=== PATIENT | female | born 1955 | race Caucasian/White ===

== ENCOUNTER 2017-10-21 10:31 | Emergency (ER) | payer OTHER ==
[~2017-10-21] VITALS: Ht 170.2 cm; Wt 77.1 kg
[~2017-10-21 10:31] MED LIST: ACET325UDC PO; CVS DISPOSABLE399 ML PR; GLYCAS PR; HEMOTC PR; JEVITY PT; LEVSOD125 PO; LORA2 PO; Milk Of Ma400 MG/5 M PO; POLY17UD PO; POTA20LUD PO; POTASSIUM PT; REMEDY ANTIFUN; TERB250 PO; TOLN45 TOP; TRAZ50 PO; Triple Antibio1 EACH TP; ZINCODVICR TOP
[2017-10-21] MEDS ORDERED: RISP.5 PO (11:05)
== END 2017-10-21 13:09 | disposition home or self-care (01) ==
LOC: ER 10:31
DX: K94.23 Gastrostomy malfunction (principal); E03.9 Hypothyroidism, unspecified; D64.9 Anemia, unspecified
CPT/HCPCS: 43760; 74018; 99283; Q9963

== ENCOUNTER 2018-01-10 20:22 | Emergency (ER) | payer OTHER ==
[~2018-01-10] VITALS: Ht 162.6 cm; Wt 104.3 kg
[~2018-01-10 20:22] MED LIST changes: +RISP.5 PO
== END 2018-01-11 01:00 | disposition home or self-care (01) ==
LOC: ER 20:22
DX: K94.23 Gastrostomy malfunction (principal); Z88.8 Allergy status to other drugs, medicaments and biological substances; Z79.899 Other long term (current) drug therapy; E03.9 Hypothyroidism, unspecified; D64.9 Anemia, unspecified
CPT/HCPCS: 99282

== ENCOUNTER 2018-07-07 16:05 | Emergency (ER) | payer OTHER ==
[~2018-07-07] VITALS: Ht 162.6 cm; Wt 89.4 kg
== END 2018-07-07 20:58 | disposition home or self-care (01) ==
LOC: ER 16:05
DX: Z46.59 Encounter for fitting and adjustment of other gastrointestinal appliance and device (principal); E03.9 Hypothyroidism, unspecified
CPT/HCPCS: 43762; 49465; 99283-25; Q9963

== ENCOUNTER 2018-12-14 09:46 | Observation (INO) | payer OTHER ==
[~2018-12-14] VITALS: Ht 152.4 cm; Wt 77.1 kg
[~2018-12-14 09:46] MED LIST changes: -ACET325UDC PO; -CVS DISPOSABLE399 ML PR; -GLYCAS PR; -HEMOTC PR; -LEVSOD125 PO; -LORA2 PO; -Milk Of Ma400 MG/5 M PO; -POLY17UD PO; -POTASSIUM PT; -RISP.5 PO; -TOLN45 TOP; -TRAZ50 PO; -Triple Antibio1 EACH TP; -ZINCODVICR TOP
[2018-12-14] MEDS ORDERED: Synthroid88 MCG PT (14:58)
[2018-12-14] MEDS ORDERED: MIRALAX17 GM PT (14:59)
[2018-12-14] MEDS ORDERED: LORA.5 PT (14:59)
[2018-12-14] MEDS ORDERED: TRAZ100 PT (14:59)
[2018-12-14] MEDS ORDERED: ACET500 PT (15:00)
[2018-12-14] MEDS ORDERED: Milk Of Ma400 MG/5 M PT (15:03)
[2018-12-14] MEDS ORDERED: Potassium20 MEQ/11 PT (15:03)
[2018-12-14] MEDS ORDERED: CVS DISPOSABLE399 ML PR (15:04)
[2018-12-14] MEDS ORDERED: Adult Glycerin1 EACH PR (15:04)
[2018-12-14] MEDS ORDERED: SKIN PROTECTAN113 GM TOP (15:07)
[2018-12-14] MEDS ORDERED: Triple Antibio1 EACH TOP (15:08)
[2018-12-14] MEDS ORDERED: Preparation H C26 GM TOP (15:09)
[2018-12-14] MEDS ORDERED: RISP.5 PT (15:10)
[2018-12-14] MEDS ORDERED: RISP1 PT (15:11)
[2018-12-14] MEDS ORDERED: ATHLETE S FOOT TOP (15:11)
[2018-12-14] MEDS ORDERED: ARTIFICIAL TEA1 EACH BOTHEYES (15:16)
[2018-12-14] MEDS ORDERED: Tussin100 MG/5 M PT (15:18)
--- NOTE | 2018-12-14 16:29 | NUR ---
PT PREOP DONE IN ER PT VERY ADGETATED. TAKEN DIRECTLY FROM ER TO PROCEDURE ROOM AFTER OBTAINING TELEPHONE CONSENT FROM HEALTHCARE REPRESENATIVE. Patient confirms NPO status and agrees with scheduled surgery. History, Chart, Medications and Allergies reviewed before start of procedure.
--- NOTE | 2018-12-14 16:34 | NUR ---
12/14/18 1634 Amina Damon [facility] [place]. SEE ANETHESIA RECORD FOR CARE
--- NOTE | 2018-12-14 17:18 | NUR ---
Discharge instructions reviewed with patient. Patient verbalizes understanding. Copy given to patient to take home. Patient States Post-Procedure ride home has been arranged. Discharged via wheelchair to private car for ride home. PROVIDED BODY DIE MAKER WITH DISCHARGE ORDERS AND DR ORDERS PER REQUEST.
== END 2018-12-14 17:18 | disposition home or self-care (01) ==
LOC: ER 09:46 → SURS 09:47
PROVIDERS: ADMIT Surgery
PROC: 0DH63UZ Insertion of Feeding Device into Stomach, Percutaneous Approach (ICD-10-PCS; principal; 2018-12-14 15:45)
DX: T85.528A Displacement of other gastrointestinal prosthetic devices, implants and grafts, initial encounter (principal); E03.9 Hypothyroidism, unspecified; D64.9 Anemia, unspecified; Z88.8 Allergy status to other drugs, medicaments and biological substances
CPT/HCPCS: 36415; 43762; 99284-25; C1769; J0690; J2250; J2704; J7120

== ENCOUNTER 2019-02-03 19:16 | Emergency (ER) | payer OTHER ==
[~2019-02-03] VITALS: Ht 154.9 cm; Wt 79.4 kg
[~2019-02-03 19:16] MED LIST changes: +ACET500 PT; +ARTIFICIAL TEA1 EACH BOTHEYES; +ATHLETE S FOOT TOP; +Adult Glycerin1 EACH PR; +CVS DISPOSABLE399 ML PR; +LORA.5 PT; +MIRALAX17 GM PT; +Milk Of Ma400 MG/5 M PT; +Potassium20 MEQ/11 PT; +Preparation H C26 GM TOP; +RISP.5 PT; +RISP1 PT; +SKIN PROTECTAN113 GM TOP; +Synthroid88 MCG PT; +TRAZ100 PT; +Triple Antibio1 EACH TOP; +Tussin100 MG/5 M PT
[2019-02-04] MEDS ORDERED: Aspirin EC81 MG PO (16:39)
== END 2019-02-04 00:15 | disposition home or self-care (01) ==
LOC: ER 19:16
DX: Z46.59 Encounter for fitting and adjustment of other gastrointestinal appliance and device (principal); Z88.8 Allergy status to other drugs, medicaments and biological substances; Z79.899 Other long term (current) drug therapy; Z79.82 Long term (current) use of aspirin; E03.9 Hypothyroidism, unspecified; D64.9 Anemia, unspecified
CPT/HCPCS: 43762; 49465; 74018; 99283-25; Q9963

== ENCOUNTER 2019-02-04 13:06 | Emergency (ER) | payer OTHER ==
[~2019-02-04] VITALS: Ht 157.5 cm; Wt 94.3 kg
[2019-02-04 14:18] LABS: BASOPHILS ABSOLUTE AUTO 0.02 K/mm3 (0.00-0.23); BASOPHILS PERCENT AUTO 0 % (0-2); EOSINOPHILS ABSOLUTE AUTO 0.02 K/mm3 (0.00-0.68); EOSINOPHILS PERCENT AUTO 0 % (0-6); Hemoglobin 12.6 g/dL (11.5-16.0); IMMATURE GRAN ABSOLUTE AUTO 0.01 K/mm3 (0.00-0.10); IMMATURE GRAN PERCENT AUTO 0 % (0-1); LYMPHOCYTES PERCENT AUTO 23 % (21-46); MONOCYTES ABSOLUTE AUTO 1.06 K/mm3 (0.16-1.47); MONOCYTES PERCENT AUTO 17 % (4-13); Mean Corpuscular HGB 34.1 pg (26.0-34.0); Mean Corpuscular HGB Conc 32.3 g/dL (31.5-36.5); Mean Corpuscular Volume 105 fL (80-100); Mean Platelet Volume 10.3 fL (9.1-12.4); NEUTROPHILS ABSOLUTE AUTO 3.61 K/mm3 (1.96-9.15); NEUTROPHILS PERCENT AUTO 59 % (41-73); Platelet Count 198 K/mm3 (150-400); RDW Coefficient Variation 13.7 % (11.7-14.2); RDW Standard Deviation 54.1 fL (35.1-46.3); White Blood Cell Count 6.12 K/mm3 (4.00-11.30)
[2019-02-04 14:28] LABS: Alanine Aminotransfer (ALT/SGP 48 U/L (12-78); Albumin, Blood 3.3 g/dL (3.4-5.0); Albumin/Globulin Ratio 0.7 (0.8-1.8); Alk Phos 118 U/L (50-136); Anion Gap 4 mmol/L (6-16); Aspartate Aminotrans (AST/SGOT 66 U/L (12-37); Bilirubin, Total 0.5 mg/dL (0.1-1.0); Blood Urea Nitrogen 19 mg/dL (8-24); Bun/Creatinine Ratio 33.6 (12.0-20.0); CO2, Blood 27 mmol/L (21-32); Calcium, Blood 9.6 mg/dL (8.5-10.1); Chloride, Blood 105 mmol/L (98-108); Creatinine, Blood 0.57 mg/dL (0.40-1.00); Globulin, Blood 4.6 g/dL (2.2-4.0); Glomerular Filtration Rate >60 (60-); Glucose, Blood 59 mg/dL (70-99); Potassium, Blood 4.5 mmol/L (3.5-5.5); Sodium, Blood 136 mmol/L (136-145); Total Protein, Blood 7.9 g/dL (6.4-8.2)
[2019-02-04] MEDS ORDERED: Aspirin EC81 MG PO (16:39)
== END 2019-02-04 16:53 | disposition home or self-care (01) ==
LOC: ER 13:06
PROVIDERS: Physician Assistant
DX: G45.9 Transient cerebral ischemic attack, unspecified (principal); R53.2 Functional quadriplegia; G31.84 Mild cognitive impairment of uncertain or unknown etiology; Z88.8 Allergy status to other drugs, medicaments and biological substances; Z79.899 Other long term (current) drug therapy; E03.9 Hypothyroidism, unspecified; D64.9 Anemia, unspecified
CPT/HCPCS: 36415; 70450; 80053; 85025; 99284-25

== ENCOUNTER 2019-03-15 08:47 | Inpatient (IN) | payer OTHER ==
[~2019-03-15] VITALS: Ht 152.4 cm; Wt 99.0 kg
[~2019-03-15 08:47] MED LIST changes: +Aspirin EC81 MG PO
--- NOTE | 2019-03-15 10:02 | NUR ---
03/15/19 1002 Renata Greene 0955- STAT LAB SENT FOR POTASSIUM LEVEL PER DR GAINES'S ORDER
[2019-03-15 10:28] LABS: Anion Gap 6 mmol/L (6-16); Blood Urea Nitrogen 14 mg/dL (8-24); Bun/Creatinine Ratio 36.6 (12.0-20.0); CO2, Blood 28 mmol/L (21-32); Calcium, Blood 8.4 mg/dL (8.5-10.1); Chloride, Blood 107 mmol/L (98-108); Creatinine, Blood 0.38 mg/dL (0.40-1.00); Glomerular Filtration Rate >60 (60-); Glucose, Blood 63 mg/dL (70-99); Potassium, Blood 4.9 mmol/L (3.5-5.5); Sodium, Blood 141 mmol/L (136-145)
--- NOTE | 2019-03-15 14:45 | NUR ---
03/15/19 1445 Christina Willson PT HAS BEEN MAINTAINED ON O2 SINCE ARRIVAL TO SDU. FIRST NRB MASK, THEN CONVERTED AT 1400 TO NC AT 4LPM. TRIED TO WEAN OFF NASAL CANNULA AND SATS DROP TO 88% OVER SEVERAL MINUTES. PT HAS TROUBLE FOLLOWING COMMANDS AND DOESNT TAKE DEEP BREATHES WHEN ASKED TO. WILL CONTINUE TO MONITOR
[2019-03-15] MEDS ORDERED: ESCI10 PT ×2 (17:32)
[2019-03-15] MEDS ORDERED: Aspir 8181 MG PT ×2 (17:33)
[2019-03-15] MEDS ORDERED: Pepto-Bismol262 MG PT ×2 (17:36)
--- NOTE | 2019-03-15 18:29 | NUR ---
NEW ADMIT FROM SURG CENTER. O2 SATS DROP AFTER SURG TODAY REASON FOR ADMIT. BIOX >90% @ THIS TIME ON 2L. NO SOB @ REST. SHE IS [facility] RESIDENT w HX DEVELOPMENTAL DELAY/AUTISM. CHILDLIKE AFFECT, CAREGIVER WILL BE w HER 24HR/DAY. G-TUBE, NPO, TUBE FEED ORDERS PLACED. ADAPTOR BROUGHT IN BY [facility] STAFF. BP RUNS LOW, CAREGIVERS STATE THIS IS BASELINE FOR HER, AWARE, WILL MX.
[2019-03-15 22:34] LABS: BASOPHILS ABSOLUTE AUTO 0.02 K/mm3 (0.00-0.23); BASOPHILS PERCENT AUTO 0 % (0-2); EOSINOPHILS PERCENT AUTO 0 % (0-6); Hematocrit 34.5 % (33.0-51.0); Hemoglobin 11.1 g/dL (11.5-16.0); IMMATURE GRAN ABSOLUTE AUTO 0.07 K/mm3 (0.00-0.10); IMMATURE GRAN PERCENT AUTO 1 % (0-1); LYMPHOCYTES ABSOLUTE AUTO 0.24 K/mm3 (0.84-5.20); LYMPHOCYTES PERCENT AUTO 2 % (21-46); MONOCYTES ABSOLUTE AUTO 0.13 K/mm3 (0.16-1.47); MONOCYTES PERCENT AUTO 1 % (4-13); Mean Corpuscular HGB 34.9 pg (26.0-34.0); Mean Corpuscular HGB Conc 32.2 g/dL (31.5-36.5); Mean Corpuscular Volume 109 fL (80-100); Mean Platelet Volume 10.4 fL (9.1-12.4); NEUTROPHILS ABSOLUTE AUTO 11.74 K/mm3 (1.96-9.15); NEUTROPHILS PERCENT AUTO 96 % (41-73); Platelet Count 105 K/mm3 (150-400); RDW Coefficient Variation 14.2 % (11.7-14.2); RDW Standard Deviation 56.2 fL (35.1-46.3); Red Blood Cell Count 3.18 M/mm3 (3.80-5.20)
--- NOTE | 2019-03-16 01:25 | NUR ---
PT BP'S WERE NOTED TO BE LOW AT BEGINNING OF SHIFT. PT VS WERE OBTAINED Q 1HR. PT BP CONTINUED TO BE LOWER AND PROVIDER WAS CALLED. MARC ORDERED A BOLUS OF NS. PT BP WAS NOT IMPROVING. A CRITICAL LAB WAS REPORTED, LATIC ACID OF 2.9. MARC ARRIVED TO PT ROOM AND ASSESSED PT. IMAGING OBTAINED CHEST XRAY. DECISION TO TRANSFER TO ICU 8 WAS MADE BY MARC. REPORT TO [facility] WAS MADE AND PT WAS TRANSFERED TO ICU 8.
[2019-03-16 01:47] LABS: Source, Urine Catheter
[2019-03-16 01:51] LABS: Appearance, Urine Hazy (Clear); Bilirubin, Urine Neg (Neg); Blood, Urine 3+ (Neg); Color, Urine Yellow (P-Yellow); Glucose Qualitative, Urine Neg (Neg); Ketones, Urine Neg (Neg); Leukocyte Esterase, Urine 3+ (Neg); Nitrite, Urine Neg (Neg); Protein, Urine 1+ (Neg); Specific Gravity, Urine 1.015 (1.003-1.022); Urobilinogen, Urine NORM (Normal)
[2019-03-16 01:56] LABS: Bacteria Many /hpf; Red Blood Cells, Urine 0-2 /hpf (0-2); Squamous Epithelial Cells Not Seen /hpf (Few); White Blood Cells, Urine TNTC /hpf (0-5)
[2019-03-16 02:14] LABS: PCO2 Arterial 69.8 mmHg (35-45); PO2 Arterial 81.5 mmHg (80-100)
[2019-03-16 02:58] LABS: BASOPHILS ABSOLUTE AUTO 0.02 K/mm3 (0.00-0.23); BASOPHILS PERCENT AUTO 0 % (0-2); EOSINOPHILS PERCENT AUTO 0 % (0-6); Hematocrit 37.5 % (33.0-51.0); Hemoglobin 12.1 g/dL (11.5-16.0); IMMATURE GRAN ABSOLUTE AUTO 0.03 K/mm3 (0.00-0.10); IMMATURE GRAN PERCENT AUTO 0 % (0-1); LYMPHOCYTES ABSOLUTE AUTO 0.32 K/mm3 (0.84-5.20); LYMPHOCYTES PERCENT AUTO 3 % (21-46); MONOCYTES ABSOLUTE AUTO 0.43 K/mm3 (0.16-1.47); MONOCYTES PERCENT AUTO 4 % (4-13); Mean Corpuscular HGB 34.8 pg (26.0-34.0); Mean Corpuscular HGB Conc 32.3 g/dL (31.5-36.5); Mean Corpuscular Volume 108 fL (80-100); Mean Platelet Volume 10.4 fL (9.1-12.4); NEUTROPHILS ABSOLUTE AUTO 11.03 K/mm3 (1.96-9.15); NEUTROPHILS PERCENT AUTO 93 % (41-73); Platelet Count 120 K/mm3 (150-400); RDW Coefficient Variation 14.2 % (11.7-14.2); RDW Standard Deviation 56.4 fL (35.1-46.3); Red Blood Cell Count 3.48 M/mm3 (3.80-5.20); White Blood Cell Count 11.83 K/mm3 (4.00-11.30)
[2019-03-16 04:11] LABS: PO2 Arterial 67.4 mmHg (80-100)
[2019-03-16 04:14] LABS: PCO2 Arterial 71 mmHg (35-45)
[2019-03-16 04:46] LABS: Anion Gap 5 mmol/L (6-16); Blood Urea Nitrogen 16 mg/dL (8-24); Bun/Creatinine Ratio 36.1 (12.0-20.0); CO2, Blood 28 mmol/L (21-32); Calcium, Blood 8.3 mg/dL (8.5-10.1); Chloride, Blood 111 mmol/L (98-108); Creatinine, Blood 0.44 mg/dL (0.40-1.00); Glomerular Filtration Rate >60 (60-); Glucose, Blood 193 mg/dL (70-99); Potassium, Blood 3.6 mmol/L (3.5-5.5); Sodium, Blood 144 mmol/L (136-145)
--- NOTE | 2019-03-16 05:28 | NUR ---
DOCTOR DAVONTE NOTIFIED OF REPEAT ABG AND NEED FOR LEVOPHED. ED CALLED AND DOCTOR PAL ARRIVED, PATIENT MEDICATED WITH ROCURONIUM 100 MG AT 0456 ETOMIDATE 10 MG AT O454 AND ANOTHER 10 MG AT 0455. VERSED 4 MG AT 0457. INTUBATED WITH 7.0 TUBE SET AT 24 AT THE TEETH AT 0456. LEVOPHED INCREASED TO 15 MCG. AFTER INTUBATION HR INCREASED TO 153 DOPAMINE OFF AT 0458 LEVOPHED REMAINING AT 15 MCG.
--- NOTE | 2019-03-16 07:22 | NUR ---
SUMMARY PATIENT INTUBATED AND SEDATED. VENT SET AT AC 20, TV 350, PEEP 5, FIO2 45% LUNG SOUNDS COARSE T/O SUCTIONING BLOODY SPUTUM. SLIGHT BLOODY ORAL SECRETIONS. BEAR HUGGER NOW OFF DUE TO PATIENTS TEMP NOW 98.6 VIA JEREZ TEMP PROBE. PEG TUBE TO MID ABD INTACT WITH TUBE FEEDING OFF DURING CENTRAL LINE PLACEMENT AND INTUBATION, NOW RUNNING AT 110CC/HR. DOPAMINE NOW OFF AND LEVOPHED AT 15 MCG. PROPOFOL TITRATED UP DUE TO PATIENT PULLING ON RESTRAINS AND COUGHING AND SHACKING HEAD BACK AND FORTH. SEE ICU FLOW SHEET FOR TITRATIONS. JEREZ DRAINING YELLOW WITH WHITE SEDIMENT URINE. CARE GIVERS FROM [facility] AT BEDSIDE. THEY VERBALIZED THAT SENIOR COMMUNICATIONS SPECIALIST COORDINATOR IS AWARE OF CHANGES AND THAT FAMILY HAS BEEN SENT A TEXT.
--- NOTE | 2019-03-16 10:20 | NUR ---
CARE ASSUMED CARE AND REPORT ASSUMED FROM ALFREDO VALDES. PT INTUBATED WITH PROPOFOL GTT INFUSING. PT AWAKE AND TRACKING AROUND ROOM AND PULLING AGAINST RESTRAINTS. PROPOFOL INCREASED AND PRECEDEX GTT STARTED. LUNG SOUNDS COARSE THROUGHOUT. VENT AC 20, TV 350, PEEP 5, FIO2 45%. BUE RESTRAINED. CAREGIVER AT BEDSIDE AND UPDATED. NSR, HR 80-90S. LEVOPHED GTT AT 15 MCG. WILL CONTINUE TO MONITOR.
--- NOTE | 2019-03-16 12:51 | NUR ---
REASSESSMENT PT REMAINS INTUBATED AND SEDATED. NO CHANGE IN VENT SETTINGS. PROPOFOL GTT INFUSING AT 30 MCG AND PRECEDEX INFUSING AT 0.3 MCG. LR INFUSING AT 100 ML/HR PER ORDER. CAREGIVER AT BEDSIDE. CONTINUES TO HAVE BLOOD STREAK ORAL SPUTUM AND BLOOD STREAKED, STRINGY SPUTUM FROM ETT. BUE REMAIN RESTRAINED. WILL CONTINUE TO MONITOR.
--- NOTE | 2019-03-16 16:36 | NUR ---
REASSESSMENT PT REMAINS INTUBATED AND SEDATED. VENT AC 20, 350, PEEP 5, FIO2 35%. PROPOFOL GTT INFUSING AT 30 MCG. LEVOPHED GTT AT 10 MCG. NSR, HR 60-70S. CAREGIVER AT BEDSIDE. LUNG SOUNDS REMAIN COARSE THROUGHOUT. PT HAVING BLEEDING FROM GUMS WHERE TEETH WERE REMOVED; PACKED WITH GUAZE TO CONTROL BLEEDING. BUE RESTRAINED. TOLERATING TF AT GOAL RATE THROUGH PEG TUBE. WILL CONTINUE TO MONITOR.
--- NOTE | 2019-03-16 18:16 | NUR ---
SHIFT SUMMARY PT REMAINED INTUBATED AND SEDATED ENTIRE SHIFT. PRECEDEX GTT STARTED THIS AFTERNOON TO AID WITH SEDATION. LEVOPHED DOWN TO 10 MCG. PT TURNED Q2H AND HOB ELEVATED. CAREGIVERS AT BEDSIDE ENTIRE SHIFT. CONTINUOUS TF STARTED AT 25 ML/HR PER ORDER. BUE RESTRAINED. CENTRAL LINE DRESSING CHANGED. /2 NORCO TAB GIVEN TO PT FOR PAIN AND TEMP CONTROL. WILL GIVE BEDSIDE, HANDOFF REPORT TO DEBORAH RN.
--- NOTE | 2019-03-16 19:30 | NUR ---
PATIENT INTUBATED AND SEDATED WITH PROPOFOL AND PRECEDEX. PATIENT OPENING EYES WITH STIMULI. VENT SET AT AC 20, TV 350, PEEP 5, FIO2 25%. SUCTIONING BLOOD TINGED SPUTUM VIA ET TUBE AND DARK BLOOD ORAL SECRETIONS. WITH ORAL CARE RUBBING ICE COLD TOOTHETTE ON GUMS TO HELP WITH SWELLING AND BLEEDING. LEVOPHED TITRATING FOR HYPOTENSION. TUBE FEEDING AT GOAL OF 25CC/HR TO PEG TUBE. BILAT WRIST RESTRAINTS CONTINUE TO PREVENT ACCIDENTAL EXTUBATION AND PULLING ON LINES AND TUBES DUE TO UNPREDICTABLE SEDATION AND BEHAVIOR. CAREGIVER FROM [facility] IN ROOM, PROVIDING SUPPORT.
[2019-03-17 04:02] LABS: BASOPHILS ABSOLUTE AUTO 0.02 K/mm3 (0.00-0.23); BASOPHILS PERCENT AUTO 0 % (0-2); EOSINOPHILS ABSOLUTE AUTO 0.02 K/mm3 (0.00-0.68); EOSINOPHILS PERCENT AUTO 0 % (0-6); Hematocrit 31.3 % (33.0-51.0); Hemoglobin 10.4 g/dL (11.5-16.0); IMMATURE GRAN ABSOLUTE AUTO 0.07 K/mm3 (0.00-0.10); IMMATURE GRAN PERCENT AUTO 1 % (0-1); LYMPHOCYTES ABSOLUTE AUTO 1.97 K/mm3 (0.84-5.20); LYMPHOCYTES PERCENT AUTO 17 % (21-46); MONOCYTES ABSOLUTE AUTO 1.29 K/mm3 (0.16-1.47); MONOCYTES PERCENT AUTO 11 % (4-13); Mean Corpuscular HGB Conc 33.2 g/dL (31.5-36.5); Mean Platelet Volume 10.4 fL (9.1-12.4); NEUTROPHILS ABSOLUTE AUTO 8.42 K/mm3 (1.96-9.15); NEUTROPHILS PERCENT AUTO 71 % (41-73); Platelet Count 141 K/mm3 (150-400); RDW Coefficient Variation 14.6 % (11.7-14.2); RDW Standard Deviation 56.4 fL (35.1-46.3); Red Blood Cell Count 2.97 M/mm3 (3.80-5.20); White Blood Cell Count 11.79 K/mm3 (4.00-11.30)
[2019-03-17 04:06] LABS: Mean Corpuscular Volume 105 fL (80-100)
[2019-03-17 04:29] LABS: Anion Gap 5 mmol/L (6-16); Blood Urea Nitrogen 13 mg/dL (8-24); Bun/Creatinine Ratio 23.8 (12.0-20.0); CO2, Blood 28 mmol/L (21-32); Calcium, Blood 8.1 mg/dL (8.5-10.1); Chloride, Blood 112 mmol/L (98-108); Creatinine, Blood 0.55 mg/dL (0.40-1.00); Glomerular Filtration Rate >60 (60-); Glucose, Blood 97 mg/dL (70-99); Magnesium, Blood 1.7 mg/dL (1.6-2.4); Phosphorus, Blood 1.3 mg/dL (2.5-4.9); Potassium, Blood 3.4 mmol/L (3.5-5.5); Sodium, Blood 145 mmol/L (136-145)
--- NOTE | 2019-03-17 05:15 | NUR ---
PROPOFOL TITRATING DOWN AND NOW OFF FOR WEAN. SEE RT CHARTING. PATIENT OPENING EYES SLIGHTLY WITH STIMULI
[2019-03-17 05:41] LABS: PCO2 Arterial 35.9 mmHg (35-45); PO2 Arterial 65.1 mmHg (80-100); pH Blood Arterial 7.52 (7.35-7.45)
--- NOTE | 2019-03-17 05:41 | NUR ---
PATIENT BACK ON AC MODE, NOT AWAKE ENOUGH FOR WEAN. PROPOFOL REMAINS OFF AT THIS TIME.
--- NOTE | 2019-03-17 05:52 | NUR ---
DOCTOR JAYCEE NOTIFIED OF AM ABG AND ELECTROLYTES. SEE NEW ORDERS
--- NOTE | 2019-03-17 08:20 | NUR ---
DR. CHAMPION AT BEDSIDE. PRECEDEX ON STAND BY PER PROVIDER. PLAN IS TO POSSIBLY EXTUBATE PATIENT LATER TODAY. ASKED THAT ATIVAN BE HELD TO SEE HOW SHE WAKES UP.
--- NOTE | 2019-03-17 10:15 | NUR ---
DR. CHAMPION AND DESTINY RT AT BEDSIDE. CHANGED VENT SETTINGS TO SPONT WITH PS OF 15. O2 SAT 95%. PATIENT AWAKE AND ALERT, WELL TOLERATED.
--- NOTE | 2019-03-17 11:20 | NUR ---
K PHOS INFUSION COMPLETED. WILL WAIT 30 MINUTES BEFORE DRAWING PHOS LEVEL.
--- NOTE | 2019-03-17 12:00 | NUR ---
VENT SETTINGS: SPONT/ TV 350/ 24/ 40% FIO2/PEEP 5. PATIENT PULLING TV 350-400, RR 22-26, TOLERATING WELL THUS FAR. SUCTIONING VIA ETT PRN WITH MODERATE AMT BLOOD TINGED CLEAR SECRETIONS. CG TRACE AT BEDSIDE.
--- NOTE | 2019-03-17 15:15 | NUR ---
PT TV DROPPED TO 200'S, RR 32-35, APPEARS TO BE FATIGUED. VENT PLACED BACK ON A/C BY Angel RINCON RN AND DESTINY CARRENO, WITH 30% FIO2. PRECEDEX STARTED AT 0.3 MCG/KG/HR.
--- NOTE | 2019-03-17 15:37 | NUR ---
DR. CHAMPION AT BEDSIDE, VIEWED VENT SETTINGS, DETERMINED THAT PT MAY NOT BE ABLE TO BE EXTUBATED TODAY, WILL LIKELY TRY AGAIN TOMORROW. THIS AUTHOR REPORTED HOLDING 1400 ATIVAN DOSE AND 1000 NEUTRA PHOS B/C PHOS RESULT WAS 3.2; PROVIDER VERBALIZED UNDERSTANDING.
--- NOTE | 2019-03-17 19:19 | NUR ---
SHIFT SUMMARY: PT SEDATED ON PRECEDEX, VENT ON A/C, 12, TV 350, 30% FIO2. PEEP 5; TOLERATING WELL. NO BM TODAY; PER CG MORELIA, PT USUALLY HAS BM DAILY AND HAS BOWEL PROGRAM AT HOME. JEREZ DRAINING ADEQUATE URINE. TF @ 35 ML/HR. CARDIAC RHYTHM SB-SR, NO ECTOPY. RESISTING/REFUSING ORAL CARE D/T RECENT DENTAL EXTRACTIONS. TREATED PAIN WITH FENTANYL, WHICH SLIGHTLY INCREASED SEDATION, BUT APPEARED TO GIVE ADEQUATE RELIEF. CG FROM [facility] AT BEDSIDE DURING THIS SHIFT.
--- NOTE | 2019-03-17 20:37 | NUR ---
ASSUMPTION OF CARE ASSUMED CARE OF PT AT 1900, PT INTUBATED AND SEDATED, VENT SET TO AC 12/350/5/30%, O2 SATURATIONS MAINTAINED ABOVE 90%, LUNG SOUNDS CLEAR AND DIMINISHED IN THE BASES. PT OPENS EYES TO VERBAL STIMULI, DOES NOT FOLLOW DIRECTIONS OR ANSWER YES/NO QUESTIONS, PER REPORT PT HAS DIFFICULTY FOLLOWING DIRECTIONS AT BASELINE. MONITOR SHOWS SINUS ALEX, HEART SOUNDS DISTANT. CENTRAL LINE TO LIJ INFUSING, LR @ 75/hr, LEVO @ 2 AND PRECEDEX @ 0.3, BP 110-120 SYSTOLIC WITH MAPS IN THE 80'S. PEG INFUSING TF, JEREZ IN PLACE AND DRAINING CLEAR YELLOW URINE. CONTRACTURES NOTED TO LOWER EXTREMITIES AND L HAND.
--- NOTE | 2019-03-18 01:58 | NUR ---
HEART RATE WHILE IN PTS ROOM, HR DECREASED TO 38- LOW 40'S, TEMP 96.0. PRECEDEX DECREASED TO 0.2 AND WARM BLANKET PROVIDED. WILL CONTINUTE TO MONITOR HR AND TITRATE PRECEDEX NEEDED.
--- NOTE | 2019-03-18 04:30 | NUR ---
CALL TO FAMILY ATTEMPTED CALL TO PT'S DAUGHTER, KAREEM, BUT NO ANSWER. MESSAGE LEFT TO CALL ICU. SISTER, RUBÉN, NOTIFIED AT THIS TIME AND UPDATE GIVEN.
--- NOTE | 2019-03-18 04:30 | NUR ---
TRANSFER TO ICU PT ARRIVED TO ICU @ 0320, PT ALERT AND ORIENTED, PT DIAPHORETIC. DR ALCALA TO ROOM, ORDERED TO GIVE FULL 1L BOLUS OF NS. MONITOR SHOWS SINUS RHYTHM WITH RATE 80'S-90'S, MAPS IN THE 50'S. PT MAINTAINING O2 SATURATIONS ABOVE 90% ON 4L PER NC. PT REPORTS DULL CP 08/05. DR RAPHAEL TO ROOM, EXPLAINED ANGIOGRAM PROCEDURE, BP NOT IMPROVING WITH 1L BOLUS, LEVOPHED ORDERED. PT COMPLAINS OF NEED TO URINATE, JEREZ ORDERED AND INSERTED, NO URINE OUTPUT AT THIS TIME. PT TO VP CLINICAL @ 0291.
[2019-03-18 05:11] LABS: BASOPHILS ABSOLUTE AUTO 0.02 K/mm3 (0.00-0.23); BASOPHILS PERCENT AUTO 0 % (0-2); EOSINOPHILS ABSOLUTE AUTO 0.16 K/mm3 (0.00-0.68); EOSINOPHILS PERCENT AUTO 3 % (0-6); Hemoglobin 9.6 g/dL (11.5-16.0); IMMATURE GRAN ABSOLUTE AUTO 0.02 K/mm3 (0.00-0.10); IMMATURE GRAN PERCENT AUTO 0 % (0-1); LYMPHOCYTES ABSOLUTE AUTO 1.81 K/mm3 (0.84-5.20); LYMPHOCYTES PERCENT AUTO 33 % (21-46); MONOCYTES ABSOLUTE AUTO 0.56 K/mm3 (0.16-1.47); MONOCYTES PERCENT AUTO 10 % (4-13); Mean Corpuscular HGB 34.3 pg (26.0-34.0); Mean Corpuscular Volume 107 fL (80-100); Mean Platelet Volume 10.5 fL (9.1-12.4); NEUTROPHILS PERCENT AUTO 53 % (41-73); Platelet Count 106 K/mm3 (150-400); RDW Coefficient Variation 14.6 % (11.7-14.2); RDW Standard Deviation 57.4 fL (35.1-46.3); White Blood Cell Count 5.47 K/mm3 (4.00-11.30)
[2019-03-18 05:31] LABS: Anion Gap 3 mmol/L (6-16); Blood Urea Nitrogen 14 mg/dL (8-24); Bun/Creatinine Ratio 30.4 (12.0-20.0); CO2, Blood 30 mmol/L (21-32); Calcium, Blood 8.1 mg/dL (8.5-10.1); Chloride, Blood 109 mmol/L (98-108); Creatinine, Blood 0.46 mg/dL (0.40-1.00); Glomerular Filtration Rate >60 (60-); Glucose, Blood 88 mg/dL (70-99); Magnesium, Blood 1.7 mg/dL (1.6-2.4); Phosphorus, Blood 2.4 mg/dL (2.5-4.9); Potassium, Blood 3.7 mmol/L (3.5-5.5); Sodium, Blood 142 mmol/L (136-145)
--- NOTE | 2019-03-18 07:00 | NUR ---
SHIFT SUMMARY PT REMAINS INTUBATED AND SEDATED, VENT SET TO PS 15/5 Fi02 40%, O2 MAINTAINED ABOVE 90%, LUNG SOUNDS CLEAR WITH SOME RHONCHI DURING SHIFT, IMPROVED WITH SUCTIONING. PT REMAINS SINUS ALEX T/O SHIFT, BP MAINTAINED WITH LEVO @ 1. TF AT GOAL RATE OF 45ml/hr. JEREZ PRESENT AND DRAINING CLEAR YELLOW URINE. PT MORE AWAKE TOWARDS END OF SHIFT, LOOKS AROUND ROOM, DOES NOT FOLLOW DIRECTIONS.
--- NOTE | 2019-03-18 08:40 | NUR ---
DR. CHAMPION AT BEDSIDE, CHANGED VENT SETTINGS IN PREP FOR POSSIBLE EXTUBATION TODAY.
[2019-03-18 10:56] LABS: PCO2 Arterial 56.6 mmHg (35-45); pH Blood Arterial 7.37 (7.35-7.45)
--- NOTE | 2019-03-18 10:57 | NUR ---
ASSISTED DESTINY RT WITH ABG DRAW. PATIENT TOO AGITATED TO ALLOW FOR DRAW. ATTEMPTS MADE IN L BRACJIAL AND R RADIAL. VBG DRAWN FROM CL OK PER DR. CHAMPION.
[2019-03-18 10:58] LABS: PO2 Arterial 37 mmHg (80-100)
--- NOTE | 2019-03-18 13:55 | NUR ---
EXTUBATED AND RESTRAINTS REMOVED AT 1105. PLACED ON O2 @ 2 L/MIN NC WITH SAT 90%. RAISED O2 TO 3 L/MIN NC WITH SATS >95%. PRODUCTIVE COUGH, SPUTUM NOT OBSERVED. LUNGS WITH SCATTERED RHONCHI. PT ALERT, RECOGNIZES CAREGIVER.
--- NOTE | 2019-03-18 13:59 | NUR ---
LUNGS CLEARING, O2 SAT 96%. TITRATED OXYGEN DOWN TO 2 L/MIN NC, SAT 94%. PATIENT AWAKE AND CONVERSING WITH CG AND STAFF. TENDS TO SLUMP DOWN IN BED, DISLIKES BEING REPOSITIONED. LR AT 75 ML/HR, NO OTHER IVF OR DRIPS. TF INFUSING AT 45 ML/HR, NO RESIDUAL.
--- NOTE | 2019-03-18 14:10 | NUR ---
SPOKE TO DR. CHAMPION IN PERSON TO ADDRESS HYPOMAGNESEMIA. NO REPLACEMENT ORDERED.
--- NOTE | 2019-03-18 17:48 | NUR ---
SHIFT SUMMARY: SUCCESSFULLY EXTUBATED THIS MORNING, NOW ON 1 L/MIN NC, O2 SAT 91-94%. ALERT AND COOPERATIVE, IN A "GOOD MOOD" PER HER CG. KEEPS LEGS CONTRACTED WHILE IN BED, TENDS TO SLIDE DOWN IN BED. SR TO SB WITH PAC'S. LUNGS CTAB, PRODUCTIVE COUGH. NO BM SINCE ADMISSION, HAVE STARTED BOWEL MEDS. JEREZ DRAINING CLEAR, YELLOW URINE. TOLERATING TF, LARGEST RESIDUAL WAS 40 ML. NO C/O PAIN, BUT IS REFUSING ANY AND ALL ATTEMPTS AT ORAL CARE. CG AT BEDSIDE DURING THE DAY. POSSIBLE STATUS CHANGE TOMORROW.
--- NOTE | 2019-03-18 19:35 | NUR ---
ASSESSMENT/ASSUMED CARE PT AWAKE, SITTING UP IN BED VERY TALKATIVE. PT SMILING AND LAUGHING WITH STAFF. LUNGS CLEAR BUT DECREASED IN THE BASES ON 1 LITER O2 VIA NC. RESP EVEN AND NONLABORED. HEART RATE REGULAR. BP STABLE. CENTRAL LINE TO LEFT IJ DRSG INTACT. LR AT 75 ML/HR INFUSING. SITE CLEAR. CONTRACTORS TO LOWER EXT AND LEFT HAND. PT MOVING ARMS AROUND AND DOING ROM WITH STAFF. GROSS MOTOR MOVEMENT. BT+ HYPERACTIVE. PEG BUTTON TO LEFT UPPER QUAD WITH TUBE FEED VITAL HP AT GOAL RATE OF 45 ML/HR, WATER 30 ML Q4HR. RESIDUAL 10 ML REFED. JEREZ CATH PATENT DRAINING YELLOW URINE. PRUNE JUICE GIVEN VIA PEG BUTTON. PT HAVING CONSTIPATION. IV TO RIGHT HAND SALINE LOCKED, FLUSHED WITHOUT DIFFICULTY.
--- NOTE | 2019-03-18 21:33 | NUR ---
PT HAVING EMESIS. MED WITH REGLAN
--- NOTE | 2019-03-18 21:42 | NUR ---
PT HAVING EMESIS, TUBE FEED PLACED ON HOLD. HOB UP 45 DEGREES
--- NOTE | 2019-03-18 22:22 | NUR ---
CENTRAL LINE CENTRAL LINE LEAKING AND DRSG CHANGED. SITE CLEAR. SCHOOL CROSSING GUARD SUPERVISOR FROM [facility] CHANGED
--- NOTE | 2019-03-18 23:57 | NUR ---
REASSESSMENT PT AWAKE, TALKATIVE. INCONT OF LOOSE BROWN STOOL. DANIELA CARE DONE AND LINEN CHANGED. PT REPOSITIONED. RESIDUAL CHECK ZERO. RESTARTED TUBE FEED AT 45 ML/HR. LUNGS CLEAR BUT DECREASED IN THE BASES ON 1 LITER VIA NC. AFEBRILE. PHOTONICS TECHNICIAN FROM [facility] AT BEDSIDE.
[2019-03-19 03:24] LABS: BASOPHILS ABSOLUTE AUTO 0.02 K/mm3 (0.00-0.23); BASOPHILS PERCENT AUTO 0 % (0-2); EOSINOPHILS ABSOLUTE AUTO 0.13 K/mm3 (0.00-0.68); EOSINOPHILS PERCENT AUTO 2 % (0-6); Hematocrit 29.9 % (33.0-51.0); Hemoglobin 9.7 g/dL (11.5-16.0); IMMATURE GRAN ABSOLUTE AUTO 0.02 K/mm3 (0.00-0.10); IMMATURE GRAN PERCENT AUTO 0 % (0-1); LYMPHOCYTES ABSOLUTE AUTO 0.86 K/mm3 (0.84-5.20); LYMPHOCYTES PERCENT AUTO 16 % (21-46); MONOCYTES ABSOLUTE AUTO 0.65 K/mm3 (0.16-1.47); MONOCYTES PERCENT AUTO 12 % (4-13); Mean Corpuscular HGB 34.8 pg (26.0-34.0); Mean Corpuscular HGB Conc 32.4 g/dL (31.5-36.5); Mean Corpuscular Volume 107 fL (80-100); Mean Platelet Volume 10.3 fL (9.1-12.4); NEUTROPHILS ABSOLUTE AUTO 3.75 K/mm3 (1.96-9.15); NEUTROPHILS PERCENT AUTO 69 % (41-73); Platelet Count 117 K/mm3 (150-400); RDW Coefficient Variation 14.4 % (11.7-14.2); RDW Standard Deviation 56.7 fL (35.1-46.3); Red Blood Cell Count 2.79 M/mm3 (3.80-5.20); White Blood Cell Count 5.43 K/mm3 (4.00-11.30)
[2019-03-19 03:39] LABS: Anion Gap 3 mmol/L (6-16); Blood Urea Nitrogen 11 mg/dL (8-24); Bun/Creatinine Ratio 24.4 (12.0-20.0); CO2, Blood 33 mmol/L (21-32); Calcium, Blood 8.3 mg/dL (8.5-10.1); Chloride, Blood 111 mmol/L (98-108); Creatinine, Blood 0.45 mg/dL (0.40-1.00); Glomerular Filtration Rate >60 (60-); Glucose, Blood 96 mg/dL (70-99); Magnesium, Blood 1.7 mg/dL (1.6-2.4); Phosphorus, Blood 3.5 mg/dL (2.5-4.9); Potassium, Blood 3.6 mmol/L (3.5-5.5); Sodium, Blood 147 mmol/L (136-145)
--- NOTE | 2019-03-19 06:10 | NUR ---
SHIFT SUMMARY PT AWAKE ALL NIGHT LONG, YELLING OUT. PT YELLING,"I WANT TO GO BACK TO [place], I FEEL SAFE THERE". PT ALSO YELLING OUT,"I WANT MY MOMMY". GROUNDS CREW SUPERVISOR AT BEDSIDE PLAYING MUSIC AND TRYING TO COMFORT PT. PT TURNED AND REPOSITIONED THROUGHOUT THE NIGHT. PT INCONT OF LOOSE BROWN STOOL DURING THE NIGHT. DANIELA CARE AND LINEN CHANGE DONE. CENTRAL LINE DRSG CHANGED. TUBE FEEDING HELD FOR 2 HOURS DUE TO PT HAVING EMESIS, MED WITH REGLAN. REPORT TO ON COMING NURSE. GROUNDS CREW SUPERVISOR FROM [facility] AT BEDSIDE.
--- NOTE | 2019-03-19 07:20 | NUR ---
ASSUMED CARE REPORT FR0M LUCIO GONZALEZ. PATIENT IS CALLING OUT THAT SHE WANTS TO GO HOME AND WANTS HER MOMMY.
--- NOTE | 2019-03-19 07:23 | NUR ---
CAREGIVER AT BEDSIDE. PATIENT KEEPS SAYING SHE WANTS TO GO TO [place] AND THAT SHE'S NOT A BABY. TV TURNED ON FOR DISTRACTION.
[2019-03-19] MEDS ORDERED: AZIT200SU PT ×2 (09:47)
[2019-03-19] MEDS ORDERED: AMOCLA600S PT ×2 (09:51)
--- NOTE | 2019-03-19 12:41 | NUR ---
DR. MATUTE AND DR. CHAMPION IN. DISCHARGE ORDERS RECEIVED. RX FAXED TO [facility]. WILL DISCONTINUE CENTRAL LINE.
--- NOTE | 2019-03-19 13:27 | NUR ---
CENTRAL LINE REMOVED PER POLICY WHILE LUCIO LEIVA ASSISTED WITH KEEPING HER HEAD DOWN IN TRENDELENBURG POSITION. PRESSURE HELD. PETROLEUM DRESSING PLACED WITH CLEAR OCCLUSIVE DRESSING ON TOP. PIV RIGHT HAND REMOVED WNL. PLACED IN CHAIR USING LIFT. TAKEN OUT BY CAREGIVERS AT 1327.
== END 2019-03-19 13:28 | disposition home or self-care (01) | DRG 871 ==
LOC: ORSCSDS 08:47 → ICUE 16:17 → MEDS 16:17 → ICUE 03-16 00:45
PROVIDERS: Anesthesiology; Dentist Pediatric Dentistry; Internal Medicine Critical Care Medicine; Internal Medicine Pulmonary Disease; Nurse Practitioner Acute Care; ADMIT Family Medicine
PROC: 0CDWXZ1 Extraction of Upper Tooth, Multiple, External Approach (ICD-10-PCS; 2019-03-15)
PROC: 0BH17EZ Insertion of Endotracheal Airway into Trachea, Via Natural or Artificial Opening (ICD-10-PCS; 2019-03-15)
PROC: 5A1945Z Respiratory Ventilation, 24-96 Consecutive Hours (ICD-10-PCS; 2019-03-15)
PROC: 3E043XZ Introduction of Vasopressor into Central Vein, Percutaneous Approach (ICD-10-PCS; 2019-03-15)
PROC: 02HV33Z Insertion of Infusion Device into Superior Vena Cava, Percutaneous Approach (ICD-10-PCS; 2019-03-15)
PROC: 0CDXXZ1 Extraction of Lower Tooth, Multiple, External Approach (ICD-10-PCS; principal; 2019-03-15 10:00)
DX: A41.81 Sepsis due to Enterococcus (principal); J18.9 Pneumonia, unspecified organism; J95.821 Acute postprocedural respiratory failure; R65.21 Severe sepsis with septic shock; N39.0 Urinary tract infection, site not specified; K02.9 Dental caries, unspecified; E03.9 Hypothyroidism, unspecified; F79 Unspecified intellectual disabilities; F50.89 Other specified eating disorder; F22 Delusional disorders; I95.9 Hypotension, unspecified; B96.89 Other specified bacterial agents as the cause of diseases classified elsewhere; K05.30 Chronic periodontitis, unspecified
CPT/HCPCS: 31500; 31720; 36415; 36556; 36600; 51703; 71045; 80048; 81001; 82330; 82803; 82947; 83605; 83735; 84100; 85025; 87040; 87070; 87077; 87086; 87186; 87205; 94002; 94003; 94640; 94660; A9270-GY; C1751; C9113; J0456; J0696; J1100; J1265; J1650; J2250; J2370; J2405; J2704; J2710; J3010; J7030; J7040; J7050; J7060; J7120

== ENCOUNTER 2019-03-20 22:17 | Emergency (ER) | payer OTHER ==
[~2019-03-20] VITALS: Ht 152.4 cm; Wt 56.7 kg
[~2019-03-20 22:17] MED LIST changes: +AMOCLA600S PT; +AZIT200SU PT; +Aspir 8181 MG PT; +ESCI10 PT; +Pepto-Bismol262 MG PT
[2019-03-20 23:22] LABS: BASOPHILS ABSOLUTE AUTO 0.02 K/mm3 (0.00-0.23); BASOPHILS PERCENT AUTO 1 % (0-2); EOSINOPHILS ABSOLUTE AUTO 0.22 K/mm3 (0.00-0.68); EOSINOPHILS PERCENT AUTO 5 % (0-6); Hematocrit 31.1 % (33.0-51.0); IMMATURE GRAN ABSOLUTE AUTO 0.02 K/mm3 (0.00-0.10); IMMATURE GRAN PERCENT AUTO 1 % (0-1); LYMPHOCYTES ABSOLUTE AUTO 0.99 K/mm3 (0.84-5.20); LYMPHOCYTES PERCENT AUTO 23 % (21-46); MONOCYTES ABSOLUTE AUTO 0.61 K/mm3 (0.16-1.47); MONOCYTES PERCENT AUTO 14 % (4-13); Mean Corpuscular HGB Conc 32.2 g/dL (31.5-36.5); Mean Corpuscular Volume 109 fL (80-100); Mean Platelet Volume 10.1 fL (9.1-12.4); NEUTROPHILS ABSOLUTE AUTO 2.48 K/mm3 (1.96-9.15); NEUTROPHILS PERCENT AUTO 57 % (41-73); Platelet Count 154 K/mm3 (150-400); RDW Coefficient Variation 14.3 % (11.7-14.2); RDW Standard Deviation 56.9 fL (35.1-46.3); Red Blood Cell Count 2.86 M/mm3 (3.80-5.20); White Blood Cell Count 4.34 K/mm3 (4.00-11.30)
[2019-03-20 23:43] LABS: Anion Gap 3 mmol/L (6-16); Blood Urea Nitrogen 10 mg/dL (8-24); Bun/Creatinine Ratio 24.4 (12.0-20.0); CO2, Blood 31 mmol/L (21-32); Calcium, Blood 8.7 mg/dL (8.5-10.1); Chloride, Blood 110 mmol/L (98-108); Creatinine, Blood 0.41 mg/dL (0.40-1.00); Glomerular Filtration Rate >60 (60-); Glucose, Blood 96 mg/dL (70-99); Potassium, Blood 3.8 mmol/L (3.5-5.5); Sodium, Blood 144 mmol/L (136-145); Troponin I <0.015 ng/mL (0.000-0.040)
== END 2019-03-21 01:08 | disposition home or self-care (01) ==
LOC: ER 22:17
PROVIDERS: Physician Assistant
DX: J18.9 Pneumonia, unspecified organism (principal); E03.9 Hypothyroidism, unspecified; Z88.8 Allergy status to other drugs, medicaments and biological substances; Z79.899 Other long term (current) drug therapy; Z79.891 Long term (current) use of opiate analgesic; Z79.82 Long term (current) use of aspirin
CPT/HCPCS: 36415; 71046; 80048; 83880; 84484; 85025; 93005; 93010; 99284-25

== ENCOUNTER 2019-06-10 11:55 | Inpatient (IN) | payer OTHER ==
[~2019-06-10] VITALS: Ht 154.9 cm; Wt 891.0 kg
[~2019-06-10 11:55] MED LIST changes: -RISP.5 PT; +RISP1 PO
[2019-06-10 13:42] LABS: BASOPHILS ABSOLUTE AUTO 0.04 K/mm3 (0.00-0.23); BASOPHILS PERCENT AUTO 0 % (0-2); EOSINOPHILS ABSOLUTE AUTO 0.02 K/mm3 (0.00-0.68); EOSINOPHILS PERCENT AUTO 0 % (0-6); Hematocrit 43.4 % (33.0-51.0); Hemoglobin 13.9 g/dL (11.5-16.0); IMMATURE GRAN ABSOLUTE AUTO 0.03 K/mm3 (0.00-0.10); IMMATURE GRAN PERCENT AUTO 0 % (0-1); LYMPHOCYTES ABSOLUTE AUTO 0.48 K/mm3 (0.84-5.20); LYMPHOCYTES PERCENT AUTO 3 % (21-46); MONOCYTES ABSOLUTE AUTO 1.36 K/mm3 (0.16-1.47); MONOCYTES PERCENT AUTO 9 % (4-13); Mean Corpuscular HGB 33.7 pg (26.0-34.0); Mean Corpuscular Volume 105 fL (80-100); Mean Platelet Volume 10.1 fL (9.1-12.4); NEUTROPHILS ABSOLUTE AUTO 12.93 K/mm3 (1.96-9.15); NEUTROPHILS PERCENT AUTO 87 % (41-73); Platelet Count 180 K/mm3 (150-400); RDW Coefficient Variation 13.6 % (11.7-14.2); RDW Standard Deviation 52.8 fL (35.1-46.3); Red Blood Cell Count 4.12 M/mm3 (3.80-5.20); White Blood Cell Count 14.86 K/mm3 (4.00-11.30)
[2019-06-10 14:05] LABS: Alanine Aminotransfer (ALT/SGP 37 U/L (12-78); Albumin, Blood 3.3 g/dL (3.4-5.0); Albumin/Globulin Ratio 0.7 (0.8-1.8); Alk Phos 113 U/L (50-136); Anion Gap 4 mmol/L (6-16); Aspartate Aminotrans (AST/SGOT 28 U/L (12-37); Bilirubin, Total 0.6 mg/dL (0.1-1.0); Blood Urea Nitrogen 23 mg/dL (8-24); Bun/Creatinine Ratio 55.6 (12.0-20.0); CO2, Blood 30 mmol/L (21-32); Calcium, Blood 9.4 mg/dL (8.5-10.1); Chloride, Blood 104 mmol/L (98-108); Creatinine, Blood 0.41 mg/dL (0.40-1.00); Globulin, Blood 4.5 g/dL (2.2-4.0); Glomerular Filtration Rate >60 (60-); Glucose, Blood 82 mg/dL (70-99); Potassium, Blood 4.2 mmol/L (3.5-5.5); Sodium, Blood 138 mmol/L (136-145); Total Protein, Blood 7.8 g/dL (6.4-8.2); Troponin I <0.015 ng/mL (0.000-0.040)
[2019-06-11 05:17] LABS: BASOPHILS ABSOLUTE AUTO 0.04 K/mm3 (0.00-0.23); BASOPHILS PERCENT AUTO 0 % (0-2); EOSINOPHILS ABSOLUTE AUTO 0.01 K/mm3 (0.00-0.68); EOSINOPHILS PERCENT AUTO 0 % (0-6); Hematocrit 33.7 % (33.0-51.0); Hemoglobin 10.7 g/dL (11.5-16.0); IMMATURE GRAN ABSOLUTE AUTO 0.05 K/mm3 (0.00-0.10); IMMATURE GRAN PERCENT AUTO 0 % (0-1); LYMPHOCYTES PERCENT AUTO 8 % (21-46); MONOCYTES ABSOLUTE AUTO 1.24 K/mm3 (0.16-1.47); MONOCYTES PERCENT AUTO 7 % (4-13); Mean Corpuscular HGB 33.6 pg (26.0-34.0); Mean Corpuscular HGB Conc 31.8 g/dL (31.5-36.5); Mean Corpuscular Volume 106 fL (80-100); Mean Platelet Volume 10.1 fL (9.1-12.4); NEUTROPHILS ABSOLUTE AUTO 14.95 K/mm3 (1.96-9.15); NEUTROPHILS PERCENT AUTO 85 % (41-73); Platelet Count 155 K/mm3 (150-400); RDW Coefficient Variation 13.7 % (11.7-14.2); RDW Standard Deviation 54.1 fL (35.1-46.3); Red Blood Cell Count 3.18 M/mm3 (3.80-5.20); White Blood Cell Count 17.69 K/mm3 (4.00-11.30)
[2019-06-11 05:35] LABS: Anion Gap 3 mmol/L (6-16); Blood Urea Nitrogen 20 mg/dL (8-24); Bun/Creatinine Ratio 41.7 (12.0-20.0); CO2, Blood 31 mmol/L (21-32); Calcium, Blood 8.3 mg/dL (8.5-10.1); Chloride, Blood 109 mmol/L (98-108); Creatinine, Blood 0.48 mg/dL (0.40-1.00); Glomerular Filtration Rate >60 (60-); Glucose, Blood 86 mg/dL (70-99); Sodium, Blood 143 mmol/L (136-145)
--- NOTE | 2019-06-11 06:12 | NUR ---
SHIFT SUMMARY PT RESTING IN ROOM COMFORTABLY AT THIS TIME W/ CAREGIVER AT BEDSIDE. PT HAS HAD NO ACUTE CHANGES IN STATUS SINCE ARRIVAL. PT PLEASENT AFFECT, AND RESPONDING W/ SHORT 1-2 WORD ANSWERS WHICH IS BASELINE PER CAREGIVER. CONTRACTURES NOTED TO L HAND AND BLE. PILLOWS PLACED UNDER HIP AND KNEES TO PREVENT SKIN BREAKDOWN. BUTTON G TUBE NOTED TO L ABDOMEN. DIETARY CONSULT PLACED FOR TUBE FEEDINGS TODAY. PT HOB TOP REMAIN AT 40 DEGREE OR HIGHER PER CAREGIVER. PT TOLERATING WELL. ATTENDS IN PLACE D/T INCONTINENCE. NS INFUING IN PIV AT 200ML/HR. PER CAREGIVER PT HAS PSYCH BACKROUND AND CAN GET VERY ANGRY QUICKLY, PT HAS HAD EPISODES OF SCREAMIG AND VIOLENCE TOWARD STAFF. CAREGIVER WILL REMAIN AT PT BEDSIDE T/O STAY AND HAS BEEN EDUCATED TO USE STAFF ASSIST BUTTON IF PT BECOMES UPSET AND VIOLENT. CALL LIGHT IS IN REACH. WILL GIVE BEDSIDE REPORT TO ONCOMING RN.
--- NOTE | 2019-06-11 11:05 | NUR ---
Assumed care Pt sitting in bedm caregivers at bedside. Pt alert, oriented to self. minimally responsive verbally to questions. per caregivers, pt is at baseline neurologically. Breathing is even and unlabored on 1L NC. Coarse to upper lobes, diminished throughout. IV infusing NS at 200mls. Overall, pt in no apparent sign of distress. Update given with pt permission to caregivers. MD at bedside and updating pt on plan of care. Dietary in to evaluate pt, plans for tube feeding to begin. orders recieved. See shift assessment for detailed systems assessment. Will continue to aminata.
--- NOTE | 2019-06-11 12:15 | NUR ---
PT to be transferred to room 354. Caregivers and pt updated.
--- NOTE | 2019-06-11 13:15 | NUR ---
PT TRANSFERRED TO ROOM 354 FROM PCU, ACCOMPANIED BY ROLL WINDER FROM [facility] FOR THE HANDICAPPED. CONTINUOUS TUBE FEEDING INFUSING VIA G-TUBE. PT ORIENTED TO ROOM. CALL MENDES IN REACH, WILL CONTINUE TO MONITOR.
--- NOTE | 2019-06-11 13:27 | NUR ---
Pt transfer to [facility] 354 with all pt belongings with pt. Pt caregiver alongside pt for transfer. Feedings held during transfer. 1300 medication not given prior to transfer, RN assuming care made aware. Pt to recieve 1300 dose on med floor.
--- NOTE | 2019-06-11 18:16 | NUR ---
PT SETTLED IN WELL THIS AFTERNOON, CAREGIVERS ARE AT BEDSIDE CONTINUOUSLY. PT DENIES PAIN, N/V OR OTHER DISCOMFORT. TOLERATING TUBE FEEDING WELL, WILL CONTINUE TO MONITOR AND REPORT TO ONCOMING RN
[2019-06-12 04:42] LABS: Anion Gap 3 mmol/L (6-16); Blood Urea Nitrogen 16 mg/dL (8-24); Bun/Creatinine Ratio 31.5 (12.0-20.0); CO2, Blood 32 mmol/L (21-32); Calcium, Blood 8.5 mg/dL (8.5-10.1); Chloride, Blood 109 mmol/L (98-108); Creatinine, Blood 0.51 mg/dL (0.40-1.00); Glomerular Filtration Rate >60 (60-); Glucose, Blood 104 mg/dL (70-99); Magnesium, Blood 1.8 mg/dL (1.6-2.4); Potassium, Blood 3.9 mmol/L (3.5-5.5); Sodium, Blood 144 mmol/L (136-145)
--- NOTE | 2019-06-12 05:24 | NUR ---
SHIFT SUMMARY: VSS. AFEB. A/O X1. PT YELLING AND SCREAMING MUCH OF THE NIGHT. SHE HAS NOT SLEPT AT ALL. EMOTIONALLY LABILE, OCC. LAUGHING INAPPROPRIATELY AND THEN CRYING. SHE HIT HER SIDE RAIL WITH HER FOREARM AT LEAST ONCE. PER CAREGIVER, THIS IS ALL NORMAL BEHAVIOR FOR PT, HE STATES THAT SHE WILL SLEEP HEAVILY ONE NIGHT FOLLOWED BY SEVERAL NIGHTS OF REMAINING WIDE AWAKE AND YELLING. PT DENIES PAIN. NO COUGHING. 02 SAT 93% ON RA. NO SOB OBSERVED. JEVITY CONT INF VIA PEG, PT FIFI WELL. BED LOW, BED ALARM ON, UMPQUA CAREGIVER AT BEDSIDE, WILL CONT TO MONITOR.
--- NOTE | 2019-06-12 15:57 | NUR ---
SHIFT SUMMARY PT IS ALERT AND ORIENTED TO HERSELF. PER PT HX AND CAREGIVERS AT BEDSIDE SHE IS DEVELOPMENTALLY DELAYED AND RESIDES AT [facility] FOR THE HANDICAP. PT HAS BEEN YELLING OUT AND PINCHING AND HITTING AT TIMES DURING CARE. PT PULLED OUT HER IV THIS MORNING AND NEEDS CONSTANT REDIRECTION DURING CARE AND ADLS. PT IS INC. PT PEG TUBE IS PATENT AND RUNNING WITH THE TUBE FEEDING ORDERED. PER USUAL [facility] HAS A CAREGIVER AT THE BEDSIDE TO HELP SUPPORT THE PT. PT HAS NO S/S OF RESPIRATORY DISTRESS AND DENIES PAIN. CAREGIVERS ARE ABLE TO CALL FOR HELP WHEN NEEDED. CAREGIVERS REPORTED X 2 EPISODES OF SMALL AMOUNTS OF EMESIS, THE FEEDING WAS PAUSED WHILE THE DOCTOR WAS NOTIFIED AND NO NEW ORDERS WERE GIVEN AND OK TO RESUME TUBE FEEDING ORDERED. LUNGS SOUNDS REMAIN CLEAR AND NO COUGH WAS OBSERVED. PT REQUIRES X 2 ASSIST FOR ADLS AND TURNING AND RE-POSITIONING.
--- NOTE | 2019-06-12 23:43 | NUR ---
CALL TO ANSWERING SERVICE RE: PT AGITATION. SPOKE WITH MARC VERAS. PT NOT RECEIVING HOME MEDS TRAZODONE AND LORAZEPAM DURING HOSPITAL STAY. RECIEVED OT ORDER BOTH FOR TRAZODONE 100MG AND LORAZEPAM 1.5MG. ADMINISTERED. PT HAS BEEN CALMER AND QUIETER SINCE.
--- NOTE | 2019-06-13 00:26 | NUR ---
PT SNORING. AWAKENS EASILY W/ VERBAL STIMULI. 02 SAT WHILE SLEEPING 84%. 2L VIA NC PLACED, SATS UP TO 94%. HOB REMAINS 45 DEGREES. RESPS REGULAR, NON-LABORED. NO COUGHING.
[2019-06-13 04:52] LABS: BASOPHILS ABSOLUTE AUTO 0.01 K/mm3 (0.00-0.23); BASOPHILS PERCENT AUTO 0 % (0-2); EOSINOPHILS PERCENT AUTO 2 % (0-6); Hematocrit 34.2 % (33.0-51.0); Hemoglobin 10.7 g/dL (11.5-16.0); IMMATURE GRAN ABSOLUTE AUTO 0.02 K/mm3 (0.00-0.10); IMMATURE GRAN PERCENT AUTO 0 % (0-1); LYMPHOCYTES ABSOLUTE AUTO 1.53 K/mm3 (0.84-5.20); LYMPHOCYTES PERCENT AUTO 30 % (21-46); MONOCYTES ABSOLUTE AUTO 0.51 K/mm3 (0.16-1.47); MONOCYTES PERCENT AUTO 10 % (4-13); Mean Corpuscular HGB 33.5 pg (26.0-34.0); Mean Corpuscular HGB Conc 31.3 g/dL (31.5-36.5); Mean Corpuscular Volume 107 fL (80-100); Mean Platelet Volume 10.3 fL (9.1-12.4); NEUTROPHILS ABSOLUTE AUTO 2.88 K/mm3 (1.96-9.15); NEUTROPHILS PERCENT AUTO 57 % (41-73); Platelet Count 147 K/mm3 (150-400); RDW Coefficient Variation 13.6 % (11.7-14.2); Red Blood Cell Count 3.19 M/mm3 (3.80-5.20); White Blood Cell Count 5.05 K/mm3 (4.00-11.30)
[2019-06-13 05:11] LABS: Anion Gap 3 mmol/L (6-16); Blood Urea Nitrogen 12 mg/dL (8-24); Bun/Creatinine Ratio 24.5 (12.0-20.0); CO2, Blood 36 mmol/L (21-32); Calcium, Blood 8.7 mg/dL (8.5-10.1); Chloride, Blood 106 mmol/L (98-108); Creatinine, Blood 0.49 mg/dL (0.40-1.00); Glomerular Filtration Rate >60 (60-); Glucose, Blood 110 mg/dL (70-99); Magnesium, Blood 2.1 mg/dL (1.6-2.4); Phosphorus, Blood 3.2 mg/dL (2.5-4.9); Potassium, Blood 3.9 mmol/L (3.5-5.5); Sodium, Blood 145 mmol/L (136-145)
--- NOTE | 2019-06-13 05:39 | NUR ---
SHIFT SUMMARY: PT SLEPT BETTER TONIGHT. LESS AGITATION OBSERVED. OCC. YELLING OUT AND HITTING BED RAILS OR OWN HEAD BUT MUCH LESS FREQUENTLY COMPARED TO THE PREVIOUS NIGHT. NEW BRUISING OBSERVED ON R FOREARM FROM HITTING IT AGAINST BED RAILS. HOB AT LEAST 30 DEGREES ALL NIGHT. 02 CURRENTLY 92% ON RA WHILE PT IS AWAKE. PT HAD 2 LARGE EMESIS AND 2 SMALL BETWEEN 1930 AND 0. TF HELD. PEG RESIDUAL 90CC. ZOFRAN ADMINISTERED AT 2400. TF RESTARTED AT 25 CC/HR AT 2400. PT HAS TOLERATED SLOW INCREMENTAL INCREASES AND IS CURRENTLY AT 45CC/HR. NO COUGHING, RESPS NON-LABORED. LS DIM.
--- NOTE | 2019-06-13 16:55 | NUR ---
SHIFT SUMMARY PT HAS BEEN A/O TO HERSELF AT [facility]. SHE DENIES ANY PAIN. PT HAS BEEN MUCH MORE JOVIAL TODAY AND HAS HAD NO BEHAVIORS OR EVEN YELLING. PT IS MORE INTERACTIVE AND ENGAGES IN CONVERSATIONS. CAREGIVERS FROM [facility] REMAIN AT THE BEDSIDE. TUBE FEEDINGS CONTINUE ORDERED WITH NO ADVERSE EFFECTS. NO S/S OF RESP DISTRESS. PT IS ON ROOM AIR. PT REMAINS INC AND REQUIRES X 2 ASSIST FOR ADLS AND TOILETING. CAREGIVERS ASSIST PT TO CALL FOR HELP WHEN NEEDED. CALL LIGHT IS IN REACH.
[2019-06-14 05:53] LABS: Anion Gap 2 mmol/L (6-16); Blood Urea Nitrogen 12 mg/dL (8-24); Bun/Creatinine Ratio 25.6 (12.0-20.0); CO2, Blood 37 mmol/L (21-32); Chloride, Blood 104 mmol/L (98-108); Creatinine, Blood 0.47 mg/dL (0.40-1.00); Glomerular Filtration Rate >60 (60-); Glucose, Blood 104 mg/dL (70-99); Magnesium, Blood 1.8 mg/dL (1.6-2.4); Phosphorus, Blood 3.8 mg/dL (2.5-4.9); Potassium, Blood 3.6 mmol/L (3.5-5.5); Sodium, Blood 143 mmol/L (136-145)
--- NOTE | 2019-06-14 08:02 | NUR ---
SHIFT SUMMARY: AFEB. 02 SAT 89% ON RA. UP TO 94% ON 2L VIA NC. LS DIM. NO SOB, RESPS REG AND NON-LABORED. NO COUGHING. PT CALM AND SEEMS COMFORTABLE MOST OF NIGHT, LESS AGITATION. FIFI GT FEEDS AND H20 BOLUSES WELL. NO VOMITING. NO ACUTE CHANGES.
[2019-06-14] MEDS ORDERED: LEVO750 PT (11:13)
--- NOTE | 2019-06-14 13:32 | NUR ---
PT DCD BACK TO [facility]. BOARD TURNER FAXED DC PACKET TO FACILITY. MED REC FAXED TO PHARMACY OF CHOICE. PT WAS ASSISTED TO GET DRESSED AND UP TO W/C. NO IV IN PLACE PT PULLED IT ON CLINICAL INFORMATICS SPECIALIST. ALL PERSONAL BELONGINGS SENT WITH PT. PT STABLE UPON DC.
== END 2019-06-14 13:30 | DRG 871 ==
LOC: ER 11:55 → PCU 22:50 → MEDS 06-11 13:14 → ENPENDDIS 06-14 10:26 → MEDS 06-14 13:30
PROVIDERS: Internal Medicine; Physician Assistant; ADMIT Hospitalist
DX: A41.9 Sepsis, unspecified organism (principal); J18.9 Pneumonia, unspecified organism; J96.01 Acute respiratory failure with hypoxia; J91.8 Pleural effusion in other conditions classified elsewhere; E03.9 Hypothyroidism, unspecified; E66.9 Obesity, unspecified; F22 Delusional disorders; F50.89 Other specified eating disorder; F63.3 Trichotillomania; R65.20 Severe sepsis without septic shock; Z87.440 Personal history of urinary (tract) infections; Z93.1 Gastrostomy status; Z68.37 Body mass index [BMI] 37.0-37.9, adult
CPT/HCPCS: 36415; 71046; 80048; 80053; 82947; 83605; 83735; 84100; 84484; 85025; 87040; 93005; 93010; 96365; 96367; 99285-25; A9270-GY; J0456; J0696; J1650; J2405; J7030; J7050

== ENCOUNTER 2019-08-14 11:28 | Observation (INO) | payer OTHER ==
[~2019-08-14] VITALS: Ht 162.6 cm; Wt 90.5 kg
[~2019-08-14 11:28] MED LIST changes: +Ativan1 MG PT; -ESCI10 PT; +ESCI20 PT; +LEVO750 PT; -LORA.5 PT
[2019-08-14 12:43] LABS: BASOPHILS ABSOLUTE AUTO 0.07 K/mm3 (0.00-0.23); BASOPHILS PERCENT AUTO 1 % (0-2); EOSINOPHILS ABSOLUTE AUTO 0.12 K/mm3 (0.00-0.68); EOSINOPHILS PERCENT AUTO 1 % (0-6); Hematocrit 38.4 % (33.0-51.0); Hemoglobin 12.3 g/dL (11.5-16.0); IMMATURE GRAN ABSOLUTE AUTO 0.09 K/mm3 (0.00-0.10); IMMATURE GRAN PERCENT AUTO 1 % (0-1); LYMPHOCYTES ABSOLUTE AUTO 1.56 K/mm3 (0.84-5.20); LYMPHOCYTES PERCENT AUTO 10 % (21-46); MONOCYTES ABSOLUTE AUTO 1.05 K/mm3 (0.16-1.47); MONOCYTES PERCENT AUTO 7 % (4-13); Mean Corpuscular HGB 33.2 pg (26.0-34.0); Mean Corpuscular Volume 104 fL (80-100); Mean Platelet Volume 10.7 fL (9.1-12.4); NEUTROPHILS PERCENT AUTO 81 % (41-73); Platelet Count 177 K/mm3 (150-400); RDW Coefficient Variation 13.8 % (11.7-14.2); RDW Standard Deviation 53.1 fL (35.1-46.3); White Blood Cell Count 15.49 K/mm3 (4.00-11.30)
[2019-08-14 12:58] LABS: Alanine Aminotransfer (ALT/SGP 31 U/L (12-78); Albumin, Blood 3.1 g/dL (3.4-5.0); Albumin/Globulin Ratio 0.8 (0.8-1.8); Alk Phos 103 U/L (50-136); Anion Gap 1 mmol/L (6-16); Aspartate Aminotrans (AST/SGOT 22 U/L (12-37); Bilirubin, Total 0.6 mg/dL (0.1-1.0); Blood Urea Nitrogen 18 mg/dL (8-24); Bun/Creatinine Ratio 30.6 (12.0-20.0); CO2, Blood 36 mmol/L (21-32); Calcium, Blood 8.8 mg/dL (8.5-10.1); Chloride, Blood 101 mmol/L (98-108); Creatinine, Blood 0.59 mg/dL (0.40-1.00); Glomerular Filtration Rate >60 (60-); Glucose, Blood 91 mg/dL (70-99); Potassium, Blood 4.8 mmol/L (3.5-5.5); Sodium, Blood 138 mmol/L (136-145); Total Protein, Blood 7.1 g/dL (6.4-8.2)
[2019-08-14] MEDS ORDERED: Norco 5-325 Ta1 EACH PT ×2 (14:40)
[2019-08-14] MEDS ORDERED: IBUP800 PT ×2 (17:32)
--- NOTE | 2019-08-14 19:31 | NUR ---
NO ACUTE EVENTS THIS PART OF SHIFT. PATIENT ARRIVED FROM ED, NO SIGNS OF ACUTE DISTRESS, ON 2 L NASAL CANNULA. PATIENT PULLS AT LINES AND CLOTHES, NEW IV WAS PLACED IN ED WHEN FIRST IV WAS PULLED OUT. PATIENT HAS PEG TUBE IN L ABDOMEN, NO DISCHARGE NOTED. PATIENT RECIEVED IV ABXPATIENT HAS BEEN AFEBRILE. WBC LEVEL IS ELEVATED. PATIENT TALKS TO SELF WELL WITH NURSING STAFF.
[2019-08-15 03:37] LABS: BASOPHILS ABSOLUTE AUTO 0.03 K/mm3 (0.00-0.23); BASOPHILS PERCENT AUTO 0 % (0-2); EOSINOPHILS ABSOLUTE AUTO 0.14 K/mm3 (0.00-0.68); EOSINOPHILS PERCENT AUTO 1 % (0-6); Hematocrit 34.4 % (33.0-51.0); Hemoglobin 11.3 g/dL (11.5-16.0); IMMATURE GRAN ABSOLUTE AUTO 0.03 K/mm3 (0.00-0.10); IMMATURE GRAN PERCENT AUTO 0 % (0-1); LYMPHOCYTES ABSOLUTE AUTO 1.66 K/mm3 (0.84-5.20); LYMPHOCYTES PERCENT AUTO 16 % (21-46); MONOCYTES ABSOLUTE AUTO 0.98 K/mm3 (0.16-1.47); MONOCYTES PERCENT AUTO 10 % (4-13); Mean Corpuscular HGB 34.1 pg (26.0-34.0); Mean Corpuscular HGB Conc 32.8 g/dL (31.5-36.5); Mean Corpuscular Volume 104 fL (80-100); Mean Platelet Volume 10.4 fL (9.1-12.4); NEUTROPHILS ABSOLUTE AUTO 7.36 K/mm3 (1.96-9.15); NEUTROPHILS PERCENT AUTO 72 % (41-73); Platelet Count 136 K/mm3 (150-400); RDW Coefficient Variation 13.7 % (11.7-14.2); RDW Standard Deviation 52.8 fL (35.1-46.3); Red Blood Cell Count 3.31 M/mm3 (3.80-5.20)
[2019-08-15 03:57] LABS: Alanine Aminotransfer (ALT/SGP 25 U/L (12-78); Albumin, Blood 2.6 g/dL (3.4-5.0); Albumin/Globulin Ratio 0.7 (0.8-1.8); Alk Phos 82 U/L (50-136); Anion Gap 4 mmol/L (6-16); Aspartate Aminotrans (AST/SGOT 20 U/L (12-37); Bilirubin, Total 0.5 mg/dL (0.1-1.0); Blood Urea Nitrogen 13 mg/dL (8-24); CO2, Blood 31 mmol/L (21-32); Calcium, Blood 8.2 mg/dL (8.5-10.1); Chloride, Blood 107 mmol/L (98-108); Creatinine, Blood 0.45 mg/dL (0.40-1.00); Globulin, Blood 3.6 g/dL (2.2-4.0); Glomerular Filtration Rate >60 (60-); Glucose, Blood 74 mg/dL (70-99); Potassium, Blood 3.8 mmol/L (3.5-5.5); Sodium, Blood 142 mmol/L (136-145); Total Protein, Blood 6.2 g/dL (6.4-8.2)
--- NOTE | 2019-08-15 06:52 | NUR ---
SHIFT SUMMARY PATIENT CHEERFUL AND PLEASENT THROUGHOUT THE NIGHT, HOWEVER PATIENT VERY CONFUSED. PATIENT NOT EASILY REORIENTED BUT HAS BEEN VERY PLEASENT. PATIENT PLEASENTLY TALKING TO SELF FREQUENTLY THROUGHOUT THE NIGHT. PATEINT APPEARED TO SLEEP WELL FOR SEVERAL HOURS LAST NIGHT. PATIENT CONTRACTURED BUT IS ABLE TO MOVE ARMS AND LEGS BUT LIKES TO KEEP THEM CURLED UP. PATIENT PICKS AT LINES AND TELE. VITAL SIGNS CHARTED. WILL CONTINUE TO MONITOR PATIENT AND REPORT TO ONCOMING RN.
--- NOTE | 2019-08-15 07:17 | NUR ---
ASSUMED PATIENT CARE. PATIENT RESTING COMFORTABLY IN BED, NO SIGNS OF ACUTE DISTRESS. WCTM.
--- NOTE | 2019-08-15 18:15 | NUR ---
NO ACUTE EVENTS THIS SHIFT. OVEN LABORER CONSULTED, CONTINUOUS TUBE FEED STARTED THIS SHIFT. PATIENT TOLERATED WELL. PATIENT ON ROOM AIR THIS SHIFT, O2 SATS IN MID-UPPER 90S. PATIENT DIPPED DOWN INTO HR OF SINUS ALEX IN 50S AT TIMES THROUGH THIS SHIFT. PATIENT RECIEVED IV AND PER TUBE ABX THIS SHIFT. SPEECH EVAL THIS SHIFT APPROVED PUREE DIET IF REQUESTED BY PATIENT FOR PLEASURE, NUTRITIONAL NEEDS ARE BEING MET PER TUBE. VITAL SIGNS STABLE, NO SIGNS OF ACUTE DISTRESS.
--- NOTE | 2019-08-15 19:26 | NUR ---
RELINQUISHED PATIENT CARE.
--- NOTE | 2019-08-15 22:07 | NUR ---
TUBE FEEDING INCREASE RESIDUAL CHECKED WITH RESULTS OF 105 ML'S. TUBE FEEDING INCREASED TO 45 AT THIS TIME.
[2019-08-16 04:05] LABS: Anion Gap 3 mmol/L (6-16); Blood Urea Nitrogen 13 mg/dL (8-24); Bun/Creatinine Ratio 30.2 (12.0-20.0); CO2, Blood 31 mmol/L (21-32); Calcium, Blood 8.7 mg/dL (8.5-10.1); Chloride, Blood 106 mmol/L (98-108); Creatinine, Blood 0.43 mg/dL (0.40-1.00); Glomerular Filtration Rate >60 (60-); Glucose, Blood 110 mg/dL (70-99); Magnesium, Blood 1.9 mg/dL (1.6-2.4); Phosphorus, Blood 2.9 mg/dL (2.5-4.9); Potassium, Blood 3.6 mmol/L (3.5-5.5); Sodium, Blood 140 mmol/L (136-145)
--- NOTE | 2019-08-16 06:29 | NUR ---
TUBE FEEDING INCREASE RESIDUAL CHECKED WITH RESULTS OF 0 ML'S. TUBE FEEDING INCREASED TO GOAL RATE OF 60 ML'S.
--- NOTE | 2019-08-16 06:40 | NUR ---
SHIFT SUMMARY PATIENT CONTINUES TO BE CONFUSED BUT PLEASENT. PATIENT REORIENTED ACCORDINGLY. PATIENT FREQUENTLY HAPPILY TALKS TO SELF. PATIENT APPEARED TO SLEEP WELL FOR SEVERAL HOURS LAST NIGHT. TUBE FEEDING RUNNING AT GOAL RATE AT THIS TIME, WITH ORDERED FLUSH. PATIENT CURRENTLY APPEARS TO BE NAPPING ON AND OFF THIS MORNING. WILL CONTINUE TO MONITOR PATIENT AND REPORT TO ONCOMING RN.
--- NOTE | 2019-08-16 07:20 | NUR ---
ASSUMED PATIENT CARE. PATIENT RESTING COMFORTABLY IN BED, NO SIGNS OF ACUTE DISTRESS, WCTM.
--- NOTE | 2019-08-16 12:56 | NUR ---
PATIENT DISCHARGED WITH NO SIGNS OF ACUTE DISTRESS, DISCHARGE INFO PROVIDED TO STAFF AT [facility].
[2019-08-16] MEDS ORDERED: Ciprodex Otic7.5 ML BOTHEARS (21:44)
[2019-08-16] MEDS ORDERED: Ciloxan5 ML BOTHEYES (22:08)
== END 2019-08-16 12:55 | disposition home or self-care (01) ==
LOC: ER 11:28 → PCU 11:29 → ER 15:17 → PCU 15:40
PROVIDERS: Physician Assistant; ADMIT Hospitalist
DX: A41.9 Sepsis, unspecified organism (principal); R65.20 Severe sepsis without septic shock; J96.01 Acute respiratory failure with hypoxia; D72.829 Elevated white blood cell count, unspecified; F29 Unspecified psychosis not due to a substance or known physiological condition; R62.50 Unspecified lack of expected normal physiological development in childhood; E03.9 Hypothyroidism, unspecified; D64.9 Anemia, unspecified; G47.00 Insomnia, unspecified; E66.9 Obesity, unspecified; Z79.82 Long term (current) use of aspirin; Z79.899 Other long term (current) drug therapy; Z88.8 Allergy status to other drugs, medicaments and biological substances; Z68.27 Body mass index [BMI] 27.0-27.9, adult
CPT/HCPCS: 36415; 71045; 80048; 80053; 82947; 83605; 83735; 84100; 84145; 85025; 92610; 93005; 93010; 96372; 96374; 96375; 99285-25; A9270-GY; G0378; J0456; J0696; J1650; J7030; J7050; U0002

== ENCOUNTER 2019-08-16 21:18 | Emergency (ER) | payer OTHER ==
[~2019-08-16] VITALS: Ht 154.9 cm; Wt 99.8 kg
[~2019-08-16 21:18] MED LIST changes: +IBUP800 PT; +Norco 5-325 Ta1 EACH PT
[2019-08-16] MEDS ORDERED: Ciprodex Otic7.5 ML BOTHEARS (21:44)
[2019-08-16] MEDS ORDERED: Ciloxan5 ML BOTHEYES (22:08)
== END 2019-08-16 22:36 | disposition home or self-care (01) ==
LOC: ER 21:18
DX: H10.9 Unspecified conjunctivitis (principal); R62.50 Unspecified lack of expected normal physiological development in childhood; E03.9 Hypothyroidism, unspecified; D64.9 Anemia, unspecified; Z88.8 Allergy status to other drugs, medicaments and biological substances; Z79.82 Long term (current) use of aspirin; Z79.899 Other long term (current) drug therapy; Z87.01 Personal history of pneumonia (recurrent)
CPT/HCPCS: 99284

== ENCOUNTER 2019-11-03 12:21 | Day surgery (SDC) | payer OTHER ==
[~2019-11-03] VITALS: Ht 165.1 cm; Wt 90.9 kg
[~2019-11-03 12:21] MED LIST changes: -ACET500 PT; -ARTIFICIAL TEA1 EACH BOTHEYES; -Adult Glycerin1 EACH PR; -Aspir 8181 MG PT; -Ativan1 MG PT; +Ciloxan5 ML BOTHEYES; +Ciprodex Otic7.5 ML BOTHEARS; -ESCI20 PT; -IBUP800 PT; -MIRALAX17 GM PT; -Milk Of Ma400 MG/5 M PT; -RISP1 PO; -RISP1 PT; -Synthroid88 MCG PT; -TRAZ100 PT
--- NOTE | 2019-11-03 13:37 | NUR ---
11/03/19 4747 Renita Arroyo S PT. CAN AT TIMES COMMUNICATE WHEN SHE IS ASKED QUESTIONS. PT. DIDN'T VOICE ANYTHING WHEN ASKED IF SHE HAD ANY PAIN. PT. DID SAY YES THAT SHE WAS WARM ENOUGH. WHEN ASKED PT. IF SHE WAS DOING OK PT.VERBALIZED NO BUT DIDN'T RESPOND WHY SHE WASN'T DOING OK. PT. WITH CAREGIVER IN HER ROOM. PER CAREGIVER PT. IS IN A DIFFERENT STATE. PT.'S CAREGIVER SAID SHE IS AGITATED TODAY. PT. DID VERBALIZE THE WORD SLEEP.PT. PULLING HER BLANKET OFF. PT. PULLED HER BLOOD PRESSURE CUFF OFF. PT. PULLING AT HER ARM BANDS. PT. DID THROW HER STUFFED PUPPY OUT OF HER BED. CAREGIVER SAYS SHE LIKES TO THROW HER PILLOW. PADDED SIDERAILS ON BED. INSTRUCTED CAREGIVER TO CALL IF SHE NEEDED ANYTHING. CAREGIVER INSTRUCTED ON WHERE THE CALL LIGHT WAS LOCATED. NOT ON PT. BED R/T PT. WILL PULL AT IT. IV TO BE STARTED JUST BEFORE CASE R/T PT. WILL PULL IT OUT. LUNGS CLEAR ANTERIORLY. PT. DOES HOLD HER BREATH & HER FACE TURNS RED. PER CAREGIVER PT. WAS GIVEN HER LORAZEPAM TODAY. PT. HAS A G-TUBE IN WHICH SHE GETS HER MEDS & NUTRITION. PT. WITH HOB UP IN BED.
[2019-12-17] MEDS ORDERED: ACET500 PT (23:35)
[2019-12-17] MEDS ORDERED: LANS30EC PT (23:37)
[2019-12-17] MEDS ORDERED: Q-Tussin100 MG/5 M PT (23:39)
[2019-12-18] MEDS ORDERED: Risperdal0.5 MG PO (17:31)
== END 2019-11-03 16:30 | disposition home or self-care (01) ==
LOC: ORSCSDS 12:21
PROVIDERS: Internal Medicine Gastroenterology
PROC: 0DBE8ZX Excision of Large Intestine, Via Natural or Artificial Opening Endoscopic, Diagnostic (ICD-10-PCS; principal; 2019-11-03 13:45)
PROC: 0DB68ZX Excision of Stomach, Via Natural or Artificial Opening Endoscopic, Diagnostic (ICD-10-PCS; principal; 2019-11-03 13:45)
PROC: 0DB98ZX Excision of Duodenum, Via Natural or Artificial Opening Endoscopic, Diagnostic (ICD-10-PCS; principal; 2019-11-03 13:45)
DX: D50.9 Iron deficiency anemia, unspecified (principal); R19.5 Other fecal abnormalities; K21.9 Gastro-esophageal reflux disease without esophagitis; K55.20 Angiodysplasia of colon without hemorrhage; K29.70 Gastritis, unspecified, without bleeding; Z79.899 Other long term (current) drug therapy; Z79.82 Long term (current) use of aspirin; E03.9 Hypothyroidism, unspecified
CPT/HCPCS: 88305; 88312; 88342; J2704; J7120

== ENCOUNTER 2019-11-06 10:36 | Observation (INO) | payer OTHER ==
[~2019-11-06] VITALS: Ht 165.1 cm; Wt 91.5 kg
[2019-11-06 11:28] LABS: BASOPHILS ABSOLUTE AUTO 0.06 K/mm3 (0.00-0.23); BASOPHILS PERCENT AUTO 1 % (0-2); EOSINOPHILS ABSOLUTE AUTO 0.16 K/mm3 (0.00-0.68); EOSINOPHILS PERCENT AUTO 1 % (0-6); Hematocrit 40.7 % (33.0-51.0); IMMATURE GRAN ABSOLUTE AUTO 0.03 K/mm3 (0.00-0.10); IMMATURE GRAN PERCENT AUTO 0 % (0-1); LYMPHOCYTES ABSOLUTE AUTO 1.32 K/mm3 (0.84-5.20); LYMPHOCYTES PERCENT AUTO 11 % (21-46); MONOCYTES ABSOLUTE AUTO 1.24 K/mm3 (0.16-1.47); MONOCYTES PERCENT AUTO 11 % (4-13); Mean Corpuscular HGB 33.9 pg (26.0-34.0); Mean Corpuscular HGB Conc 31.9 g/dL (31.5-36.5); Mean Corpuscular Volume 106 fL (80-100); Mean Platelet Volume 10.4 fL (9.1-12.4); NEUTROPHILS ABSOLUTE AUTO 8.94 K/mm3 (1.96-9.15); NEUTROPHILS PERCENT AUTO 76 % (41-73); Platelet Count 167 K/mm3 (150-400); RDW Coefficient Variation 13.2 % (11.7-14.2); Red Blood Cell Count 3.84 M/mm3 (3.80-5.20); White Blood Cell Count 11.75 K/mm3 (4.00-11.30)
[2019-11-06 12:05] LABS: Alanine Aminotransfer (ALT/SGP 32 U/L (12-78); Albumin/Globulin Ratio 0.7 (0.8-1.8); Alk Phos 118 U/L (50-136); Anion Gap 2 mmol/L (6-16); Aspartate Aminotrans (AST/SGOT 41 U/L (12-37); Bilirubin, Total 0.3 mg/dL (0.1-1.0); Blood Urea Nitrogen 16 mg/dL (8-24); Bun/Creatinine Ratio 29.7 (12.0-20.0); CO2, Blood 36 mmol/L (21-32); Calcium, Blood 8.9 mg/dL (8.5-10.1); Chloride, Blood 101 mmol/L (98-108); Creatinine, Blood 0.54 mg/dL (0.40-1.00); Globulin, Blood 4.3 g/dL (2.2-4.0); Glomerular Filtration Rate >60 (60-); Glucose, Blood 75 mg/dL (70-99); Potassium, Blood 4.6 mmol/L (3.5-5.5); Sodium, Blood 139 mmol/L (136-145); Total Protein, Blood 7.3 g/dL (6.4-8.2); Troponin I <0.015 ng/mL (0.000-0.040)
[2019-11-06 12:37] LABS: PCO2 Arterial 57.9 mmHg (35-45); PO2 Arterial 84.4 mmHg (80-100); pH Blood Arterial 7.38 (7.35-7.45)
[2019-11-06] MEDS ORDERED: ASPI81CH PT (14:04)
[2019-11-06] MEDS ORDERED: LANS30EC PT (14:04)
[2019-11-06] MEDS ORDERED: ATIVAN0.5 MG PT (14:06)
[2019-11-06] MEDS ORDERED: TRAZ100 PT (14:06)
[2019-11-06] MEDS ORDERED: RISP1 PT (14:07)
[2019-11-06] MEDS ORDERED: RISP.5 PT (14:07)
[2019-11-06] MEDS ORDERED: ESCI20 PT (14:08)
[2019-11-06] MEDS ORDERED: Synthroid88 MCG PT (14:23)
[2019-11-06] MEDS ORDERED: ACET325 PO (14:28)
[2019-11-06] MEDS ORDERED: MIRALAX17 GM PT (14:28)
[2019-11-06] MEDS ORDERED: Milk Of Ma400 MG/5 M PT (14:29)
[2019-11-06] MEDS ORDERED: IBUP800 PT (14:30)
[2019-11-06] MEDS ORDERED: ARTIFICIAL TEAR15 M4 BOTHEYES (14:31)
[2019-11-06] MEDS ORDERED: Fleet Glycerin1 EACH PR (14:31)
[2019-11-06] MEDS ORDERED: NYAMYC15 G1 TOP (14:33)
[2019-11-06] MEDS ORDERED: PREPARATION H PR (14:39)
[2019-11-06] MEDS ORDERED: PURE & GENTLE133 ML PR (15:43)
[2019-11-06] MEDS ORDERED: MAXI-TUSS G LI473 ML PO (15:44)
[2019-11-06] MEDS ORDERED: AF130 GM TOP (15:45)
[2019-11-06] MEDS ORDERED: ANTIBIOTIC OINT28 GM TOP (15:47)
[2019-11-06] MEDS ORDERED: DIAPER RASH113 G1 TOP (15:49)
--- NOTE | 2019-11-06 19:04 | NUR ---
PATIENT IS ALERT. SHE IS DEVELOPMENTALLY DELAYED. FROM [facility]. SHE IS A LIFT PATIENT, WHEELCHAIR BOUND. SHE IS INCONTINENT AT BASELINE. SHE IS WEARING 2L O2 VIA NC.
--- NOTE | 2019-11-07 04:49 | NUR ---
SHIFT SUMMARY ALERT, REPONDS TO PAINFUL/VERBAL STIMULI. UNABLE TO MAKE NEEDS KNOWN. DIFFICULT TO RE-DIRECT AT TIMES. NOT VERY COOPERATIVE WITH CARES. EYES PERRLA. STRENGTH INTAKE BILATERALLY. PULLED IV EARLY ON DURING SHIFT. LIFT PATIENT; USES W/C AT BASELINE. RESIDES @ [facility]. FEEDINGS HAVE BEEN SET PER ORDERS AND TOLERATED WELL. REMAINED NPO T/O SHIFT. NO ACUTE CHANGES NOTED OVERNIGHT. APPEARED TO HAVE SLEPT MOST OF NIGHT. BED REAMINS IN LOWEST POSITION; ALARM ON. CALL LIGHT AND BELONGINGS WITHIN REACH. WCTM. REPORT TO ONCOMING RN.
[2019-11-07 06:06] LABS: BASOPHILS ABSOLUTE AUTO 0.03 K/mm3 (0.00-0.23); BASOPHILS PERCENT AUTO 1 % (0-2); EOSINOPHILS PERCENT AUTO 6 % (0-6); Hematocrit 37.4 % (33.0-51.0); Hemoglobin 11.8 g/dL (11.5-16.0); IMMATURE GRAN PERCENT AUTO 0 % (0-1); LYMPHOCYTES ABSOLUTE AUTO 1.64 K/mm3 (0.84-5.20); LYMPHOCYTES PERCENT AUTO 33 % (21-46); MONOCYTES ABSOLUTE AUTO 0.55 K/mm3 (0.16-1.47); MONOCYTES PERCENT AUTO 11 % (4-13); Mean Corpuscular HGB 33.7 pg (26.0-34.0); Mean Corpuscular HGB Conc 31.6 g/dL (31.5-36.5); Mean Corpuscular Volume 107 fL (80-100); Mean Platelet Volume 10.2 fL (9.1-12.4); NEUTROPHILS ABSOLUTE AUTO 2.49 K/mm3 (1.96-9.15); NEUTROPHILS PERCENT AUTO 50 % (41-73); Platelet Count 143 K/mm3 (150-400); RDW Coefficient Variation 13.2 % (11.7-14.2); RDW Standard Deviation 51.3 fL (35.1-46.3); White Blood Cell Count 5.01 K/mm3 (4.00-11.30)
[2019-11-07 06:20] LABS: Anion Gap 1 mmol/L (6-16); Blood Urea Nitrogen 15 mg/dL (8-24); Bun/Creatinine Ratio 29.6 (12.0-20.0); CO2, Blood 35 mmol/L (21-32); Calcium, Blood 8.4 mg/dL (8.5-10.1); Chloride, Blood 107 mmol/L (98-108); Creatinine, Blood 0.51 mg/dL (0.40-1.00); Glomerular Filtration Rate >60 (60-); Glucose, Blood 101 mg/dL (70-99); Magnesium, Blood 2.2 mg/dL (1.6-2.4); Phosphorus, Blood 3.4 mg/dL (2.5-4.9); Potassium, Blood 4.1 mmol/L (3.5-5.5); Sodium, Blood 143 mmol/L (136-145)
--- NOTE | 2019-11-07 12:22 | NUR ---
REMOVED O2 FROM PATIENT. MEASURED O2 SATURATION, AVERAGE WAS 89-92% ON ROOM AIR. PT UNALBE TO STATE IF SHE FEELS SOB, BUT APPEARS IN NAD.
--- NOTE | 2019-11-07 12:42 | NUR ---
CALLED NINA RAYMUNDO, GAVE UPDATE ON PT CONDITION TO HER CG ALEXANDER. FRANK D/C LUIS TOMORROW.
[2019-11-07] MEDS ORDERED: ZEGERID 20 MG1 EACH PT (15:02)
[2019-11-07] MEDS ORDERED: ALBU2.5V5 INH (15:02)
--- NOTE | 2019-11-07 16:28 | NUR ---
PATIENT DISCHARGED TO HER RESIDENTIAL. [facility] SENT TRANSPORTATION. PATIENT WITHOUT OWN CLOTHING, SO SENT HOME IN HOSPITAL GOWN. HAD NO IV. ADVISED LIGHTING FIXTURES DECORATOR OF NEW RX AND NEBULIZER MACHINE THAT WILL NEED TO BE PICKED UP. HARD COPY SCRIPT FOR NEBULIZER MACHINE IN DISCHARGE PACKET, LIGHTING FIXTURES DECORATOR MADE AWARE. PT TRANSFERRED TO HER OWN W/C VIA CEILING LIFT. LEFT AT 1615.
[2019-12-17] MEDS ORDERED: ACET500 PT (23:35)
[2019-12-17] MEDS ORDERED: LANS30EC PT (23:37)
[2019-12-17] MEDS ORDERED: Q-Tussin100 MG/5 M PT (23:39)
[2019-12-18] MEDS ORDERED: Risperdal0.5 MG PO (17:31)
== END 2019-11-07 16:19 | disposition home or self-care (01) ==
LOC: ER 10:36 → MEDS 10:37
PROVIDERS: Emergency Medicine; Physician Assistant; ADMIT Internal Medicine
DX: J96.01 Acute respiratory failure with hypoxia (principal); J69.0 Pneumonitis due to inhalation of food and vomit; I95.9 Hypotension, unspecified; F81.9 Developmental disorder of scholastic skills, unspecified; F29 Unspecified psychosis not due to a substance or known physiological condition; K26.9 Duodenal ulcer, unspecified as acute or chronic, without hemorrhage or perforation; E03.9 Hypothyroidism, unspecified; E66.9 Obesity, unspecified; Z88.8 Allergy status to other drugs, medicaments and biological substances; Z93.1 Gastrostomy status; Z79.82 Long term (current) use of aspirin; Z79.899 Other long term (current) drug therapy; Z68.33 Body mass index [BMI] 33.0-33.9, adult
CPT/HCPCS: 36415; 36600; 71045; 80048; 80053; 82803; 82947; 83605; 83735; 84100; 84145; 84484; 85025; 87040; 93005; 93010; 96360; 96361; 96372; 99285-25; A9270-GY; G0378; J1650; J7030

== ENCOUNTER → 2020-01-17 | Outpatient (CLI) | payer OTHER ==
[~2020-01-17] MED LIST changes: +ACET325 PO; +ACET500 PT; +AF130 GM TOP; +ALBU2.5V5 INH; +ANTIBIOTIC OINT28 GM TOP; +ARTIFICIAL TEAR15 M4 BOTHEYES; +ASPI81CH PT; +ATIVAN0.5 MG PT; +DIAPER RASH113 G1 TOP; +ESCI20 PT; +Fleet Glycerin1 EACH PR; +IBUP800 PT; +LANS30EC PT; +MAXI-TUSS G LI473 ML PO; +MIRALAX17 GM PT; +Milk Of Ma400 MG/5 M PT; +NYAMYC15 G1 TOP; +PREPARATION H PR; +PURE & GENTLE133 ML PR; +Q-Tussin100 MG/5 M PT; +RISP.5 PT; +RISP1 PT; +Risperdal0.5 MG PO; +Synthroid88 MCG PT; +TRAZ100 PT; +ZEGERID 20 MG1 EACH PT
[2020-01-19 03:00] LABS: Stool Occult Bld Immuno 1 Positive (NEGATIVE)
== END | disposition home or self-care (01) ==
LOC: LAB 13:11 → LAB SHORT 13:11
PROVIDERS: Internal Medicine Gastroenterology
DX: R19.5 Other fecal abnormalities (principal); D64.9 Anemia, unspecified
CPT/HCPCS: G0328

== ENCOUNTER 2020-07-10 19:37 | Inpatient (IN) | payer OTHER ==
[~2020-07-10] VITALS: Ht 160 cm; Wt 89.3 kg
[~2020-07-10 19:37] MED LIST changes: -ATIVAN0.5 MG PT; +Ativan1 MG PT; -Risperdal0.5 MG PO; -TRAZ100 PT
[2020-07-10 19:58] LABS: Base Excess Venous 13.7 mmol/L; Bicarbonate Venous 34.6 mmol/L (24.0-30.0); PCO2 Venous 60.2 mmHg (38-42); PO2 Venous 49.3 mmHg (38-42); pH Blood Venous 7.41 (7.34-7.37)
[2020-07-10 20:44] LABS: BASOPHILS ABSOLUTE AUTO 0.02 K/mm3 (0.00-0.23); BASOPHILS PERCENT AUTO 0 % (0-2); EOSINOPHILS ABSOLUTE AUTO 0.24 K/mm3 (0.00-0.68); EOSINOPHILS PERCENT AUTO 5 % (0-6); Hematocrit 40.4 % (33.0-51.0); Hemoglobin 13.3 g/dL (11.5-16.0); IMMATURE GRAN ABSOLUTE AUTO 0.01 K/mm3 (0.00-0.10); IMMATURE GRAN PERCENT AUTO 0 % (0-1); LYMPHOCYTES ABSOLUTE AUTO 1.16 K/mm3 (0.84-5.20); LYMPHOCYTES PERCENT AUTO 26 % (21-46); MONOCYTES ABSOLUTE AUTO 0.63 K/mm3 (0.16-1.47); MONOCYTES PERCENT AUTO 14 % (4-13); Mean Corpuscular HGB 34.4 pg (26.0-34.0); Mean Corpuscular HGB Conc 32.9 g/dL (31.5-36.5); Mean Corpuscular Volume 104 fL (80-100); Mean Platelet Volume 11.1 fL (9.1-12.4); NEUTROPHILS ABSOLUTE AUTO 2.41 K/mm3 (1.96-9.15); NEUTROPHILS PERCENT AUTO 54 % (41-73); Platelet Count 106 K/mm3 (150-400); RDW Coefficient Variation 14.8 % (11.7-14.2); RDW Standard Deviation 57.1 fL (35.1-46.3); Red Blood Cell Count 3.87 M/mm3 (3.80-5.20); White Blood Cell Count 4.47 K/mm3 (4.00-11.30)
[2020-07-10 21:01] LABS: Alanine Aminotransfer (ALT/SGP 67 U/L (12-78); Albumin/Globulin Ratio 0.7 (0.8-1.8); Alk Phos 129 U/L (50-136); Anion Gap 3 mmol/L (6-16); Aspartate Aminotrans (AST/SGOT 46 U/L (12-37); Bilirubin, Total 0.4 mg/dL (0.1-1.0); Blood Urea Nitrogen 15 mg/dL (8-24); Bun/Creatinine Ratio 29.7 (12.0-20.0); CO2, Blood 37 mmol/L (21-32); Calcium, Blood 9.5 mg/dL (8.5-10.1); Chloride, Blood 101 mmol/L (98-108); Creatinine, Blood 0.51 mg/dL (0.40-1.00); Globulin, Blood 4.4 g/dL (2.2-4.0); Glomerular Filtration Rate >60 (60-); Glucose, Blood 74 mg/dL (70-99); Potassium, Blood 4.2 mmol/L (3.5-5.5); Sodium, Blood 141 mmol/L (136-145); Total Protein, Blood 7.4 g/dL (6.4-8.2)
[2020-07-10 22:27] LABS: Base Excess Venous 14.1 mmol/L; Bicarbonate Venous 34.7 mmol/L (24.0-30.0); PCO2 Venous 67.5 mmHg (38-42); PO2 Venous 56.6 mmHg (38-42); pH Blood Venous 7.37 (7.34-7.37)
[2020-07-11 00:58] LABS: Influenza A, PCR NEGATIVE (NEGATIVE); Influenza B, PCR NEGATIVE (NEGATIVE); Resp Syncytial Virus, PCR NEGATIVE (NEGATIVE); SARS-Cov-2 (COVID-19) PCR, MMC NEGATIVE (NEGATIVE)
[2020-07-11] MEDS ORDERED: ALBU2.5V5 NEB ×2 (02:47)
[2020-07-11] MEDS ORDERED: CITA20 PT ×2 (02:49)
--- NOTE | 2020-07-11 05:04 | NUR ---
ASSUMED CARE OF PATIENT AT APPROXIMATELY 0225 FROM ED LUCIO MURO. PATIENT ARRIVED TO UNIT VIA STRETCHER; TRANSFER VIA SLIDE SHEET AND MAX ASSIST FROM ED TO PCU STRETCHER. CAREGIVER WILLAM FROM [facility] WITH PATIENT TO ASSIST WITH ADMIT. PATIENT NONVERBAL; PULLING ON CORDS AT TIMES. CAREGIVER REPORTS PATIENT NORMALLY VERBAL AT HOME. NSR ON TELE; OXYGEN SATURATION ABOVE 90% ON ROOM AIR; TITRATED DOWN FROM 2LPM VIA NC UPON ARRIVAL TO UNIT; BIPAP FOR ELEVATED CO2. INCONTINENT OF URINE; ATTENDS IN PLACE; GTUBE UNDER LEFT BREAST. CAREGIVER REPORTS PATIENT PULLS ON TUBES AT TIMES. PIV TO LEFT HAND S/L; ER REPORTS DIFFICULT STICK. 0400: CAREGIVER CALLS STAFF TO ROOM TO REPORT POSSIBLE SIEZURE ACTIVITY; ASSESSED BY LIME FILTER OPERATOR RINDY AND LUCIO CUNNINGHAM; NO SIEZURE ACTIVITY NOTED; PATIENT SHAKING BUT HAD TREMOR SINCE ADMIT TO UNIT; NOT POSTICTAL. PATIENT CURRENTLY RESTING IN BED; CALL LIGHT IN REACH; BED IN LOWEST POSISTION; BED ALARM ON
[2020-07-11] MEDS ORDERED: ZINC OXIDE57 GM TOP (06:41)
[2020-07-11] MEDS ORDERED: Fleet Enema132 ML PR ×2 (06:43)
[2020-07-11] MEDS ORDERED: LANS30EC PT ×2 (06:43)
[2020-07-11] MEDS ORDERED: MILK OF MAGNESIA SUS PT ×2 (06:46)
[2020-07-11] MEDS ORDERED: RISP2 PT ×2 (06:49)
[2020-07-11] MEDS ORDERED: Q-Tussin100 MG/5 M PT ×2 (06:50)
[2020-07-11] MEDS ORDERED: TINACTIN TOP ×2 (06:54)
[2020-07-11] MEDS ORDERED: TRIPLE ANTIBIOT28 GM TOP ×2 (06:58)
[2020-07-11 09:02] LABS: BASOPHILS ABSOLUTE AUTO 0.02 K/mm3 (0.00-0.23); BASOPHILS PERCENT AUTO 0 % (0-2); EOSINOPHILS ABSOLUTE AUTO 0.08 K/mm3 (0.00-0.68); EOSINOPHILS PERCENT AUTO 2 % (0-6); Hematocrit 40.6 % (33.0-51.0); Hemoglobin 13.5 g/dL (11.5-16.0); IMMATURE GRAN ABSOLUTE AUTO 0.01 K/mm3 (0.00-0.10); IMMATURE GRAN PERCENT AUTO 0 % (0-1); LYMPHOCYTES ABSOLUTE AUTO 1.08 K/mm3 (0.84-5.20); LYMPHOCYTES PERCENT AUTO 20 % (21-46); MONOCYTES ABSOLUTE AUTO 0.84 K/mm3 (0.16-1.47); MONOCYTES PERCENT AUTO 16 % (4-13); Mean Corpuscular HGB Conc 33.3 g/dL (31.5-36.5); Mean Corpuscular Volume 102 fL (80-100); Mean Platelet Volume 10.7 fL (9.1-12.4); NEUTROPHILS PERCENT AUTO 63 % (41-73); Platelet Count 113 K/mm3 (150-400); RDW Coefficient Variation 14.6 % (11.7-14.2); RDW Standard Deviation 54.8 fL (35.1-46.3); Red Blood Cell Count 3.97 M/mm3 (3.80-5.20); White Blood Cell Count 5.43 K/mm3 (4.00-11.30)
[2020-07-11 09:20] LABS: Anion Gap 3 mmol/L (6-16); Blood Urea Nitrogen 16 mg/dL (8-24); Bun/Creatinine Ratio 30.7 (12.0-20.0); CO2, Blood 36 mmol/L (21-32); Calcium, Blood 9.7 mg/dL (8.5-10.1); Chloride, Blood 101 mmol/L (98-108); Creatinine, Blood 0.52 mg/dL (0.40-1.00); Glomerular Filtration Rate >60 (60-); Glucose, Blood 75 mg/dL (70-99); Sodium, Blood 140 mmol/L (136-145)
--- NOTE | 2020-07-11 11:25 | NUR ---
Corrected contact info - MEDICAL POA - Wandara Winters [phone] ALSO, CG @ [facility] - Theo [phone] Urgent Pal Care referral received early this am. Spoke with RN, who knows pt from previous admission in 2020 for similar admitting diagnosis of hypoxic respiratory failure due to aspiration. Pt lives at [facility], who I called to get the contact info for pt's current medical POA. I spoke with Theo, primary cg at , prior to speaking with Wanda. THE POLST we have on file is 8 years old and lists pt's brother as NOK. He has not been involved in pt's life/care for some time per and [facility]. Both request I help them update her AD/POLST. Wanda would like to speak with Theo and other cg's at and call me back to do this. We ageed to talk again by phone in the next 24 hours for completing an updated POLST form and further discussion of advanced care planning. Both Theo and Wanda were given a full update on current status and s/s pt is experiencing right now. We briefly spoke of hospice and code status options. Lucy has a PMH of developmental and cognitive delay. She is bedbound and nonverbal/catatonic at times. She has rigidity, recurrent UTI's, recurrent aspiration pneumonia, acute on chronic renal failure. She has had a g-tube for nutrition but RN stated she is also receiving PO intake for pleasure. Pt is unable to protect airway and has had numerous aspiration pneumonias in past couple of years. She suffers with urinary retention, causing past urosepsis and UTI's also. Plan follow up with medical POA and completion of updated POLST MIGEL.
[2020-07-11 13:31] LABS: Base Excess Venous 11.7 mmol/L; Bicarbonate Venous 33.5 mmol/L (24.0-30.0); PCO2 Venous 54.1 mmHg (38-42); pH Blood Venous 7.43 (7.34-7.37)
--- NOTE | 2020-07-11 17:11 | NUR ---
SHIFT SUMMARY NO ACUTE EVENTS THIS SHIFT. PATIENT REMAINED NON-VERBAL THIS SHIFT, ABLE TO TRACK STAFF WITH [facility]ZE. PATIENT IS VERY CONTRACTURED IN BILATERAL UPPER AND LOWER EXTREMITIES. ON BIPAP FOR FIRST HALF OF SHIFT, SWITCHED TO 3 L NASAL CANNULA AND O2 SATS MAINTAINING IN LOW 90S. PATIENT WILL OCCASIONALLY PULL OF NASAL CANNULA AND DESAT TO LOW 80S. ORAL SUCTIONING DONE PATIENT ALLOWS. PATIENT IS INCONTINENT, CHECKED AND CHANGED AND REPOSITIONED THROUGHOUT SHIFT. TUBE FEEDS STARTED TODAY, TOLERATING WELL, NO RESIDUALS NOTED THIS SHIFT.
--- NOTE | 2020-07-11 20:00 | NUR ---
REPOSITIONED PT - PT BEGAN TO DESAT, PULLED PILLOW OUT TO SAME POSITION PT WAS IN. CONTINUOUS BIOX ON - SATS TO UPPER 70'S - LOW 80'S - INCREASED OXYGEN FROM 3L TO 6L - SAT'S 85-88%. SUCTIONED WITH YANKHAR. 2014 - CHANGED OXYGEN TUBING TO HIGH FLOW - OXYGEN TURNED UP TO 8L - SATS TO 93%. 2019 OXYGEN SATS DROPPED TO 87% - OXYGEN TURNED BACK UP TO 8L ON HIGH FLOW TUBING. SATS VARYING FROM LOW 80'S TO UPPER 80'S. REPEAT SUCTIONING WITH YANKHAR. CALLED RT FOR ASSIST - WILL BE HERE SHORTLY, CURRENTLY IN ER. 2029 - OXYGEN TURNED UP TO 10 L - SATS CONTINUE TO VARY FROM 87% TO 92%. LS COARSE THROUGHOUT. NO RESIDUAL RETURN FROM PEG TUBE. 2039 - CONTACTED [facility] - UPDATED ON PT - MARC ARRIVED TO ROOM. PLACED PT ON BIPAP WITH 6L BLEED IN - SATS 93-94%, BUT DROPPED AGAIN TO MID 80'S. OXYGEN BLEED IN TO 15L. SATS LOW 90'S. STAT XRAY ORDERED. 2044 XRAY TO ROOM. 2049 RT IN ROOM - PERFORMED DEEP SUCTION, PER ORDER. 2049 - BIPAP CONTINUES IN PLACE, OXYGEN TURNED DOWN TO 3L BLEED IN - SATS WNL. TUBE FEEDS TURNED DOWN TO 25CC HOUR, AND FLUSH TURNED DOWN TO 60 CC EVERY 4 HOURS - PER [facility] VERBAL ORDER.
[2020-07-12 04:11] LABS: BASOPHILS ABSOLUTE AUTO 0.02 K/mm3 (0.00-0.23); BASOPHILS PERCENT AUTO 0 % (0-2); EOSINOPHILS ABSOLUTE AUTO 0.08 K/mm3 (0.00-0.68); EOSINOPHILS PERCENT AUTO 1 % (0-6); Hematocrit 37.9 % (33.0-51.0); Hemoglobin 12.8 g/dL (11.5-16.0); IMMATURE GRAN ABSOLUTE AUTO 0.02 K/mm3 (0.00-0.10); IMMATURE GRAN PERCENT AUTO 0 % (0-1); LYMPHOCYTES ABSOLUTE AUTO 0.92 K/mm3 (0.84-5.20); LYMPHOCYTES PERCENT AUTO 12 % (21-46); MONOCYTES ABSOLUTE AUTO 1.09 K/mm3 (0.16-1.47); MONOCYTES PERCENT AUTO 14 % (4-13); Mean Corpuscular HGB 34.5 pg (26.0-34.0); Mean Corpuscular HGB Conc 33.8 g/dL (31.5-36.5); Mean Corpuscular Volume 102 fL (80-100); Mean Platelet Volume 10.8 fL (9.1-12.4); NEUTROPHILS ABSOLUTE AUTO 5.73 K/mm3 (1.96-9.15); NEUTROPHILS PERCENT AUTO 73 % (41-73); Platelet Count 118 K/mm3 (150-400); RDW Coefficient Variation 14.6 % (11.7-14.2); RDW Standard Deviation 54.4 fL (35.1-46.3); Red Blood Cell Count 3.71 M/mm3 (3.80-5.20); White Blood Cell Count 7.86 K/mm3 (4.00-11.30)
[2020-07-12 04:25] LABS: Albumin, Blood 3.1 g/dL (3.4-5.0); Anion Gap 3 mmol/L (6-16); Blood Urea Nitrogen 20 mg/dL (8-24); Bun/Creatinine Ratio 31.7 (12.0-20.0); CO2, Blood 36 mmol/L (21-32); Calcium, Blood 10.1 mg/dL (8.5-10.1); Chloride, Blood 104 mmol/L (98-108); Creatinine, Blood 0.63 mg/dL (0.40-1.00); Glomerular Filtration Rate >60 (60-); Glucose, Blood 100 mg/dL (70-99); Phosphorus, Blood 3.9 mg/dL (2.5-4.9); Potassium, Blood 3.9 mmol/L (3.5-5.5); Sodium, Blood 143 mmol/L (136-145)
--- NOTE | 2020-07-12 05:44 | NUR ---
SHIFT SUMMARY - SEE 2000 NOTE TONIGHT REGARDING OXYGEN DESAT EPISODE, AND INTERVENTIONS. NO FURTHER EPISODES OF OXYGEN DESAT AFTER THESE INTERVENTIONS AND RT PERFORMING DEEP SUCTION X1. OTHERWISE NO ACUTE CHANGES THROUGHOUT THE NIGHT. CONTINUOUS BIOX ON, WITH BIPAP IN PLACE WITH 3L O2 PLUMBED IN. TUBE FEEDS ADJUSTED PER [facility] ORDER, DOWN TO 25 ML/HOUR FOR FEEDS, AND 60CC FLUSH Q 4 HOURS. NO RESIDUAL RETURN FROM PEG TUBE AT BEGINNING OF THE SHIFT AND AT 0530 THIS AM.
[2020-07-12 12:19] LABS: Base Excess Venous 13.1 mmol/L; Bicarbonate Venous 34.1 mmol/L (24.0-30.0); PCO2 Venous 57 mmHg (38-42); PO2 Venous 44.3 mmHg (38-42); pH Blood Venous 7.43 (7.34-7.37)
--- NOTE | 2020-07-12 14:58 | NUR ---
Spiritual care visit conducted. Patient isd sitting up in bed and nonverbal (at least during this director shopper marketing's visit). I ask patient a few questions and she just looks at me. I see on patient's board that she likes cartoons so I watch cartoons with patient and comment on what is happening during the show. I am not sure but I think I got a smile and quick laugh when I made one of my comments but maybe it was just me thinking I am funny. I will continue to try to find ways to connect and provide a presence that is warm (are staff does an amazing job with this).
--- NOTE | 2020-07-12 15:32 | NUR ---
Pal Care - update received earlier from bedside RN during case conference. Pt's MPOA called around 1400 to report that after team meeting at [facility] it was decided that pt should remain a full code and be intubated if needed. Discussed and educated on NPO status and staff responsibility for recurrent aspiration pneumonia if they cont to feed her orally. Wanda states this was addressed in the meeting and they will work towards making sure pt has nothing to eat or drink by mouth and that long standing peg tube is used for fluid and nutritional intake. POLST completed as directed and left at door for Dr ma. Pt's updated emergency contact info included. RN updated also by . I went to visit pt, who is crying and moaning with bipap on at this time. I attempted to sooth and comfort her but unsure if I was able to. Stayed with her for a bit just for company. Per Wanda, pt is normally calm and happy in her familiar surroundings with known caregivers at .
--- NOTE | 2020-07-12 18:15 | NUR ---
SHIFT SUMMARY NO ACUTE EVENTS THIS SHIFT, VSS. PATIENT BACK AND FORTH BETWEEN BIPAP AND NASAL CANNULA WITH 3-4 L. PATIENT REMAINS NONVERBAL. ORAL AND NASAL SUCTIONING DONE THROUGHOUT SHIFT. GURGLING AUDIBLE IN UPPER AIRWAY, CLEAR THICK MUCOUS SUCTIONED OUT, SMALL-MOD AMOUNT. NO RESIDUALS NOTED THROUGHOUT SHIFT. TUBE FEED AND FLUSH CONTINUED PER ORDERS. REPOSITIONED T/O SHIFT.
[2020-07-13 04:06] LABS: BASOPHILS ABSOLUTE AUTO 0.02 K/mm3 (0.00-0.23); BASOPHILS PERCENT AUTO 0 % (0-2); EOSINOPHILS ABSOLUTE AUTO 0.14 K/mm3 (0.00-0.68); EOSINOPHILS PERCENT AUTO 2 % (0-6); Hematocrit 37.2 % (33.0-51.0); Hemoglobin 12.1 g/dL (11.5-16.0); IMMATURE GRAN ABSOLUTE AUTO 0.03 K/mm3 (0.00-0.10); IMMATURE GRAN PERCENT AUTO 0 % (0-1); LYMPHOCYTES ABSOLUTE AUTO 0.79 K/mm3 (0.84-5.20); LYMPHOCYTES PERCENT AUTO 10 % (21-46); MONOCYTES ABSOLUTE AUTO 1.11 K/mm3 (0.16-1.47); MONOCYTES PERCENT AUTO 14 % (4-13); Mean Corpuscular HGB 34.4 pg (26.0-34.0); Mean Corpuscular HGB Conc 32.5 g/dL (31.5-36.5); Mean Corpuscular Volume 106 fL (80-100); Mean Platelet Volume 10.3 fL (9.1-12.4); NEUTROPHILS ABSOLUTE AUTO 5.84 K/mm3 (1.96-9.15); NEUTROPHILS PERCENT AUTO 74 % (41-73); Platelet Count 109 K/mm3 (150-400); RDW Coefficient Variation 14.8 % (11.7-14.2); RDW Standard Deviation 57.6 fL (35.1-46.3); Red Blood Cell Count 3.52 M/mm3 (3.80-5.20); White Blood Cell Count 7.93 K/mm3 (4.00-11.30)
[2020-07-13 04:20] LABS: Albumin, Blood 2.9 g/dL (3.4-5.0); Anion Gap 0 mmol/L (6-16); Blood Urea Nitrogen 23 mg/dL (8-24); Bun/Creatinine Ratio 36.4 (12.0-20.0); CO2, Blood 39 mmol/L (21-32); Calcium, Blood 9.8 mg/dL (8.5-10.1); Chloride, Blood 108 mmol/L (98-108); Creatinine, Blood 0.63 mg/dL (0.40-1.00); Glomerular Filtration Rate >60 (60-); Glucose, Blood 92 mg/dL (70-99); Phosphorus, Blood 4.7 mg/dL (2.5-4.9); Sodium, Blood 147 mmol/L (136-145)
--- NOTE | 2020-07-13 05:43 | NUR ---
SHIFT SUMMARY NO ACUTE CHANGES THIS SHIFT. SP02>90% 4L NC, BIPAP AT NIGHT. PT HAS CONGESTION AUDIBLY, SUCTIONED/ORAL CARE DONE THIS SHIFT. PT HAS WEAK, CONGESTED COUGH THAT DOES NOT CLEAR PHLEM. TELEMETRY READS SR, 60'S. PT HAS TUBE FEEDINGS AT 50MLS/ HR INTO PEG TUBE. RESIDUAL CHECKED Q4H W/ NO RESIDUAL. PT WAS REPOSITIONED Q2H. PT IS INCONTINENT, C/D ATTENDS IN PLACE. LINEN CHANGED THIS SHIFT. CALL LIGHT IN REACH. BED IN LOW POSITION W/ SIDE RAILS X3 AND SEIZURE PAD PRECAUTIONS. WILL GIVE REPORT TO ONCOMING NURSE.
--- NOTE | 2020-07-13 15:40 | NUR ---
Pal Care follow up on signing of the POLST. It has not been signed by the Dr yet. Spoke with RN to get update on status and discuss getting POLST signed. RN has been reinforcing strict NPO with caregivers who have been in to visit. This was also stressed with pt's medical POA and the housekeeping aide, Theo, this week. RN to notify Pal Care when POLST is signed by the Dr and Pal Care RN will f/u tomorrow to process once signed. Pt is appears more comfortable and improved in resp status today.
--- NOTE | 2020-07-13 18:20 | NUR ---
SHIFT SUMMMARY NO ACUTE EVENTS THIS SHIFT, VSS. PATIENT ON BIPAP AND NASAL CANNUAL WITH 3-4 L THIS SHIFT. PATIENT APPEARS MORE ALERT TODAY, ABLE TO MAKE EYE CONTACT WITH STAFF. PATIENT TELLING STAFF TO "SHUT UP" AND CALLING STAFF BIT@#&$. PATIENT HIT AND PINCHED NURSING STAFF SEVERAL TIMES THIS SHIFT. ATIVAN GIVEN PER EMAR, PATIENT APPEARS LESS AGITATED, NO CHANGE IN RESPIRATORY STATUS POST ATIVAN. TUBE FEED CONTINUED, RESIDUALS OF <5 ML NOTED.
[2020-07-14 04:40] LABS: BASOPHILS ABSOLUTE AUTO 0.02 K/mm3 (0.00-0.23); BASOPHILS PERCENT AUTO 0 % (0-2); EOSINOPHILS ABSOLUTE AUTO 0.19 K/mm3 (0.00-0.68); EOSINOPHILS PERCENT AUTO 3 % (0-6); Hematocrit 36.2 % (33.0-51.0); Hemoglobin 11.6 g/dL (11.5-16.0); IMMATURE GRAN ABSOLUTE AUTO 0.02 K/mm3 (0.00-0.10); IMMATURE GRAN PERCENT AUTO 0 % (0-1); LYMPHOCYTES PERCENT AUTO 17 % (21-46); MONOCYTES ABSOLUTE AUTO 1.01 K/mm3 (0.16-1.47); MONOCYTES PERCENT AUTO 16 % (4-13); Mean Corpuscular HGB 34.2 pg (26.0-34.0); Mean Corpuscular Volume 107 fL (80-100); Mean Platelet Volume 10.7 fL (9.1-12.4); NEUTROPHILS ABSOLUTE AUTO 4.01 K/mm3 (1.96-9.15); NEUTROPHILS PERCENT AUTO 63 % (41-73); Platelet Count 119 K/mm3 (150-400); RDW Coefficient Variation 14.4 % (11.7-14.2); RDW Standard Deviation 56.2 fL (35.1-46.3); Red Blood Cell Count 3.39 M/mm3 (3.80-5.20); White Blood Cell Count 6.35 K/mm3 (4.00-11.30)
[2020-07-14 05:08] LABS: Albumin, Blood 2.7 g/dL (3.4-5.0); Anion Gap 1 mmol/L (6-16); Blood Urea Nitrogen 29 mg/dL (8-24); Bun/Creatinine Ratio 47.9 (12.0-20.0); CO2, Blood 38 mmol/L (21-32); Calcium, Blood 9.8 mg/dL (8.5-10.1); Chloride, Blood 109 mmol/L (98-108); Creatinine, Blood 0.61 mg/dL (0.40-1.00); Glomerular Filtration Rate >60 (60-); Glucose, Blood 96 mg/dL (70-99); Phosphorus, Blood 3.4 mg/dL (2.5-4.9); Sodium, Blood 148 mmol/L (136-145)
--- NOTE | 2020-07-14 06:30 | NUR ---
SHIFT SUMMARY NO ACUTE CHANGES THIS SHIFT. SP02>90% 4L NC. TELEMETRY READS SR/SB, HR 50'S- 60'S. PT HAS TUBE FEEDINGS AT 50MLS/ HR INTO PEG TUBE. RESIDUAL CHECKED Q4H W/ NO RESIDUAL. PT WAS REPOSITIONED Q2H. PT IS INCONTINENT, C/D ATTENDS IN PLACE. ONE SMALL, SOFT BM THIS SHIFT. PT HAS POWER GLIDE BUT LINE DOES NOT DRAW. CALL LIGHT IN REACH. BED IN LOW POSITION W/ SIDE RAILS X3 AND SEIZURE PAD PRECAUTIONS. WILL GIVE REPORT TO ONCOMING NURSE.
--- NOTE | 2020-07-14 12:20 | NUR ---
UPDATE SPOKE WITH PHYSICIAN REGARDING TUBE FEEDINGS. PHYSICIAN ORDER TO HAVE PT RETURN TO BASELINE FEEDING RATE. CONSULTED WITH STOKER INSTALLER. STOKER INSTALLER TO PUT ORDERS IN FOR BASELINE FEEDING RATES.
--- NOTE | 2020-07-14 18:50 | NUR ---
SHIFT SUMMARY PT ALERT AND ORIENTED TO SELF. PT AGGITATED AT TIMES, HITTING AND GRABBING AT STAFF. TUBE FEEDINGS CHANGED PER PHYSICIAN AND NET WPF DEVELOPER. 240 ML FLUSH TO BE GIVEN SCHEDULED Q 3 HRS OF WATER DURING DAY. FEEDINGS SCHEDULED DURING NOC. HR STABLE. BP STABLE. DEPENDS IN PLACE FOR INCONTINENCE. PT TURNED Q [address]. OXYGEN SATURATION MAINTAINED ABOVE 92$ ON 2-4 L OF OXYGEN VIA NC. WILL CONTINUE TO MONITOR UNTIL REPORT GIVEN TO NIGHTSHIFT RN.
--- NOTE | 2020-07-14 20:47 | NUR ---
ROOM ASSIGNMENT PATIENT RECEIVED ROOM ASSIGNMENT ON MEDICAL FLOOR. PATIENT WILL BE GOING TO ROOM 312. REPORT GIVEN TO LUCIO HEALY.
--- NOTE | 2020-07-14 21:23 | NUR ---
TRANSFER NOTE PATIENT TRANSFERED UP TO ROOM 312 WITH ALL BELONGINGS.
[2020-07-15 05:22] LABS: BASOPHILS ABSOLUTE AUTO 0.04 K/mm3 (0.00-0.23); BASOPHILS PERCENT AUTO 1 % (0-2); EOSINOPHILS ABSOLUTE AUTO 0.23 K/mm3 (0.00-0.68); EOSINOPHILS PERCENT AUTO 3 % (0-6); Hematocrit 36.6 % (33.0-51.0); Hemoglobin 11.7 g/dL (11.5-16.0); IMMATURE GRAN ABSOLUTE AUTO 0.02 K/mm3 (0.00-0.10); IMMATURE GRAN PERCENT AUTO 0 % (0-1); LYMPHOCYTES ABSOLUTE AUTO 1.08 K/mm3 (0.84-5.20); LYMPHOCYTES PERCENT AUTO 15 % (21-46); MONOCYTES ABSOLUTE AUTO 0.87 K/mm3 (0.16-1.47); MONOCYTES PERCENT AUTO 12 % (4-13); Mean Corpuscular HGB 34.2 pg (26.0-34.0); Mean Corpuscular Volume 107 fL (80-100); Mean Platelet Volume 10.4 fL (9.1-12.4); NEUTROPHILS ABSOLUTE AUTO 4.89 K/mm3 (1.96-9.15); NEUTROPHILS PERCENT AUTO 69 % (41-73); Platelet Count 124 K/mm3 (150-400); RDW Coefficient Variation 13.9 % (11.7-14.2); RDW Standard Deviation 55.4 fL (35.1-46.3); Red Blood Cell Count 3.42 M/mm3 (3.80-5.20); White Blood Cell Count 7.13 K/mm3 (4.00-11.30)
[2020-07-15 05:44] LABS: Albumin, Blood 2.7 g/dL (3.4-5.0); Anion Gap 1 mmol/L (6-16); Blood Urea Nitrogen 34 mg/dL (8-24); Bun/Creatinine Ratio 59.1 (12.0-20.0); CO2, Blood 39 mmol/L (21-32); Calcium, Blood 9.3 mg/dL (8.5-10.1); Chloride, Blood 108 mmol/L (98-108); Creatinine, Blood 0.58 mg/dL (0.40-1.00); Glomerular Filtration Rate >60 (60-); Glucose, Blood 121 mg/dL (70-99); Potassium, Blood 3.7 mmol/L (3.5-5.5); Sodium, Blood 148 mmol/L (136-145)
--- NOTE | 2020-07-15 08:02 | NUR ---
SHIFT SUMMARY PATIENT ARRIVED TO ROOM 312 FROM PCU. IS ALERT BUT NOT ORIENTED. NONSENSICAL VERBALIZATIONS. HAS DIFFICULTY FOLLOWING DIRECTIONS. HAD NO COMPLAINTS OF PAIN OR SHORTNESS OF BREATH. IV AND POWERGLIDE PATENT AND FLUSHED. BED IN LOWEST POSITION WITH WHEELS LOCKED AND ALARM ON. CALL LIGHT WITHIN REACH. REPORT GIVEN TO ONCOMING RN.
--- NOTE | 2020-07-15 16:00 | NUR ---
PATIENT HAD REMOVED HER O2 SEVERAL TIMES TODAY SO I TRIALED HER WITHOUT IT AND SHE WAS MAINTAINING O2 >90% ON RA. PATIENT YELLS OUT; UNABLE TO CALL FOR STAFF ASSIST D/T DEVELOPEMENTAL DELAYS. REPOSITIONED AND CHANGED NEEDED. VITALS REMAIN STABLE. WILL CONTINUE TO MONITOR AND PROVIDE CARE TO PATIENT NEEDED.
[2020-07-16 04:42] LABS: BASOPHILS ABSOLUTE AUTO 0.02 K/mm3 (0.00-0.23); BASOPHILS PERCENT AUTO 0 % (0-2); EOSINOPHILS ABSOLUTE AUTO 0.08 K/mm3 (0.00-0.68); EOSINOPHILS PERCENT AUTO 2 % (0-6); Hematocrit 35.3 % (33.0-51.0); Hemoglobin 11.6 g/dL (11.5-16.0); IMMATURE GRAN ABSOLUTE AUTO 0.01 K/mm3 (0.00-0.10); IMMATURE GRAN PERCENT AUTO 0 % (0-1); LYMPHOCYTES ABSOLUTE AUTO 1.07 K/mm3 (0.84-5.20); LYMPHOCYTES PERCENT AUTO 20 % (21-46); MONOCYTES ABSOLUTE AUTO 0.58 K/mm3 (0.16-1.47); MONOCYTES PERCENT AUTO 11 % (4-13); Mean Corpuscular HGB Conc 32.9 g/dL (31.5-36.5); Mean Corpuscular Volume 104 fL (80-100); Mean Platelet Volume 10.4 fL (9.1-12.4); NEUTROPHILS ABSOLUTE AUTO 3.56 K/mm3 (1.96-9.15); NEUTROPHILS PERCENT AUTO 67 % (41-73); Platelet Count 121 K/mm3 (150-400); RDW Coefficient Variation 13.6 % (11.7-14.2); RDW Standard Deviation 52.1 fL (35.1-46.3); Red Blood Cell Count 3.41 M/mm3 (3.80-5.20); White Blood Cell Count 5.32 K/mm3 (4.00-11.30)
[2020-07-16 05:05] LABS: Albumin, Blood 2.8 g/dL (3.4-5.0); Anion Gap 4 mmol/L (6-16); Blood Urea Nitrogen 27 mg/dL (8-24); Bun/Creatinine Ratio 56.5 (12.0-20.0); CO2, Blood 34 mmol/L (21-32); Calcium, Blood 9.2 mg/dL (8.5-10.1); Chloride, Blood 104 mmol/L (98-108); Creatinine, Blood 0.48 mg/dL (0.40-1.00); Glomerular Filtration Rate >60 (60-); Glucose, Blood 153 mg/dL (70-99); Phosphorus, Blood 2.5 mg/dL (2.5-4.9); Potassium, Blood 3.6 mmol/L (3.5-5.5); Sodium, Blood 142 mmol/L (136-145)
--- NOTE | 2020-07-16 07:20 | NUR ---
SHIFT SUMMARY PATIENT ALERT AND ORIENTED TO SELF ONLY. NO SIGNS OF PAIN OR SHORTNESS OF BREATH NOTED. NO ACUTE ISSUES NOTED. POWERGLIDE PATENT AND FLUSHED. BED IN LOWEST POSITION WITH WHEELS LOCKED AND ALARM ON. CALL LIGHT WITHIN REACH. REPORT GIVEN TO ONCOMING RN.
--- NOTE | 2020-07-16 16:09 | NUR ---
PATIENT HAS SLEPT MOST OF THE DAY; SHE DOES WAKE AND RESPOND TO CARE PROVIDED AND HAS BEEN PRETTY COOPERATIVE WITH STAFF. VITALS HAVE REMAINED STABLE AND WNL AND SHE HAS NOT REQUIRED O2 FOR OVER 24HRS NOW. BEDBATH PROVIDED AND PATIENT TOLERATED WELL. PLANS FOR PATIENT TO DISCHARGE BACK TO [facility] TOMORROW ASSUMING ALL CONTINUES TO PROGRESS WITH PATIENTS HEALTH.
--- NOTE | 2020-07-17 07:31 | NUR ---
SHIFT SUMMARY PATIENT SLEPT WELL OVERNIGHT. SHOWED NO SIGNS OF PAIN OR SHORTNESS OF BREATH. PATIENT WAS HAVING NAUSEA AND VOMITING THIS MORNING. MEDICATED PER EMAR TO TREAT. POWERGLIDE PATENT AND FLUSHED. BED IN LOWEST POSITION WITH WHEELS LOCKED AND ALARM ON. CALL LIGHT WITHIN REACH. REPORT GIVEN TO ONCOMING RN.
--- NOTE | 2020-07-17 17:30 | NUR ---
LOW GRADE FEVER/OXYGEN NEEDS THIS RN CALLED DR. MATUTE AND DISCUSSED WITH HIM THAT PT'S TEMP 99.8-100.1 AND NEEDING 2L OXYGEN AT THIS TIME. NEW ORDERS FOR CHEST XRAY, LAB WORK IN AM, AND TO KEEP PT OVER NIGHT. CAREGIVE WAS IN ROOM WHEN ORDERS GIVEN AND AWARE PT IS STAYING ANOTHER NIGHT. WILL MONITOR. CALL LIGHT IN REACH.
--- NOTE | 2020-07-17 18:16 | NUR ---
SHIFT SUMMARY PT NEEDING OXYGEN THIS EVENING AND RUNNING A LOW GRADE FEVER. PT WAS TO DISCHARGE BACK TO [facility] BUT IS NOW STAYING OVERNIGHT FOR OBSERVATION AND CBC IN THE AM. NO SIGNS OF DISTRESS AT THIS TIME. CALL LIGHT IN REACH. WILL CONTINUE TO MONITOR AND REPORT TO ONCOMING RN.
[2020-07-17 19:29] LABS: BASOPHILS ABSOLUTE AUTO 0.02 K/mm3 (0.00-0.23); BASOPHILS PERCENT AUTO 0 % (0-2); EOSINOPHILS PERCENT AUTO 0 % (0-6); Hematocrit 35.9 % (33.0-51.0); IMMATURE GRAN ABSOLUTE AUTO 0.04 K/mm3 (0.00-0.10); IMMATURE GRAN PERCENT AUTO 0 % (0-1); LYMPHOCYTES ABSOLUTE AUTO 0.42 K/mm3 (0.84-5.20); LYMPHOCYTES PERCENT AUTO 4 % (21-46); MONOCYTES ABSOLUTE AUTO 0.51 K/mm3 (0.16-1.47); MONOCYTES PERCENT AUTO 5 % (4-13); Mean Corpuscular HGB 34.9 pg (26.0-34.0); Mean Corpuscular HGB Conc 33.4 g/dL (31.5-36.5); Mean Corpuscular Volume 104 fL (80-100); Mean Platelet Volume 9.9 fL (9.1-12.4); NEUTROPHILS ABSOLUTE AUTO 9.81 K/mm3 (1.96-9.15); NEUTROPHILS PERCENT AUTO 91 % (41-73); Platelet Count 154 K/mm3 (150-400); RDW Coefficient Variation 13.8 % (11.7-14.2); RDW Standard Deviation 52.6 fL (35.1-46.3); Red Blood Cell Count 3.44 M/mm3 (3.80-5.20)
[2020-07-17 20:06] LABS: Alanine Aminotransfer (ALT/SGP 41 U/L (12-78); Albumin, Blood 3.2 g/dL (3.4-5.0); Albumin/Globulin Ratio 0.7 (0.8-1.8); Alk Phos 131 U/L (50-136); Anion Gap 2 mmol/L (6-16); Aspartate Aminotrans (AST/SGOT 26 U/L (12-37); Bilirubin, Total 0.7 mg/dL (0.1-1.0); Blood Urea Nitrogen 23 mg/dL (8-24); Bun/Creatinine Ratio 38.5 (12.0-20.0); CO2, Blood 35 mmol/L (21-32); Calcium, Blood 9.3 mg/dL (8.5-10.1); Chloride, Blood 104 mmol/L (98-108); Globulin, Blood 4.4 g/dL (2.2-4.0); Glomerular Filtration Rate >60 (60-); Glucose, Blood 119 mg/dL (70-99); Sodium, Blood 141 mmol/L (136-145); Total Protein, Blood 7.6 g/dL (6.4-8.2)
--- NOTE | 2020-07-18 04:36 | NUR ---
SHIFT SUMMARY NO ACUTE CHANGES THIS SHIFT, AFEBRILE T/O SHIFT, CONTINUED OXYGEN NEEDS T/O THE NIGHT (SATS LOW 90'S ON 2L), FEED INFUSING, PT SLEEPING AT THIS TIME, BED ALARM ACTIVE, WILL CONT TO MONITOR UNTIL REPORT GIVEN TO DAY RN.
[2020-07-18 05:05] LABS: BASOPHILS ABSOLUTE AUTO 0.02 K/mm3 (0.00-0.23); BASOPHILS PERCENT AUTO 0 % (0-2); EOSINOPHILS PERCENT AUTO 0 % (0-6); Hematocrit 34.2 % (33.0-51.0); Hemoglobin 11.4 g/dL (11.5-16.0); IMMATURE GRAN ABSOLUTE AUTO 0.08 K/mm3 (0.00-0.10); IMMATURE GRAN PERCENT AUTO 1 % (0-1); LYMPHOCYTES ABSOLUTE AUTO 0.61 K/mm3 (0.84-5.20); LYMPHOCYTES PERCENT AUTO 6 % (21-46); MONOCYTES ABSOLUTE AUTO 0.99 K/mm3 (0.16-1.47); MONOCYTES PERCENT AUTO 9 % (4-13); Mean Corpuscular HGB 34.7 pg (26.0-34.0); Mean Corpuscular HGB Conc 33.3 g/dL (31.5-36.5); Mean Corpuscular Volume 104 fL (80-100); Mean Platelet Volume 10.6 fL (9.1-12.4); NEUTROPHILS ABSOLUTE AUTO 9.12 K/mm3 (1.96-9.15); NEUTROPHILS PERCENT AUTO 84 % (41-73); Platelet Count 157 K/mm3 (150-400); RDW Coefficient Variation 13.7 % (11.7-14.2); RDW Standard Deviation 52.8 fL (35.1-46.3); Red Blood Cell Count 3.29 M/mm3 (3.80-5.20); White Blood Cell Count 10.82 K/mm3 (4.00-11.30)
[2020-07-18 05:22] LABS: Anion Gap 4 mmol/L (6-16); Blood Urea Nitrogen 25 mg/dL (8-24); Bun/Creatinine Ratio 53.8 (12.0-20.0); CO2, Blood 33 mmol/L (21-32); Calcium, Blood 9.1 mg/dL (8.5-10.1); Chloride, Blood 104 mmol/L (98-108); Creatinine, Blood 0.47 mg/dL (0.40-1.00); Glomerular Filtration Rate >60 (60-); Glucose, Blood 198 mg/dL (70-99); Potassium, Blood 3.8 mmol/L (3.5-5.5); Sodium, Blood 141 mmol/L (136-145)
--- NOTE | 2020-07-18 18:43 | NUR ---
SHIFT SUMMARY PT HAS BEEN ON 2L OXYGEN VIA NC. PT DEVELOPMENTALLY DELAYED. NO ACUTE CHANGES THIS SHIFT. ISTRATE TO START PT ON ANTIBIOTICS. NO DISTRESS AT THIS TIME. WILL REPORT TO ONCOMING RN. CALL LIGHT IN REACH. BED ALARM ON FOR SAFETY. WILL CONTINUE TO MONITOR.
--- NOTE | 2020-07-19 04:21 | NUR ---
SHIFT SUMMARY NO ACUTE CHANGES TO REPORT THIS SHIFT. PT HAS RESTED MOST OF THE NIGHT, AWAKE AT THE START OF THE SHIFT, PT TALKS NONSENSICALLY TO HERSELF. NOT VERY RESPONSIVE TO STAFF AND WILL SWING OCCASIONALLY AT STAFF WHEN THEY ARE STANDING RIGHT NEXT TO HER. CYCLIC FEEDS T/O NIGHT, PT TOLERATING. VITALS ARE STABLE. PLAN IS FOR POSSIBLE DC TODAY. BED IN LOWEST POSITION, CALL LIGHT WITHIN REACH.
[2020-07-19 04:45] LABS: BASOPHILS ABSOLUTE AUTO 0.03 K/mm3 (0.00-0.23); BASOPHILS PERCENT AUTO 0 % (0-2); EOSINOPHILS ABSOLUTE AUTO 0.01 K/mm3 (0.00-0.68); EOSINOPHILS PERCENT AUTO 0 % (0-6); Hematocrit 31.5 % (33.0-51.0); Hemoglobin 10.3 g/dL (11.5-16.0); IMMATURE GRAN ABSOLUTE AUTO 0.06 K/mm3 (0.00-0.10); IMMATURE GRAN PERCENT AUTO 1 % (0-1); LYMPHOCYTES ABSOLUTE AUTO 0.84 K/mm3 (0.84-5.20); LYMPHOCYTES PERCENT AUTO 8 % (21-46); MONOCYTES ABSOLUTE AUTO 1.07 K/mm3 (0.16-1.47); MONOCYTES PERCENT AUTO 10 % (4-13); Mean Corpuscular HGB 34.7 pg (26.0-34.0); Mean Corpuscular HGB Conc 32.7 g/dL (31.5-36.5); Mean Corpuscular Volume 106 fL (80-100); Mean Platelet Volume 10.4 fL (9.1-12.4); NEUTROPHILS ABSOLUTE AUTO 8.55 K/mm3 (1.96-9.15); NEUTROPHILS PERCENT AUTO 81 % (41-73); Platelet Count 182 K/mm3 (150-400); RDW Standard Deviation 53.2 fL (35.1-46.3); Red Blood Cell Count 2.97 M/mm3 (3.80-5.20); White Blood Cell Count 10.56 K/mm3 (4.00-11.30)
[2020-07-19 05:00] LABS: Anion Gap 3 mmol/L (6-16); Blood Urea Nitrogen 27 mg/dL (8-24); Bun/Creatinine Ratio 54.3 (12.0-20.0); CO2, Blood 34 mmol/L (21-32); Calcium, Blood 8.7 mg/dL (8.5-10.1); Chloride, Blood 105 mmol/L (98-108); Glomerular Filtration Rate >60 (60-); Glucose, Blood 156 mg/dL (70-99); Sodium, Blood 142 mmol/L (136-145)
--- NOTE | 2020-07-19 16:47 | NUR ---
SHIFT SUMMARY PT IS AO TO SELF WITH NONSENSICAL SPEECH. PT CALLS OUT FREQUENTLY THIS SHIFT. PT FREQUENTLY CALLS OUT, "DADDY TAKE ME HOME. I WANT TO GO HOME." PT DENIES PAIN, N/V, SOB. PT IS ON BEDREST AND LIFT PT AT BASELINE. PT HAD A CAREGIVER VISIT TODAY. PT HAS BEEN TOLERATING HER H20 PEG TUBE FLUSHES WELL. PT DID NOT HAVE ANY PROCEDURES TODAY. PLAN IS FOR POTENTIAL DC TOMORROW OR THE DAY AFTER DEPENDING ON PT'S STATUS. PT IS IN BED, CALL LIGHT IN REACH, LOW POSITION.
--- NOTE | 2020-07-19 22:33 | NUR ---
PATIENT YELLING AND SCREAMING AT THIS TIME. NONSENSICAL SPEECH. TUBE FEEDING IN PROGRESS. ON 1L O2 NC. PULLS GOWN AND O2 OFF AND PUT BACK ON.
--- NOTE | 2020-07-20 03:39 | NUR ---
SHIFT SUMMARY PATIENT HAS NOT BEEN ABLE TO SLEEP. TRAZADONE GIVEN FOR INSOMNIA WITH NO RESULTS. ATIVAN PO 0.5 MG GIVEN FOR ANXIETY WITH NO EFFECT. AXO TO SELF WITH NONSENSICAL SPEECH. DEVELOPMENTALLY DISABILITIES. NO S/SX OF PAIN, SOB, AND N/V. ON 1L O2 NC. PULLS O2 AND GOWN OFF T/O SHIFT. PEG TUBE FOR NOCX CONTINUOUS JEVITY FEEDING PER ORDERS. PATIENT YELLING/SCREAMING T/O SHIFT WITH LOUD OUTBURST AT TIMES. BED IN LOWEST POSITION AND ALARM ACTIVATED. WILL CONTINUE TO MONITOR UNTIL DAY SHIFT NURSE ASSUMES CARE.
[2020-07-20 05:06] LABS: BASOPHILS ABSOLUTE AUTO 0.03 K/mm3 (0.00-0.23); BASOPHILS PERCENT AUTO 0 % (0-2); EOSINOPHILS PERCENT AUTO 1 % (0-6); Hematocrit 30.5 % (33.0-51.0); IMMATURE GRAN ABSOLUTE AUTO 0.04 K/mm3 (0.00-0.10); IMMATURE GRAN PERCENT AUTO 1 % (0-1); LYMPHOCYTES ABSOLUTE AUTO 1.28 K/mm3 (0.84-5.20); LYMPHOCYTES PERCENT AUTO 15 % (21-46); MONOCYTES ABSOLUTE AUTO 0.92 K/mm3 (0.16-1.47); MONOCYTES PERCENT AUTO 11 % (4-13); Mean Corpuscular HGB 34.4 pg (26.0-34.0); Mean Corpuscular HGB Conc 32.8 g/dL (31.5-36.5); Mean Corpuscular Volume 105 fL (80-100); Mean Platelet Volume 10.4 fL (9.1-12.4); NEUTROPHILS PERCENT AUTO 73 % (41-73); Platelet Count 227 K/mm3 (150-400); RDW Coefficient Variation 13.9 % (11.7-14.2); RDW Standard Deviation 53.1 fL (35.1-46.3); Red Blood Cell Count 2.91 M/mm3 (3.80-5.20); White Blood Cell Count 8.77 K/mm3 (4.00-11.30)
[2020-07-20 05:31] LABS: Anion Gap 3 mmol/L (6-16); Blood Urea Nitrogen 33 mg/dL (8-24); Bun/Creatinine Ratio 59.8 (12.0-20.0); CO2, Blood 35 mmol/L (21-32); Calcium, Blood 9.3 mg/dL (8.5-10.1); Chloride, Blood 103 mmol/L (98-108); Creatinine, Blood 0.55 mg/dL (0.40-1.00); Glomerular Filtration Rate >60 (60-); Glucose, Blood 145 mg/dL (70-99); Potassium, Blood 4.3 mmol/L (3.5-5.5); Sodium, Blood 141 mmol/L (136-145)
--- NOTE | 2020-07-20 19:18 | NUR ---
SHIFT SUMMARY PT IS AO TO SELF. PT DENIES PAIN, N/V, SOB. PT IS BEDRIDDEN AT BASELINE. INTAKE IS GOOD THROUGH PEG TUBE VIA GRAVITY. PT HAD A VISITOR MANISH ARRIAZA FROM [facility]. THIS RN UPDATED ALEXANDER AT [facility] ABOUT PT CONDITION. PLAN IS FOR PT TO REMAIN ON RA FOR SEVERAL HOURS WITH OPTIMAL OXYGEN SATURATIONS. PT IS IN BED, CALL LIGHT IN REACH, BED IN LOW POSITION.
[2020-07-21 04:33] LABS: BASOPHILS ABSOLUTE AUTO 0.02 K/mm3 (0.00-0.23); BASOPHILS PERCENT AUTO 0 % (0-2); EOSINOPHILS ABSOLUTE AUTO 0.12 K/mm3 (0.00-0.68); EOSINOPHILS PERCENT AUTO 2 % (0-6); Hematocrit 30.1 % (33.0-51.0); Hemoglobin 9.6 g/dL (11.5-16.0); IMMATURE GRAN ABSOLUTE AUTO 0.03 K/mm3 (0.00-0.10); IMMATURE GRAN PERCENT AUTO 1 % (0-1); LYMPHOCYTES ABSOLUTE AUTO 0.87 K/mm3 (0.84-5.20); LYMPHOCYTES PERCENT AUTO 13 % (21-46); MONOCYTES ABSOLUTE AUTO 0.66 K/mm3 (0.16-1.47); MONOCYTES PERCENT AUTO 10 % (4-13); Mean Corpuscular HGB Conc 31.9 g/dL (31.5-36.5); Mean Corpuscular Volume 107 fL (80-100); Mean Platelet Volume 10.5 fL (9.1-12.4); NEUTROPHILS ABSOLUTE AUTO 4.88 K/mm3 (1.96-9.15); NEUTROPHILS PERCENT AUTO 74 % (41-73); Platelet Count 281 K/mm3 (150-400); RDW Coefficient Variation 14.2 % (11.7-14.2); RDW Standard Deviation 54.1 fL (35.1-46.3); Red Blood Cell Count 2.82 M/mm3 (3.80-5.20); White Blood Cell Count 6.58 K/mm3 (4.00-11.30)
[2020-07-21 04:57] LABS: Anion Gap 4 mmol/L (6-16); Blood Urea Nitrogen 26 mg/dL (8-24); Bun/Creatinine Ratio 52.1 (12.0-20.0); CO2, Blood 34 mmol/L (21-32); Calcium, Blood 8.6 mg/dL (8.5-10.1); Chloride, Blood 102 mmol/L (98-108); Glomerular Filtration Rate >60 (60-); Glucose, Blood 127 mg/dL (70-99); Potassium, Blood 3.9 mmol/L (3.5-5.5); Sodium, Blood 140 mmol/L (136-145)
--- NOTE | 2020-07-21 05:00 | NUR ---
SHIFT SUMMARY PATIENT HAD NO ACUTE CHANGES OBSERVED. ALERT TO SELF AND BEDREST. NPO WITH JEVITY INFUSING THROUGH [place] PUMP FOR NOC SHIFT AT 110mL/HR PER ORDER. PATIENT QUITE FIRST PART OF SHIFT AND HALLUCINATING SECOND PART, SLEEPING ON/OFF. NO S/SX OF PAIN, SOB, AND N/V. VSS/AFEBRILE. CALL LIGHT IN REACH. BED IN LOWEST POSITION AND ALARM ACTIVATED. WILL CONTINUE TO MONITOR UNTIL DAY SHIFT NURSE ASSUMES CARE.
--- NOTE | 2020-07-21 11:26 | NUR ---
PER MD, PT OK TO COME OFF O2. TWO READINGS ABOVE 90 PT IS SAFE FOR DC. O2 IS OFF, WILL CONT. TO MONITOR.
--- NOTE | 2020-07-21 18:42 | NUR ---
PT RESTING IN BED AND REMAINS BEDBOUND. PT IS DD AND WE ARE UNABLE TO ASSESS ORIENTATION. PT YELLS OUT BUT IS NOT ABLE TO COMMUNICATE NEEDS. PT COMFORT WAS ASSESSED THROUGHOUT SHIFT. O2 HAS REMAINED ABOVE 90 ALL SHIFT ON ROOM AIR AND HAS POTENTIAL DC TOMORROW. STAFF WILL CONT. TO MONITOR.
--- NOTE | 2020-07-21 21:52 | NUR ---
TF STARTED @2130 PER ORDER WITH JEVITY 1.2 @110MLS/HR AND 30ML FLUSHES Q4HRS. PRIOR TO INITIATING TF FLUSHED WITH 120ML OF WATER PER ORDER. PT. TOLERATED WELL. WILL CONT TO MONITOR.
--- NOTE | 2020-07-22 06:15 | NUR ---
SHIFT SUMMARY- PT. DEVELOPMENTALLY DELAYED, BEDBOUND @BASELINE. PEGTUBE IN PLACE AND ON CYCLIC NOC TF'S. TOLERATING WELL. PT. YELLING OUT DURING THE NIGHT AND APPEARED UNCOMFORTABLE. ALSO GRABBING AT SHEET AND PULLING ON ATTENDS. REPOSITIONED PT. FOR COMFORT AND PRN. BUT PT. NOT ABLE TO MAKE NEEDS KNOWN. ATIVAN GIVEN PER EMAR WITH GOOD EFFECT. PT. APPEARED TO HAVE RESTED COMFORTABLY THE REST OF THE NIGHT, NO APPARENT DISTRESS NOTED. REMAINS ON RA WITH SATS >90 AND VSS. HAD MEDIUM LOOSE STOOL LAST NIGHT. NO S/S OF PAIN OR DISCOMFORT NOTED. CALL LIGHT WITHIN REACH AND SIDE RAILS UPX2. WILL CONT TO MONITOR.
[2020-07-22] MEDS ORDERED: TRAZ150T57 PT ×2 (11:03)
[2020-07-22] MEDS ORDERED: AUGMENTIN250 MG/5 M PT ×2 (11:04)
[2020-07-22] MEDS ORDERED: AZO CRANBERRY PT ×2 (11:06)
--- NOTE | 2020-07-22 17:24 | NUR ---
SHIFT SUMMARY- PT IS ALERT, SHE DOES NOT FOLLOW DIRECTIONS AND DOES NOT RESPOND APPROPRATE TO QUESTIONS. SHE IS ON NIGHT CYCLIC FEEDS AND IS RECIEVING MEDICATIONS THROUGH PEG TUBE. SHE HAS HAD SEVERAL INC STOOLS THIS SHIFT. HER BED IS IN THE LOW POSITION AND CALL LIGHT IS WITHIN REACH.
--- NOTE | 2020-07-22 23:18 | NUR ---
TF STARTED AT 2100 PER ORDER, RUNNING @110MLS/HR WITH 30ML FLUSH Q4HRS. 120ML FLUSH AT INITIATION OF TF. PT. TOLERATING WELL, HOB @30 DEGREE ANGLE. WILL CONT TO MONITOR.
--- NOTE | 2020-07-23 05:15 | NUR ---
SHIFT SUMMARY- PT. AGITATED AND COMBATIVE DURING THE NIGHT. HITTING HERSELF, RIPPING OFF ATTENDS AND PULLING ON FEEDING TUBE. PT. ALSO YELLING OUT AND CURSING AT NURSING STAFF. PT. GIVEN ATIVAN VIA PEG TUBE PER EMAR WITH NO RESULT. BEHAVIOR CONTINUED T/O THE NIGHT. NOTIFIED HOSPITALIST DR. RICK, RECEIVED ORDER FOR 1X DOSE OF IM ZYPREXA. ADMINISTERED PER EMAR WITH MINIMAL EFFECT. PT. REPOSITIONED OFTEN FOR COMFORT AND PRN, ATTENDS REPLACED SEVERAL TIMES T/O THE NIGHT. ON CYCLIC NOC TF'S AT THIS TIME. TOLERATING WELL. VSS. CALL LIGHT WITHIN REACH AND SIDE RAILS UPX3. WILL CONT TO MONITOR.
--- NOTE | 2020-07-23 18:42 | NUR ---
SHIFT SUMMARY RUDY CONTINUES TO YELL OUT/BE AGITATED THIS SHIFT. THROWS PILLOWS, GETS AGGRESSIVE WITH STAFF AT TIMES WHEN ATTEMPTING TO TURN/CHANGE HER. INCONTINENT URINE. WATER FLUSHES GIVEN PER ORDER INTO PEG. MEDS CRUSHED AND PUT INTO TUBE PER ORDER. LLE UPPER INNER THIGH HAS GROWING BRUISE AND SWELLING. CALLED DR MATUTE, HE ORDERED AN U/S TO RULE OUT HEMATOMA/FLUID COLLECTION. FREQUENT CHECKS, BED ALARM ON, WCTM
--- NOTE | 2020-07-24 05:18 | NUR ---
SHIFT SUMMARY- PT. DEVELOPMENTALLY DELAYED WAS AGITATED AND COMBATIVE T/O THE ENTIRE NIGHT. ATTEMPTED TO REPOSITION FOR COMFORT AND TF'S STARTED, BUT PT. HITTING, YELLING AND SCREAMING. MEDICATED WITH ZYPREXA IM PER EMAR WITH NO EFFECT. PT. CONTINUED HITTING HERSELF AND NURSING STAFF. ALSO CURSING, PULLING ON PEG TUBE LINE, DISCONNECTED LINE AND FEEDING SPILLED ON BED. NOTIFIED HOSPITALIST DR. RICK, RECEIVED ORDER FOR BILATERAL SOFT WRIST RESTRAINTS. RESTRAINTS PLACED ON PT. WITH TUMBLERS SUPERVISOR ASSIST. BEHAVIOR REMAINED THE SAME THE REST OF THE NIGHT. ON CONTINOUS TF'S UNTIL 0800. HAD LARGE LIQUID BM, ATTENDS IN PLACE. PLAN FOR DC TO [facility] TODAY. VSS. CALL LIGHT WITHIN REACH AND SIDE RAILS UPX2. WILL CONT TO MONITOR.
[2020-07-24] MEDS ORDERED: OLAN10 ×2 (08:50)
--- NOTE | 2020-07-24 17:59 | NUR ---
1539 PT DISCHARGED TO [facility] [employer]. PT PICKED UP BY SOLE STAINER ALEXANDER. AT TIME OF D/C RN FOR [facility] REQUESTED THAT PRN ATIVAN BE D/C'D AND THAT A ORDER BE PLACED TO RESUME ALL PREVIOUS MEDICATIONS, RECIEVED T/O FROM DR. MATUTE AND HAND WROTE ONTO D/C MED REC. RESTRAINTS REMOVED AT 0800. 0800 WATER FLUSH WAS MISSED. PT HAD BEEN NON COMBATIVE WITH CARE, INCONTINENT OF BOWEL AND BLADDER. NO OTHER CHANGES OR CONCERNS.
== END 2020-07-24 15:39 | disposition home health service (06) | DRG 177 ==
LOC: ER 19:37 → ERHOLD 19:38 → PCU 19:38 → MEDS 07-14 21:11 → ENPENDDIS 07-17 11:29 → MEDS 07-17 22:10
PROVIDERS: Emergency Medicine; Family Medicine; Nurse Practitioner Acute Care; ADMIT Internal Medicine
PROC: 3E0G76Z Introduction of Nutritional Substance into Upper GI, Via Natural or Artificial Opening (ICD-10-PCS; principal; 2020-07-11)
PROC: 5A09557 Assistance with Respiratory Ventilation, Greater than 96 Consecutive Hours, Continuous Positive Airway Pressure (ICD-10-PCS; 2020-07-11)
DX: J69.0 Pneumonitis due to inhalation of food and vomit (principal); J96.01 Acute respiratory failure with hypoxia; J96.02 Acute respiratory failure with hypercapnia; E87.4 Mixed disorder of acid-base balance; R62.50 Unspecified lack of expected normal physiological development in childhood; E87.0 Hyperosmolality and hypernatremia; E03.9 Hypothyroidism, unspecified; D69.6 Thrombocytopenia, unspecified; E66.9 Obesity, unspecified; D63.8 Anemia in other chronic diseases classified elsewhere; Z87.440 Personal history of urinary (tract) infections; Z88.8 Allergy status to other drugs, medicaments and biological substances; Z93.1 Gastrostomy status; Z88.1 Allergy status to other antibiotic agents; Z79.899 Other long term (current) drug therapy; Z79.82 Long term (current) use of aspirin; Z87.11 Personal history of peptic ulcer disease
CPT/HCPCS: 0241U; 31720; 36415; 71045; 76882; 80048; 80053; 80069; 82803; 82947; 83735; 84145; 85025; 93005; 93010; 94640; 94660; 94760; 94762; 96372; 99285-25; A9270; C1751; G0378; J1650; J2060; J2405

== ENCOUNTER 2020-07-24 21:33 | Emergency (ER) | payer OTHER ==
[~2020-07-24] VITALS: Ht 152.4 cm; Wt 91.6 kg
[~2020-07-24 21:33] MED LIST changes: +ALBU2.5V5 NEB; +AUGMENTIN250 MG/5 M PT; +AZO CRANBERRY PT; +CITA20 PT; +Fleet Enema132 ML PR; +MILK OF MAGNESIA SUS PT; +OLAN10; +RISP2 PT; +TINACTIN TOP; +TRAZ150T57 PT; +TRIPLE ANTIBIOT28 GM TOP; +ZINC OXIDE57 GM TOP
[2020-07-24 22:15] LABS: Calcium, Ionized (POC) 1.15 mmol/L (1.10-1.46); Chloride (POC) 94 mmol/L (98-108); Creatinine (POC) 0.5 mg/dL (0.6-1.0); Glucose (ISTAT POC) 103 mg/dL (70-99); Hemoglobin (POC) 9.9 g/dL (12.0-16.0); Potassium (POC) 3.9 mmol/L (3.5-5.5); Sodium (POC) 136 mmol/L (135-148); Total CO2 (POC) 36 mmol/L (21-32)
== END 2020-07-25 02:10 | disposition home or self-care (01) ==
LOC: ER 21:33
PROVIDERS: Emergency Medicine
DX: R06.02 Shortness of breath (principal); E03.9 Hypothyroidism, unspecified; Z88.8 Allergy status to other drugs, medicaments and biological substances; Z79.899 Other long term (current) drug therapy
CPT/HCPCS: 80047; 85014; 99284

== ENCOUNTER 2020-08-28 00:33 | Inpatient (IN) | payer OTHER, MEDICARE ==
[~2020-08-28] VITALS: Ht 152.4 cm; Wt 114.3 kg
[2020-08-28 01:32] LABS: BASOPHILS ABSOLUTE AUTO 0.01 K/mm3 (0.00-0.23); BASOPHILS PERCENT AUTO 0 % (0-2); Hematocrit 24.9 % (33.0-51.0); Hemoglobin 7.6 g/dL (11.5-16.0); LYMPHOCYTES ABSOLUTE AUTO 0.43 K/mm3 (0.84-5.20); LYMPHOCYTES PERCENT AUTO 8 % (21-46); MONOCYTES PERCENT AUTO 8 % (4-13); Mean Corpuscular HGB 36.2 pg (26.0-34.0); Mean Corpuscular HGB Conc 30.5 g/dL (31.5-36.5); Mean Corpuscular Volume 119 fL (80-100); Mean Platelet Volume 10.1 fL (9.1-12.4); NRBC ABSOLUTE 0.02 K/mm3 (0.00-0.02); NRBC Auto 0.4 /100 WBC (0.0-0.2); Platelet Count 111 K/mm3 (150-400); RDW Standard Deviation 78.7 fL (35.1-46.3); White Blood Cell Count 5.27 K/mm3 (4.00-11.30)
[2020-08-28 01:33] LABS: EOSINOPHILS ABSOLUTE AUTO 0.05 K/mm3 (0.00-0.68); EOSINOPHILS PERCENT AUTO 1 % (0-6); IMMATURE GRAN ABSOLUTE AUTO 0.08 K/mm3 (0.00-0.10); IMMATURE GRAN PERCENT AUTO 2 % (0-1); NEUTROPHILS PERCENT AUTO 82 % (41-73)
[2020-08-28 01:56] LABS: Alanine Aminotransfer (ALT/SGP 42 U/L (12-78); Albumin, Blood 2.5 g/dL (3.4-5.0); Albumin/Globulin Ratio 0.7 (0.8-1.8); Alk Phos 170 U/L (50-136); Anion Gap 0 mmol/L (6-16); Aspartate Aminotrans (AST/SGOT 44 U/L (12-37); Bilirubin, Total 0.5 mg/dL (0.1-1.0); Blood Urea Nitrogen 16 mg/dL (8-24); Bun/Creatinine Ratio 34.6 (12.0-20.0); CO2, Blood 36 mmol/L (21-32); Calcium, Blood 8.7 mg/dL (8.5-10.1); Chloride, Blood 104 mmol/L (98-108); Creatinine, Blood 0.46 mg/dL (0.40-1.00); Globulin, Blood 3.6 g/dL (2.2-4.0); Glomerular Filtration Rate >60 (60-); Glucose, Blood 142 mg/dL (70-99); Magnesium, Blood 1.8 mg/dL (1.6-2.4); Phosphorus, Blood 2.8 mg/dL (2.5-4.9); Potassium, Blood 4.1 mmol/L (3.5-5.5); Sodium, Blood 140 mmol/L (136-145); Total Protein, Blood 6.1 g/dL (6.4-8.2); Troponin I <0.015 ng/mL (0.000-0.040)
[2020-08-28 01:59] LABS: Source, Urine Catheter
[2020-08-28 02:01] LABS: Appearance, Urine Cloudy (Clear); Bilirubin, Urine Neg (Neg); Blood, Urine 4+ (Neg); Color, Urine Yellow (P-Yellow); Glucose Qualitative, Urine Neg (Neg); Ketones, Urine Neg (Neg); Leukocyte Esterase, Urine 3+ (Neg); Nitrite, Urine Pos (Neg); Protein, Urine 2+ (Neg); Specific Gravity, Urine 1.015 (1.003-1.022); Urobilinogen, Urine NORM (Normal)
[2020-08-28 02:05] LABS: PCO2 Arterial 74.6 mmHg (35-45); PO2 Arterial 131 mmHg (80-100); pH Blood Arterial 7.31 (7.35-7.45)
[2020-08-28 02:09] LABS: Bacteria Many /hpf; Squamous Epithelial Cells Not Seen /hpf (Few); White Blood Cells, Urine TNTC /hpf (0-5)
[2020-08-28 02:11] LABS: U Amphetamine Screen Not Detected; U Barbituate Screen Not Detected; U Benzodiazapine Screen DETECTED; U Buprenorphine Screen Not Detected; U Cannabinoids Screen Not Detected; U Cocaine Screen Not Detected; U Methadone Screen Not Detected; U Methamphetamine Screen Not Detected; U Opiates Screen Not Detected; U Oxycodone Screen Not Detected; U Phencyclidine Screen Not Detected; U Propoxyphene Screen Not Detected
[2020-08-28] MEDS ORDERED: LEVSOD100 PT (02:52)
[2020-08-28 03:05] LABS: Triiodothyronine, Free 1.2 pg/mL (2.18-3.98)
[2020-08-28 04:44] LABS: PCO2 Arterial 73.4 mmHg (35-45); PO2 Arterial 105 mmHg (80-100); pH Blood Arterial 7.33 (7.35-7.45)
[2020-08-28 05:41] LABS: BASOPHILS ABSOLUTE AUTO 0.01 K/mm3 (0.00-0.23); BASOPHILS PERCENT AUTO 0 % (0-2); EOSINOPHILS ABSOLUTE AUTO 0.04 K/mm3 (0.00-0.68); EOSINOPHILS PERCENT AUTO 1 % (0-6); Hematocrit 21.8 % (33.0-51.0); Hemoglobin 6.9 g/dL (11.5-16.0); Mean Corpuscular HGB 36.9 pg (26.0-34.0); Mean Corpuscular HGB Conc 31.7 g/dL (31.5-36.5); Mean Corpuscular Volume 117 fL (80-100); Mean Platelet Volume 10.4 fL (9.1-12.4); NRBC ABSOLUTE 0.03 K/mm3 (0.00-0.02); NRBC Auto 0.8 /100 WBC (0.0-0.2); Platelet Count 103 K/mm3 (150-400); RDW Coefficient Variation 18.1 % (11.7-14.2); RDW Standard Deviation 76.9 fL (35.1-46.3); Red Blood Cell Count 1.87 M/mm3 (3.80-5.20); White Blood Cell Count 3.81 K/mm3 (4.00-11.30)
[2020-08-28 05:46] LABS: IMMATURE GRAN ABSOLUTE AUTO 0.03 K/mm3 (0.00-0.10); IMMATURE GRAN PERCENT AUTO 1 % (0-1); LYMPHOCYTES ABSOLUTE AUTO 0.51 K/mm3 (0.84-5.20); LYMPHOCYTES PERCENT AUTO 13 % (21-46); MONOCYTES ABSOLUTE AUTO 0.61 K/mm3 (0.16-1.47); MONOCYTES PERCENT AUTO 16 % (4-13); NEUTROPHILS ABSOLUTE AUTO 2.61 K/mm3 (1.96-9.15); NEUTROPHILS PERCENT AUTO 69 % (41-73)
[2020-08-28 06:00] LABS: Alanine Aminotransfer (ALT/SGP 37 U/L (12-78); Albumin, Blood 2.8 g/dL (3.4-5.0); Albumin/Globulin Ratio 0.9 (0.8-1.8); Alk Phos 150 U/L (50-136); Anion Gap 0 mmol/L (6-16); Aspartate Aminotrans (AST/SGOT 36 U/L (12-37); Bilirubin, Total 0.5 mg/dL (0.1-1.0); Blood Urea Nitrogen 15 mg/dL (8-24); Bun/Creatinine Ratio 32.6 (12.0-20.0); CO2, Blood 35 mmol/L (21-32); Calcium, Blood 8.6 mg/dL (8.5-10.1); Chloride, Blood 105 mmol/L (98-108); Creatinine, Blood 0.46 mg/dL (0.40-1.00); Globulin, Blood 3.1 g/dL (2.2-4.0); Glomerular Filtration Rate >60 (60-); Glucose, Blood 57 mg/dL (70-99); Potassium, Blood 4.4 mmol/L (3.5-5.5); Sodium, Blood 140 mmol/L (136-145); Total Protein, Blood 5.9 g/dL (6.4-8.2)
[2020-08-28 07:14] LABS: Influenza A, PCR NEGATIVE (NEGATIVE); Influenza B, PCR NEGATIVE (NEGATIVE); Resp Syncytial Virus, PCR NEGATIVE (NEGATIVE); SARS-Cov-2 (COVID-19) PCR, MMC NEGATIVE (NEGATIVE)
--- NOTE | 2020-08-28 07:38 | NUR ---
ARRIVAL TO ICU/END OF SHIFT SUMMARY PT ARRIVED TO ICU 12 AT 0445 VIA ED BED. PT RESPONSIVE TO VERBAL STIMULI OCCATIONALLY AND DOES RECOGNIZE CAREGIVER AT BED SIDE. PT ONLY STATES ONE WORD ANSWERS WHEN ASKED QUESTIONS OCCATIONALLY; AN INCREASE IN IRRITATION NOTED WHEN CAREGIVER LEFT, PT STARTED PULLING AT BIPAP. JONY HUGGER IN PLACE ON ARRIVAL, TEMP WAS 91.2 AND IS SLOWING INCREASING. SPO2 >90% ON BIPAP WITH SETTINGS 18/7, FIO2 30%, AN ALARM FOR LOW TIDAL VOLUMES OCCURES OCCATIONALLY WHILE RESTING. HR 50-60'S. MAP HAVE BEEN <65, DR REYNOLDS NOTIFIED AND PROVIDED ORDERS TO GIVE 500ML NS BOLUS, WAIT 30MIN AND THAN IF NEEDED GIVE ANOTHER 500ML NS BOLUS. PEG TUBE TO LUQ NOTED, AREA IS CLEAN AND DRY. JEREZ IN PLACE AND DRAINING YELLOW CLOUDY URINE. SEE ADMISSION ASSESSMENT FOR FULL ASSESSMENT. REPORT GIVEN TO AC VALDES.
[2020-08-28 09:57] LABS: Base Excess Venous 11.6 mmol/L; Bicarbonate Venous 34.3 mmol/L (24.0-30.0); PCO2 Venous 47.8 mmHg (38-42); PO2 Venous 82.9 mmHg (38-42); pH Blood Venous 7.48 (7.34-7.37)
--- NOTE | 2020-08-28 12:00 | NUR ---
CARE ASSUMED ASSESSMENTS COMPLETED, PT ALERT, KEEPS EYES CLOSED BUT OPENS TO VOICE AND RESPONDS VERBALLY, HX DEVELOPMENTAL DELAY, RESPONSES ARE CHILD LIKE AND NOT APPROPRIATE AT TIMES, THIS IS CLOSE TO PT'S BASELINE ACCORDING TO NOC SHIFT REPORT. PT RESISTANT TO CARE, CONTRACTED IN ALL EXTREMS BUT IS STRONG AND PULLS AWAY. CBG 50'S, DEXTROSE ADMINISTERED PER ORDERS BUT REMAINS LOW, D5 INFUSION STARTED, WILL CONTINUE TO CHECK CBG'S FREQUENTLY UNTIL STABLE. TEMP 93, IMPROVING WITH JONY HUGGER WHICH REMAINS IN PLACE. HR SINUS 80'S, BP LOW WITH MAP 50'S, LEVO INITIATED PERIPHERALLY AT 5MCG, MAP IMPROVED TO 70'S. ECHO COMPLETED. LS COARSE T/O, OCCASIONAL COUGH NOTED. BIPAP IN PLACE 18/7, FIO2 30%, SPO2 MID 90'S. RR 25-30, VBG DRAWN, AWARE OF RESULTS. Vt INCREASING TO 1200, PRESSURES DECERASED TO 16/[address] ARAUZ, PT TOLERATING CHANGES WELL. JEREZ IN PLACE, URINE CLOUDY, FOUL SMELLING. PT INCONTINENT OF STOOL, ATTENDS CHANGED. PEG TUBE IN PLACE TO L ABD, CLAMPED. SITE CDI, NO S/SX INFECTION NOTED. EDEMA TO EXTREMS 2-3+. PT RECEIVED 1 UNIT PRBC, TOLERATED WELL, HOWEVER NO CHANGE IN BP. PT'S TEMP CONTINUED TO INCREASE T/O MORNING, JONY HUGGER REMOVED WHEN TEMP 98.8 PER JEREZ TEMP PROBE.
--- NOTE | 2020-08-28 12:20 | NUR ---
Echocardiogram completed.
--- NOTE | 2020-08-28 17:50 | NUR ---
Provided prayer at bedside. Lucy did not respond to me verbaly, but she did hold my hand tightly throughout my prayer. She was on-bipap and appeared to be sleeping comfortably. No family/caregiver present at time of visit. I will remain available.
--- NOTE | 2020-08-28 19:15 | NUR ---
ASSUMED CARE OF PT, REPORT RECEIVED. PT IS RESTING QUIETLY RECLINING IN BED AT THIS TIME, BILAT SOFT WRIST RESTRAINTS ARE NOTED IN PLACE. BIPAP IN USE, SETTINGS FIO2 30% WITH PRESSURES 14/5, SATS ARE 87-88% AT THIS TIME, FIO2 INCREASED TO 35% WILL NOTIFY RT. RESP RATE IS MID 20S AT THIS TIME. HRR, SINUS NOTED ON MONITOR, RATE 70-80S, PRESSURES IMPROVING, LEVOPHED AT 20 MCG/MIN, VASOPRESSIN AT 0.04 UNITS/MIN, WILL TITRATE PRESSURES TOLERATE. SKIN IS PWD, BRISK CAP REFILL TO EXTREMITIES, EDEMA NOTED BILAT LOWER EXTREMITIES, 2+ AND PITTING, PULSES ARE PRESENT X 4 EXTREMITIES. ABD DISTENDED, TUBE FEEDING JEVITY 1.2 AT 25 ML/HR, GOAL IS 50 ML/HR, TO BE INCREASED AFTER 1999 THIS SHIFT IF TOLERATED. TEMP PROBE JEREZ IN PLACE DRAINING DARK YELLOW/VICK URINE TO GRAVITY. PICC TO LEFT UPPER ARM IS NOTED, DRESSING CDI, SITE WNL. D5NS @ 100 ML/HR. SEE SHIFT ASSESSMENT FOR FURTHER.
--- NOTE | 2020-08-28 19:46 | NUR ---
END OF SHIFT EARLY THIS AFTERNOON PT HAD PICC PLACED TO LUE, FLUSHES AND DRAWS WELL. LEVO INFUSING THROUGH PICC, BP BEGAN DROPPING THIS AFTERNOON, LEVO TITRATED UP TO 20, NS BOLUS ADMINISTERED WITHOUT EFFECT, MAP REMAINS 50-60, URINE OUTPUT DECREASING TO APPROXIMATELY 35ML/HR. VASO INITIATED PER DR. ARAUZ WITH GOOD RESULTS. MAP NOW 70-80'S, HR REMAINS 80'S SINUS. NEURO STATUS UNCHANGED TODAY, PT RESTING QUIETLY AT THIS TIME. RESTRAINTS IN PLACE PT WAS PULLING BIPAP OFF THIS MORNING. TEMP STABLE AT 98 DEGREES SINCE JONY HUGGER REMOVED. LS HAVE CLEARED T/O SHIFT, DIMINISHED IN BASES WITHOUT ADVENTITIOUS SOUNDS. BIPAP SETTINGS 12/5, FIO2 30%, SPO2 MID 90'S, Vt 300'S, RR 30. OCCASIONAL LOOSE COUGH NOTED, UNABLE TO COLLECT SPECIMEN THIS SHIFT. PEG TUBE ASSESSED THIS AFTERNOON, BILE ASPIRATED, TUBE THEN EASILY FLUSHED WITH 30ML WATER, PO MEDS ADMINISTERED, JEVITY 1.2 INFUSING AT 25ML/HR, GOAL 50ML/HR, TO BE INCREASED AFTER 2000. 0ML RESIDUAL THIS EVENING. CBG'S HAVE STABILIZED TO 120'S, NOW CHECKING Q6H, D5 CONTINUES TO INFUSE AT 100ML/HR. ABX ADMINISTERED, EDEMA UNCHANGED, PT HAD TOTAL 600ML URINE OUTPUT AND JUST OVER 4L IVF INTAKE THIS SHIFT. CAREGIVER IN TO VISIT THIS AFTERNOON, PT'S [employer]ALTH [employer] AND BROTHER AND SISTER IN LAW UPDATED.
[2020-08-29] MEDS ORDERED: Fleet Glycerin1 EACH PR (01:34)
[2020-08-29] MEDS ORDERED: PREPARATION H C26 GM TOP (01:39)
[2020-08-29] MEDS ORDERED: WITCH HAZEL TOP (01:45)
--- NOTE | 2020-08-29 02:45 | NUR ---
PT DUE FOR REPOSITIONING, NOTED TO HAVE ATTENDS SOILED WITH BOWEL MOVEMENT ON ARRIVAL TO ROOM, PT WAS POSITIONED ON LEFT SIDE NEAR COMPLETION OF ATTENDS CHANGE AND SATS WERE NOTED TO DECREASE TO 70S, FIO2 ON BIPAP INCREASED TO 100% AND SATS INCREASED TO 94% QUICKLY, PT BOOSTED UP IN BED AND HOB ELEVATED TO 30 DEGREES, AUDIBLE COARSE AIRWAY SOUNDS ARE NOTED AND BIPAP MASK IS REMOVED FOR ORAL SUCTIONING, MODERATE AMOUNT OF ORAL SECRETIONS ARE NOTED INSIDE OF BIPAP MASK ON REMOVAL, PT BIT DOWN ON YANKAUR AND TURNED HEAD AWAY, WOULD NOT ALLOW ORAL SUCTIONING AT THIS TIME, RESPIRATORY AND ROTATING EQUIPMENT SPECIALIST CALLED FOR ASSISTANCE PT IS AUDIBLY COARSE, SHE DOES NOT FOLLOW INSTRUCTIONS TO COUGH AT THIS TIME. GAG AND COUGH ARE NOT PRESENT WITH N/T SUCTIONING HOWEVER PT IS NOTED TO COUGH AFTER COMPLETION OF SUCTIONING. AM LABS DRAWN FROM PICC, CALL PLACED TO DR DAVALOS AND EVENTS AND CURRENT PT CONDITION ARE DISCUSSED. ORDERS TO MONITOR AT THIS TIME.
[2020-08-29 03:17] LABS: Bicarbonate Venous 30.9 mmol/L (24.0-30.0); PCO2 Venous 56.4 mmHg (38-42); PO2 Venous 64.6 mmHg (38-42); pH Blood Venous 7.38 (7.34-7.37)
[2020-08-29 03:19] LABS: BASOPHILS ABSOLUTE AUTO 0.02 K/mm3 (0.00-0.23); BASOPHILS PERCENT AUTO 0 % (0-2); EOSINOPHILS ABSOLUTE AUTO 0.02 K/mm3 (0.00-0.68); EOSINOPHILS PERCENT AUTO 0 % (0-6); Hematocrit 22.4 % (33.0-51.0); IMMATURE GRAN ABSOLUTE AUTO 0.05 K/mm3 (0.00-0.10); IMMATURE GRAN PERCENT AUTO 1 % (0-1); LYMPHOCYTES ABSOLUTE AUTO 0.29 K/mm3 (0.84-5.20); LYMPHOCYTES PERCENT AUTO 4 % (21-46); MONOCYTES ABSOLUTE AUTO 0.92 K/mm3 (0.16-1.47); MONOCYTES PERCENT AUTO 12 % (4-13); Mean Corpuscular HGB 35.2 pg (26.0-34.0); Mean Corpuscular HGB Conc 31.3 g/dL (31.5-36.5); Mean Corpuscular Volume 113 fL (80-100); Mean Platelet Volume 10.5 fL (9.1-12.4); NEUTROPHILS ABSOLUTE AUTO 6.09 K/mm3 (1.96-9.15); NEUTROPHILS PERCENT AUTO 82 % (41-73); NRBC ABSOLUTE 0.03 K/mm3 (0.00-0.02); NRBC Auto 0.4 /100 WBC (0.0-0.2); Platelet Count 88 K/mm3 (150-400); RDW Standard Deviation 91.7 fL (35.1-46.3); Red Blood Cell Count 1.99 M/mm3 (3.80-5.20); White Blood Cell Count 7.39 K/mm3 (4.00-11.30)
[2020-08-29 03:35] LABS: Anion Gap 0 mmol/L (6-16); Blood Urea Nitrogen 18 mg/dL (8-24); CO2, Blood 33 mmol/L (21-32); Chloride, Blood 107 mmol/L (98-108); Creatinine, Blood 0.62 mg/dL (0.40-1.00); Glomerular Filtration Rate >60 (60-); Glucose, Blood 147 mg/dL (70-99); Phosphorus, Blood 2.6 mg/dL (2.5-4.9); Potassium, Blood 4.2 mmol/L (3.5-5.5); Sodium, Blood 140 mmol/L (136-145); Vancomycin, Trough 17.2 ug/mL (5.0-10.0)
--- NOTE | 2020-08-29 04:05 | NUR ---
CALL PLACED TO DR DAVALOS REGARDING AM CXR, PT SATS CONT TO MAINTAIN 96-100% WITH BIPAP 14/5, FIO2 100% AT THIS TIME, RATE NEAR 30/MIN, TIDAL VOLUMES MID TO UPPER 300S.
--- NOTE | 2020-08-29 07:16 | NUR ---
0445: ARRIVED TO BEDSIDE FOR LOW PRIORITY BIPAP ALARM SOUNDING FOR T[place]NEA, PT RESP RATE 44, WHILE THIS RN WAS AT BEDSIDE, PT WAS NOTED TO BEGIN TO VOMIT WITH BIPAP IN PLACE, MASK IMMEDIATELY REMOVED AND ORAL SUCTIONING ATTEMPTED, PT IS NONCOMPLIANT WITH ORAL SUCTION, BITING AT TUBE AND MOVING HEAD STRONGLY AWAY FROM YANKAUR, RT AND MARKETING AND COMMUNICATIONS OFFICER CALLED FOR ASSISTANCE. 0450: CALL PLACED TO DR DAVALOS CELL BY MARKETING AND COMMUNICATIONS OFFICER AT THIS RN'S REQUEST. RT ARRIVES TO BEDSIDE, SATS 80S AND DECLINING WITH OXYGEN VIA NASAL CANNULA AT 6 L/MIN WHILE AWAITING SETUP OF NRB MASK, PT PROJECTILE VOMITING AT THIS TIME, RT PLACING NASAL TRUMPET FOR NT SUCTION PT REMAINS NONCOMPLIANT WITH ORAL SUCTIONING. 0455: THIS RN REQUESTED THAT MARKETING AND COMMUNICATIONS OFFICER EMERGENTLY CONTACT , RT X 2 AT BEDSIDE 0505: DR DAVALOS AT BEDSIDE, PLAN TO RSI. 0518: ETOMIDATE 15 MG IV AND SUCCINYLCHOLINE 150 MG IV ADMINISTERED FOR RSI 0520: 7.[address] DAVALOS, 23 CM AT GUMS, ON INFLATION OF CUFF, AUDIBLE GURGLING CAN BE HEARD WITH BAGGING, POSITIVE COLOR CHANGE TO COLOREMETRIC DEVICE WELL LUNG SOUNDS AUSCULTATED HOWEVER CUFF WILL NOT MAINTAIN INFLATION, BOUGIE PLACED THROUGH ETT AND ETT REMOVED OVER BOUGIE, SECOND ATTEMPT AT INTUBATION OVER BOUGIE BY DR DAVALOS, SATS ARE NOTED TO DECREASE MARKEDLY DURING ATTEMPT DOWN TO 30%, ETT AND BOUGIE REMOVED AND PT VENTILATED WITH BVM AT 15L/MIN UNTIL SATS RECOVER TO HIGH 90S. PT BEGINS TO COUGH INCREASED JAW TENSION IS NOTED. VERSED 1 MG IV ADMIN 0537: ETOMIDATE 20 MG IV AND SUCCINYLCHOLINE 150 MG IV ADMINISTERED. PT INTUBATED BY DR DAVALOS WITH 7.0 MEASURING 24 CM AT GUMS, POSITIVE COLOR CHANGE, AIR MOVEMENT TO AUSCULTATION BILAT, NO AIR AUSCULTATED OVER ABD. PORTABLE CXR ORDERED FOR TUBE PLACEMENT VERIFICATION. RT SETTING UP VENTILATOR. DISCUSSED OG PLACEMENT VS PEG TO SUCTION, PER DR DAVALOS, WILL PLACE PEG TO LOW INTERMITTENT SUCTION. 0552: CXR DONE, TUBE PLACEMENT VERIFIED BY DR DAVALOS. 0600: PEG TO LOW SUCTION, PARTIAL BATH DONE, GOWN CHANGED, ATTENDS CHANGED, UPPER LINEN CHANGED. PT BOOSTED IN BED AND REPOSITIONED TO RIGHT SIDE.
--- NOTE | 2020-08-29 08:30 | NUR ---
PT CURRENTLY INTUBATED AND SEDATED. PT IS UNABLE TO RESPOND TO COMMANDS AND MAKES SLIGHT ATTEMPT TO OPEN EYES WHEN MOVED. PEG TUBE TO MILD INTERMITTENT SUCTION, NO TUBE FEEDS STARTED AT THIS TIME. DRAINING BILE/FORMULA. LUNG SOUNDS ARE COARSE IN UPPER RIGHT, AND DIMINISHED THROUGHOUT ALL OTHER LOBES. SPUTUM IS THICK & BLOODY. DISCUSSION WITH DR BENTLEY AND DR ARAUZ AND HELD LOVENOX. VENT ON PC 18/8 85%, SATS IN 90S. JEREZ DRAINING CLOUDY/YELLOW FOUL URINE. LEVOPHED AT 2MCG/MIN, VASOPRESSIN ON STAND BY, STOPPED AT 0800, PRESSURES HOLDING IN 90S-100S. PT IS DEVELOPMENTALLY DELAYED AND BED/CHAIR BOUND AT BASELINE. CONTRACTURES T/O X4 EXTREMITIES. PT CURRENTLY RESTING AND IN NO APPARENT DISTRESS.
--- NOTE | 2020-08-29 12:50 | NUR ---
STARTED TUBE FEED AT 1250 @ 15ML/HR WITH 30ML H20 FLUSH Q4.
[2020-08-29 15:41] LABS: Hemoglobin 6.9 g/dL (11.5-16.0)
--- NOTE | 2020-08-29 18:12 | NUR ---
SHIFT SUMMARY PT INTUBATED AND SEDATED. PROPOFOL AT 25MCG/KG/MIN. TOLERATING VENT WELL. VENT SETTINGS AC 18/350/8/45%, SATS IN 90S. LUNG SOUNDS DIMINISHED IN ALL LOBES, RIGHT SIDE HAS IMPROVED MINIMALLY T/O THE DAY. SPUTUM IS THICK AND BLOODY, MODERATE AMOUNT. TUBE FEEDINGS STARTED AT 1250 @ 15ML/HR, GOAL OF 40ML. VASOPRESSIN D/C AT 0800. LEVOPHED INCREASED TO 4MCG SHORTLY AFTER, AND PRESSURES MAINTAINING, MAP >65. URINE REMAINS CLOUDY, YELLOW AND FOUL. DR SHELL ORDERED PRBC AFTER H/H CAME BACK @ 6.9/22. PT DOES NOT RESPOND TO VERBAL STIMULI. VERY STIFF WHEN REPOSITIONING, CONTRACTURES X4 EXTREMITIES. PT CURRENTLY RESTING AND DOES NOT APPEAR TO BE IN ANY DISTRESS.
--- NOTE | 2020-08-29 18:28 | NUR ---
SHIFT SUMMARY PT UNDERGOING ETOH WITHDRAWAL. SEDATED WITH PRECEDEX 0.7MCG/KG/MIN. CIWA HAS REMAINED AT SCORE OF 9-11. MEDICATED WITH PRN LORAZEPAM QAM, NONE GIVEN THE REST OF THE DAY. HR REMAINED IN 50-60S, METOPROLOL HELD IN AM DUE TO RATE IN 50S. PRESSURES RANGE 130-150S. PT ON RA, SATS >92%, PT IS CURRENT SMOKER AND COUGHS OCCASIONALLY WITH THICK, YELLOW SECRETIONS. NO EPISODES OF NAUSEA/VOMITING. PT AROUSABLE TO TOUCH AND VERBAL STIMULI, ORIENTED TO SELF ONLY, STATES YEAR OF 1919. REORIENTED FREQUENTLY T/O SHIFT. PT HAS REMAINED CALM AND COOPERATIVE, SLEEPING OFF AND ON THROUGHOUT THE DAY. HE IS CURRENTLY SLEEPING AND DOES NOT APPEAR TO BE IN DISTRESS.
--- NOTE | 2020-08-29 19:15 | NUR ---
ASSUMED CARE OF PT, REPORT RECEIVED. PT IS RESTING QUIETLY SEDATED WITH PROPOFOL AT 25 MCG/KG/MIN, VENT SETTINGS ARE NOTED AT AC 18, TV 350, FIO2 45% AND PEEP 8.0, SATS ARE CURRENTLY MAINTAINING MID 90S. SINUS ALEX NOTED ON MONITOR WITH RATE 50S, PRESSURES MAINTAINING, VASOPRESSIN IS NOW NOTED ON STANDBY AND LEVOPHED AT 4 MCG/MIN, WILL TITRATE PT TOLERATES. [facility] CAREGIVER IS AT BEDSIDE AND PT BASELINE IS DISCUSSED. RT ARRIVES TO BEDSIDE FOR CPT.
[2020-08-30 04:32] LABS: BASOPHILS ABSOLUTE AUTO 0.05 K/mm3 (0.00-0.23); BASOPHILS PERCENT AUTO 1 % (0-2); Hematocrit 24.1 % (33.0-51.0); Hemoglobin 7.8 g/dL (11.5-16.0); LYMPHOCYTES ABSOLUTE AUTO 0.37 K/mm3 (0.84-5.20); LYMPHOCYTES PERCENT AUTO 4 % (21-46); MONOCYTES PERCENT AUTO 8 % (4-13); Mean Corpuscular HGB 34.4 pg (26.0-34.0); Mean Corpuscular HGB Conc 32.4 g/dL (31.5-36.5); Mean Platelet Volume 10.9 fL (9.1-12.4); Platelet Count 79 K/mm3 (150-400); RDW Coefficient Variation 23.4 % (11.7-14.2); RDW Standard Deviation 84.3 fL (35.1-46.3); Red Blood Cell Count 2.27 M/mm3 (3.80-5.20); White Blood Cell Count 10.66 K/mm3 (4.00-11.30)
[2020-08-30 04:35] LABS: EOSINOPHILS PERCENT AUTO 2 % (0-6); IMMATURE GRAN ABSOLUTE AUTO 0.07 K/mm3 (0.00-0.10); IMMATURE GRAN PERCENT AUTO 1 % (0-1); Mean Corpuscular Volume 106 fL (80-100); NEUTROPHILS ABSOLUTE AUTO 9.17 K/mm3 (1.96-9.15); NEUTROPHILS PERCENT AUTO 86 % (41-73)
[2020-08-30 04:47] LABS: Magnesium, Blood 2.1 mg/dL (1.6-2.4)
[2020-08-30 04:48] LABS: Anion Gap 3 mmol/L (6-16); Blood Urea Nitrogen 27 mg/dL (8-24); Bun/Creatinine Ratio 22.1 (12.0-20.0); CO2, Blood 30 mmol/L (21-32); Calcium, Blood 8.8 mg/dL (8.5-10.1); Chloride, Blood 108 mmol/L (98-108); Creatinine, Blood 1.22 mg/dL (0.40-1.00); Glomerular Filtration Rate 47 (60-); Glucose, Blood 88 mg/dL (70-99); Phosphorus, Blood 2.1 mg/dL (2.5-4.9); Potassium, Blood 3.4 mmol/L (3.5-5.5); Sodium, Blood 141 mmol/L (136-145)
--- NOTE | 2020-08-30 06:14 | NUR ---
PT RESTS QUIETLY THROUGHOUT SHIFT, OPENS EYES SPONTANEOUSLY AND REGULARLY, HAS BEEN NOTED TO YAWN AT TIMES. GENERALLY TOLERATES TURNS AND REPOSITIONING WELL BUT PROPOFOL WAS TITRATED UP TO 30 MCG/KG/MIN BETWEEN 2229 AND 299 THIS SHIFT FOR INCREASED COUGH/GAG WITH INCREASED ORAL SECRETIONS AFTER 2199 REPOSITIONING HOWEVER TURNS AFTER 299 TITRATION HAVE CONTINUED TO BE TOLERATED WELL. SHE GRIMACES WITH ORAL CARE AND MOVES HER HEAD AWAY. FIO2 REQUIREMENTS INCREASED TO 55% THIS SHIFT HOWEVER IMPROVED AIR MOVEMENT IS NOTED TO AUSCULTATION OVER RIGHT LUNG, INS/EXP WHEEZES PRESENT WITH 399 ASSESSMENT. HEART RATE HAS REMAINED 49-MID 50S THROUGHOUT THIS SHIFT, OCCASIONAL PVCS ARE NOTED, PRESSURES IMPROVED AND LEVOPHED IS ON STANDBY OF THIS TIME. TUBE FEEDS HELD AT INITIAL RATE OF 15 ML UNTIL 299 AT WHICH TIME IT WAS INCREASED TO 30 ML/HR, ABD REMAINS SOFT WITH HYPOACTIVE BOWEL TONES. URINE CLARITY IS IMPROVED, 450 ML OUT THIS SHIFT. CAREGIVER FROM [facility] WAS PRESENT AT BEDSIDE AT SHIFT CHANGE AND PT BASELINE MENTATION WELL LIKES/DISLIKES DISCUSSED. SHE STATED THAT SHE WOULD WRITE A LIST FOR REFERENCE AND BRING/SEND IT IN WITH NEXT CAREGIVER THAT IS ABLE TO COME SIT WITH PT.
--- NOTE | 2020-08-30 10:07 | NUR ---
AM ASSESSMENT... PT RESTLESS EVEN ON CURRENT 25 MCG OF PROPOFOL. MOVING UPPER EXT AND IS RESTRAINED. PT HAVING COPIOUS SECREATIONS OF CLEAR DRAINAGE FROM MOUTH AND ETT. VENT SETTINGS NOTED. LUNGS ARE DIM. T/O AND COARSENESS SCATTERED. DUE TO BASELING MENTAL HEALTH NEURO ASSESSMENT IN UNCERTAIN. T.F. OF JEVITY PER PEG TUBE THAT IS PATENT AND INTACT WITH SITE WNL. JEREZ TO GRAVITY AND YELLOW. PT IS CONTRACTURED OF BLE W/O SKIN BREAKDOWN NOTED. IVF NOTED. BP SL LOW AND LEVOPHED RESTARTED AND PROPOFOL INC DUE TO PROLONGED AGITATION. CPT PER RT.
--- NOTE | 2020-08-30 20:31 | NUR ---
ASSUMED CARE AT 1900 PT LAYING IN BED INTUBATED WITH VENT SETTINGS AC 18, TV 350, PEEP 8, FIO2 45%; MODERATE AMOUNT OF ORAL SECREATIONS THAT ARE THIN AND CLEAR; SMALL AMOUNT OF ETT SECREATIONS THAT ARE THICK, YELLOW, AND WITH A RED TINGE. PT OCCATIONALLY OPENS EYES TO VERBAL STIMULI AND WILL LOOK AROUND THE ROOM; PT DOES HEAR CONVERSATIONS AND WILL TURN HER HEAD TO SOUNDS; CAREGIVER AT BEDSIDE STATED THAT HER EYE SIGHT IS POOR AT BASELINE, COUGH AND GAG PRESENT; PROPOFOL INFUSING AT 35MCG/KG/MIN. TEMP 96.4 . HR 50-60'S; OCCATIONAL PVC'S NOTED. SBP 90'S, MAP >65; LEVOPHED INFUSING AT 7MCG/KMIN. VHP INFUSING VIA PEG TUBE AT 40ML/HR (GOAL) WITH 30ML WATER FLUSHES Q4HR. JEREZ PATENT AND DRAINING TO GRAVITY. PICC TO CHUNG PATENT AND INFUSING GTT'S. SEE SHIFT ASSESSMENT FOR FULL ASSESSMENT.
[2020-08-31 04:41] LABS: BASOPHILS ABSOLUTE AUTO 0.03 K/mm3 (0.00-0.23); BASOPHILS PERCENT AUTO 0 % (0-2); EOSINOPHILS ABSOLUTE AUTO 0.24 K/mm3 (0.00-0.68); EOSINOPHILS PERCENT AUTO 2 % (0-6); Hematocrit 24.2 % (33.0-51.0); Hemoglobin 7.8 g/dL (11.5-16.0); IMMATURE GRAN ABSOLUTE AUTO 0.04 K/mm3 (0.00-0.10); IMMATURE GRAN PERCENT AUTO 0 % (0-1); LYMPHOCYTES ABSOLUTE AUTO 0.36 K/mm3 (0.84-5.20); LYMPHOCYTES PERCENT AUTO 4 % (21-46); MONOCYTES PERCENT AUTO 7 % (4-13); Mean Corpuscular HGB 34.5 pg (26.0-34.0); Mean Corpuscular HGB Conc 32.2 g/dL (31.5-36.5); Mean Corpuscular Volume 107 fL (80-100); Mean Platelet Volume 11.5 fL (9.1-12.4); NEUTROPHILS ABSOLUTE AUTO 8.64 K/mm3 (1.96-9.15); NEUTROPHILS PERCENT AUTO 86 % (41-73); Platelet Count 84 K/mm3 (150-400); RDW Coefficient Variation 22.8 % (11.7-14.2); RDW Standard Deviation 86.4 fL (35.1-46.3); Red Blood Cell Count 2.26 M/mm3 (3.80-5.20); White Blood Cell Count 10.01 K/mm3 (4.00-11.30)
[2020-08-31 05:06] LABS: Magnesium, Blood 1.9 mg/dL (1.6-2.4)
[2020-08-31 05:07] LABS: Bun/Creatinine Ratio 18.9 (12.0-20.0); Calcium, Blood 8.6 mg/dL (8.5-10.1); Creatinine, Blood 1.9 mg/dL (0.40-1.00); Phosphorus, Blood 3.9 mg/dL (2.5-4.9); Potassium, Blood 3.5 mmol/L (3.5-5.5)
--- NOTE | 2020-08-31 06:03 | NUR ---
END OF SHIFT SUMMARY NO ACUTE CHANGES OVERNIGHT. PT CONT TO BE INTUBATED WITH VENT SETTINGS AC 18, TV 350, PEEP 8, FIO2 40%; MODERATE AMOUNT OF THIN, CLEAR ORAL SECREATIONS NOTED; SMALL AMOUNT OF THICK YELLOW, RED TINGED ETT SECREATIONS SUCTIONED; PT FAILED SBT THIS AM DUE TO LOW TV; SEE RT NOTES. PT DOES NOT FOLLOW DIRECTIONS BUT DOES TRACK THE MOVEMENT IN THE ROOM AND WILL LOOK AROUND; PROPOFOL INFUSING AT 25MCG/KG/MIN. TEMP 98.4. IRREGULAR HR IN THE 60'S; OCCATIONAL PVC'S NOTED. SBP 90-100, MAP >65, LEVOPHED INFUSING AT 6MCG/MIN. VHP INFUSING VIA PEG TUBE AT 40ML/HR WITH 30ML WATER FLUSHES Q4HR. JEREZ IN PLACE AND DRAINING CLEAR YELLOW URINE; 450ML OF URINE OUTPUT THIS SHIFT. PICC TO CHUNG [place] AND DRAWING. WILL REPORT TO AM RN WHEN AVAILABLE.
--- NOTE | 2020-08-31 08:47 | NUR ---
CARE ASSUMED 0700 PT INTUBATED AND SEDATED. Propofol gtt 30 mcg/kg/min, opens eyes occasionally, not able to follow directions. Levophed gtt 6 mcg/min, MAP > 65, infusing via CHUNG PICC. Vent settings, AC 18/350/8/40%, SPO2 > 90%. Thick large secreations and thick yellow/red ETT secreations. VHP @ goal ( 40 ml/hr) via peg tube. Romero in place, yellow/clear 75 ml urine output. Temp 98.8. HR 70-80'S.
[2020-08-31 09:00] LABS: Source, Urine Catheter
[2020-08-31 09:05] LABS: Bilirubin, Urine Neg (Neg); Blood, Urine 2+ (Neg); Glucose Qualitative, Urine Neg (Neg); Ketones, Urine Neg (Neg); Leukocyte Esterase, Urine 3+ (Neg); Nitrite, Urine Neg (Neg); Protein, Urine 2+ (Neg); Urobilinogen, Urine NORM (Normal)
[2020-08-31 09:13] LABS: Appearance, Urine Hazy (Clear); Color, Urine Yellow (P-Yellow)
[2020-08-31 09:14] LABS: Bacteria Mod /hpf; Squamous Epithelial Cells Few /hpf (Few); White Blood Cells, Urine 25-50 /hpf (0-5)
--- NOTE | 2020-08-31 13:53 | NUR ---
Urine output 215 prior to recieving Lasix. Levophed gtt 7 mcg/min, attempted to decrease map low 60's, see flow sheet Propofol gtt 30 mcg/kg/min. Vent setting unchanged. secreations unchanged.
[2020-08-31 13:58] LABS: Stool Occult Blood Guaiac 1 Neg (Neg)
--- NOTE | 2020-08-31 18:33 | NUR ---
Shift Summary Intubated/sedated. Vent settings unchanged. Propofol GTT 30 MCG/KG/MIN, pt opens eyes occasionally and tracking but unable to follow directions. [facility] care provider, Teodoro Tadeo, in to see patient around 1700, states patient was independent until 2012 when she was admitted to hospital in [place] for unknown cause which resulted in current deficit. Pt was mobile, A/O, and more independent prior. Levophed GTT 5 mcg/min, MAP > 65. Urineout - 650, total input 609, -51 fluid balance. Rectal tube placed at 1600 due to patient having multiple liquid stool. Per [facility] provider this is her baseline. SWB in place. Pt moves upper extrems. All extrems contractured. Will report to oncoming shift.
--- NOTE | 2020-08-31 20:02 | NUR ---
ASSUMPTION OF CARE REPORT RECEIVED FROM TE VALDES. PT INTUBATED AND SEDATED. DBL STRENGTH LEVO INFUSING AT 5 MCG/KG/HR, PROPOFOL AT 30 MCG/KG/HR, NS AT TKO. TF VHP RUNNING AT GOAL RATE OF 40 ML/HR WITH 30 Q4H WATER FLUSHES. JEREZ PATENT AND DRAINING CLEAR YELLOW URINE TO GRAVITY. RECTAL TUBE DRAINING TO GRAVITY. PT OPENS EYES AND TRACKS, DID NOT FOLLOW ANY COMMANDS.
[2020-09-01 04:35] LABS: Hemoglobin 7.4 g/dL (11.5-16.0); Mean Corpuscular HGB 34.4 pg (26.0-34.0); Mean Corpuscular HGB Conc 32.2 g/dL (31.5-36.5); Mean Corpuscular Volume 107 fL (80-100); Mean Platelet Volume 10.7 fL (9.1-12.4); Platelet Count 89 K/mm3 (150-400); RDW Coefficient Variation 21.9 % (11.7-14.2); RDW Standard Deviation 83.3 fL (35.1-46.3); Red Blood Cell Count 2.15 M/mm3 (3.80-5.20)
[2020-09-01 04:49] LABS: Bun/Creatinine Ratio 16.5 (12.0-20.0); Calcium, Blood 8.4 mg/dL (8.5-10.1); Creatinine, Blood 2.66 mg/dL (0.40-1.00); Magnesium, Blood 2.1 mg/dL (1.6-2.4); Potassium, Blood 3.3 mmol/L (3.5-5.5)
[2020-09-01 04:51] LABS: BAND PERCENT MAN 7 % (0-8); BASOPHILS PERCENT MAN 0 % (0-2); EOSINOPHILS PERCENT MAN 1 % (0-6); LYMPHOCYTES PERCENT MAN 2 % (21-46); MONOCYTES ABSOLUTE MAN 1.03 K/mm3 (0.16-1.47); MONOCYTES PERCENT MAN 10 % (4-13); NEUTROPHILS ABSOLUTE MAN 8.96 K/mm3 (1.96-9.15); SEG NEUTROPHILS PERCENT MAN 80 % (41-73); TOTAL CELLS COUNTED 100
--- NOTE | 2020-09-01 06:14 | NUR ---
SHIFT SUMMARY PT REMAINS INTUBATED/SEDATED. FIO2 INCREASED THIS SHIFT TO 50%. LEVO REMAINS AT 5 MCG, PROPOFOL AT 30 MCG. RECTAL TUBE WITH 200 ML OUTPUT THIS SHIFT. JEREZ PATENT AND DRAINING TO GRAVITY. PT GIVEN ONE DOSE OF PRN FENTANYL DUE TO INCREASED AGITATION AND RESTLESSNESS. THIN ORAL SECRETIONS SUCTIONED MULTIPLE TIMES THIS SHIFT WELL THICK SECRETIONS SUCTIONED THROUGH ETT. PT NOT FOLLOWING COMMANDS, OCCASSIONALLY OPENS EYES AND APPEARS TO BE TRACKING.
--- NOTE | 2020-09-01 08:00 | NUR ---
ASSUMPTION OF CARE PT INTUBATED AND SEDATED. PROPOFOL AT 30MCG/KG/MIN. VENT AC AT 18/350/8/50%, SATS IN 90S. LEFT UPPER LOBE CLEAR, RIGHT UPPER COARSE, BASES DIMINISHED. THORACENTESIS IS BEING CONSIDERED FOR LATER THIS MORNING. HR IN 50-60S W/ PVC'S AND MURMUR. LEVOPHED AT 5MCG/MIN, SBP'S IN 100-90S. TEMP JEREZ DRAINING TO GRAVITY, CLEAR, PALE YELLOW OUTPUT. RECTAL TUBE INTACT. BOWEL TONES HYPERACTIVE. PT REMAINS VERY STIFF WHEN TURNING. OPENS EYES SPONTANEOUSLY, UNABLE TO FOLLOW VERBAL COMMANDS. PT CURRENTLY RESTING AND IN NO APPARENT DISTRESS.
--- NOTE | 2020-09-01 10:20 | NUR ---
THORACENTESIS PERFORMED AT BEDSIDE BY DR. CHAMPION. PT PLACED ON LEFT SIDE AND ACCESSED FROM THE RIGHT LATERAL CHEST WALL. 700-800ML'S BLOODY FLUID REMOVED. CHEST X-RAY DONE AFTERWARDS. PT TOLERATED THE PROCEDURE WELL AND IS CURRENTLY RESTING PEACEFULLY.
[2020-09-01 11:12] LABS: Automated BF RBC Count 0.322 M/mm3 (0-0); Automated BF WBC Count 1.576 K/mm3 (0-999); Body Fluid WBC Count 1576 /mm3 (0-999); RBC Count, Body Fluid 322000 /mm3 (0-0)
[2020-09-01 11:25] LABS: Protein, Body Fluid 2.3 g/dL
[2020-09-01 11:26] LABS: pH, Body Fluid 7.5
[2020-09-01 11:27] LABS: Glucose, Body Fluid 108 mg/dL; Lactate Dehydrogenase, Body Fl 195 U/L
[2020-09-01 11:38] LABS: Appearance, Body Fluid Bloody (Clear); Color, Body Fluid Red (None-Yellow); Total Cell Count, Body Fluid 100
--- NOTE | 2020-09-01 14:30 | NUR ---
SEDATION VACATION PT ABLE TO OPEN EYES TO COMMAND, TRACKS WITH EYES, AND NODDED YES TO HER NAME. ABLE TO TESTER [employer]ODU[employer] HANDS WEAKLY, AND APPEARED IF SHE WAS TRYING TO TALK. PROPOFOL RETURNED TO RATE OF 30MCG/KG/MIN.
--- NOTE | 2020-09-01 18:45 | NUR ---
SHIFT SUMMARY PT INTUBATED AND SEDATED. WAS PLANNED TO HAVE SBT, BUT UNABLE TO COMPLETE. PROPOFOL AT 30MCG/KG/MIN, SEDATION VACATION DONE THIS AFTERNOON AND PT WAS ABLE TO OPEN EYES TO VERBAL COMMAND, NOD HEAD YES TO NAME, AND WEAKLY HOUSEKEEPING DEPARTMENT WORKER HANDS. VENT AT AC 18/350/8/50%. RIGHT UPPER LOBE WAX/WANED WITH COARSE AND CLEAR, LEFT UPPER REMAINS CLEAR, BASES DIMINISHED. SATS >92%. BP'S STABLE, MAP>65, LEVOPHED AT 5MCG/MIN. THORACENTESIS DONE THIS MORNING, 750ML OF BLOODY FLUID RETURNED, NO H&H ORDERED. TF AT GOAL OF 40ML/HR. PT HAS EXCESSIVE DROOLING AND OCCASIONAL YELLOW MUCUS DRAINING FROM MOUTH. TEMP JEREZ DRAINING TO GRAVITY, CLEAR URINE OUTPUT. PT CONTINUES TO OPEN EYES TO SOUND. SHE IS CURRENTLY RESTING AND IN NO APPARENT DISTRESS.
--- NOTE | 2020-09-01 19:53 | NUR ---
ASSUMPTION OF CARE PT INTUBATED AND SEDATED, APPEARS TO BE RESTING COMFORTABLY NO APPARENT DISTRESS NOTED. LEVO INFUSING AT 5 MCG/KG/MIN, PROPOFOL AT 30 MCG/KG/MIN, AND TKO NS. TF VHP RUNNING AT GOAL RATE OF 40 WITH 30 Q4H WATER FLUSHES. JEREZ PATENT AND DRAINING TO GRAVITY. RECTAL TUBE PATENT AND DRAINING TO GRAVITY. PT OPENS EYES TO VERBAL STIMULI, DID NOT FOLLOW ANY COMMANDS. SR ON MONITOR, HR 60'S WITH OCCASSIONAL PVCS, BP WITH MAP >65, SPO2 >92%. VENT SETTINGS AC 18/350/8/35%
[2020-09-01 21:23] LABS: Hematocrit 23.8 % (33.0-51.0); Hemoglobin 7.6 g/dL (11.5-16.0)
[2020-09-02 03:59] LABS: Hemoglobin 7.3 g/dL (11.5-16.0); Mean Corpuscular HGB 34.1 pg (26.0-34.0); Mean Corpuscular HGB Conc 31.7 g/dL (31.5-36.5); Mean Corpuscular Volume 108 fL (80-100); Mean Platelet Volume 10.9 fL (9.1-12.4); Platelet Count 88 K/mm3 (150-400); RDW Coefficient Variation 21.1 % (11.7-14.2); RDW Standard Deviation 80.4 fL (35.1-46.3); Red Blood Cell Count 2.14 M/mm3 (3.80-5.20); White Blood Cell Count 9.81 K/mm3 (4.00-11.30)
[2020-09-02 04:14] LABS: Bun/Creatinine Ratio 16.8 (12.0-20.0); Calcium, Blood 8.5 mg/dL (8.5-10.1); Creatinine, Blood 3.04 mg/dL (0.40-1.00); Magnesium, Blood 2.1 mg/dL (1.6-2.4); Phosphorus, Blood 6.1 mg/dL (2.5-4.9); Potassium, Blood 3.9 mmol/L (3.5-5.5)
[2020-09-02 04:24] LABS: BAND PERCENT MAN 19 % (0-8); BASOPHILS PERCENT MAN 0 % (0-2); EOSINOPHILS ABSOLUTE MAN 0.68 K/mm3 (0.00-0.68); EOSINOPHILS PERCENT MAN 7 % (0-6); LYMPHOCYTES ABSOLUTE MAN 0.49 K/mm3 (0.84-5.20); LYMPHOCYTES PERCENT MAN 5 % (21-46); MONOCYTES ABSOLUTE MAN 0.68 K/mm3 (0.16-1.47); MONOCYTES PERCENT MAN 7 % (4-13); NEUTROPHILS ABSOLUTE MAN 7.94 K/mm3 (1.96-9.15); SEG NEUTROPHILS PERCENT MAN 62 % (41-73); TOTAL CELLS COUNTED 100
--- NOTE | 2020-09-02 06:15 | NUR ---
SHIFT SUMMARY PT REMAINS INTUBATED AND SEDATED ON PROPOFOL AT 20 MCG/KG/MIN, LEVO INFUSING AT 5 MCG/KG/MIN, NS TKO. 1L LR BOLUS GIVEN THIS SHIFT FOR SOFT PRESSURES. SEDATION DECREASED FOR SBT, PT BECAME VERY AGITATED UNTIL SEDATION INCREASED. THROUGHOUT SHIFT PT OPENED EYES TO VERBAL STIMULI, FOLLOWED SIMPLE COMMANDS. HR 50-60'S, MAP >65, SPO2 >92%.
--- NOTE | 2020-09-02 10:10 | NUR ---
PT INTUBATED AND SEDATED WITH PROPOFOL. PT WILL OPEN EYE'S ON COMMAND. PT IS DEVELOPMENTALLY DELAYED AT BASELINE AND DIFFICULT TO FOLLOW COMMANDS. HAS CONTRACTURES OF UPPER AND LOWER EXTREMITIES AT BASELINE. EXTREMITIES ARE STIFF. TOLERATING THE VENT. COPIOUS ORAL SECRETIONS. HELD LASIX PER DR. CHAMPION THIS AM DUE TO PT GETTING A BOLUS ON DATA CONTROL CLERK. NO SIGN OF DISTRESS.
--- NOTE | 2020-09-02 18:33 | NUR ---
SUMMARY PT IS INTUBATED AND SEDATED. DURING SEDATION VACATION PT WAS ABLE TO OPEN EYE'S TO COMMAND. WHEN ASKED IF HER NAME IS RUDY SHE NODS AND ATTEMPTS TO SAY SOMETHING AROUND ETT. HAS CONTRACTURES TO UPPER AND LOWER EXTREMITIES. IS DEVELOPMENTALLY DELAYED AT BASELINE AND CHILD-LIKE. LEVO GTT GOING AT 5 MCG ALL DAY. INCREASED PROPOFOL TO 30MCG DUE TO PT CHEWING ON ETT. HAD LOW GRADE TEMP THAT WAS RESOLVED BY TAKING COVERS OFF. NO OTHER CHANGES THIS SHIFT. NO SIGN OF DISTRESS.
--- NOTE | 2020-09-02 19:52 | NUR ---
ASSUMPTION OF CARE PT INTUBATED AND SEDATED ON 30MCG OF PROPOFOL, OPENS EYES TO VERBAL STIMULI. TF RUNNING AT GOAL RATE OF 40 ML WITH 30 Q4H WATER FLUSHES. JEREZ PATENT AND DRAINING TO GRAVITY. RECTAL TUBE PATENT AND DRAINING TO GRAVITY. VENT SETTINGS AC 18/350/8/35%, SPO2 >90%. SR HR 60'S, MAP >65 ON 5MCG LEVO. LUNG CLEAR WITH DIMINISHED BASES.
[2020-09-03 04:44] LABS: BASOPHILS ABSOLUTE AUTO 0.03 K/mm3 (0.00-0.23); BASOPHILS PERCENT AUTO 0 % (0-2); EOSINOPHILS ABSOLUTE AUTO 0.42 K/mm3 (0.00-0.68); EOSINOPHILS PERCENT AUTO 4 % (0-6); Hematocrit 22.2 % (33.0-51.0); Hemoglobin 7.2 g/dL (11.5-16.0); IMMATURE GRAN ABSOLUTE AUTO 0.09 K/mm3 (0.00-0.10); IMMATURE GRAN PERCENT AUTO 1 % (0-1); LYMPHOCYTES ABSOLUTE AUTO 0.58 K/mm3 (0.84-5.20); LYMPHOCYTES PERCENT AUTO 5 % (21-46); MONOCYTES ABSOLUTE AUTO 1.06 K/mm3 (0.16-1.47); MONOCYTES PERCENT AUTO 10 % (4-13); Mean Corpuscular HGB 34.8 pg (26.0-34.0); Mean Corpuscular HGB Conc 32.4 g/dL (31.5-36.5); Mean Corpuscular Volume 107 fL (80-100); Mean Platelet Volume 10.8 fL (9.1-12.4); NEUTROPHILS ABSOLUTE AUTO 8.55 K/mm3 (1.96-9.15); NEUTROPHILS PERCENT AUTO 80 % (41-73); Platelet Count 106 K/mm3 (150-400); RDW Coefficient Variation 20.1 % (11.7-14.2); RDW Standard Deviation 78.2 fL (35.1-46.3); Red Blood Cell Count 2.07 M/mm3 (3.80-5.20); White Blood Cell Count 10.73 K/mm3 (4.00-11.30)
[2020-09-03 05:04] LABS: Albumin, Blood 1.8 g/dL (3.4-5.0); Albumin/Globulin Ratio 0.5 (0.8-1.8); Calcium, Blood 8.5 mg/dL (8.5-10.1); Creatinine, Blood 3.36 mg/dL (0.40-1.00); Globulin, Blood 3.7 g/dL (2.2-4.0); Magnesium, Blood 2.2 mg/dL (1.6-2.4); Phosphorus, Blood 6.4 mg/dL (2.5-4.9); Potassium, Blood 3.7 mmol/L (3.5-5.5); Total Protein, Blood 5.5 g/dL (6.4-8.2)
[2020-09-03 05:37] LABS: PCO2 Arterial 42.4 mmHg (35-45); PO2 Arterial 79.1 mmHg (80-100); pH Blood Arterial 7.43 (7.35-7.45)
--- NOTE | 2020-09-03 07:13 | NUR ---
SHIFT SUMMARY PT INTUBATED AND SEDATED ON 30MCG PROPOFOL. PT AROUSES TO NOISES AND VERBAL STIMULI, SQUEEZES HANDS TO COMMAND. HR 50-60'S SR, MAP >65 ON 6MCG LEVO, SPO2 >90%. VENT SETTINGS AC 18/350/8/40%. LUNGS CLEAR WITH DIMINISHED BASES, THICK ART SECRETIONS OUT OF ETT. JEREZ PATENT DRAINING CLEAR YELLOW URINE TO GRAVITY.
--- NOTE | 2020-09-03 07:30 | NUR ---
ASSUMPTION OF CARE PT INTUBATED AND SEDATED. PER COMMUNITY RECREATION PROGRAMMER NURSE, NO SBT DONE THIS AM. WILL CONSIDER LATER TODAY WITH DR. CHAMPION. PROPOFOL REMAINS AT 30MCG/KG/MIN, PT IS ABLE TO OPEN EYES TO VERBAL COMMANDS, ABLE TO TRACK WITH EYES. CAN SQUEEZE HANDS, BUT NOT ON COMMAND. LEVOPHED AT 6MCG/MIN, PRESSURES AND MAP ARE REMAINING STABLE AND >65. HR IN 60'S. VENT ON A/C AT 18/350/8/40%, SATS >92%. SECRETIONS ARE THICK AND ART WITH MINIMAL BLOOD STREAKS. BILATERAL UPPER LOBES COARSE, DIMINISHED AT BASES. PT DROOLING EXCESSIVELY. PT CONTINUES WITH 3+ EDEMA IN BLE, AND KIDNEY FUNCTION HAS DECLINED. MOTTLING APPEARS TO HAVE WORSENED ON BILATERAL KNEES. TEMP CATH DRAINING TO GRAVITY. TF AT GOAL OF 40ML/HR, BOWEL TONES HYPERACTIVE. PT IS CURRENTLY RESTING AND IN NO APPARENT DISTRESS. WILL CONTINUE TO MONITOR.
--- NOTE | 2020-09-03 09:00 | NUR ---
SBT DR CHAMPION AT BEDSIDE FOR SBT. SEDATION STOPPED. PT BECAME AGITATED, APNEIC AT TIMES. DID NOT PASS WEAN. VENT SETTINGS RESUMED AT 18/350/5/35%. SATS RETURNED TO >92%
--- NOTE | 2020-09-03 09:30 | NUR ---
ASSUMED CARE PT A&O X4, PLEASANT AND COOPERATIVE. PT ON BIPAP /6 60%, SATS IN 90'S. TOLERATING BIPAP WELL. LUNG SOUNDS CLEAR, BUT TIGHT AND DIMINISHED. SHE REPORTS PAIN IN HER LUNGS THAT WORSENS WITH COUGHING. GAVE PRN TUSSIONEX AND HELPS DECREASE COUGHING EPISODES. PT REPORTS STRESS INCONTINENCE WITH COUGHING, WEARING ATTENDS BUT USES BEDPAN OR BEDSIDE COMMODE. SHE IS ABLE TO MOVE IN BED INDEPENDENTLY AND OFTEN. HR NSR IN 70-80. PRESSURES STABLE WITHOUT PRESSORS. PERIPHERAL IV, 20G RIGHT HAND AND 18G POWERGLIDE IN LEFT UPPER ARM, BOTH WNL. PT REPORTS CHRONIC BACK PAIN, AND IS TOLERABLE AT THIS TIME. SHE IS CURRENTLY RESTING AFTER FINISHING BREAKFAST AND IS IN NO APPARENT DISTRESS. WILL CONTINUE TO MONITOR.
--- NOTE | 2020-09-03 10:30 | NUR ---
PT SWITCHED TO AIRVO 60% AROUND 8AM. SATS REMAINED STABLE IN 90S UNTIL AROUND 1015. SHE WAS UNABLE TO HOLD SATS IN 90'S AND TACHYPNEIC AND WAS PLACED BACK ON BIPAP /6 AT 60%. TOLERATING BIPAP WELL AND SATS RETURNS TO >92%
--- NOTE | 2020-09-03 16:07 | NUR ---
SPOKE WITH DR. CHAMPION ABOUT INCREASED BLOODY SECRETIONS FROM ETT. NO NEW ORDERS.
--- NOTE | 2020-09-03 17:13 | NUR ---
SHIFT SUMMARY PT REMAINS INTUBATED AND SEDATED. SBT FAILED THIS MORNING. VENT BACK ON A/C SETTINGS CHANGED TO 18/350/5/35%, SATS REMAINED >92%. LUNG SOUNDS REMAINED COURSE/WET WITH INSPIRATORY/EXPIRATORY WHEEZES. SHE WAS SUCTIONED OFTEN T/O THE DAY WITH LARGE AMOUNTS OF THICK, ART, BLOODY SECRETIONS. PT EXPERIENCED INCREASED EPISODES OF COUGHING, ESPECIALLY WITH REPOSITIONING, GIVEN PRN FENTANYL 25MCG TO HELP COMFORT. PROPOFOL 30MCG/KG/MIN. SHE IS ABLE TO OPEN EYES TO HER NAME, TRACKS WITH EYES, WILL SQUEEZE HANDS, BUT NOT ON COMMAND. TUBE FEED CHANGED TO NEPRO AROUND NOON AND AT GOAL OF 25ML/HR. PT CONTINES TO SHOW MOTTLING ON EXTREMITIES THAT WAX/WANES T/O DAY. EDEMA IS +3 IN BLE, AND 2+ IN BUE. HR 50-60S W/PVC'S. PRESSURES STABLE ON 6MCG/MIN LEVOPHED. TEMP JEREZ DRAINING TO GRAVITY, RECTAL TUBE IN PLACE. NO VISITORS TODAY. PT CURRENTLY RESTING. WILL CONTINUE TO MONITOR.
--- NOTE | 2020-09-03 23:09 | NUR ---
ASSUMPTION OF CARE PT INTUBATED AND SEDATED ON 30MCG/MIN PROPOFOL. OPENS EYES TO NOISE AND VERBAL STIMULI, LOOKS AROUND ROOM. SR/SB ON MONITOR HR 50-60'S, MAP >65 ON 5MCG/MIN LEVO, SPO2 >90%. VENT SETTINGS 18/350/5/35%. PT HAS OCASSIONAL EPISODES OF COUGHING, WILL CONTINUE TO MONITOR. CONTINUES TO HAVE COPIOUS SECRETIONS BOTH ORALLY AND VIA ETT, ETT SECRETIONS ART WITH BLOODY STREAKS. TEMP JEREZ PATENT AND DRAINING TO GRAVITY, RECTAL TUBE INTACT. TF NEPRO RUNNING AT GOAL RATE OF 25ML/HR WITH 30 Q4H WATER FLUSHES.
[2020-09-04 04:54] LABS: BASOPHILS ABSOLUTE AUTO 0.04 K/mm3 (0.00-0.23); BASOPHILS PERCENT AUTO 0 % (0-2); EOSINOPHILS ABSOLUTE AUTO 0.41 K/mm3 (0.00-0.68); EOSINOPHILS PERCENT AUTO 5 % (0-6); Hematocrit 22.3 % (33.0-51.0); IMMATURE GRAN ABSOLUTE AUTO 0.08 K/mm3 (0.00-0.10); IMMATURE GRAN PERCENT AUTO 1 % (0-1); LYMPHOCYTES ABSOLUTE AUTO 0.61 K/mm3 (0.84-5.20); LYMPHOCYTES PERCENT AUTO 7 % (21-46); MONOCYTES ABSOLUTE AUTO 0.71 K/mm3 (0.16-1.47); MONOCYTES PERCENT AUTO 8 % (4-13); Mean Corpuscular HGB 33.8 pg (26.0-34.0); Mean Corpuscular HGB Conc 31.4 g/dL (31.5-36.5); Mean Corpuscular Volume 108 fL (80-100); Mean Platelet Volume 10.2 fL (9.1-12.4); NEUTROPHILS ABSOLUTE AUTO 7.09 K/mm3 (1.96-9.15); NEUTROPHILS PERCENT AUTO 79 % (41-73); Platelet Count 118 K/mm3 (150-400); RDW Coefficient Variation 19.4 % (11.7-14.2); RDW Standard Deviation 75.3 fL (35.1-46.3); Red Blood Cell Count 2.07 M/mm3 (3.80-5.20); White Blood Cell Count 8.94 K/mm3 (4.00-11.30)
[2020-09-04 05:14] LABS: Albumin, Blood 1.8 g/dL (3.4-5.0); Albumin/Globulin Ratio 0.5 (0.8-1.8); Bilirubin, Total 0.9 mg/dL (0.1-1.0); Bun/Creatinine Ratio 19.8 (12.0-20.0); Calcium, Blood 8.8 mg/dL (8.5-10.1); Creatinine, Blood 3.34 mg/dL (0.40-1.00); Globulin, Blood 3.8 g/dL (2.2-4.0); Magnesium, Blood 2.2 mg/dL (1.6-2.4); Phosphorus, Blood 6.5 mg/dL (2.5-4.9); Potassium, Blood 3.5 mmol/L (3.5-5.5); Total Protein, Blood 5.6 g/dL (6.4-8.2)
--- NOTE | 2020-09-04 06:09 | NUR ---
SHIFT SUMMARY PT REMAINS INTUBATED AND SEDATED ON 30MCG PROPOFOL. CONTINUES TO OPEN EYES TO NOISE AND VERBAL STIMULI. AT TIMES GETS AGITATED WHEN AWAKE, PRN FENTANYL GIVEN ONCE THIS SHIFT. HR 50-60'S, MAP >65 ON 5MCG LEVO, SP02 >90%. VENT SETTINGS AC 18/350/5/40%. PT STILL REQUIRING FREQUENT SUCTIONING OF ORAL SECRETIONS WELL VIA ETT, HAVING MODERATE AMOUNT OF THICK SECRETIONS. JEREZ PATENT DRAINING TO GRAVITY, RECTAL TUBE REMAINS INTACT. ZERO RESIDUALS, 20 ML'S OF AIR OUT OF PEG TUBE THIS SHIFT.
--- NOTE | 2020-09-04 08:48 | NUR ---
CARE ASSUMED 0700 Pt intubated and sedated. Propofol GTT 30 mcg/kg/min, pt able to open eyes spontaneous and to verbal stimuli. Following directions by squeezing right hand, weak, unable to squeeze left hand. Vent settings : AC 18/350/5/35%, SPO2 > 90%. Mod thick secretion's from ETT tube. Levophed 5 mcg/min, attempted to titrate down to 4, MAP decreased to 68. Romero in place, yellow/clear urine (250 urine in bag) . Rectal tube in place, brown liquid stool. SWB. Nepro @ goal via PEG. Sinus nii (HR 50-60's). Dr. Escobedo and Prasad in to see patient.
--- NOTE | 2020-09-04 10:39 | NUR ---
TUBE FEED PIVOT 1.5 STARTD AT GOAL OF 15 ML/HR PER ORDER. NEPRO STOPPED.
--- NOTE | 2020-09-04 13:25 | NUR ---
Provider visit Dr. Altamirano in to see patients. Pt started on Midodrine for BP support, see emar.
--- NOTE | 2020-09-04 18:14 | NUR ---
Shift Summary Pt intubated and sedated. Vent settings unchanged, thick secretion's continue to be present. Propofol GTT 30 MCG/KG/MIN and Levophed GTT 5 MCG/MIN. Pt opens eyes and tracks. Follows directions occasionally by squeezing hands. Romero in place, draining to gravity (800 output). Rectal tube in place with min output during shift (liquid/brown). Pivot 1.5 at goal of 15 ml/hr. SWB in place. Will report to oncoming shift.
--- NOTE | 2020-09-04 19:30 | NUR ---
ASSESSMENT/ASSUMED CARE PT INTUBATED AND ON [facility] VENT. SEDATED WITH PROPOFOL AT 30 MCQ/KG/MIN. PT OPENS EYES AND PULLS AGAINST RESTRAINTS, NO FOLLOWING INSTRUCTIONS. LUNGS CLEAR BUT DECREASED, SUCTIONED LARGE AMT THICK YELLOW SECRECTIONS VIA ET TUBE. LARGE AMT OF CLEAR ORAL SECRECTIONS NOTED. ORAL CARE DONE. HEART RATE REGULAR. PT ON LEVOPHED AT 4 MCQ/MIN. BT+ ABD SOFT. TUBE FEED VIA PEG TUBE TO LEFT UPPER QUAD. RESIDUAL 10 ML REFED. TUBE FEED PIVOT 1.5 AT GOAL RATE 15 ML/HR WITH WATER 30 ML Q4HRS. JEREZ CATH PATENT DRAINING YELLOW URINE. RECTAL TUBE WITH SMALL AMT LIQUID STOOL IN TUBE. REPOSITIONED RECTAL TUBE. PICC LINE TO LEFT UPPER ARM WITH DRSG INTACT. PROPOFOL, LEVOPHED AND NS AT 10 ML/HR INFUSING.
[2020-09-05 03:37] LABS: BASOPHILS ABSOLUTE AUTO 0.03 K/mm3 (0.00-0.23); BASOPHILS PERCENT AUTO 0 % (0-2); EOSINOPHILS ABSOLUTE AUTO 0.26 K/mm3 (0.00-0.68); EOSINOPHILS PERCENT AUTO 3 % (0-6); Hematocrit 20.1 % (33.0-51.0); Hemoglobin 6.4 g/dL (11.5-16.0); IMMATURE GRAN PERCENT AUTO 1 % (0-1); LYMPHOCYTES ABSOLUTE AUTO 0.74 K/mm3 (0.84-5.20); LYMPHOCYTES PERCENT AUTO 9 % (21-46); MONOCYTES ABSOLUTE AUTO 0.87 K/mm3 (0.16-1.47); MONOCYTES PERCENT AUTO 11 % (4-13); Mean Corpuscular HGB 34.6 pg (26.0-34.0); Mean Corpuscular HGB Conc 31.8 g/dL (31.5-36.5); Mean Corpuscular Volume 109 fL (80-100); Mean Platelet Volume 9.5 fL (9.1-12.4); NEUTROPHILS ABSOLUTE AUTO 6.24 K/mm3 (1.96-9.15); NEUTROPHILS PERCENT AUTO 76 % (41-73); Platelet Count 151 K/mm3 (150-400); Red Blood Cell Count 1.85 M/mm3 (3.80-5.20); White Blood Cell Count 8.24 K/mm3 (4.00-11.30)
[2020-09-05 03:41] LABS: Base Excess Venous 2 mmol/L; Bicarbonate Venous 25.9 mmol/L (24.0-30.0); PCO2 Venous 44.1 mmHg (38-42); PO2 Venous 67.7 mmHg (38-42); pH Blood Venous 7.39 (7.34-7.37)
--- NOTE | 2020-09-05 04:00 | NUR ---
SEDATION CXR DONE AND PT REPOSITIONED. PROPOFOL DOWN TO 25 MCQ/KG/MIN AND PRECEDEX STARTED AT 0.02 MCQ/KG/HR FOR WEANING.
[2020-09-05 04:10] LABS: Albumin, Blood 1.9 g/dL (3.4-5.0); Anion Gap 9 mmol/L (6-16); Blood Urea Nitrogen 64 mg/dL (8-24); Bun/Creatinine Ratio 19.5 (12.0-20.0); CO2, Blood 27 mmol/L (21-32); Calcium, Blood 8.8 mg/dL (8.5-10.1); Chloride, Blood 107 mmol/L (98-108); Creatinine, Blood 3.28 mg/dL (0.40-1.00); Glomerular Filtration Rate 15 (60-); Glucose, Blood 109 mg/dL (70-99); Phosphorus, Blood 5.9 mg/dL (2.5-4.9); Potassium, Blood 3.4 mmol/L (3.5-5.5); Sodium, Blood 143 mmol/L (136-145)
--- NOTE | 2020-09-05 05:36 | NUR ---
CALL TO MD CALL TO DR DE GUZMAN REGARDING H&H 6.08/15., RECEIVED ORDER FOR ONE UNIT PRBC.
--- NOTE | 2020-09-05 06:08 | NUR ---
SHIFT SUMMARY PT CONT [facility]UBATED [facility] SEDATED WITH PROPOFOL CURRENTLY AT 30 MCQ/KG/MIN. WEANING DONE OF PRECEDEX AT 0.4 MCQ/KG/HR WITH PROPOFOL ON HOLD. PT MED DURING THE NIGHT WITH FENTANYL 25 MCQ FOR SEDATION ADJUNCT. BILAT SOFT WRIST RESTRAINTS ON. PT OPENING EYES BUT NOT FOLLOWING INSTRUCTIONS. LABS CALLED TO DR DE GUZMAN, AND RECEIVED ORDER FOR ONE UNIT PRBC'S, AWAITING BLOOD FROM LAB. PT TURNED Q2HRS. TITRATED LEVOPHED FROM 4 MCQ/MIN TO 12 MCQ/MIN TO KEEP MAP GREATER THAN 65. CURRENTLY LEVOPHED AT 10 MCQ/MIN. TUBE FEED AT GOAL WITH MIN RESIDUAL. TEMP UP DURING THE NIGHT TO 100.4, MED WITH TYLENOL. REPORT TO ON COMING NURSE.
--- NOTE | 2020-09-05 06:49 | NUR ---
PATIENT CURRENTLY RESEDATED AFTER SBT THIS AM.
[2020-09-05 11:53] LABS: Source, Urine Catheter
[2020-09-05 11:56] LABS: Bilirubin, Urine Neg (Neg); Blood, Urine 2+ (Neg); Glucose Qualitative, Urine Neg (Neg); Ketones, Urine Neg (Neg); Leukocyte Esterase, Urine 1+ (Neg); Nitrite, Urine Neg (Neg); Protein, Urine 2+ (Neg); Urobilinogen, Urine NORM (Normal)
[2020-09-05 12:00] LABS: Appearance, Urine Hazy (Clear); Color, Urine Yellow (P-Yellow)
[2020-09-05 12:01] LABS: Bacteria Few /hpf; Squamous Epithelial Cells Rare /hpf (Few); White Blood Cells, Urine 0-2 /hpf (0-5)
--- NOTE | 2020-09-05 12:06 | NUR ---
REASSESSMENT PT REMAINS INTUBATED AND SEDATED. SHE IS STILL HAVING THICK SECRETIONS SUCTIONED THROUGH THE ETT. LUNGS ARE DIM. SR, REMAINS ON LEVOPHED BUT TITRATED DOWN THROUGHOUT THE MORNING BP ALLOWED. TOLERATING TUBE FEED. RECEIVED 1 UNIT PRBC THIS MORNING. JEREZ DRAINING CL YELLOW URINE, SAMPLE SENT TO LAB FOR UA PER DR. DE GUZMAN. RECTAL TUBE DRAINING LOOSE STOOL. CONTINUING TO MONITOR.
--- NOTE | 2020-09-05 17:16 | NUR ---
SHIFT SUMMARY PT REMAINED INTUBATED AND SEDATED TODAY. STILL HAVING THICK SECRETIONS VIA ETT. LUNGS CLEAR BUT DIM. SR, BP STABLE AND LEVOPHED ABLE TO BE TITRATED OFF THIS AFTERNOON. REMAINS EDEMATOUS WITH 2+ EDEMA IN LOWER EXTREMITIES. TOLERATING TUBE FEED. RECTAL TUBE STILL WITH LOOSE STOOL. CL YELLOW URINE IN JEREZ. SPOKE WITH [facility] AND PROVIDED UPDATE.
--- NOTE | 2020-09-05 21:00 | NUR ---
ASSUMPTION OF CARE PT INTUBATED AND SEDATED, PT OPENS EYES SPONTANEOUSLY BUT DOES NOT FOLLOW COMMANDS. PT RESISTANT TO NURSING CARE, PULLS ARMS INTO CORE WITH REPOSITIONING AND PICC LINE ASSESSMENT, CLINCHES EYES AND MOUTH SHUT. VENT SET TO AC 18/350 PEEP 5, FIO2 35%. PROPOFOL INFUSING FOR SEDATION, SEE FLOWSHEET FOR RATES AND TITRATIONS. MONITOR SHOWS SINUS RHYTHM, HR 60'S-70'S, BP STABLE, LEVO REMAINS ON SB FROM PREVIOUS SHIFT. PEG TUBE IN PLACE TO UPPER MID ABD, INFUSING TF @ 15ml/hr, RECTAL TUBE IN PLACE WTIH LIQUID BROWN OUTPUT. JEREZ IN PLACE WITH CLEAR YELLOW URINE. PICC TO CHUNG.
[2020-09-06 06:20] LABS: BASOPHILS ABSOLUTE AUTO 0.03 K/mm3 (0.00-0.23); BASOPHILS PERCENT AUTO 1 % (0-2); EOSINOPHILS ABSOLUTE AUTO 0.26 K/mm3 (0.00-0.68); EOSINOPHILS PERCENT AUTO 4 % (0-6); Hematocrit 23.2 % (33.0-51.0); Hemoglobin 7.4 g/dL (11.5-16.0); IMMATURE GRAN ABSOLUTE AUTO 0.04 K/mm3 (0.00-0.10); IMMATURE GRAN PERCENT AUTO 1 % (0-1); LYMPHOCYTES ABSOLUTE AUTO 0.94 K/mm3 (0.84-5.20); LYMPHOCYTES PERCENT AUTO 15 % (21-46); MONOCYTES ABSOLUTE AUTO 0.68 K/mm3 (0.16-1.47); MONOCYTES PERCENT AUTO 11 % (4-13); Mean Corpuscular HGB Conc 31.9 g/dL (31.5-36.5); Mean Platelet Volume 9.8 fL (9.1-12.4); NEUTROPHILS ABSOLUTE AUTO 4.52 K/mm3 (1.96-9.15); NEUTROPHILS PERCENT AUTO 70 % (41-73); Platelet Count 181 K/mm3 (150-400); RDW Coefficient Variation 21.2 % (11.7-14.2); RDW Standard Deviation 79.9 fL (35.1-46.3); Red Blood Cell Count 2.24 M/mm3 (3.80-5.20); White Blood Cell Count 6.47 K/mm3 (4.00-11.30)
[2020-09-06 06:21] LABS: Mean Corpuscular Volume 104 fL (80-100)
[2020-09-06 06:34] LABS: Anion Gap 7 mmol/L (6-16); Blood Urea Nitrogen 59 mg/dL (8-24); Bun/Creatinine Ratio 19.5 (12.0-20.0); CO2, Blood 27 mmol/L (21-32); Calcium, Blood 8.7 mg/dL (8.5-10.1); Chloride, Blood 111 mmol/L (98-108); Creatinine, Blood 3.03 mg/dL (0.40-1.00); Glomerular Filtration Rate 16 (60-); Glucose, Blood 84 mg/dL (70-99); Phosphorus, Blood 5.2 mg/dL (2.5-4.9); Potassium, Blood 3.3 mmol/L (3.5-5.5); Sodium, Blood 145 mmol/L (136-145)
--- NOTE | 2020-09-06 07:21 | NUR ---
SHIFT SUMMARY PT REMAINS INTUBATED AND SEDATED, NO ACUTE CHANGES THIS SHIFT, PT CONTINUES TO HAVE MODERATE AMOUNT OF SECRETIONS FROM ETT. SEDATION VACATION THIS SHIFT, PT AROUSES TO VERBAL STIMULI, BECOMES ANXIOUS, FIGHTS VENTILATOR, DOES NOT FOLLOW COMMANDS. SBT NOT COMPLETED THIS SHIFT. MONITOR SHOWS SINUS RHYTHM WITH HR 50'S-60'S, BP STABLE OFF OF LEVOPHED. PEG IN PLACE, NO RESIDUALS, RECTAL TUBE IN PLACE, CONTINUES TO HAVE LIQUID BROWN OUTPUT. JEREZ IN PLACE DRAINING CLEAR YELLOW TO GREEN URINE. PT MOVES ALL EXTREMETIES.
--- NOTE | 2020-09-06 11:26 | NUR ---
ASSUMED CARE PT REMAINS INTUBATED AND SEDATED. PT UNABLE TO OPEN EYES TO VERBAL STIMULI, WILL SQUEEZE HANDS, BUT NOT ON COMMAND. PROPOFOL AT 30/MCG/KG/MIN. HR IN 50'S, BP'S STABLE ON MIDODRINE. VENT ON A/C 18/350/5/35%, SATS >90%. CONTINUES WITH THICK SECRETIONS, YELLOW/GREEISH IN COLOR. LUNG SOUNDS COARSE IN BILAT. UPPERS, DIM IN BASES. TF IS PIVOT 1.5 AT GOAL OF 15ML/HR. RECTAL TUBE INTACT. TEMP JEREZ DRAINING TO GRAVITY, CLEAR/YELLOW URINE OUTPUT. RENAL FUNCTION SLIGHTLY IMPROVED. PT IS FEBRILE, NOT >100. PT IS RESTING AND IN NO APPARENT DISTRESS. WILL CONTINUE TO MONITOR.
--- NOTE | 2020-09-06 18:06 | NUR ---
SHIFT SUMMARY PT INTUBATED AND SEDATED. NO SBT DONE THIS AM, BUT SEDATION VACATION DONE. PT A&O X1, TO SELF ONLY. OPENS EYES SPONTANEOUSLY, WILDLIFE CONTROL OPERATOR HANDS SPONTANEOUSLY. ABLE TO TRACK WITH EYES. PROPOFOL AT 30MCG/KG/MIN. VENT: A/C 18/350/5/35%, SATS >90%. INCREASED SECRETIONS CONTINUE, SPUTUM THICK AND YELLOW/ART IN COLOR. INCREASED ORAL SECRETIONS CONTINUE. BILAT UPPER LOBES COARSE/WET, BASES DIMINISHED. PIVOT 1.5 AT GOAL OF 15ML/HR. RECTAL TUBE INTACT. TEMP JEREZ DRAINING TO GRAVITY, DARK YELLOW URINE. HR REMAINED IN 50-60S, BP'S STABLE. BLLE EDEMA +3 CONTINUES. PT CURRENTLY RESTING, IN NO APPARENT DISTRESS.
--- NOTE | 2020-09-06 19:15 | NUR ---
ASSUMPTION OF CARE RECEIVED REPORT FROM MIKIE VALDES. ASSUMED CARE OF PATIENT. PATIENT INTUBATED WITH VENT SETTINGS AC18/350/5/35% 02 SATS 95%. PROPOFOL AT 30MCG/KG INFUSING VIA PICC. TF INFUSING VIA ABD FEEDING TUBE INFUSING AT GOAL OF 15ML/HR WITH FLUSH OF 30ML EVERY 4 HOURS. JEREZ CATHETE WITH CLEAR, YELLOW URINE AND RECTAL TUBE WITH MINIMAL BROWN, LIQUID OUTPUT. WILL REVIEW ORDERS AND TREAT PRESCRIBED.
--- NOTE | 2020-09-07 00:02 | NUR ---
REASSESSMENT NO ACUTE CHANGES FROM INITIAL ASSESSMENT. VITALS STABLE WITH VENT SETTINGS UNCHANGED. PROPOFOL AT 40MCG/KG, PATIENT WITH EYES OPEN, COUGHING AGAINST VENT WHEN STIMULATED. TIGHTENS MOUTH AROUND ETT WHEN ORAL CARE IS BEING PERFORMED. JEREZ CATHETER AND RECTAL TUBE REMAIN IN PLACE. WILL CONTINUE TO MONITOR.
--- NOTE | 2020-09-07 04:00 | NUR ---
REASSESSMENT NO ACUTE CHANGES FROM PREVIOUS ASSESSMENT. VENT SETTINGS UNCHANGED. O2 SATS REMAIN ABOVE 95%. TUBE FEED AND TUBING CHANGED. SUCTION AND ORAL CARE CHANGED AND NEW KIT STARTED. PROPOFOL AT 40MCG/KG. PATIENT EASILY AWAKENS TO STIMULI. COPIOUS SECRETIONS SUCTIONED VIA ETT AND ORALLY. WILL CONTINUE TO MONITOR.
[2020-09-07 04:27] LABS: BASOPHILS ABSOLUTE AUTO 0.04 K/mm3 (0.00-0.23); BASOPHILS PERCENT AUTO 1 % (0-2); EOSINOPHILS ABSOLUTE AUTO 0.35 K/mm3 (0.00-0.68); EOSINOPHILS PERCENT AUTO 5 % (0-6); Hemoglobin 7.7 g/dL (11.5-16.0); IMMATURE GRAN ABSOLUTE AUTO 0.04 K/mm3 (0.00-0.10); IMMATURE GRAN PERCENT AUTO 1 % (0-1); LYMPHOCYTES ABSOLUTE AUTO 1.02 K/mm3 (0.84-5.20); LYMPHOCYTES PERCENT AUTO 15 % (21-46); MONOCYTES ABSOLUTE AUTO 0.59 K/mm3 (0.16-1.47); MONOCYTES PERCENT AUTO 8 % (4-13); Mean Corpuscular HGB 33.3 pg (26.0-34.0); Mean Corpuscular HGB Conc 32.1 g/dL (31.5-36.5); Mean Corpuscular Volume 104 fL (80-100); Mean Platelet Volume 9.3 fL (9.1-12.4); NEUTROPHILS ABSOLUTE AUTO 4.95 K/mm3 (1.96-9.15); NEUTROPHILS PERCENT AUTO 71 % (41-73); Platelet Count 185 K/mm3 (150-400); RDW Coefficient Variation 20.2 % (11.7-14.2); RDW Standard Deviation 76.9 fL (35.1-46.3); Red Blood Cell Count 2.31 M/mm3 (3.80-5.20); White Blood Cell Count 6.99 K/mm3 (4.00-11.30)
[2020-09-07 04:45] LABS: Albumin, Blood 2.1 g/dL (3.4-5.0); Anion Gap 7 mmol/L (6-16); Blood Urea Nitrogen 52 mg/dL (8-24); Bun/Creatinine Ratio 19.9 (12.0-20.0); CO2, Blood 26 mmol/L (21-32); Calcium, Blood 8.4 mg/dL (8.5-10.1); Chloride, Blood 114 mmol/L (98-108); Creatinine, Blood 2.61 mg/dL (0.40-1.00); Glomerular Filtration Rate 20 (60-); Glucose, Blood 91 mg/dL (70-99); Magnesium, Blood 2.1 mg/dL (1.6-2.4); Phosphorus, Blood 4.2 mg/dL (2.5-4.9); Potassium, Blood 3.3 mmol/L (3.5-5.5); Sodium, Blood 147 mmol/L (136-145)
--- NOTE | 2020-09-07 06:26 | NUR ---
SHIFT SUMMARY PATIENT REMAINED INTUBATED ON PROPOFOL FOR SEDATION. PATIENT AWAKENS WITH MINIMAL STIMULI, DOES NOT FOLLOW COMMANDS OR APPEAR TO COMPREHEND THE TASKS BEING ASKED OF HER. SATS ABOVE 95% ON 35% FIO2. VITALS STABLE. NO RESIDUALS NOTED, TF INFUSING AT 15ML/HR OF PIVOT 1.5. JEREZ AND RECTAL TUBE REMAIN IN PLACE. SEDATION VACATION OCCURED, PATIENT AWAKE, COUGHS AGAINST VENT WITH COPIOUS AMOUNT OF SECRETIONS VIA ETT AND ORALLY. UNABLE TO FOLLOW COMMANDS AND PARTICIPATE IN WEAN PER RT REPORT. POTASSIUM OF 3.[address] DE GUZMAN AND RECIEVED ORDERS FOR REPLACEMENT. WILL CONTINUE TO MONITOR AND REPORT TO ONCOMING RN.
--- NOTE | 2020-09-07 07:30 | NUR ---
PT REMAINS INTUBATED AND SEDATED. PROPOFOL AT 30MCG/KG/MIN. RESPONDS TO VERBAL STIMULI, BUT UNABLE TO FOLLOW COMMANDS. CONTINUES TO TRACK WITH EYES. SBT FAILED THIS MORNING. PT CONTINUES WITH COPIOUS SECRETIONS AND LARGE AMOUNTS OF ORAL SECRETIONS. VENT: A/C 18/350/5/35%, COUGHING HAS SEEMED TO INCREASE. LUNGS CONTINUE TO SOUND COARSE IN UPPER LOBES, DIMINISHED IN BASES. VSS. PRESSURES STABLE WITH MIDODRINE. BLE EDEMA 3+ CONTINUES. HEELS ARE SLIGHTLY REDDENED. TF PIVOT 1.5 AT GOAL 15ML/HR. RECTAL TUBE INTACT. TEMP JEREZ DRAINING TO GRAVITY, URINE IS YELLOW/GREEN IN COLOR. PT IS AFEBRILE THIS MORNING. PICC IN CHUNG INTACT, UNCHANGED FROM YESTERDAY. PT IS RESTING AND IN NO APPARENT DISTRESS. WILL CONTINUE TO MONITOR.
--- NOTE | 2020-09-07 15:43 | NUR ---
SBT PROPOFOL STOPPED AT 1445. VENT CHANGED TO SPONTANEOUS 12/5 35%. PT WAS ALERT AND COUGHING FREQUENTLY, HOWEVER TOLERATED VENT FAIRLY WELL BUT WAS AGITATED. WAS ABLE TO MAINTAIN RESPIRATORY RATES OF 8-12, SATS REMAINED >92%. LASTED ABOUT 45 MINUTES UNTIL PROPOFOL RESTARTED AT 40MCG/MG/MIN AND VENT CHANGED BACK TO PREVIOUS SETTINGS OF AV 18/350/5/35. PT CURRENTLY RESTING AND WILL CONTINUE TO MONITOR.
--- NOTE | 2020-09-07 18:29 | NUR ---
PT REMAINS INTUBATED AND SEDATED. PT RESPONDS TO VERBAL STIMULI, CAN OPEN EYES, BUT IS RESISTANT TO FOLLOW COMMANDS. RESISTANT TO ORAL CARE AND REPOSITIONING. PT WAS COUGHING, AGITATED, AND FIGHTING VENT THIS MORNING, PROPOFOL INCREASED TO 40MCG/KG/MIN. SBT DONE TODAY, VENT AT PS 12/5 35%, PT LASTED 45MIN WITHOUT SATS DROPPING BELOW 92%. PLACED BACK ON AC 18/350/5/35%, TOLERATING WELL. PROPOFOL RESUMED AT 40MCG/KG/MIN, BUT DUE TO DECREASED PRESSURES AND MAP, PROPOFOL TURNED DOWN TO 30MCG/KG/MIN, PRESSURES RETURNED WNL. LUNG SOUNDS HAVE BEEN COARSE TO CLEAR IN BILAT UPPERS, DIMINISHED IN BASES. TF CONTINUES WITH PIVOT 1.5 AT 15ML/HR. RECTAL TUBE INTACT. TEMP JEREZ DRAINING TO GRAVITY, 900ML OUTPUT, GREENISH/YELLOW URINE. EDEMA REMAINS AT 3+ BLE. HR IN 50-60S. PT CURRENTLY RESTING AND IN NO APPARENT DISTRESS.
[2020-09-08 04:29] LABS: BASOPHILS ABSOLUTE AUTO 0.04 K/mm3 (0.00-0.23); BASOPHILS PERCENT AUTO 1 % (0-2); EOSINOPHILS ABSOLUTE AUTO 0.34 K/mm3 (0.00-0.68); EOSINOPHILS PERCENT AUTO 4 % (0-6); Hemoglobin 7.5 g/dL (11.5-16.0); IMMATURE GRAN ABSOLUTE AUTO 0.04 K/mm3 (0.00-0.10); IMMATURE GRAN PERCENT AUTO 1 % (0-1); LYMPHOCYTES ABSOLUTE AUTO 0.99 K/mm3 (0.84-5.20); LYMPHOCYTES PERCENT AUTO 13 % (21-46); MONOCYTES ABSOLUTE AUTO 0.78 K/mm3 (0.16-1.47); MONOCYTES PERCENT AUTO 10 % (4-13); Mean Corpuscular HGB 33.3 pg (26.0-34.0); Mean Corpuscular HGB Conc 31.3 g/dL (31.5-36.5); Mean Corpuscular Volume 107 fL (80-100); Mean Platelet Volume 9.4 fL (9.1-12.4); NEUTROPHILS ABSOLUTE AUTO 5.72 K/mm3 (1.96-9.15); NEUTROPHILS PERCENT AUTO 72 % (41-73); Platelet Count 189 K/mm3 (150-400); RDW Coefficient Variation 19.8 % (11.7-14.2); RDW Standard Deviation 76.9 fL (35.1-46.3); Red Blood Cell Count 2.25 M/mm3 (3.80-5.20); White Blood Cell Count 7.91 K/mm3 (4.00-11.30)
[2020-09-08 04:35] LABS: Base Excess Venous 2.3 mmol/L; Bicarbonate Venous 26.1 mmol/L (24.0-30.0); PCO2 Venous 49.6 mmHg (38-42); PO2 Venous 60.3 mmHg (38-42); pH Blood Venous 7.36 (7.34-7.37)
[2020-09-08 04:46] LABS: Bun/Creatinine Ratio 20.4 (12.0-20.0); Calcium, Blood 8.6 mg/dL (8.5-10.1); Creatinine, Blood 2.11 mg/dL (0.40-1.00); Phosphorus, Blood 4.2 mg/dL (2.5-4.9); Potassium, Blood 3.6 mmol/L (3.5-5.5)
--- NOTE | 2020-09-08 06:09 | NUR ---
SHIFT SUMMARY PATIENT SLEPT WELL THROUGH NIGHT. SBT THIS MORNING WAS NEARLY A FAIL DUE TO AGGRESSION WHILE OFF PROPOFOL, PT. NOT ON ANY SEDATION THRU DURATION OF SBT. SECRETIONS DECREASED FROM BEGIN OF SHIFT. ASSESSMENT IS CHARTED. VSS. WILL CONTINUE TO MONITOR.
--- NOTE | 2020-09-08 09:50 | NUR ---
AM NOTE... ASSUMED CARE OF PT AT 0700. PT IS INTUBATED AND SEDATED AT THIS TIME WITH PROPOFOL RUNNING AT 30MCG/MIN. PT'S VENT SETTINGS ARE AC: 12/350/5/35% WITH O2 SATS>92%. PT'S L/S COARSE T/O DIM IN THE BASES, LARGE AMOUNT OF THICK ORAL SECRECTIONS NOTED WELL THICK CLEAR/WHITE SECRETIONS FROM THE ET TUBE. PT WAS VERY UNCOOPREATIVE WITH ORAL CARE THIS AM, CLAMPING DOWN AND TURNNING HER HEAD AWAY WHEN ORAL WAS DONE THIS AM. BT PRESENT AND HYPOACTIVE, ABD IS SOFT AND NONTENDER TO PALP. TUBE FEED RUNNING PER ORDERS AT 15MLS/HR WITH 30MLS FLUSHES OF H20 Q4 HRS. NO RESIDUALS NOTED. RECTAL TUBE IN PLACE DRAINING LIQUID BROWN STOOLS. JEREZ PATENT AND DRAINING YELLOW URINE TO GRAVITY. WILL CONTINUE TO MONITOR.
--- NOTE | 2020-09-08 18:16 | NUR ---
SHIFT SUMMARY... NO ACUTE NEGATIVE CHANGES NOTED THIS SHIFT. PT WAS STARTED ON PRECEDEX AND THE PROPOFOL WAS TITRATED DOWN TO 15MCG, PRECEDEX IS RUNNING AT 0.2MCG/KG/HR. PT'S HR IS BRADYCARDIC IN THE HIGH 40'S BUT HER BP HAS BEEN STABLE PROVIDER AWARE. PT'S TUBE FEEDINGS WERE CHANGED FROM PIVOT 1.[address] ARAUZ CHANGED THE Q4 HR FLUSHES FROM 30MLS TO 200MLS. PT'S JEREZ PATENT AND DRAINING TO GRAVITY. PT'S RECTAL TUBE IS PATENT BUT HAS HAD NO OUTPUT THIS SHIFT. PT'S ET TUBE WAS PULLED OUT BY RT PER DR. ARAUZ'S REQUEST 2CM. WILL CONTINUE TO MONITOR UNTIL REPORT IS GIVEN TO ONCOMING RN.
[2020-09-09 03:31] LABS: BASOPHILS ABSOLUTE AUTO 0.04 K/mm3 (0.00-0.23); BASOPHILS PERCENT AUTO 1 % (0-2); EOSINOPHILS ABSOLUTE AUTO 0.48 K/mm3 (0.00-0.68); EOSINOPHILS PERCENT AUTO 6 % (0-6); Hematocrit 26.1 % (33.0-51.0); IMMATURE GRAN ABSOLUTE AUTO 0.05 K/mm3 (0.00-0.10); IMMATURE GRAN PERCENT AUTO 1 % (0-1); LYMPHOCYTES ABSOLUTE AUTO 1.57 K/mm3 (0.84-5.20); LYMPHOCYTES PERCENT AUTO 18 % (21-46); MONOCYTES ABSOLUTE AUTO 0.67 K/mm3 (0.16-1.47); MONOCYTES PERCENT AUTO 8 % (4-13); Mean Corpuscular HGB 33.2 pg (26.0-34.0); Mean Corpuscular HGB Conc 30.7 g/dL (31.5-36.5); Mean Corpuscular Volume 108 fL (80-100); Mean Platelet Volume 9.5 fL (9.1-12.4); NEUTROPHILS ABSOLUTE AUTO 5.91 K/mm3 (1.96-9.15); NEUTROPHILS PERCENT AUTO 68 % (41-73); Platelet Count 208 K/mm3 (150-400); RDW Coefficient Variation 18.9 % (11.7-14.2); RDW Standard Deviation 75.8 fL (35.1-46.3); Red Blood Cell Count 2.41 M/mm3 (3.80-5.20); White Blood Cell Count 8.72 K/mm3 (4.00-11.30)
[2020-09-09 03:46] LABS: Bun/Creatinine Ratio 24.2 (12.0-20.0); Calcium, Blood 8.6 mg/dL (8.5-10.1); Creatinine, Blood 1.57 mg/dL (0.40-1.00); Potassium, Blood 3.6 mmol/L (3.5-5.5)
--- NOTE | 2020-09-09 05:30 | NUR ---
SHIFT SUMMARY PATIENT SLEPT WELL THRU FIRST HALF OF NIGHT. AROUND 01:20 STARTED LOOKING PAINFUL, GRIMACING, FIGHTING VENTILATOR, MUSCLES TENSE, GAVE 2 DOSES OF FENTANYL, SOME IMPROVEMENT ONCE SWITCHED TO SPONTANEOUS BREATHING SETTING ~ 03:00. HAD PATIENT NOT HAD APNIC EPISODES WOULD HAVE PASSED SPONTANEOUS BREATHING TRAIL. CAREGIVER FROM [facility] CALLED, STATES SHE WILL HOLD BREATH FREQUENTLY WHEN SHE IS "FEELING RAMBUNXIOUS." NOTED AN APNIC EPISODE OF OVER 1 MINUTE WHILE THIS NURSE WAS IN ANOTHER ROOM DRAWING BLOOD, NOTED THAT HER SPO2 DID NOT DIP BELOW 99%. ASSESSMENT IS CHARTED. VSS. WILL CONTINUE TO MONITOR.
--- NOTE | 2020-09-09 07:18 | NUR ---
Received report from Huber VALDES. Oral care, am care and repositioning done. Propofol and line changed out. Patient is intubated and sedated. She has 7.0 ET and is 22cm at teeth with settings AC 12, TV 350, FiO2 35%, PEEP 5.0 and sats 97%. She has PICC line to CHUNG dressing intact and site WNL's and is ionfusing Propofol at 45 mcg/kg/min, and NS TKO. She has button peg tube upper LQ and is infusing Nepro 1.8 at 15 and 200 ml water flushes Q4. She has rectal tube in place with liquid dark brown stool. She has 16Fr. temp hale in place draining to gravity light north colored urine. She is in bilateral soft wrist restraints form patient and tube safety. 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 She opens eye with care stimuli.
--- NOTE | 2020-09-09 10:00 | NUR ---
Dr mane was in room and she placed vebt to spon. mode PS 8 and patient tolerated well with good volumes and sats 99%. Oral suction has moderate thin secretions. Patient open eye and followed commands. She stated to extubate at 1050, notified RT. Precedex restarted at 0.4 mcg/kg/hr and placed propofol on standby.
--- NOTE | 2020-09-09 11:43 | NUR ---
Patient extubated at [address] on 4L O2 via NC and sats 99%. Will try to remove restraints at 1200. VSS, See EMR. Patient stated she wanted to call someone and explained she needed to rest voice. She is resting quietly.
--- NOTE | 2020-09-09 13:30 | NUR ---
Patient extubated and remains on 4L O2 and just reduced to 2l O2 and sats >95%. She is able to communicate her needs and uses alot of words that start with PMoy VSKaron, See EMR. Rectal tube continues to have moderate amounts of liquid brown stool. Tube feeding has lee ann off since extubation and Dr Boyd stated to leave off until she states to turn back on.
--- NOTE | 2020-09-09 15:30 | NUR ---
Patient remains on 2L o2 and sats >95% and will try on RA. She is more alert and speaking out more often. Cleaned her up at rectal tube site and changed linen. VSS, See EMR.
--- NOTE | 2020-09-09 17:57 | NUR ---
Place patient back on 2L O2 as sats in the 80 and she popped back up to the mid 90%, Rectal tube reinserted and bed cleaned as well as patient. Rectal tube had 600 out and hale 900 mlv light north urine.
[2020-09-10 03:28] LABS: BASOPHILS ABSOLUTE AUTO 0.05 K/mm3 (0.00-0.23); BASOPHILS PERCENT AUTO 1 % (0-2); EOSINOPHILS PERCENT AUTO 4 % (0-6); Hemoglobin 7.5 g/dL (11.5-16.0); IMMATURE GRAN ABSOLUTE AUTO 0.03 K/mm3 (0.00-0.10); IMMATURE GRAN PERCENT AUTO 0 % (0-1); LYMPHOCYTES ABSOLUTE AUTO 1.18 K/mm3 (0.84-5.20); LYMPHOCYTES PERCENT AUTO 15 % (21-46); MONOCYTES ABSOLUTE AUTO 0.63 K/mm3 (0.16-1.47); MONOCYTES PERCENT AUTO 8 % (4-13); Mean Corpuscular HGB 33.3 pg (26.0-34.0); Mean Corpuscular HGB Conc 31.3 g/dL (31.5-36.5); Mean Corpuscular Volume 107 fL (80-100); Mean Platelet Volume 9.4 fL (9.1-12.4); NEUTROPHILS ABSOLUTE AUTO 5.89 K/mm3 (1.96-9.15); NEUTROPHILS PERCENT AUTO 73 % (41-73); Platelet Count 219 K/mm3 (150-400); RDW Coefficient Variation 18.2 % (11.7-14.2); RDW Standard Deviation 70.4 fL (35.1-46.3); Red Blood Cell Count 2.25 M/mm3 (3.80-5.20); White Blood Cell Count 8.08 K/mm3 (4.00-11.30)
[2020-09-10 03:43] LABS: Bun/Creatinine Ratio 25.8 (12.0-20.0); Calcium, Blood 8.3 mg/dL (8.5-10.1); Creatinine, Blood 1.32 mg/dL (0.40-1.00); Potassium, Blood 3.6 mmol/L (3.5-5.5)
--- NOTE | 2020-09-10 06:27 | NUR ---
SHIFT SUMMARY PATIENT SLEPT WELL AFTER GIVING RISPERDAL ABOUT MIDWAY THRU SHIFT FOR AGITATION, SEE EMAR. PT WAS HITTING SELF IN HEAD, SAYING "I LIVE IN [place]" OVER AND OVER AGAIN. AFTER ADMINISTRATION, NOTICED FREQUENT ECTOPY, PACs, PJCs, GONE AFTER PATIENT WOKE UP. NO C/O PAIN. ATTACHED BUBBLER TO NASAL CANULA TO HELP WITH DRY NOSE. ASSESSMENT IS CHARTED. VSS. WILL CONTINUE TO MONITOR.
--- NOTE | 2020-09-10 10:30 | NUR ---
ASSUME CARE NOTE THIS STUDENT RECIEVED REPORT FROM OPAL VALDES IN ICU AND ASSUMED CARE IN PCU AT APPROX 0900. PT IS DEVELOPMENTALLY DELAYED AND IS ALERT TO SELF/PLACE. VSS; HR IN 60'S. RLL WAS DIMINISHED BUT LUNGS CLEAR OTHERWISE. PT IS ON 1 L O2 VIA NASAL CANNULA W/ SP02 AT 93%. JEREZ CATH IN PLACE AND DRIANING W/ GRAVITY. RECTAL TUBE IN PLACE. SCAB PRESENT ON R ZAMORA BUT OTHERWISE DRY AND INTACT. MUCOUS MEMBRANES APPEAR DRY. SKIN AROUND G-TUBE INTACT. LOWER EXTREMETIES ARE CONTRACTED; WILL CONTINUE TO PROVIDE SUPPORT/TURN TO PREVENT SKIN BREAKDOWN. PT NOW RESTING, BED IN LOW. WILL CONTINUE TO MONITOR.
--- NOTE | 2020-09-10 11:20 | NUR ---
NEW ORDERS TO RESTART TUBE FEEDING PER DR SHELL. NOTIFIED DIETARY. WILL CONTINUE TO MONITOR.
--- NOTE | 2020-09-10 18:02 | NUR ---
SHIFT SUMMARY PT IS ALERT AND TALKATIVE. PT BECAME SLIGHTLY AGITATED IN AFTERNOON AND WAS TREATED PER EMAR W/ RESPERIDONE. UPON REASSESSMENT, PT MORE RELAXED. G-TUBE FEEDING RESUMED AT 1400, 25 ML/HR. VSS W/ SPO2 IN 90'S AT 1L O2 VIA NC. NO OTHER ACUTE CHANGES NOTED. PT NOW RESTING, BED IN LOW. WILL CONTINUE TO MONITOR FOR REMAINDER OF SHIFT.
--- NOTE | 2020-09-10 19:29 | NUR ---
THIS RN REVIEWED THE SPEECH THERAPY DIRECTOR DOCUMENATIONS AND AM IN AGREEMENT. PT REPOSITIONED Q2 FOR COMOFRT AND PRESSURE ULCER PREVENTION. PT APPEARS TO BE TOLERATING TUBE FEEDING. REPORT GIVEN TO ONCOMING RN.
[2020-09-11 04:15] LABS: Hematocrit 25.2 % (33.0-51.0); Hemoglobin 7.8 g/dL (11.5-16.0)
--- NOTE | 2020-09-11 06:47 | NUR ---
SHIFT SUMMARY PT ALERT, UNABLE TO ASSESS ORIENTATION. PT LAUGHING HAPPILY IN RM, STATING "I'M A MONKEY" MULTIPLE TIMES. PT W/ BUE & BLE CONTRACTURES. Q2H REPOSITIONING W/ 2 PERSON MAX ASSIST. PT VSS. SPO2 > 92% ON 1L NC. MONITOR SHOWING SB-SR, HR 50's-70's. PT NPO. TF INFUSING @ GOAL RATE PER ORDERS VIA G-TUBE. JEREZ CATH PATENT & DRAINING YELLOW URINE. RECTAL TUBE PATENT & DRAINING LIQUID BROWN STOOL. NO EVENTS OVER NIGHT.
[2020-09-11 07:01] LABS: Anion Gap 2 mmol/L (6-16); Blood Urea Nitrogen 25 mg/dL (8-24); Bun/Creatinine Ratio 25.6 (12.0-20.0); CO2, Blood 31 mmol/L (21-32); Calcium, Blood 8.6 mg/dL (8.5-10.1); Chloride, Blood 114 mmol/L (98-108); Creatinine, Blood 0.98 mg/dL (0.40-1.00); Glomerular Filtration Rate >60 (60-); Glucose, Blood 101 mg/dL (70-99); Potassium, Blood 2.9 mmol/L (3.5-5.5); Sodium, Blood 147 mmol/L (136-145)
[2020-09-11 12:24] LABS: Anion Gap 2 mmol/L (6-16); Blood Urea Nitrogen 23 mg/dL (8-24); Bun/Creatinine Ratio 24.9 (12.0-20.0); CO2, Blood 30 mmol/L (21-32); Calcium, Blood 8.4 mg/dL (8.5-10.1); Chloride, Blood 115 mmol/L (98-108); Creatinine, Blood 0.92 mg/dL (0.40-1.00); Glomerular Filtration Rate >60 (60-); Glucose, Blood 109 mg/dL (70-99); Sodium, Blood 147 mmol/L (136-145)
--- NOTE | 2020-09-11 15:59 | NUR ---
SHIFT SUMMARY PT ALERT, ORIENTED TO SELF, FOLLOWING SOME DIRECTIONS. PT CALM AND COOPERATIVE WITH CARE. PT RESTING IN BED, Q2 TURN. NO S/Sx OF DISTRESS NOTED. SPO2 >90% ON 1L O2 VIA NC, ATTEMPTED TO TITRATE TO RA, PT DESATRUATES AT TIMES TO 87-88%. BREATHING TREATMENTS AND CPT PER RT. MOIST COUGH NOTED, SMALL AMOUNT OF SECRETIONS SUCTIONS THIS AM, Q4 ORAL CARE. PT TUBE FEEDING CONTNUES, PLANS TO CHANGES TO CYCLIC FEEDING THIS EVENING. INCREASED FLUSH RATE/INTERVAL AT APPROX 1400. VSS. NO OTHER ACUTE CHANGES NOTED. WILL CONTINUE TO MONITOR UNITL REPORT GIVEN TO ONCOMING RN.
[2020-09-11 22:17] LABS: Anion Gap 4 mmol/L (6-16); Blood Urea Nitrogen 19 mg/dL (8-24); Bun/Creatinine Ratio 22.1 (12.0-20.0); CO2, Blood 29 mmol/L (21-32); Calcium, Blood 8.5 mg/dL (8.5-10.1); Chloride, Blood 114 mmol/L (98-108); Creatinine, Blood 0.86 mg/dL (0.40-1.00); Glomerular Filtration Rate >60 (60-); Glucose, Blood 101 mg/dL (70-99); Potassium, Blood 3.6 mmol/L (3.5-5.5); Sodium, Blood 147 mmol/L (136-145)
--- NOTE | 2020-09-11 23:15 | NUR ---
CARE ASSUMPTION PT A/0 TO SELF AND FOLLOWING DIRECTIONS. PT IS CALM AND COOPERATIVE. VSS. SPO2 >90% ON 1 L NC. TELE 70S SR W PAC. PT W BUE AND BLE CONTRACTURES. JEREZ CATH IN PLACE AND DRAINING WITH GRAVITY. PT RECTAL TUBE IN PLACE AND DRAINING WITH GRAVITY. PT TUBE CYCLIC TUBE FEEDING GOING. WILL CONTINUE TO MONITOR AND PROVIDE CARE.
--- NOTE | 2020-09-12 05:40 | NUR ---
SHIFT SUMMARY PT A/O TO SELF AND FOLLOWING DIRECTIONS AT TIMES. VSS. SPO2 >90% ON 1L NC. TELE SR W PAC 60S. PT W BUE AND BLE CONTRACTURES. JEREZ IN PLACE DRAINING WITH GRAVITY. RECTAL TUBE CLEANED, REPOSITIONED, AND DRAINING WITH GRAVITY. PT TUBE CYCLIC FEEDING GOING. PT REPOSITON Q2 HR. NO ACUTE CHANGES OVER THIS SHIFT. WILL CONTINUE TO MONITOR AND PROVIDE CARE UNTIL HAND OFF WITH DAY SHIFT.
[2020-09-12 08:45] LABS: Anion Gap 1 mmol/L (6-16); Blood Urea Nitrogen 17 mg/dL (8-24); Bun/Creatinine Ratio 19.9 (12.0-20.0); CO2, Blood 31 mmol/L (21-32); Calcium, Blood 8.2 mg/dL (8.5-10.1); Chloride, Blood 113 mmol/L (98-108); Creatinine, Blood 0.86 mg/dL (0.40-1.00); Glomerular Filtration Rate >60 (60-); Glucose, Blood 83 mg/dL (70-99); Potassium, Blood 3.8 mmol/L (3.5-5.5); Sodium, Blood 145 mmol/L (136-145)
--- NOTE | 2020-09-12 08:58 | NUR ---
AM NOTE PT WAS SLEEPING DURING ROUNDING THIS AM BUT RESPONDS TO VERBAL STIMULI. SHE WAS ALERT DURING VITALS AND ASSESSMENT THIS AM. SHE IS CALM AND COOPERATIVE W/ CARE. PT HAS NONSENSICAL VERBAL RESPONSES RESULT OF HX OF DEVELOPMENTAL DELAY. PT DENIED PAIN. VSS; WILL CONTINUE TO MONITOR. BILAT LOWER EXTREMETIES ARE CONTRACTED, BILAT UPPER EXTREMETIES ARE CONTRACTED. WILL CONTINUE TO TURN Q2. FOLY CATH IN PLACE AND IS DRAINING W/ GRAVITY. RECTAL TUBE IN PLACE. SKIN IS DRY AND INTACT. TUBE FEEDING RUNNING PER ORDER. PT NOW SLEEPING. BED IN LOW, WILL CONTINUE TO MONITOR T/O SHIFT.
--- NOTE | 2020-09-12 17:48 | NUR ---
SHIFT SUMMARY PT ALERT TO SELF, CONTINUES TO HAVE NONSENSICAL CONVERSATION. JEREZ CATH AND RECTAL TUBE BOTH DC'D THIS AM PER ORDERS. PT NOW WEARING ATTENDS. SKIN REMAINS CLEAN AND DRY. VITAL SIGNS REMAIN STABLE, WILL CONTINUE TO MONITOR. PT SLEPT MOST OF DAY, DURING CARE PT WOULD BECOME ALERT AND TALKATIVE. THIS EARLY EVENING PT BECAME SLIGHTLY AGITATED; YELLING NONSENSICAL WORDS INCLUDING, "I'M NOT ." THIS STUDENT TREATED AGITATION PER EMAR. PT NOW TALKING BUT APPEARS COMFORTABLE. WILL CONTINUE TO MONITOR. BED ALARM ON, BED IN LOW.
--- NOTE | 2020-09-12 19:24 | NUR ---
I&O NOTE PT HAS HAD 2 INCONTINENT URINE VOIDS SINCE JEREZ REMOVAL WELL 1 INCONTINENT BM SINCE RECTAL TUBE REMOVAL. PT NOW CLEAN AND DRY.
--- NOTE | 2020-09-12 19:37 | NUR ---
THIS RN HAS REVIEWED THE NURSING STUDENTS DOCUMENTATION AND AM IN AGREEMENT. POSSIBLE PLANS FOR DISCAHRGE BACK TO [facility] TOMORROW.
--- NOTE | 2020-09-12 22:28 | NUR ---
CARE ASSUMPTION PT A/O TO SELF AND FOLLOWING DIRECTIONS. PT IS COOPERATIVE, TALKATIVE, HAPPY, AND CALM. VSS. SPO2 >90% ON 1L NC. TELE SR W PAC 60S. BLE AND BUE ARE CONTRACTED. PT Q2 TURNS. PT CYCLIC TUBE FEEDING INFUSING PER ORDERS. WILL CONTINUE TO MONITOR AND PROVIDE CARE.
[2020-09-13 04:47] LABS: Anion Gap 2 mmol/L (6-16); Blood Urea Nitrogen 14 mg/dL (8-24); Bun/Creatinine Ratio 17.9 (12.0-20.0); CO2, Blood 32 mmol/L (21-32); Calcium, Blood 7.9 mg/dL (8.5-10.1); Chloride, Blood 110 mmol/L (98-108); Creatinine, Blood 0.78 mg/dL (0.40-1.00); Glomerular Filtration Rate >60 (60-); Glucose, Blood 95 mg/dL (70-99); Potassium, Blood 3.5 mmol/L (3.5-5.5); Sodium, Blood 144 mmol/L (136-145)
--- NOTE | 2020-09-13 05:55 | NUR ---
SHIFT SUMMARY PT A/O TO SELF AND FOLLOWING DIRECTIONS. PT IS COOPERATIVE, HAPPY, CALM, AND TALKATIVE. VSS. SPO2 >90% ON 1L NC. TELE SR W PAC 60S. PT CYCLIC TUBE FEEDING INFUSING PER ORDERS. PT IS INCONTINENT OF BOWEL AND BLADER. Q2 HR TURNS. BLE AND BUE ARE CONTRACTED. NO ACUTE CHANGES DURING THIS SHIFT. WILL CONTINUE TO MONITOR AND PROVIDE CARE UNTIL HAND OFF WITH DAY SHIFT.
--- NOTE | 2020-09-13 15:38 | NUR ---
PT LEFT AT 1315 VIA PERSONAL SPECIALTY WHEELCHAIR ACCOMPANIED BY [facility] WITH NO MONITOR, TUBE FEED, OR IV SOLUTION INFUSING; PT RECEIVING 2LNC O2; PT HAD BEEN DRESSED IN STREET CLOTHES PREVIOUSLY AND PERSONAL EFFECTS WERE COLLECTED. VSS. [facility] DENIED ADDITIONAL CONCERNS AT THIS TIME.
== END 2020-09-13 12:45 | disposition home health service (06) | DRG 870 ==
LOC: ER 00:33 → ICUW 03:19 → PCU 09-10 09:30 → ENPENDDIS 09-13 09:06 → PCU 09-13 12:45
PROVIDERS: Emergency Medicine; Family Medicine; Internal Medicine Critical Care Medicine; Internal Medicine Pulmonary Disease; Student in an Organized Health Care Education/Training Program; ADMIT Internal Medicine
PROC: 5A1935Z Respiratory Ventilation, Less than 24 Consecutive Hours (ICD-10-PCS; 2020-08-28)
PROC: 02H633Z Insertion of Infusion Device into Right Atrium, Percutaneous Approach (ICD-10-PCS; 2020-08-28)
PROC: B548ZZA Ultrasonography of Superior Vena Cava, Guidance (ICD-10-PCS; 2020-08-28)
PROC: 3E033XZ Introduction of Vasopressor into Peripheral Vein, Percutaneous Approach (ICD-10-PCS; 2020-08-28)
PROC: 5A1955Z Respiratory Ventilation, Greater than 96 Consecutive Hours (ICD-10-PCS; principal; 2020-08-29)
PROC: 0BH18EZ Insertion of Endotracheal Airway into Trachea, Via Natural or Artificial Opening Endoscopic (ICD-10-PCS; 2020-08-29)
PROC: 0W993ZZ Drainage of Right Pleural Cavity, Percutaneous Approach (ICD-10-PCS; 2020-09-01)
DX: A41.81 Sepsis due to Enterococcus (principal); J96.01 Acute respiratory failure with hypoxia; J96.02 Acute respiratory failure with hypercapnia; J69.0 Pneumonitis due to inhalation of food and vomit; G93.41 Metabolic encephalopathy; R65.21 Severe sepsis with septic shock; J15.1 Pneumonia due to Pseudomonas; E87.0 Hyperosmolality and hypernatremia; N17.9 Acute kidney failure, unspecified; N39.0 Urinary tract infection, site not specified; J90 Pleural effusion, not elsewhere classified; Z68.41 Body mass index [BMI] 40.0-44.9, adult; Z20.822 Contact with and (suspected) exposure to COVID-19; A41.4 Sepsis due to anaerobes; D64.9 Anemia, unspecified; E83.39 Other disorders of phosphorus metabolism; E87.6 Hypokalemia; E03.9 Hypothyroidism, unspecified; I35.0 Nonrheumatic aortic (valve) stenosis; E16.2 Hypoglycemia, unspecified; E66.9 Obesity, unspecified; Z79.899 Other long term (current) drug therapy; Z88.8 Allergy status to other drugs, medicaments and biological substances; A41.59 Other Gram-negative sepsis; G47.00 Insomnia, unspecified; Z98.890 Other specified postprocedural states; Z78.1 Physical restraint status; T68.XXXA Hypothermia, initial encounter
CPT/HCPCS: 0241U; 31500; 36415; 36430; 36569; 36600; 51702; 71045; 80048; 80053; 80069; 80202; 81001; 82140; 82272; 82330; 82550; 82607; 82746; 82803; 82945; 82947; 83605; 83615; 83735; 83880; 83986; 84100; 84157; 84439; 84443; 84481; 84484; 85014; 85018; 85025; 86850; 86900; 86901; 86923; 87015; 87040; 87070; 87075; 87077; 87086; 87102; 87116; 87186; 87205; 87206; 88108; 88305; 89051; 93005; 93010; 93306; 94002; 94003; 94640; 94660; 94667; 94668; 94760; 96365; 97163; 99285-25; A9270; C1751; G0480; J0330; J0461; J0692; J0713; J1650; J1940; J1956; J2250; J2543; J2704; J3010; J3370; J3480; J7030; J7040; J7042; J7050; J7060; J7120; P9016; P9046

== ENCOUNTER 2020-10-08 10:18 | Inpatient (IN) | payer MEDICARE, OTHER ==
[~2020-10-08] VITALS: Ht 175.3 cm; Wt 97.4 kg
[~2020-10-08 10:18] MED LIST changes: +LEVSOD100 PT; +PREPARATION H C26 GM TOP; +WITCH HAZEL TOP
[2020-10-08 11:41] LABS: BASOPHILS ABSOLUTE AUTO 0.02 K/mm3 (0.00-0.23); BASOPHILS PERCENT AUTO 0 % (0-2); EOSINOPHILS ABSOLUTE AUTO 0.09 K/mm3 (0.00-0.68); EOSINOPHILS PERCENT AUTO 2 % (0-6); Hematocrit 35.6 % (33.0-51.0); Hemoglobin 11.2 g/dL (11.5-16.0); IMMATURE GRAN ABSOLUTE AUTO 0.01 K/mm3 (0.00-0.10); IMMATURE GRAN PERCENT AUTO 0 % (0-1); LYMPHOCYTES ABSOLUTE AUTO 0.92 K/mm3 (0.84-5.20); LYMPHOCYTES PERCENT AUTO 16 % (21-46); MONOCYTES ABSOLUTE AUTO 0.62 K/mm3 (0.16-1.47); MONOCYTES PERCENT AUTO 11 % (4-13); Mean Corpuscular HGB 34.4 pg (26.0-34.0); Mean Corpuscular HGB Conc 31.5 g/dL (31.5-36.5); Mean Corpuscular Volume 109 fL (80-100); Mean Platelet Volume 10.2 fL (9.1-12.4); NEUTROPHILS ABSOLUTE AUTO 4.22 K/mm3 (1.96-9.15); NEUTROPHILS PERCENT AUTO 72 % (41-73); Platelet Count 153 K/mm3 (150-400); RDW Coefficient Variation 18.9 % (11.7-14.2); RDW Standard Deviation 76.7 fL (35.1-46.3); Red Blood Cell Count 3.26 M/mm3 (3.80-5.20); White Blood Cell Count 5.88 K/mm3 (4.00-11.30)
[2020-10-08 12:08] LABS: Alanine Aminotransfer (ALT/SGP 21 U/L (12-78); Albumin, Blood 3.1 g/dL (3.4-5.0); Albumin/Globulin Ratio 0.5 (0.8-1.8); Alk Phos 155 U/L (50-136); Anion Gap 3 mmol/L (6-16); Aspartate Aminotrans (AST/SGOT 58 U/L (12-37); Bilirubin, Total 0.7 mg/dL (0.1-1.0); Blood Urea Nitrogen 19 mg/dL (8-24); Bun/Creatinine Ratio 27.8 (12.0-20.0); CO2, Blood 32 mmol/L (21-32); Chloride, Blood 97 mmol/L (98-108); Creatinine, Blood 0.68 mg/dL (0.40-1.00); Globulin, Blood 5.9 g/dL (2.2-4.0); Glomerular Filtration Rate >60 (60-); Glucose, Blood 86 mg/dL (70-99); Potassium, Blood 5.6 mmol/L (3.5-5.5); Sodium, Blood 132 mmol/L (136-145); Troponin I <0.015 ng/mL (0.000-0.040)
[2020-10-09 05:14] LABS: Hematocrit 31.8 % (33.0-51.0); Mean Corpuscular HGB 34.4 pg (26.0-34.0); Mean Corpuscular HGB Conc 31.4 g/dL (31.5-36.5); Mean Corpuscular Volume 109 fL (80-100); Mean Platelet Volume 9.7 fL (9.1-12.4); Platelet Count 129 K/mm3 (150-400); RDW Coefficient Variation 18.1 % (11.7-14.2); RDW Standard Deviation 73.6 fL (35.1-46.3); Red Blood Cell Count 2.91 M/mm3 (3.80-5.20); White Blood Cell Count 4.49 K/mm3 (4.00-11.30)
[2020-10-09 05:30] LABS: Anion Gap 1 mmol/L (6-16); Blood Urea Nitrogen 17 mg/dL (8-24); Bun/Creatinine Ratio 27.2 (12.0-20.0); CO2, Blood 34 mmol/L (21-32); Calcium, Blood 9.2 mg/dL (8.5-10.1); Chloride, Blood 104 mmol/L (98-108); Creatinine, Blood 0.63 mg/dL (0.40-1.00); Glomerular Filtration Rate >60 (60-); Glucose, Blood 106 mg/dL (70-99); Potassium, Blood 4.5 mmol/L (3.5-5.5); Sodium, Blood 139 mmol/L (136-145)
[2020-10-10 04:57] LABS: Hematocrit 28.8 % (33.0-51.0); Hemoglobin 9.4 g/dL (11.5-16.0); Mean Corpuscular HGB 35.2 pg (26.0-34.0); Mean Corpuscular HGB Conc 32.6 g/dL (31.5-36.5); Mean Corpuscular Volume 108 fL (80-100); Mean Platelet Volume 10.5 fL (9.1-12.4); Platelet Count 151 K/mm3 (150-400); RDW Coefficient Variation 18.1 % (11.7-14.2); RDW Standard Deviation 72.6 fL (35.1-46.3); Red Blood Cell Count 2.67 M/mm3 (3.80-5.20); White Blood Cell Count 5.88 K/mm3 (4.00-11.30)
[2020-10-10 05:40] LABS: Albumin, Blood 2.8 g/dL (3.4-5.0); Anion Gap 5 mmol/L (6-16); Blood Urea Nitrogen 26 mg/dL (8-24); Bun/Creatinine Ratio 43.9 (12.0-20.0); CO2, Blood 33 mmol/L (21-32); Chloride, Blood 98 mmol/L (98-108); Creatinine, Blood 0.59 mg/dL (0.40-1.00); Glomerular Filtration Rate >60 (60-); Glucose, Blood 114 mg/dL (70-99); Phosphorus, Blood 3.6 mg/dL (2.5-4.9); Potassium, Blood 3.8 mmol/L (3.5-5.5); Sodium, Blood 136 mmol/L (136-145)
[2020-10-12 13:47] LABS: Hematocrit 30.9 % (33.0-51.0); Hemoglobin 10.1 g/dL (11.5-16.0); Mean Corpuscular HGB 34.6 pg (26.0-34.0); Mean Corpuscular HGB Conc 32.7 g/dL (31.5-36.5); Mean Corpuscular Volume 106 fL (80-100); Mean Platelet Volume 10.2 fL (9.1-12.4); Platelet Count 216 K/mm3 (150-400); RDW Coefficient Variation 18.2 % (11.7-14.2); RDW Standard Deviation 70.4 fL (35.1-46.3); Red Blood Cell Count 2.92 M/mm3 (3.80-5.20); White Blood Cell Count 6.12 K/mm3 (4.00-11.30)
[2020-10-12 14:05] LABS: Albumin, Blood 3.3 g/dL (3.4-5.0); Anion Gap 6 mmol/L (6-16); Blood Urea Nitrogen 31 mg/dL (8-24); Bun/Creatinine Ratio 39.9 (12.0-20.0); CO2, Blood 28 mmol/L (21-32); Calcium, Blood 9.2 mg/dL (8.5-10.1); Chloride, Blood 102 mmol/L (98-108); Creatinine, Blood 0.78 mg/dL (0.40-1.00); Glomerular Filtration Rate >60 (60-); Glucose, Blood 136 mg/dL (70-99); Phosphorus, Blood 3.3 mg/dL (2.5-4.9); Sodium, Blood 136 mmol/L (136-145)
== END 2020-10-12 13:50 | disposition home or self-care (01) | DRG 177 ==
LOC: ER 10:18 → MEDS 13:25
PROVIDERS: Emergency Medicine; Internal Medicine; ADMIT Internal Medicine
PROC: XW033E5 Introduction of Remdesivir Anti-infective into Peripheral Vein, Percutaneous Approach, New Technology Group 5 (ICD-10-PCS; principal; 2020-10-08)
DX: U07.1 COVID-19 (principal); J96.21 Acute and chronic respiratory failure with hypoxia; R53.2 Functional quadriplegia; J12.82 Pneumonia due to coronavirus disease 2019; R62.50 Unspecified lack of expected normal physiological development in childhood; E87.5 Hyperkalemia; E66.9 Obesity, unspecified; Z74.01 Bed confinement status; Z68.32 Body mass index [BMI] 32.0-32.9, adult; R13.10 Dysphagia, unspecified; E03.9 Hypothyroidism, unspecified; D64.9 Anemia, unspecified
CPT/HCPCS: 36415; 71045; 71260; 80048; 80053; 80069; 83880; 84145; 84484; 85025; 85027; 85379; 93005; 93010; 99285-25; A9270; J1100; J1650; J7120; Q9967

== ENCOUNTER 2020-10-25 03:07 | Emergency (ER) | payer OTHER ==
[~2020-10-25] VITALS: Ht 149.9 cm; Wt 81.7 kg
== END 2020-10-25 04:28 | disposition home or self-care (01) ==
LOC: ER 03:07
DX: T85.528A Displacement of other gastrointestinal prosthetic devices, implants and grafts, initial encounter (principal); E03.9 Hypothyroidism, unspecified; Z79.82 Long term (current) use of aspirin; Z79.899 Other long term (current) drug therapy; Z88.1 Allergy status to other antibiotic agents
CPT/HCPCS: 43762; 49465; 74018; 96374-59; 99282-25; 99283-25; J2250; Q9963

== ENCOUNTER 2020-11-19 11:31 | Inpatient (IN) | payer OTHER ==
[~2020-11-19] VITALS: Ht 162.6 cm; Wt 104.0 kg
[~2020-11-19 11:31] MED LIST changes: +ACET325UDC PT; -ACET500 PT
[2020-11-19 12:07] LABS: BASOPHILS ABSOLUTE AUTO 0.04 K/mm3 (0.00-0.23); BASOPHILS PERCENT AUTO 0 % (0-2); EOSINOPHILS ABSOLUTE AUTO 0.05 K/mm3 (0.00-0.68); EOSINOPHILS PERCENT AUTO 0 % (0-6); Hematocrit 34.4 % (33.0-51.0); Hemoglobin 11.3 g/dL (11.5-16.0); IMMATURE GRAN ABSOLUTE AUTO 0.06 K/mm3 (0.00-0.10); IMMATURE GRAN PERCENT AUTO 1 % (0-1); LYMPHOCYTES ABSOLUTE AUTO 0.83 K/mm3 (0.84-5.20); LYMPHOCYTES PERCENT AUTO 6 % (21-46); MONOCYTES ABSOLUTE AUTO 0.74 K/mm3 (0.16-1.47); MONOCYTES PERCENT AUTO 6 % (4-13); Mean Corpuscular HGB 34.8 pg (26.0-34.0); Mean Corpuscular HGB Conc 32.8 g/dL (31.5-36.5); Mean Corpuscular Volume 106 fL (80-100); Mean Platelet Volume 9.9 fL (9.1-12.4); NEUTROPHILS PERCENT AUTO 87 % (41-73); Platelet Count 153 K/mm3 (150-400); RDW Coefficient Variation 15.9 % (11.7-14.2); RDW Standard Deviation 62.4 fL (35.1-46.3); Red Blood Cell Count 3.25 M/mm3 (3.80-5.20); White Blood Cell Count 13.22 K/mm3 (4.00-11.30)
[2020-11-19 12:20] LABS: Alanine Aminotransfer (ALT/SGP 33 U/L (12-78); Albumin, Blood 3.1 g/dL (3.4-5.0); Albumin/Globulin Ratio 0.7 (0.8-1.8); Alk Phos 156 U/L (50-136); Anion Gap 2 mmol/L (6-16); Aspartate Aminotrans (AST/SGOT 29 U/L (12-37); Bilirubin, Total 0.6 mg/dL (0.1-1.0); Blood Urea Nitrogen 20 mg/dL (8-24); Bun/Creatinine Ratio 31.2 (12.0-20.0); CO2, Blood 37 mmol/L (21-32); Calcium, Blood 9.4 mg/dL (8.5-10.1); Chloride, Blood 99 mmol/L (98-108); Creatinine, Blood 0.64 mg/dL (0.40-1.00); Globulin, Blood 4.3 g/dL (2.2-4.0); Glomerular Filtration Rate >60 (60-); Glucose, Blood 86 mg/dL (70-99); Potassium, Blood 4.3 mmol/L (3.5-5.5); Sodium, Blood 138 mmol/L (136-145); Total Protein, Blood 7.4 g/dL (6.4-8.2)
[2020-11-19 13:17] LABS: Source, Urine Clean Catch
[2020-11-19 13:24] LABS: Appearance, Urine Clear (Clear); Bilirubin, Urine Neg (Neg); Blood, Urine 2+ (Neg); Color, Urine Yellow (P-Yellow); Glucose Qualitative, Urine Neg (Neg); Ketones, Urine Neg (Neg); Leukocyte Esterase, Urine 1+ (Neg); Nitrite, Urine Pos (Neg); Protein, Urine Neg (Neg); Specific Gravity, Urine 1.005 (1.003-1.022); Urobilinogen, Urine NORM (Normal)
[2020-11-19 13:32] LABS: Bacteria Few /hpf; Squamous Epithelial Cells Rare /hpf (Few)
--- NOTE | 2020-11-19 16:25 | NUR ---
CALLED FOR REPORT TO JUDE REYNOLDS RN, AWAITING CALLBACK AT THIS TIME.
--- NOTE | 2020-11-19 19:59 | NUR ---
ASSUMPTION OF CARE PATIENT ARRIVED TO UNIT VIA GURNEY AT 1855. 3 PERSON TRANSFER TO BED. PATIENT WITH EYES CLOSED, OPENS EYES TO PHYSICAL STIMULATION. NONVERBAL, RIGID AND CONTRACTED BILATERAL UPPER AND LOWER EXTREMITIES. PATIENT DOES NOT RESPOND TO COMMANDS. 02 AT 2L VIA OXIMIZER UPON ARRIVAL AND INCREASED TO 3L CHARTED. LUNGS COARSE WITH EXP. WHEEZES TO RIGHT SIDE. CLAMPED PEG TUBE TO LEFT SIDE OF ABD WITH NO SKIN IRRIATIONS NOTED. ATTENDS IN PLACE PATIENT IS REPORTED TO BE INCONTINENT OF BOTH URINE AND STOOL. CAREGIVER TO BEDSIDE, LEFT HEALTH HISTORY AND UPDATED MEDICATION LIST FOR REFERENCE OF CARE. LEVOPHED PLACED ON STANDBY PER B/P STABLE UPON ARRIVAL WITH MAP ABOVE 65. WILL REVIEW ORDERS AND TREAT PRESCRIBED.
--- NOTE | 2020-11-20 | NUR ---
REASSESSMENT NO ACUTE CHANGES FROM PREVIOUS ASSESSMENT. PATIENT AWOKE AROUND 2200, PULLED OUT BOTH HAND IV'S WITH CATHETERS INTACT. BEGAN TO REACH FOR PEG TUBE AND ADDITIONAL EJ IV. CONTINUED TO REMOVE 02 FROM NOSE AND WOULD DESAT TO LOW 80'S. VERBAL REDIRECTION UNSUCCESSFUL, MEDICATED PRESCRIBED WITH NO EFFECT. PATIENT ATTEMPTED A WEAK PUNCH TOWARDS STAFF. PLACED BILAT SOFT WRIST RESTRAINTS CHARTED, CARTOONS TURNED ON TO PROVIDE A FAMILIAR ENVIRONMENT FOR PATIENT. AT THIS TIME PATIENT HAS EYES CLOSED, RESPONDS TO VERBAL STIMULI. NO S/S OF DISTRESS, VITAL STABLE, CALL LIGHT IN REACH.
[2020-11-20 03:29] LABS: Hematocrit 31.9 % (33.0-51.0); Hemoglobin 10.1 g/dL (11.5-16.0); Mean Corpuscular HGB 34.6 pg (26.0-34.0); Mean Corpuscular HGB Conc 31.7 g/dL (31.5-36.5); Mean Corpuscular Volume 109 fL (80-100); Mean Platelet Volume 9.7 fL (9.1-12.4); Platelet Count 128 K/mm3 (150-400); RDW Standard Deviation 64.2 fL (35.1-46.3); Red Blood Cell Count 2.92 M/mm3 (3.80-5.20); White Blood Cell Count 13.47 K/mm3 (4.00-11.30)
[2020-11-20 03:52] LABS: Alanine Aminotransfer (ALT/SGP 30 U/L (12-78); Albumin, Blood 2.6 g/dL (3.4-5.0); Albumin/Globulin Ratio 0.7 (0.8-1.8); Alk Phos 116 U/L (50-136); Anion Gap 4 mmol/L (6-16); Aspartate Aminotrans (AST/SGOT 29 U/L (12-37); Bilirubin, Total 0.8 mg/dL (0.1-1.0); Blood Urea Nitrogen 18 mg/dL (8-24); Bun/Creatinine Ratio 26.5 (12.0-20.0); CO2, Blood 32 mmol/L (21-32); Calcium, Blood 8.8 mg/dL (8.5-10.1); Chloride, Blood 110 mmol/L (98-108); Creatinine, Blood 0.68 mg/dL (0.40-1.00); Globulin, Blood 3.8 g/dL (2.2-4.0); Glomerular Filtration Rate >60 (60-); Glucose, Blood 82 mg/dL (70-99); Magnesium, Blood 1.9 mg/dL (1.6-2.4); Potassium, Blood 3.9 mmol/L (3.5-5.5); Sodium, Blood 146 mmol/L (136-145); Total Protein, Blood 6.4 g/dL (6.4-8.2)
--- NOTE | 2020-11-20 04:00 | NUR ---
REASSESSMENT PATIENT WITH TEMP OF 100.5 AND WARM TO TOUCH. NO OTHER ACUTE CHANGES FROM ASSESSMENT NOTED. VITALS OTHERWISE STABLE. PATIENT AWAKENS TO PHYSICAL STIMULI. WILL ATTEMPT TO GRAB AND PULL ON LINES AND OXYGEN WHEN RESTRAINTS REMOVED FOR REPOSITIONING. INCONTINENT OF URINE, ATTENDS CHANGED CHARTED. WILL REVIEW ORDERS FOR FEVER AND TREAT PRESCRIBED.
--- NOTE | 2020-11-20 05:58 | NUR ---
SHIFT SUMMARY PATIENT ADMITTED FOR SEPSIS AND LEVOPHED MANAGEMENT. UPON ARRIVAL TO UNIT, LEVOPHED WAS TURNED OFF AND PATIENT MAINTAINED MAPS ABOVE 65 THROUGH NIGHT UNTIL 0515 WHEN MAPS BEGAN DROPPING BELOW 65 AND SBP IN THE 80'S. LEVOPHED WAS INITIATED AT 2MCG/MIN, MAPS CURRENTLY ABOVE 65. 02 STATUS UNCHANGED. 2-3 L 02 VIA OXIMIZER REMAINS WITH SATS ABOVE 95%. MOIST COUGH NOTED, LUNGS REMAIN COURSE WITH EXP WHEEZING IMPROVING. PEG TUBE REMAINED CLAMPED BUT UTILIZED FOR MEDICATIONS. INCONTINENT OF URINE TWICE WITH SATURATED ATTENDS EACH TIME. REPOSITIONED EVERY TWO HOURS FOR SKIN PROTECTION AND COMFORT. FEBRILE AT 0400 WITH TYLENOL ADMINISTERED, TEMP NOW 98.5. PATIENT REMOVED TWO IV'S, A POWERGLIDE WAS PLACED TO HER LEFT UPPER EXTREMITY THAT IS INFUSING ANTIBIOTICS. KENIA CONTINUE TO MONITOR AND REPORT TO ONCOMING RN.
--- NOTE | 2020-11-20 07:34 | NUR ---
Care Assumed 0700 Levophed 1 mcg/min, MAP > 65. Pt responds to noxious stumli, attempting to clamp eyes shut when assessing. Peg tube in place, clamped. Left EJ and CHUNG powerglide in place. Pt started on maintaince NS fluids of 100 ml/hr per order. SWB in place, attempting to pull at lines. On 3 L via oximizer, SPO2 > 90%. Moist cough present but not productive at this time. Attends in place, C/D/I currently.
--- NOTE | 2020-11-20 10:43 | NUR ---
Update- or scrub tech at bedside, echo completed. Inez, manager helpdesk at bedside, , manager helpdesk provided phone number for any updates. Updated on current care being provided. Pt started on Jevity 1.2 @ 25 ml/hr, via peg tube, will adnvance to goal rate of 50 ml/hr in an hour. Levophed GTT 2 mcg/min, MAP > 63. Bedbath completed.
--- NOTE | 2020-11-20 13:30 | NUR ---
Provider at bedside Dr. Mohan in to see patient. Levophed remains on SB since 1210. Per Dr. Mohan ok to change pt to PCU status around 1700 if Levophed continues to remain on SB.
--- NOTE | 2020-11-20 19:16 | NUR ---
Shift Summary - PCU STATUS Spoke to Dr. Mohan and pt changed to PCU status. Remains off of levophed. VSS. NSR. Jevity 1.2 @ goal via peg tube. Caregivers at bedside t/o the day and updated on current care being provided. No other changes t/o shift. SWB remain in place. Multiple attends changes due to small BM.
--- NOTE | 2020-11-20 19:30 | NUR ---
ASSUMPTION OF CARE RECEIVED REPORT FROM PAULETTE VALDES. ASSUMED CARE OF PATIENT. PATIENT IN BED WITH TELEVISION PLAYING. EYES OPEN, NEURO AT BASELINE. OXIMIZER IN PLACE AT 3L 02 WITH 02 SATS ABOVE 95%. IV FLUIDS INFUSING ORDERED. VITALS STABLE. ATTENDS IN PLACE FOR INCONTINENCE. NO S/S OF DISTRESS. WILL REVIEW ORDERS AND TREAT PRESCRIBED.
--- NOTE | 2020-11-21 | NUR ---
REASSESSMENT NO ACUTE CHANGES FROM PREVIOUS ASSESSMENT. VITALS STABLE. INCONTINENT OF STOOL AND URINE, ATTEND CHANGES. WILL CONTINUE TO MONITOR.
[2020-11-21 06:32] LABS: Hemoglobin 8.4 g/dL (11.5-16.0); Mean Corpuscular HGB Conc 31.1 g/dL (31.5-36.5); Mean Corpuscular Volume 113 fL (80-100); Mean Platelet Volume 10.5 fL (9.1-12.4); Platelet Count 120 K/mm3 (150-400); RDW Coefficient Variation 15.8 % (11.7-14.2); RDW Standard Deviation 65.1 fL (35.1-46.3); White Blood Cell Count 5.12 K/mm3 (4.00-11.30)
[2020-11-21 07:00] LABS: Anion Gap 3 mmol/L (6-16); Blood Urea Nitrogen 13 mg/dL (8-24); Bun/Creatinine Ratio 25.9 (12.0-20.0); CO2, Blood 30 mmol/L (21-32); Calcium, Blood 8.5 mg/dL (8.5-10.1); Chloride, Blood 115 mmol/L (98-108); Glomerular Filtration Rate >60 (60-); Glucose, Blood 111 mg/dL (70-99); Magnesium, Blood 1.9 mg/dL (1.6-2.4); Phosphorus, Blood 2.7 mg/dL (2.5-4.9); Potassium, Blood 3.3 mmol/L (3.5-5.5); Sodium, Blood 148 mmol/L (136-145)
--- NOTE | 2020-11-21 16:17 | NUR ---
Lucy has been not responsive for most of the shift, except for once when she opened her eyes during a attends change and hygiene care around 2 pm. At this time, she did open her eyes for the same care as well as repositioning, and said "hi" verbally to the staff, did relax her arms and hands briefly, and showed no signs of anxiety/agitation. She was repositioned, HOB elevated again and tube feeding restarted per orders. She was made med without telemetry status, and Inez the [facility] RN was called to update her on the status change and plan to transfer the pt to room 325 after it is cleaned and report called to the receiving RN. Potassium supplement was given by Peg TUbe per orders. Caregiver from her home is at the bedside now.
--- NOTE | 2020-11-21 16:42 | NUR ---
Telephone report given to Garo Billings at this time. Pt will be transfered to room 325 at this time.
--- NOTE | 2020-11-21 17:29 | NUR ---
PT ARRIVED TOPM THE MEDICAL FLOOR FROM ICU VIA BED, THE PT WAS TRANSFERED USING THE OVERHEAD LIFT. THE PT DID NOT WAKE UP DURING THE TRANSFER. THE PT IS FLOATED AND POSITIONED WITH THE HOB RAISED TO 45 DEGREE. PT IS RECEIVING TUBE FEEDING AT THIS TIME. PTS GOLD FRAME ASSEMBLER FROM [facility] IS AT THE BEDSIDE. THE PT IS IN SOFT WRIST RESTRAINTS AT THIS TIME. WILL CONTINUE TO MONITOR AND ASSESS FOR CHANGES
[2020-11-22 04:57] LABS: Hematocrit 28.7 % (33.0-51.0); Mean Corpuscular HGB 34.6 pg (26.0-34.0); Mean Corpuscular HGB Conc 31.4 g/dL (31.5-36.5); Mean Corpuscular Volume 110 fL (80-100); Mean Platelet Volume 10.6 fL (9.1-12.4); Platelet Count 124 K/mm3 (150-400); RDW Coefficient Variation 15.3 % (11.7-14.2); RDW Standard Deviation 62.7 fL (35.1-46.3)
--- NOTE | 2020-11-22 05:02 | NUR ---
SUMMARY: PT ORIENTED TO SELF AND IS CAPABLE OF SPEAKING BUT HASN'T INTERRACTED W/STAFF THIS SHIFT. SHE'S REMAINED ALMOST ENTIRELY NONVERBAL W/EYES CLENCHED SHUT, ONLY WINCING TO PAIN W/LAB DRAWS AND WAS HEARD SAYING SOME WORDS TO SELF WHEN STAFF NOT IN ROOM. SHE CAN MAKE SOME VOLUNTARY MOVEMENTS AND CORPORATION SECRETARY BEDRAILS BUT IS RESISTANT TO REPOSITIONING, CARE AND ADL'S. ATTENDS CHANGED FOR URINARY AND STOOL INCONTINENCE W/CREAM APPLIED AND TURN SCHEDULE MAINTAINED FOR SBD PREVENTION. SHE IS NPO W/JEVITY 1.2 CIPRIANO TUBE FEED INFUSING AT 5O ML/HR AND 185 ML FLUSHSES Q3H. RESIDUALS ARE ZERO AND MOUTH CARE PROVIDED TOLERATED. SHE'S ON 2L O2 VIA NC W/SHALLOW TACHY RESPS AND FINE SCATTERED CRACKLES UPON AUSCULTATION. COUGH ENCOURAGED TO CLEAR SECRETIONS BUT PT HAS DIFFICULTY FOLLWING INSTRUCTION. NS INFUSES TO L.EJ AND PG TO L.UA IS SL. NO ACUTE CHANGES, VSS/AFEBRILE. WCTM AND REPORT TO DAY RN.
[2020-11-22 05:11] LABS: Alanine Aminotransfer (ALT/SGP 28 U/L (12-78); Albumin, Blood 2.4 g/dL (3.4-5.0); Albumin/Globulin Ratio 0.6 (0.8-1.8); Alk Phos 112 U/L (50-136); Anion Gap 4 mmol/L (6-16); Aspartate Aminotrans (AST/SGOT 21 U/L (12-37); Bilirubin, Total 0.3 mg/dL (0.1-1.0); Blood Urea Nitrogen 11 mg/dL (8-24); Bun/Creatinine Ratio 23.3 (12.0-20.0); CO2, Blood 27 mmol/L (21-32); Calcium, Blood 8.7 mg/dL (8.5-10.1); Chloride, Blood 114 mmol/L (98-108); Creatinine, Blood 0.47 mg/dL (0.40-1.00); Glomerular Filtration Rate >60 (60-); Glucose, Blood 98 mg/dL (70-99); Potassium, Blood 3.7 mmol/L (3.5-5.5); Sodium, Blood 145 mmol/L (136-145); Total Protein, Blood 6.4 g/dL (6.4-8.2)
[2020-11-22 05:26] LABS: Vancomycin, Trough 18.3 ug/mL (5.0-10.0)
--- NOTE | 2020-11-22 18:05 | NUR ---
SHIFT SUMMARY PT ORIENTATION DIFFICULT TO ASSESS. PT HAS DEVELOP DELAY AT BASELINE AND LIVES AT [facility] THE [facility]. CAREGIVER IN THIS AM AND REPORTS PATIENT HAS MOOD SWINGS WHERE SHE WILL NOT OPEN HER EYES OR RESPOND TO VERBAL STIMULI FOR PERIODS OF TIME. CAREGIVER THINKS SHE IS "IN ONE OF HER MOODS." PT REMAINED ON 2PT SOFT WRIST RESTRAINTS FOR THIS SHIFT D/T CONTINUED PULLING AT LINES/TUBES AND INABILITY TO BE REDIRECTED. CURRENT PLAN IS TO DC BACK TO [facility] TOMORROW. VITALS REVIEWED. NOTED LOW GRADE FEVER AT AFTERNOON VITALS. PT IS CURRENTLY RESTING IN BED WITH CALL LIGHT IN REACH AND NOT RESPONDING TO QUESTIONS OR DIRECTION.
--- NOTE | 2020-11-23 04:08 | NUR ---
SHIFT SUMMARY PATIENT HAD NO ACUTE CHANGES. ALERT TO SELF, NPO, AND WITHDRAWN. NON-VERBAL AND BEDREST. BILATERAL SOFT WRIST RESTRAINTS PER ORDER TO PROTECT LINES AND TUBES. CONTINUOUS JEVITY FEEDING AT 50 mL/HR. PEG TUBE INTACT. NS INFUSING AT 100 mL/HR. POWERGLIDE LA INTACT. ON 2L O2 NC. MEDS CRUSHED THROUGH PEG TUBE. TEMP 101.0 AT SHIFT CHANGE AND LIQUID TYLENOL 650 MG GIVEN AND TEMP NOW 98.2 CALL LIGHT IN REACH. BED IN LOWEST POSITION. WCTM.
[2020-11-23 06:15] LABS: BASOPHILS ABSOLUTE AUTO 0.02 K/mm3 (0.00-0.23); BASOPHILS PERCENT AUTO 0 % (0-2); EOSINOPHILS ABSOLUTE AUTO 0.18 K/mm3 (0.00-0.68); EOSINOPHILS PERCENT AUTO 4 % (0-6); Hematocrit 27.8 % (33.0-51.0); Hemoglobin 8.9 g/dL (11.5-16.0); Mean Corpuscular HGB 34.6 pg (26.0-34.0); Mean Corpuscular Volume 108 fL (80-100); Mean Platelet Volume 10.6 fL (9.1-12.4); Platelet Count 103 K/mm3 (150-400); RDW Coefficient Variation 15.1 % (11.7-14.2); RDW Standard Deviation 60.3 fL (35.1-46.3); Red Blood Cell Count 2.57 M/mm3 (3.80-5.20); White Blood Cell Count 5.12 K/mm3 (4.00-11.30)
[2020-11-23 06:17] LABS: IMMATURE GRAN ABSOLUTE AUTO 0.02 K/mm3 (0.00-0.10); IMMATURE GRAN PERCENT AUTO 0 % (0-1); LYMPHOCYTES ABSOLUTE AUTO 1.45 K/mm3 (0.84-5.20); LYMPHOCYTES PERCENT AUTO 28 % (21-46); MONOCYTES ABSOLUTE AUTO 0.92 K/mm3 (0.16-1.47); MONOCYTES PERCENT AUTO 18 % (4-13); NEUTROPHILS ABSOLUTE AUTO 2.53 K/mm3 (1.96-9.15); NEUTROPHILS PERCENT AUTO 49 % (41-73)
[2020-11-23 06:31] LABS: Anion Gap 2 mmol/L (6-16); Blood Urea Nitrogen 12 mg/dL (8-24); Bun/Creatinine Ratio 26.4 (12.0-20.0); CO2, Blood 31 mmol/L (21-32); Calcium, Blood 8.6 mg/dL (8.5-10.1); Chloride, Blood 111 mmol/L (98-108); Creatinine, Blood 0.46 mg/dL (0.40-1.00); Glomerular Filtration Rate >60 (60-); Glucose, Blood 88 mg/dL (70-99); Potassium, Blood 3.6 mmol/L (3.5-5.5); Sodium, Blood 144 mmol/L (136-145)
[2020-11-23 07:04] LABS: BASOPHILS PERCENT MAN 0 % (0-2); EOSINOPHILS PERCENT MAN 4 % (0-6); LYMPHOCYTES ABSOLUTE MAN 1.43 K/mm3 (0.84-5.20); LYMPHOCYTES PERCENT MAN 28 % (21-46); MONOCYTES ABSOLUTE MAN 0.61 K/mm3 (0.16-1.47); MONOCYTES PERCENT MAN 12 % (4-13); NEUTROPHILS ABSOLUTE MAN 2.86 K/mm3 (1.96-9.15); SEG NEUTROPHILS PERCENT MAN 56 % (41-73); TOTAL CELLS COUNTED 100
[2020-11-23] MEDS ORDERED: AMOCLA875 PT (09:42)
--- NOTE | 2020-11-23 09:51 | NUR ---
DISCHARGE MEDICATIONS: PER DR. BAKER CONTINUE ALL SKIN CARE AND BOWEL CARE PER FACILITY POLICY PRIOR TO ADMIT. CONTINUE ASPIRIN, ALBUTEROL, ROBITUSSIN, AND ARTIFICIAL TEARS PRIOR TO ADMIT PER FACILITY.
--- NOTE | 2020-11-23 10:35 | NUR ---
NO ACUTE EVENTS SINCE START OF SHIFT. VVS ON ROOM AIR. PT IS NONVERBAL, BUT WILL LOOK UP AT STAFF AT TIMES. NO SIGNS OF ACUTE DISTRESS. DISCHARGE INFO PROVIDED TO NURSE FROM [facility], QUESTIONS ANSWERED. MEDICATION INFORMATION PROVIDED. THE NURSE FROM [facility] REQUESTED TO SPEAK WITH DR. BAKER REGARDING A FORM THEY NEEDED TO HAVE SIGNED AND THAT SHE HAD SOME ADDITIONAL QUESTIONS. DR. BAKER NOTIFIED AND CAME TO BEDSIDE.
[2020-11-24] MEDS ORDERED: FUROSEMIDE40 MG (00:35)
[2020-11-24] MEDS ORDERED: ONDA4ODT SL (16:38)
== END 2020-11-23 10:53 | DRG 871 ==
LOC: ER 11:31 → MEDS 15:05 → ICUE 15:05 → MEDS 11-21 17:00 → ENPENDDIS 11-23 08:40 → MEDS 11-23 10:53
PROVIDERS: Emergency Medicine; Student in an Organized Health Care Education/Training Program; ADMIT Internal Medicine
PROC: 3E033XZ Introduction of Vasopressor into Peripheral Vein, Percutaneous Approach (ICD-10-PCS; principal; 2020-11-20)
DX: A41.9 Sepsis, unspecified organism (principal); R65.21 Severe sepsis with septic shock; J96.21 Acute and chronic respiratory failure with hypoxia; J18.9 Pneumonia, unspecified organism; N39.0 Urinary tract infection, site not specified; Z66 Do not resuscitate; B96.5 Pseudomonas (aeruginosa) (mallei) (pseudomallei) as the cause of diseases classified elsewhere; E03.9 Hypothyroidism, unspecified; F29 Unspecified psychosis not due to a substance or known physiological condition; I35.0 Nonrheumatic aortic (valve) stenosis; R13.10 Dysphagia, unspecified; Z88.8 Allergy status to other drugs, medicaments and biological substances; Z99.3 Dependence on wheelchair; D64.9 Anemia, unspecified; Z98.890 Other specified postprocedural states; Z79.82 Long term (current) use of aspirin; Z79.899 Other long term (current) drug therapy
CPT/HCPCS: 36415; 71045; 80048; 80053; 80202; 81001; 83605; 83735; 83880; 84100; 85025; 85027; 87040; 87077; 87086; 87186; 93308; 93321; 94760; 96361; 96365; 96375; 99285-25; A9270; C1751; J0456; J0696; J1650; J2060; J2543; J3370; J7030; J7050; J7060; P9612

== ENCOUNTER 2020-11-23 21:44 | Emergency (ER) | payer OTHER ==
[~2020-11-23] VITALS: Ht 172.7 cm; Wt 127.0 kg
[~2020-11-23 21:44] MED LIST changes: +AMOCLA875 PT
[2020-11-23 23:40] LABS: BASOPHILS ABSOLUTE AUTO 0.02 K/mm3 (0.00-0.23); BASOPHILS PERCENT AUTO 0 % (0-2); EOSINOPHILS ABSOLUTE AUTO 0.07 K/mm3 (0.00-0.68); EOSINOPHILS PERCENT AUTO 1 % (0-6); Hematocrit 30.6 % (33.0-51.0); IMMATURE GRAN ABSOLUTE AUTO 0.02 K/mm3 (0.00-0.10); IMMATURE GRAN PERCENT AUTO 0 % (0-1); LYMPHOCYTES PERCENT AUTO 22 % (21-46); MONOCYTES ABSOLUTE AUTO 0.54 K/mm3 (0.16-1.47); MONOCYTES PERCENT AUTO 11 % (4-13); Mean Corpuscular HGB 35.2 pg (26.0-34.0); Mean Corpuscular HGB Conc 32.7 g/dL (31.5-36.5); Mean Corpuscular Volume 108 fL (80-100); Mean Platelet Volume 10.4 fL (9.1-12.4); NEUTROPHILS ABSOLUTE AUTO 3.32 K/mm3 (1.96-9.15); NEUTROPHILS PERCENT AUTO 65 % (41-73); Platelet Count 110 K/mm3 (150-400); RDW Coefficient Variation 14.8 % (11.7-14.2); Red Blood Cell Count 2.84 M/mm3 (3.80-5.20); White Blood Cell Count 5.07 K/mm3 (4.00-11.30)
[2020-11-23 23:58] LABS: Alanine Aminotransfer (ALT/SGP 31 U/L (12-78); Albumin, Blood 2.8 g/dL (3.4-5.0); Albumin/Globulin Ratio 0.7 (0.8-1.8); Alk Phos 130 U/L (50-136); Anion Gap 2 mmol/L (6-16); Aspartate Aminotrans (AST/SGOT 26 U/L (12-37); Bilirubin, Total 0.4 mg/dL (0.1-1.0); Blood Urea Nitrogen 8 mg/dL (8-24); Bun/Creatinine Ratio 15.8 (12.0-20.0); CO2, Blood 32 mmol/L (21-32); Calcium, Blood 8.8 mg/dL (8.5-10.1); Chloride, Blood 110 mmol/L (98-108); Creatinine, Blood 0.51 mg/dL (0.40-1.00); Globulin, Blood 4.1 g/dL (2.2-4.0); Glomerular Filtration Rate >60 (60-); Glucose, Blood 80 mg/dL (70-99); Potassium, Blood 3.6 mmol/L (3.5-5.5); Sodium, Blood 144 mmol/L (136-145); Total Protein, Blood 6.9 g/dL (6.4-8.2)
[2020-11-24] MEDS ORDERED: FUROSEMIDE40 MG (00:35)
[2020-11-24] MEDS ORDERED: ONDA4ODT SL (16:38)
== END 2020-11-24 02:05 | disposition home or self-care (01) ==
LOC: ER 21:44
PROVIDERS: Emergency Medicine
DX: R06.89 Other abnormalities of breathing (principal); R60.0 Localized edema; E03.9 Hypothyroidism, unspecified; Z79.82 Long term (current) use of aspirin; Z88.1 Allergy status to other antibiotic agents; Z79.899 Other long term (current) drug therapy
CPT/HCPCS: 71045; 80053; 83880; 85025; 93970; 99284-25

== ENCOUNTER 2020-11-24 14:22 | Emergency (ER) | payer OTHER ==
[~2020-11-24] VITALS: Ht 165.1 cm; Wt 94.8 kg
[~2020-11-24 14:22] MED LIST changes: +FUROSEMIDE40 MG
[2020-11-24] MEDS ORDERED: ONDA4ODT SL (16:38)
== END 2020-11-24 17:50 | disposition home or self-care (01) ==
LOC: ER 14:22
DX: R11.10 Vomiting, unspecified (principal); E03.9 Hypothyroidism, unspecified; E66.9 Obesity, unspecified; Z68.34 Body mass index [BMI] 34.0-34.9, adult; Z79.82 Long term (current) use of aspirin; Z99.81 Dependence on supplemental oxygen; Z79.899 Other long term (current) drug therapy
CPT/HCPCS: 71045; 99283-25; A9270

== ENCOUNTER 2021-01-23 12:20 | Emergency (ER) | payer OTHER ==
[~2021-01-23] VITALS: Ht 152.4 cm; Wt 91.6 kg
[~2021-01-23 12:20] MED LIST changes: +ONDA4ODT SL
[2021-01-23 13:24] LABS: BASOPHILS ABSOLUTE AUTO 0.03 K/mm3 (0.00-0.23); BASOPHILS PERCENT AUTO 1 % (0-2); EOSINOPHILS ABSOLUTE AUTO 0.09 K/mm3 (0.00-0.68); EOSINOPHILS PERCENT AUTO 2 % (0-6); Hematocrit 32.1 % (33.0-51.0); Hemoglobin 10.7 g/dL (11.5-16.0); IMMATURE GRAN ABSOLUTE AUTO 0.01 K/mm3 (0.00-0.10); IMMATURE GRAN PERCENT AUTO 0 % (0-1); LYMPHOCYTES ABSOLUTE AUTO 0.78 K/mm3 (0.84-5.20); LYMPHOCYTES PERCENT AUTO 14 % (21-46); MONOCYTES ABSOLUTE AUTO 0.64 K/mm3 (0.16-1.47); MONOCYTES PERCENT AUTO 11 % (4-13); Mean Corpuscular HGB 35.1 pg (26.0-34.0); Mean Corpuscular HGB Conc 33.3 g/dL (31.5-36.5); Mean Corpuscular Volume 105 fL (80-100); Mean Platelet Volume 10.5 fL (9.1-12.4); NEUTROPHILS ABSOLUTE AUTO 4.18 K/mm3 (1.96-9.15); NEUTROPHILS PERCENT AUTO 73 % (41-73); Platelet Count 106 K/mm3 (150-400); RDW Coefficient Variation 13.8 % (11.7-14.2); RDW Standard Deviation 52.8 fL (35.1-46.3); Red Blood Cell Count 3.05 M/mm3 (3.80-5.20); White Blood Cell Count 5.73 K/mm3 (4.00-11.30)
[2021-01-23 13:55] LABS: Alanine Aminotransfer (ALT/SGP 41 U/L (12-78); Albumin, Blood 2.8 g/dL (3.4-5.0); Albumin/Globulin Ratio 0.7 (0.8-1.8); Alk Phos 156 U/L (50-136); Anion Gap 1 mmol/L (6-16); Aspartate Aminotrans (AST/SGOT 32 U/L (12-37); Bilirubin, Total 0.4 mg/dL (0.1-1.0); Blood Urea Nitrogen 19 mg/dL (8-24); Bun/Creatinine Ratio 32.4 (12.0-20.0); CO2, Blood 39 mmol/L (21-32); Calcium, Blood 9.6 mg/dL (8.5-10.1); Chloride, Blood 100 mmol/L (98-108); Creatinine, Blood 0.59 mg/dL (0.40-1.00); Globulin, Blood 4.3 g/dL (2.2-4.0); Glomerular Filtration Rate >60 (60-); Glucose, Blood 63 mg/dL (70-99); Potassium, Blood 4.2 mmol/L (3.5-5.5); Sodium, Blood 140 mmol/L (136-145); Total Protein, Blood 7.1 g/dL (6.4-8.2)
[2021-01-23 14:25] LABS: SARS-Cov-2 (COVID-19) PCR, MMC NEGATIVE (NEGATIVE)
== END 2021-01-23 15:39 | disposition home or self-care (01) ==
LOC: ER 12:20
PROVIDERS: Emergency Medicine
DX: R05 Cough (principal); R62.50 Unspecified lack of expected normal physiological development in childhood; E03.9 Hypothyroidism, unspecified; D64.9 Anemia, unspecified; Z20.822 Contact with and (suspected) exposure to COVID-19; Z88.8 Allergy status to other drugs, medicaments and biological substances; Z79.899 Other long term (current) drug therapy; Z79.82 Long term (current) use of aspirin
CPT/HCPCS: 71045; 80053; 83880; 85025; 93005; 93010; 99285-25; U0004

== ENCOUNTER 2021-02-09 02:56 | Inpatient (IN) | payer OTHER ==
[~2021-02-09] VITALS: Ht 154.9 cm; Wt 93.5 kg
[~2021-02-09 02:56] MED LIST changes: +AMOCLA600S PO
[2021-02-09 03:37] LABS: PCO2 Arterial 58.1 mmHg (35-45); PO2 Arterial 47.1 mmHg (80-100); pH Blood Arterial 7.45 (7.35-7.45)
[2021-02-09 04:41] LABS: BASOPHILS ABSOLUTE AUTO 0.05 K/mm3 (0.00-0.23); BASOPHILS PERCENT AUTO 0 % (0-2); EOSINOPHILS ABSOLUTE AUTO 0.06 K/mm3 (0.00-0.68); EOSINOPHILS PERCENT AUTO 0 % (0-6); Hematocrit 32.4 % (33.0-51.0); Hemoglobin 10.7 g/dL (11.5-16.0); IMMATURE GRAN ABSOLUTE AUTO 0.07 K/mm3 (0.00-0.10); IMMATURE GRAN PERCENT AUTO 1 % (0-1); LYMPHOCYTES PERCENT AUTO 7 % (21-46); MONOCYTES ABSOLUTE AUTO 0.88 K/mm3 (0.16-1.47); MONOCYTES PERCENT AUTO 6 % (4-13); Mean Corpuscular HGB 35.1 pg (26.0-34.0); Mean Corpuscular Volume 106 fL (80-100); Mean Platelet Volume 11.2 fL (9.1-12.4); NEUTROPHILS ABSOLUTE AUTO 13.39 K/mm3 (1.96-9.15); NEUTROPHILS PERCENT AUTO 86 % (41-73); Platelet Count 118 K/mm3 (150-400); RDW Coefficient Variation 15.2 % (11.7-14.2); RDW Standard Deviation 57.8 fL (35.1-46.3); Red Blood Cell Count 3.05 M/mm3 (3.80-5.20); White Blood Cell Count 15.55 K/mm3 (4.00-11.30)
[2021-02-09 04:52] LABS: Alanine Aminotransfer (ALT/SGP 38 U/L (12-78); Albumin, Blood 2.7 g/dL (3.4-5.0); Albumin/Globulin Ratio 0.6 (0.8-1.8); Alk Phos 161 U/L (50-136); Anion Gap 3 mmol/L (6-16); Aspartate Aminotrans (AST/SGOT 42 U/L (12-37); Bilirubin, Total 0.9 mg/dL (0.1-1.0); Blood Urea Nitrogen 17 mg/dL (8-24); Bun/Creatinine Ratio 27.7 (12.0-20.0); CO2, Blood 37 mmol/L (21-32); Calcium, Blood 9.4 mg/dL (8.5-10.1); Chloride, Blood 97 mmol/L (98-108); Creatinine, Blood 0.61 mg/dL (0.40-1.00); Globulin, Blood 4.5 g/dL (2.2-4.0); Glomerular Filtration Rate >60 (60-); Glucose, Blood 73 mg/dL (70-99); Potassium, Blood 4.3 mmol/L (3.5-5.5); Sodium, Blood 137 mmol/L (136-145); Total Protein, Blood 7.2 g/dL (6.4-8.2)
[2021-02-09 06:01] LABS: SARS-Cov-2 (COVID-19) PCR, MMC NEGATIVE (NEGATIVE)
--- NOTE | 2021-02-09 07:09 | NUR ---
Recevied patient at 0555. Intubated but noted to grimace when touched or during assessmnet. Very contracted on all four extremities. On assessment LUQ peg tube button in place. Received pateient with propofol infusing at 15mcg/kg/min and Levophed drip at 8mcg/min.
--- NOTE | 2021-02-09 08:00 | NUR ---
ASSUMED CARE OF PT, REPORT RCV'D FROM LUCIO KATZ. PT INTUBATED AND SEDATED, VENT SETTINGS AC 16/350/5/50% AT START OF SHIFT, FIO2 @ 40% CURRENTLY WITH SATS 94%. PT MOVES ALL EXTREMETIES SLIGHTLY, BUE/BLE CONTRACTURES-WHEELCHAIR BOUND AND NONVERBAL AT BASELINE. PEG TUBE LLQ, VITAL AF TUBE FEEDING TO BE STARTED TODAY. PT HAD LARGE LIQUID BOWEL MOVEMENT THIS MORNING. PROPOFOL @ 15 MCG/KG/MIN, LEVOPHED @ 6-8 MCG/MIN, PRECEDEX @ 0.2 MCG/KG/HR. PT EASILY AROUSED TO VERBAL STIMULATION, WITHDRAWS FROM PAIN AND NOXIOUS STIMULI. JEREZ PATENT AND DRAINING CLOUDY YELLOW URINE. SEE FULL SHIFT ASSESSMENT.
[2021-02-09 08:31] LABS: Source, Urine Catheter
[2021-02-09 08:40] LABS: Appearance, Urine Hazy (Clear); Bilirubin, Urine Neg (Neg); Blood, Urine 1+ (Neg); Color, Urine Yellow (P-Yellow); Glucose Qualitative, Urine Neg (Neg); Ketones, Urine Neg (Neg); Leukocyte Esterase, Urine 3+ (Neg); Nitrite, Urine Neg (Neg); Protein, Urine 1+ (Neg); Urobilinogen, Urine 1+ (Normal)
[2021-02-09 08:54] LABS: White Blood Cells, Urine 25-50 /hpf (0-5)
[2021-02-09 08:56] LABS: Bacteria Many /hpf; Squamous Epithelial Cells Few /hpf (Few); Transitional Epithelial Cells Mod /hpf (0-Rare)
[2021-02-09] MEDS ORDERED: ACET500 PO (14:06)
[2021-02-09] MEDS ORDERED: Aspir 8181 MG PO (14:08)
[2021-02-09] MEDS ORDERED: Prevacid Soluta30 MG JT (14:15)
--- NOTE | 2021-02-09 15:29 | NUR ---
Attempted to call pt's brother, tried both available numbers. Left mesage on each number. No return call as of yet.
[2021-02-09 16:45] LABS: pH Blood Arterial 7.59 (7.35-7.45)
[2021-02-09 16:46] LABS: PCO2 Arterial 35.7 mmHg (35-45); PO2 Arterial 65.7 mmHg (80-100)
--- NOTE | 2021-02-09 17:49 | NUR ---
SHIFT SUMMARY NO ACUTE CHANGES THIS SHIFT. PT REMAINS INTUBATED, VENT SETTINGS AC 16/350/5/30% WITH SATS>90%. SMALL AMOUNT OF BLOOD SPUTUM FROM ETT, LUNG SOUNDS REMAINS CLEAR TO DIM T/O. LEVOPHED BETWEEN 5-6 MCG/MIN TO MAINTAIN MAP>65. PROPOFOL @ 25 MCG/KG/MIN, PT LIFTS HEAD OFF PILLOW, FURROWS BROW WITH ANY VERBAL OR NOXIOUS STIMULI. PRECEDEX PLACED ON STANDBY D/T PERSISTENT BRADYCARDIA. VITAL AF @ 20 ML HR (30 ML GOAL) INTO PEG TUBE. 1400 ML CLOUDY PURULENT URINARY OUTPUT. PT HAD 1 LOOSE BROWN STOOL THIS SHIFT. WILL REPORT TO ONCOMING NURSE.
--- NOTE | 2021-02-09 20:32 | NUR ---
Assumed care for patient. Vented and only grimaces when stimulated. Levophed drip infusing at 6mcg/mins with sbp less and equals to 100 but the MAP above 70. Also propofol drip infusing at 20mcg/kg/min. Repositioned for comfort.
[2021-02-10 06:22] LABS: Anion Gap 4 mmol/L (6-16); Blood Urea Nitrogen 15 mg/dL (8-24); CO2, Blood 34 mmol/L (21-32); Calcium, Blood 9.2 mg/dL (8.5-10.1); Chloride, Blood 103 mmol/L (98-108); Creatinine, Blood 0.56 mg/dL (0.40-1.00); Glomerular Filtration Rate >60 (60-); Glucose, Blood 112 mg/dL (70-99); Magnesium, Blood 1.9 mg/dL (1.6-2.4); Phosphorus, Blood 2.5 mg/dL (2.5-4.9); Potassium, Blood 2.9 mmol/L (3.5-5.5); Sodium, Blood 141 mmol/L (136-145)
--- NOTE | 2021-02-10 06:45 | NUR ---
Patient remained vented and attempt made by the RT to convert vent setting to spontanious mode but was unsuccessful. Patient's HR went down to the mid 40's, SBP to the 70's, DBP to the 30's and MAP to the 40's. All sedations were gradually weaned off. Levophed increased to 10mcg/min. Patient opened her eyes but could not follow command. Copious amount of clear thick secretion orally and light brown thin secretion via her eTT. Tolarated her TF.
--- NOTE | 2021-02-10 10:30 | NUR ---
ASSUMED CARE OF PT, REPORT RCV'D FROM LUCIO KATZ. PT INTUBATED WITH VENT SETTINGS AC 16/350/5/30%, SATS>90%. PT NOT SEDATED D/T BRADYCARDIA AND DECREASED LOC AT START OF SHIFT. PT BECAME AGITATED, LIFTING HEAD OFF PILLOW, PULLING LEGS UP TO CHEST AND COUGHING-STARTED PRECEDEX @ 0.3 MCG/KG/HR. COPIOUS AMOUNTS OF CLEAR THIN ORAL SECRETIONS, MODERATE AMOUNT OF THICK ART SECRETIONS FROM ETT. LEVOPHED DECREASED TO 8 MCG/MIN TO MAINTAIN MAP>65. TUBE FEEDING (VITAL AF) AT GOAL RATE 30 ML/HR, INTO PTS PEG TUBE. PICC PLACED TO [facility]. SEE FULL SHIFT ASSESSMENT.
--- NOTE | 2021-02-10 11:59 | NUR ---
PT'S MANAGER SPORTS, ALEXANDER, CALLED. UPDATED WITH PT'S STATUS AND PLAN OF CARE.
--- NOTE | 2021-02-10 14:38 | NUR ---
PT CALCULUS TUTOR AT BEDSIDE. BROUGHT IN PT'S POLST STATING FULL TREATMENT AND HEALTH CHANGE CONTROL MANAGER [employer]. PAPERWORK PLACED ON CHART.
--- NOTE | 2021-02-10 18:31 | NUR ---
SHIFT SUMMARY PT REMAINS INTUBATED, VENT SETTINGS UNCHANGED THIS SHIFT AC 16/350/5/30%. PRECEDEX @ 0.7 MCG/KG/HR. PT EASILY AROUSABLE AND AGITATED WITH REPOSITIONING, ORAL CARE AND STIMULATION. LEVOPHED REMAINS ON STANDBY AND PT REMAINS NORMOTENSIVE LR @ 100 ML/HR. CARE FACILITY UPDATED THIS EVENING. SEE PREVIOUS NOTES FROM THIS SHIFT. WILL REPORT TO ONCOMING NURSE.
[2021-02-10 21:21] LABS: Vancomycin, Trough 22.4 ug/mL (5.0-10.0)
--- NOTE | 2021-02-10 21:56 | NUR ---
ASSUMED CARE AT 1900 PT LAYING IN BED INTUBATED WITH VENT SETTINGS AC 12, TV 350, PEEP 5, FIO2 30%. PT REACTIVE TO VERBAL STIMULI AND FOLLOWS SOME DIRECTIONS; RESISTIVE TO PERSONAL CARE; PRECEDEX INFUSING AT 0.6MCG/KG/HR. HR 50-60'S. SBP 100-130'S. MAP >65. VITAL AF INFUSING AT GOAL VIA PEG TUBE. JEREZ IN PLACE AND DRAINING TO GRAVITY. SEE SHIFT ASSESSMENT FOR FULL ASSESSMENT.
[2021-02-11 04:12] LABS: BASOPHILS ABSOLUTE AUTO 0.02 K/mm3 (0.00-0.23); BASOPHILS PERCENT AUTO 0 % (0-2); EOSINOPHILS ABSOLUTE AUTO 0.09 K/mm3 (0.00-0.68); EOSINOPHILS PERCENT AUTO 1 % (0-6); Hematocrit 25.3 % (33.0-51.0); Hemoglobin 8.4 g/dL (11.5-16.0); Mean Corpuscular HGB 34.9 pg (26.0-34.0); Mean Corpuscular HGB Conc 33.2 g/dL (31.5-36.5); Mean Corpuscular Volume 105 fL (80-100); Mean Platelet Volume 11.1 fL (9.1-12.4); Platelet Count 89 K/mm3 (150-400); RDW Coefficient Variation 15.2 % (11.7-14.2); RDW Standard Deviation 58.1 fL (35.1-46.3); Red Blood Cell Count 2.41 M/mm3 (3.80-5.20); White Blood Cell Count 7.03 K/mm3 (4.00-11.30)
[2021-02-11 04:18] LABS: IMMATURE GRAN ABSOLUTE AUTO 0.04 K/mm3 (0.00-0.10); IMMATURE GRAN PERCENT AUTO 1 % (0-1); LYMPHOCYTES ABSOLUTE AUTO 0.75 K/mm3 (0.84-5.20); LYMPHOCYTES PERCENT AUTO 11 % (21-46); MONOCYTES PERCENT AUTO 10 % (4-13); NEUTROPHILS ABSOLUTE AUTO 5.43 K/mm3 (1.96-9.15); NEUTROPHILS PERCENT AUTO 77 % (41-73)
[2021-02-11 04:29] LABS: Alanine Aminotransfer (ALT/SGP 23 U/L (12-78); Albumin/Globulin Ratio 0.5 (0.8-1.8); Alk Phos 121 U/L (50-136); Anion Gap 3 mmol/L (6-16); Aspartate Aminotrans (AST/SGOT 22 U/L (12-37); Bilirubin, Total 0.6 mg/dL (0.1-1.0); Blood Urea Nitrogen 15 mg/dL (8-24); Bun/Creatinine Ratio 25.9 (12.0-20.0); CO2, Blood 32 mmol/L (21-32); Calcium, Blood 8.8 mg/dL (8.5-10.1); Chloride, Blood 108 mmol/L (98-108); Creatinine, Blood 0.58 mg/dL (0.40-1.00); Globulin, Blood 3.9 g/dL (2.2-4.0); Glomerular Filtration Rate >60 (60-); Glucose, Blood 109 mg/dL (70-99); Magnesium, Blood 1.8 mg/dL (1.6-2.4); Phosphorus, Blood 2.9 mg/dL (2.5-4.9); Potassium, Blood 3.2 mmol/L (3.5-5.5); Sodium, Blood 143 mmol/L (136-145); Total Protein, Blood 5.9 g/dL (6.4-8.2)
[2021-02-11 04:41] LABS: PCO2 Arterial 45.8 mmHg (35-45); PO2 Arterial 59.5 mmHg (80-100); pH Blood Arterial 7.46 (7.35-7.45)
--- NOTE | 2021-02-11 06:06 | NUR ---
END OF SHIFT SUMMARY NO ACUTE EVENTS OVERNIGHT. PT CONT TO BE INTUBATED WITH VENT SETTINGS AC 12, TV 350, PEEP 5, FIO2 40%; MODERATE AMOUNT OF THICK PINK SECREATIONS FROM ETT; SBT TOLERATED FOR 1HR, SEE RT DOCUMENTATION FOR DETAILS. PT OCCATIONALLY REACTIVE TO VERBAL STIMULI AND VERY RESISTIVE TO PERSONAL CARE; PRECEDEX INFUSING AT 0.5MCG/KG/HR. AFEBRILE. HR 50-60'S. SBP 100-120, MAP >65. VITAL AF INFUSING AT GOAL VIA PEG TUBE. JEREZ IN PLACE AND DRAINING TO GRAVITY. WILL REPORT TO AM RN WHEN AVAILABLE.
--- NOTE | 2021-02-11 07:01 | NUR ---
Received report from Valentina VALDES. Patient is intubated and Precedex for sedation. She has 7.5 ET and is 24 cm at lips with vent settings of 12/350/40/5 and sats 100%. She has PICC line to CHUNG and is infusing LR at 100 ml/hr, Precedex at 0.5 mcg/kg/hr and current K ridert fro 3.3 Potassium. Patient has 14 Fr hale draining to gravity dark yellow urine. Patient SB in the 50's. Patient withdrawls with care and quickly returnes to rest when done. patient has contractures of upper and lower extremities. Patoent has feeding tube to LUQ and is infusing Vital AF at 30 ml/hr and 30 ML water flush Q4 with small residuals.
--- NOTE | 2021-02-11 09:20 | NUR ---
Dr Harrison been in room and placed on spon. mode with PS 8 and sats 95%. He was thinking possible extubation , but is on hold r/t cultures. She opens eyes with care and continues to withdrawl when doing care. She will swing her left arm and try to dig her nails into your hands and needs to be re-directed to stop. AM meds given IV and peg. partial bath given and she has small stool.
--- NOTE | 2021-02-11 12:02 | NUR ---
Patient has been extubated and restraints removed. Precedex has been off since 0930 this am and she has been tolerating well. She is currently on 6L O2 via NC and sats >95%. Placed rectal tube For large brown liquid stool, cleaned up and linen changes.
--- NOTE | 2021-02-11 16:23 | NUR ---
Patient has been resting and awakens with care. She is on 5L O2 via NC and sats <90%/ anchor tacker came by and stayed a little bit and received update. LR has changed to 50ml/hr. No Other significant changes with patient.
--- NOTE | 2021-02-11 18:32 | NUR ---
ASSUMPTION OF CARE PT TRANSFERRED FROM ICU VIA BED. PT HAS A WET, UNPRODUCTIVE COUGH, LUNG SOUNDS DIMINISHED ON AUSCULTATION, 3L NC IN PLACE, SPO2 98%. PT TOLERATED THE TRANSFER WELL, DID NOT RESPOND TO ANY QUESTIONS. [place] CONTRACTURED.
[2021-02-12 04:32] LABS: BASOPHILS ABSOLUTE AUTO 0.02 K/mm3 (0.00-0.23); BASOPHILS PERCENT AUTO 0 % (0-2); EOSINOPHILS ABSOLUTE AUTO 0.05 K/mm3 (0.00-0.68); EOSINOPHILS PERCENT AUTO 1 % (0-6); Hematocrit 24.4 % (33.0-51.0); IMMATURE GRAN ABSOLUTE AUTO 0.02 K/mm3 (0.00-0.10); IMMATURE GRAN PERCENT AUTO 0 % (0-1); LYMPHOCYTES ABSOLUTE AUTO 0.67 K/mm3 (0.84-5.20); LYMPHOCYTES PERCENT AUTO 12 % (21-46); MONOCYTES ABSOLUTE AUTO 0.67 K/mm3 (0.16-1.47); MONOCYTES PERCENT AUTO 12 % (4-13); Mean Corpuscular HGB 34.9 pg (26.0-34.0); Mean Corpuscular HGB Conc 32.8 g/dL (31.5-36.5); Mean Corpuscular Volume 107 fL (80-100); Mean Platelet Volume 11.1 fL (9.1-12.4); NEUTROPHILS ABSOLUTE AUTO 4.06 K/mm3 (1.96-9.15); NEUTROPHILS PERCENT AUTO 74 % (41-73); Platelet Count 101 K/mm3 (150-400); RDW Coefficient Variation 15.3 % (11.7-14.2); RDW Standard Deviation 58.7 fL (35.1-46.3); Red Blood Cell Count 2.29 M/mm3 (3.80-5.20); White Blood Cell Count 5.49 K/mm3 (4.00-11.30)
--- NOTE | 2021-02-12 04:47 | NUR ---
PATIENT NONVERBAL, TRACKS, FOLLOWS SOME COMMANDS, AT TIMES GARBLED SPEECH WITH ONE OR TWO CLEAR WORDS HEARD, NOTED WET PRODUCTIVE COUGH, THIN CLEAR COPIOUS AMOUNT OF SECRETIONS REQUIRING ORAL SUCTIONING, PATIENT WAS ON 3L NC UPON BEGINNING OF SHIFT, WAS DECREASED TO RA DURING SLEEP PATIENT WOULD DIP DOWN INTO THE 80'S REQUIRING 2L NC, ACCORDING TO PREVIOUS NOTES PATIENTS BASELINE AT HOME 4L NC, LUNGS ARE COARSE THROUGHOUT, PEG TUBE SITE IS RED AND CRUSTY CLEANED AND ANTIFUGAL APPLIED WITH 4 X 4, BOWEL TONES ARE HYPERACTIVE WITH RECTAL TUBE IN PLACE SOME LEAKAGE NOTED PATENT FLOWING DARK LIQUID BROWN STOOL, TUBE FEEDING VITAL RUNNING AT 30ML/HR, JEREZ CATETHER IN PLACE DRAINING DARK CLEAR YELLOW BELOW BLADDER OFF THE FLOOR, NOTED BILATERAL LOWER EXTREMITIES +1 EDEMA, HEART RATE HAS BEEN SINUS ALEX TO SINUS RHYTHM RANGING 42-62 BPM. LEFT UPPER ARM PICC DRESSING INTACT WITH NOTED DRIED BLOOD NEEDS TO CHANGED, PATIENT CONTRACTURES MAKES DIFFICULT TO FULLY ASSESS AT TIMES AND WOULD REQUIRE MULTIPLE PEOPLE TO CHANGE DRESSING, WILL LET DAYSHIFT AWARE LAST CHARTED DRESSING CHANGE WAS 02/10/21 BLOOD RETURN WAS NOTED AND CAPS/HUBS CHANGED THIS EVENING.
[2021-02-12 04:54] LABS: Alanine Aminotransfer (ALT/SGP 23 U/L (12-78); Albumin, Blood 1.9 g/dL (3.4-5.0); Albumin/Globulin Ratio 0.5 (0.8-1.8); Alk Phos 112 U/L (50-136); Anion Gap 6 mmol/L (6-16); Aspartate Aminotrans (AST/SGOT 23 U/L (12-37); Bilirubin, Total 0.6 mg/dL (0.1-1.0); Blood Urea Nitrogen 15 mg/dL (8-24); Bun/Creatinine Ratio 27.4 (12.0-20.0); CO2, Blood 28 mmol/L (21-32); Calcium, Blood 8.9 mg/dL (8.5-10.1); Chloride, Blood 112 mmol/L (98-108); Creatinine, Blood 0.55 mg/dL (0.40-1.00); Globulin, Blood 3.7 g/dL (2.2-4.0); Glomerular Filtration Rate >60 (60-); Glucose, Blood 73 mg/dL (70-99); Magnesium, Blood 1.8 mg/dL (1.6-2.4); Phosphorus, Blood 2.8 mg/dL (2.5-4.9); Potassium, Blood 3.3 mmol/L (3.5-5.5); Sodium, Blood 146 mmol/L (136-145); Total Protein, Blood 5.6 g/dL (6.4-8.2)
--- NOTE | 2021-02-12 06:32 | NUR ---
PATIENT RECEIVED NEW ORDERS FOR ALBUMIN 25GM IV NOW, KCL 40MEQ IV NOW, POTASSIUM IS RUNNING WITH BOTH BAGS ONE IS PIGGYBACKED NOT RUNNING CONSECTIVELY.
--- NOTE | 2021-02-12 08:53 | NUR ---
CALOS MARTINEZ AT BEDSIDE. PATIENT EVALUATED, NAUSEOUS AND EMESIS AT THIS TIME. SUCTION PROVIDED, HOB 45 DEGREES. YELLOWISH AND SCANT PINKISH EMESIS, THICK PHLEGMOUS EMESIS. DR. PALUMBO ALSO NOTIFIED OF PINK PHLEGM/EMESIS. V.O. FROM DR. MARTINEZ FOR FREDDIE AND JAILENE PER EMAR. ORDERS PLACED. TUBE FEEDING HELD MOMENTARILY PER DR. MARTINEZ, TO BE RESUMED ONCE PATIENT NO LONGER NAUSEOUS.
[2021-02-12 09:59] LABS: Vancomycin, Trough 18.9 ug/mL (5.0-10.0)
--- NOTE | 2021-02-12 10:11 | NUR ---
Discussed with Dr. Carrasco with concerns of wet lung sounds. Patient has pnemonia and aspiration during this admission. S/P day 2 of extubation. Received V.O. from Dr. Carrasco for chest x-ray and d/c LR. EMAR updated.
--- NOTE | 2021-02-12 11:33 | NUR ---
DC COLACE COLACE D/C'D D/T DIARRHEA S/P RECTAL TUBE. OK TO DC PER DR. PALUMBO.
--- NOTE | 2021-02-12 14:26 | NUR ---
T/F STOPPED Discussed with Radha Freed, Tobacco Prevention Health Educator RE continued emesis and increased secretions. Tube feeding stopped per Radha until further notice.
--- NOTE | 2021-02-12 17:17 | NUR ---
Shift Summary A/Oxself, developmentally delayed. Does not follow commands well. Somnolent this and drooling this morning but has been wide awake and talking since afternoon. Episodes of yellow tanish emesis with pink tinge x 2, tube feeding stopped and will resume tomorrow night (Friday, 02/13) per Dietary. PEG tube site cleansed, dressing changed, scant milky drainage surrounding site. PICC line dressing also changed. Patient desats on RA to mid 80's, requiring 3-4L to maintain sats above 90%. Meds ordered for loose stools. Zinc applied to buttocks. Tele SR 68. Continuous LR @ 50. Had bedbath this shift. Minimal leakage from rectal tube. Scopolamine patch ordered for excessive secretions and applied to posterior L ear. Medicated for nausea x 2. Bed in lowest position, call light near.
[2021-02-12 17:35] LABS: Anion Gap 11 mmol/L (6-16); Blood Urea Nitrogen 13 mg/dL (8-24); Bun/Creatinine Ratio 25.3 (12.0-20.0); CO2, Blood 25 mmol/L (21-32); Calcium, Blood 7.8 mg/dL (8.5-10.1); Chloride, Blood 115 mmol/L (98-108); Creatinine, Blood 0.51 mg/dL (0.40-1.00); Glomerular Filtration Rate >60 (60-); Glucose, Blood 60 mg/dL (70-99); Potassium, Blood 3.3 mmol/L (3.5-5.5); Sodium, Blood 151 mmol/L (136-145)
--- NOTE | 2021-02-13 06:17 | NUR ---
SHIFT SUMMARY ASSUMED CARE OF PT AT 1900. PT WAS VERY LETHARGIC BUT WOULD AWAKE TO TOUCH AND YELL "I'M NOT A BABY". THEN PT RETURNED TO SLEEP. AROUND 2200 PT AWOKE AND BEGAN SCREAMING PROHANITIES SUCH "FUCK THAT BITCH" AND "KILL HER". PT WAS TRIED TO BE REDIRECTED BUT WOULD NOT RESPOND TO ANYTHING. AT AROUND 2330 PT CALMNED DOWN AND THEN SLEPT T/O THE NIGHT. HEART SOUNDS REGULAR. LUNG SOUNDS DIMINISHED. PT HAD A RECTAL TUBE WITH LIQUID GREEN STOOL AND A CATHETER DRAINING CLEAR YELLOW URINE. CALL LIGHT IN REACH, BED IN LOWEST POSITION, BED ALARM ON.
--- NOTE | 2021-02-13 07:45 | NUR ---
CARE ASSUMPTION PATIENT IS ALERT TO SELF. PATIENT IS IN ROOM TALKING TO SELF. VSS. SPO2 >90% ON 3L NC. TELE SR. PATIENT REPOSITIONED. PATIENT STATES NO PAIN. MD IN TO SEE PATIENT AND CHANGE PATIENT TO MEDICAL STATUS NO TELE. BED IN LOWEST POSITION WITH CALL LIGHT WITHIN REACH. WILL CONTINUE TO MONITOR AND PROVIDE CARE.
[2021-02-13 08:30] LABS: Anion Gap 4 mmol/L (6-16); Blood Urea Nitrogen 20 mg/dL (8-24); Bun/Creatinine Ratio 32.6 (12.0-20.0); CO2, Blood 30 mmol/L (21-32); Chloride, Blood 115 mmol/L (98-108); Creatinine, Blood 0.61 mg/dL (0.40-1.00); Glomerular Filtration Rate >60 (60-); Glucose, Blood 67 mg/dL (70-99); Potassium, Blood 3.5 mmol/L (3.5-5.5); Sodium, Blood 149 mmol/L (136-145)
--- NOTE | 2021-02-13 15:56 | NUR ---
PATIENT HITTING SELF PATIENT WAS SITTING IN BED HITTING HER HEAD, LEGS, AND STOMACH. PATIENT WAS RIPPING HER CLOTHES OFF. PATIENT HAS BRUISNG THROUGHOUT HER BODY AND DOCUMENTED IN THE SKIN ASSESSMENT SECTION. MITTENS APPLIED TO PATIENT TO PREVENT HARM. WILL CONTINUE TO MONITOR PATIENT AND PROVIDE CARE.
--- NOTE | 2021-02-14 06:39 | NUR ---
SHIFT SUMMARY PT REMAINS IN BILATERAL WRIST RESTRAINTS. SWINGS ARM AT HERSELF AND STAFF. AGITATED THROUGHOUT THE NIGHT. ALTERNATING BETWEEN TALKING TO HERSELF AND SCREAMING. SOME RELIEF PER ZYPREXA AND HALDOL. ON 4L NC. NC FREQUENTLY COMES OUT AND SHE DESATS. TUBE FEED INFUSING AT 85 ML/HR. 3 LOOSE STOOLS THROUGHOUT NIGHT. Q2 TURNS. LACTATED RINGERS INFUSING AT 100ML/HR THROUGH PICC LINE IN CHUNG. WILL CONTINUE TO MONITOR UNTIL REPORT GIVEN TO DAYSHIFT RN
[2021-02-14 08:21] LABS: Anion Gap 0 mmol/L (6-16); Blood Urea Nitrogen 20 mg/dL (8-24); Bun/Creatinine Ratio 34.4 (12.0-20.0); CO2, Blood 34 mmol/L (21-32); Calcium, Blood 8.5 mg/dL (8.5-10.1); Chloride, Blood 116 mmol/L (98-108); Creatinine, Blood 0.58 mg/dL (0.40-1.00); Glomerular Filtration Rate >60 (60-); Glucose, Blood 122 mg/dL (70-99); Potassium, Blood 3.3 mmol/L (3.5-5.5); Sodium, Blood 150 mmol/L (136-145)
--- NOTE | 2021-02-14 14:36 | NUR ---
UPDATE REPORT GIVEN TO RN AT 1432 FOR TRANSFER TO MEDICAL ROOM 350.
--- NOTE | 2021-02-14 14:44 | NUR ---
RECIEVED REPORT FROM LUCIO VEGA @ 5849. PATIENT TO TRANSFER TO [facility] FLOOR ROOM 350.
--- NOTE | 2021-02-14 16:27 | NUR ---
PATIENT ARRIVED TO ROOM 350 JUST BEFORE 1500 AND WAS SITUATED INTO ROOM. PICC DRESSING CHANGE AND CAPS CHANGED; BLOOD RETURN FROM LINE BUT VERY SLOWLY. BANANA FLAKES ADMINISTERED PER EMAR VIA PEG; PEG FLUSHES WELL TO GRAVITY. JEREZ CATHETER PATENT AND DRAINING TO GRAVITY. PATIENT CONTINUES ON IV ABX WITHOUT S/SX OF ADVERSE REACTIONS. ON 4L O2 NC AND MAINTAINING O2 SATS. ORIENTED TO SELF AT MOST, HOWEVER SHE IS UNABLE TO VERBALIZE HER NAME DUE TO COGNITION. TALKS A LOT OF NONSENSICAL WORDS. PATIENT NOW ASLEEP RESTING PEACEFULLY IN BED.
--- NOTE | 2021-02-15 06:51 | NUR ---
SHIFT SUMMARY PT WAS AWAKE MOST OF THE NIGHT. PT IS NPO, CONTRACTED IN LEGS AND HANDS. 2 PERSON ASSIST. PT IS ON 4L 02. HAS A PICC LINE TO THE LEFT SIDE OF CHEST. IV ABX ADMINISTERED PER EMAR. PT HAS A PEG TUBE FOR FEEDING, FLUSHES WELL TO GRAVITY. PT HAS A JEREZ CATHETER, PATENT AND DRAINS WELL. URINE COLOR IS PALE YELLOW. ADLS PROVIDED, SAFETY MEASURES IN PLACE. WILL CONTINUE TO MONITOR.
[2021-02-15 08:07] LABS: BASOPHILS ABSOLUTE AUTO 0.03 K/mm3 (0.00-0.23); BASOPHILS PERCENT AUTO 1 % (0-2); EOSINOPHILS PERCENT AUTO 3 % (0-6); Hematocrit 24.8 % (33.0-51.0); Hemoglobin 7.9 g/dL (11.5-16.0); Mean Corpuscular HGB 34.8 pg (26.0-34.0); Mean Corpuscular HGB Conc 31.9 g/dL (31.5-36.5); Mean Corpuscular Volume 109 fL (80-100); Mean Platelet Volume 11.2 fL (9.1-12.4); Platelet Count 154 K/mm3 (150-400); RDW Coefficient Variation 15.3 % (11.7-14.2); RDW Standard Deviation 59.4 fL (35.1-46.3); Red Blood Cell Count 2.27 M/mm3 (3.80-5.20); White Blood Cell Count 6.24 K/mm3 (4.00-11.30)
[2021-02-15 08:16] LABS: IMMATURE GRAN ABSOLUTE AUTO 0.05 K/mm3 (0.00-0.10); IMMATURE GRAN PERCENT AUTO 1 % (0-1); LYMPHOCYTES ABSOLUTE AUTO 1.84 K/mm3 (0.84-5.20); LYMPHOCYTES PERCENT AUTO 30 % (21-46); MONOCYTES ABSOLUTE AUTO 0.71 K/mm3 (0.16-1.47); MONOCYTES PERCENT AUTO 11 % (4-13); NEUTROPHILS ABSOLUTE AUTO 3.41 K/mm3 (1.96-9.15); NEUTROPHILS PERCENT AUTO 55 % (41-73)
[2021-02-15 08:40] LABS: Anion Gap 2 mmol/L (6-16); Blood Urea Nitrogen 17 mg/dL (8-24); Bun/Creatinine Ratio 28.8 (12.0-20.0); CO2, Blood 33 mmol/L (21-32); Calcium, Blood 8.5 mg/dL (8.5-10.1); Chloride, Blood 111 mmol/L (98-108); Creatinine, Blood 0.59 mg/dL (0.40-1.00); Glomerular Filtration Rate >60 (60-); Glucose, Blood 106 mg/dL (70-99); Potassium, Blood 3.2 mmol/L (3.5-5.5); Sodium, Blood 146 mmol/L (136-145)
--- NOTE | 2021-02-15 14:33 | NUR ---
PT DURING ATTENDS CHANGES, PT IS HITTING, ESPECIALLY WITH HER RT HAND. SHE SCRATCHED MY RIGHT A/C AREA OF MY ARM. SHE HAS HIT MY RT ABD SEVERAL TIMES. AFTER SHORT OUTBURSTS, USUALLY CALMS BACK DOWN. PT DOES HIT HER KNEES, LEGS, AND HEAD REGULARLY. PT DID KICK SELF ON BUTTOCKS SEVERAL TIMES WHEN ON SIDE DURING ATTENDS CHANGE. SOME BRUISING NOTED ON KNEES, BUTTOCKS, AND RANDOM. PICS TO BE PLACED IN CHART.
--- NOTE | 2021-02-15 15:37 | NUR ---
PT CALLING OUT MORE THAN NORMAL. ATIVAN GIVEN TO ASSIST IN ANXIETY. PICS OF BRUISES TAKEN AND TO BE PLACED IN CHART.
--- NOTE | 2021-02-15 15:48 | NUR ---
On friday, Feb 12 I spoke with Wanda Reyes, pt's "Healtchare advocate". She and I discussed pt's current condition related to the recurring aspiration pneumonia. According to chart notes, as well as staff who have cared for Lucy in the past, each hospitalization appears to be a little higher acuity. She lives at [facility] and pt's brother Tommy is her medical POA. According to Wanda, this is not something he would consider changing, as he doesn't want to "give up on" her. I requested we have a care conference, but haven't heard back yet. Spent some time with the pt, and she did utter a few phrases, but none were in context or sensical. I will remain available.
--- NOTE | 2021-02-15 18:06 | NUR ---
PT HAS BEEN HITTING SOME TODAY, MOSTLY AT CHANGE TIME AND TUBE FEED TIME. DID ESCALATE YELLING OUT THIS AFT. GAVE ATIVAN. SHE STOPPED YELLING AND HAS RESTED AND TAKEN A NAP. AWAKENS EASILY WITH TALK OR TOUCH. NEW PICS TAKEN OF BRUISING. PT DOES HIT SELF FERNANDA WITH RT HAND, TO RT LEG AND TO HEAD, MOSTLY. HAS HIT STAFF TODAY. NO OTHER CONCERNS NOTED TODAY. BED IN LOW POSITION, CALL LITE IN REACH. BED ALARM ON FOR SAFETY
--- NOTE | 2021-02-15 23:30 | NUR ---
AGITATED PT KEEPS SMACKING AND PUNCHING SELF ON HER OWN KNEE AND HEAD. PT ALSO ATTEMPS TO HIT STAFF WELL. PT IS ALERT BUT N ORIENTED X0. MEDICATED WITH ATIVAN. BILATERAL MITTS AND WRIST RESTRAINTS ORDERED AND APPLIED AT 2204. BED ALARM ON, CALL LIGHT WITHIN REACH, WILL CONTINUE TO MONITOR.
--- NOTE | 2021-02-16 01:42 | NUR ---
PT UP AND AGITATED AGAIN PT HAS BEEN YELLING IN A HIGH PITCHED VOICE AND MOVING AROUND A LOT IN BED. DR. SILVA ORDERED IV HALDOL. WILL GIVE ONCE PHARAMCY VERIFIES.
--- NOTE | 2021-02-16 04:44 | NUR ---
OFFICE TECHNICIAN SUMMARY PT IS ALERT. ORIENTED X0. CURSES AND IS YELLS OUT REPETITIVE CUSS WORDS. PT ATTEMPS TO HIT STAFF AND HITS SELF WELL. MITTS AND WRIST RESTRAINTS IN PLACE PER ORDER FOR SAFETY. MEDICATED FOR AGITATION X3 TONIGHT. HALDOL DID NOT WORK. PT GIVEN ATIVAN THIS MORNING, PT IS MUMMBLING AND SHUFFLING LEGS AROUND IN BED. VSS. PT ON 4L O2 VIA NC AT NIGHT TIME. TUBE FEEDING STARTED AT 2100 PER ORDER, WILL RUN FOR 11 HOURS. JEREZ PATNENT AND DRAINING TO GRAVITY. CALL LIGHT WITHIN REACH, BED ALARM ON, WILL CONTINUE TO MONITOR.
[2021-02-16 08:36] LABS: Hematocrit 24.4 % (33.0-51.0); Hemoglobin 7.9 g/dL (11.5-16.0)
[2021-02-16 08:38] LABS: Anion Gap 2 mmol/L (6-16); Blood Urea Nitrogen 12 mg/dL (8-24); Bun/Creatinine Ratio 23.4 (12.0-20.0); CO2, Blood 33 mmol/L (21-32); Calcium, Blood 8.2 mg/dL (8.5-10.1); Chloride, Blood 110 mmol/L (98-108); Creatinine, Blood 0.51 mg/dL (0.40-1.00); Glomerular Filtration Rate >60 (60-); Glucose, Blood 85 mg/dL (70-99); Potassium, Blood 3.2 mmol/L (3.5-5.5); Sodium, Blood 145 mmol/L (136-145)
--- NOTE | 2021-02-16 15:18 | NUR ---
PT PENDING D/C TODAY. CALLED DR Moy DOHERTY D/C PICC AND SOLITARIO
--- NOTE | 2021-02-16 15:56 | NUR ---
PATIENT CARE GIVERS IN ROOM TO TAKE PT HOME. IV PICC REMOVED BY TREE VALDES. JEREZ REMOVED. PT LIFTED WITH CLAYTON LIFT TO WHEEL CHAIR AND PLACED IN PT WHEEL CHAIR. 1600. DISCHARGE REVIEWED WITH CAREGIVER. HE SIGNED. VERBALIZED UNDERSTANDING MEDS AND INST. SIGNED THEIR PRIVATE FORMS. PT OUT DOOR AT 1600
== END 2021-02-16 16:00 | disposition home or self-care (01) | DRG 871 ==
LOC: ER 02:56 → ICUE 04:34 → ICUW 04:34 → PCU 04:34 → ICUE 05:55 → PCU 02-11 18:23 → MEDS 02-14 14:54
PROVIDERS: Emergency Medicine; Family Medicine; Internal Medicine Critical Care Medicine; Student in an Organized Health Care Education/Training Program; ADMIT Internal Medicine
PROC: 5A1945Z Respiratory Ventilation, 24-96 Consecutive Hours (ICD-10-PCS; principal; 2021-02-09)
PROC: 0BH18EZ Insertion of Endotracheal Airway into Trachea, Via Natural or Artificial Opening Endoscopic (ICD-10-PCS; 2021-02-09)
PROC: 02HV33Z Insertion of Infusion Device into Superior Vena Cava, Percutaneous Approach (ICD-10-PCS; 2021-02-09)
PROC: 3E043XZ Introduction of Vasopressor into Central Vein, Percutaneous Approach (ICD-10-PCS; 2021-02-09)
DX: A41.52 Sepsis due to Pseudomonas (principal); R65.21 Severe sepsis with septic shock; J96.21 Acute and chronic respiratory failure with hypoxia; J18.9 Pneumonia, unspecified organism; J69.0 Pneumonitis due to inhalation of food and vomit; Z68.42 Body mass index [BMI] 45.0-49.9, adult; N39.0 Urinary tract infection, site not specified; Z20.822 Contact with and (suspected) exposure to COVID-19; B96.1 Klebsiella pneumoniae [K. pneumoniae] as the cause of diseases classified elsewhere; B96.89 Other specified bacterial agents as the cause of diseases classified elsewhere; E87.6 Hypokalemia; E03.9 Hypothyroidism, unspecified; R45.1 Restlessness and agitation; R62.50 Unspecified lack of expected normal physiological development in childhood; Z78.1 Physical restraint status; N18.9 Chronic kidney disease, unspecified; E66.9 Obesity, unspecified; D63.1 Anemia in chronic kidney disease; Z88.8 Allergy status to other drugs, medicaments and biological substances; Z79.899 Other long term (current) drug therapy; Z79.82 Long term (current) use of aspirin; Z93.1 Gastrostomy status; Z74.01 Bed confinement status; Z98.890 Other specified postprocedural states
CPT/HCPCS: 31500; 36415; 36569; 36600; 51702; 71045; 80048; 80053; 80202; 81001; 82330; 82803; 82947; 83735; 84100; 84132; 85014; 85018; 85025; 87070; 87077; 87086; 87186; 87205; 94002; 94003; 94760; 96374; 99285-25; A9270; C1751; C9113; J0330; J1630; J1650; J1956; J2060; J2250; J2405; J2543; J2704; J3010; J3370; J3480; J7050; J7060; J7120; P9046; U0004

== ENCOUNTER → 2021-02-21 | Outpatient (CLI) | payer OTHER ==
[~2021-02-21] MED LIST changes: +ACET500 PO; +Aspir 8181 MG PO; +Prevacid Soluta30 MG JT
== END | disposition home or self-care (01) ==
LOC: LAB SHORT 18:22 → LAB 18:22
DX: L08.9 Local infection of the skin and subcutaneous tissue, unspecified (principal)
CPT/HCPCS: 87070; 87075; 87077; 87186; 87205

== ENCOUNTER 2021-02-26 05:47 | Day surgery (SDC) | payer OTHER | END 2021-02-26 23:23 | disposition home or self-care (01) | LOC: WOUND 05:47 | DX: L08.9 Local infection of the skin and subcutaneous tissue, unspecified (principal); L98.9 Disorder of the skin and subcutaneous tissue, unspecified; I87.2 Venous insufficiency (chronic) (peripheral); I73.9 Peripheral vascular disease, unspecified | CPT/HCPCS: A9270; G0463 ==

== ENCOUNTER 2021-03-05 05:29 | Day surgery (SDC) | payer OTHER | END 2021-03-05 23:00 | disposition home or self-care (01) | LOC: WOUND 05:29 | DX: L08.9 Local infection of the skin and subcutaneous tissue, unspecified (principal); L98.9 Disorder of the skin and subcutaneous tissue, unspecified; I87.2 Venous insufficiency (chronic) (peripheral); I73.9 Peripheral vascular disease, unspecified | CPT/HCPCS: G0463 ==

== ENCOUNTER 2021-03-26 03:06 | Day surgery (SDC) | payer OTHER | END 2021-03-26 23:02 | disposition home or self-care (01) | LOC: WOUND 03:06 | DX: L08.9 Local infection of the skin and subcutaneous tissue, unspecified (principal); L98.9 Disorder of the skin and subcutaneous tissue, unspecified; I87.2 Venous insufficiency (chronic) (peripheral); I73.9 Peripheral vascular disease, unspecified | CPT/HCPCS: A9270; G0463 ==

== ENCOUNTER 2021-04-18 05:22 | Emergency (ER) | payer OTHER ==
[~2021-04-18] VITALS: Ht 147.3 cm; Wt 90.7 kg
== END 2021-04-18 09:26 | disposition home or self-care (01) ==
LOC: ER 05:22
DX: K94.23 Gastrostomy malfunction (principal); N17.9 Acute kidney failure, unspecified; E03.9 Hypothyroidism, unspecified; D64.9 Anemia, unspecified; Z79.899 Other long term (current) drug therapy
CPT/HCPCS: 49465; Q9963

== ENCOUNTER 2021-04-23 07:58 | Inpatient (IN) | payer OTHER ==
[~2021-04-23] VITALS: Ht 157.5 cm; Wt 88.6 kg
[~2021-04-23 07:58] MED LIST changes: -ACET500 PO; +ACET500 PT; -Aspir 8181 MG PO; +CELEXA40 M1 PT; -CITA20 PT; -FUROSEMIDE40 MG; +FUROSEMIDE40 MG PT; -Prevacid Soluta30 MG JT; +Prevacid Soluta30 MG PT; +TRAZ100 PT; -TRAZ150T57 PT
[2021-04-23 08:57] LABS: BASOPHILS ABSOLUTE AUTO 0.02 K/mm3 (0.00-0.23); BASOPHILS PERCENT AUTO 0 % (0-2); EOSINOPHILS ABSOLUTE AUTO 0.05 K/mm3 (0.00-0.68); EOSINOPHILS PERCENT AUTO 1 % (0-6); Hematocrit 34.7 % (33.0-51.0); IMMATURE GRAN ABSOLUTE AUTO 0.05 K/mm3 (0.00-0.10); IMMATURE GRAN PERCENT AUTO 1 % (0-1); LYMPHOCYTES ABSOLUTE AUTO 0.66 K/mm3 (0.84-5.20); LYMPHOCYTES PERCENT AUTO 8 % (21-46); MONOCYTES ABSOLUTE AUTO 0.74 K/mm3 (0.16-1.47); MONOCYTES PERCENT AUTO 9 % (4-13); Mean Corpuscular HGB 34.8 pg (26.0-34.0); Mean Corpuscular HGB Conc 31.7 g/dL (31.5-36.5); Mean Corpuscular Volume 110 fL (80-100); Mean Platelet Volume 10.8 fL (9.1-12.4); NEUTROPHILS ABSOLUTE AUTO 6.64 K/mm3 (1.96-9.15); NEUTROPHILS PERCENT AUTO 81 % (41-73); Platelet Count 124 K/mm3 (150-400); RDW Coefficient Variation 14.5 % (11.7-14.2); RDW Standard Deviation 59.2 fL (35.1-46.3); Red Blood Cell Count 3.16 M/mm3 (3.80-5.20); White Blood Cell Count 8.16 K/mm3 (4.00-11.30)
[2021-04-23 09:14] LABS: Alanine Aminotransfer (ALT/SGP 31 U/L (12-78); Albumin, Blood 2.6 g/dL (3.4-5.0); Albumin/Globulin Ratio 0.6 (0.8-1.8); Alk Phos 145 U/L (50-136); Anion Gap 1 mmol/L (6-16); Aspartate Aminotrans (AST/SGOT 24 U/L (12-37); Bilirubin, Total 0.4 mg/dL (0.1-1.0); Blood Urea Nitrogen 20 mg/dL (8-24); Bun/Creatinine Ratio 26.8 (12.0-20.0); CO2, Blood 42 mmol/L (21-32); Calcium, Blood 9.9 mg/dL (8.5-10.1); Chloride, Blood 98 mmol/L (98-108); Creatinine, Blood 0.75 mg/dL (0.40-1.00); Globulin, Blood 4.7 g/dL (2.2-4.0); Glomerular Filtration Rate >60 (60-); Glucose, Blood 103 mg/dL (70-99); Potassium, Blood 4.2 mmol/L (3.5-5.5); Sodium, Blood 141 mmol/L (136-145); Total Protein, Blood 7.3 g/dL (6.4-8.2)
[2021-04-23 09:56] LABS: Influenza A, PCR NEGATIVE (NEGATIVE); Influenza B, PCR NEGATIVE (NEGATIVE); Resp Syncytial Virus, PCR NEGATIVE (NEGATIVE); SARS-Cov-2 (COVID-19) PCR, MMC NEGATIVE (NEGATIVE)
[2021-04-23 12:34] LABS: Base Excess Venous 17.3 mmol/L; Bicarbonate Venous 38.2 mmol/L (24.0-30.0); PCO2 Venous 69.6 mmHg (38-42); PO2 Venous 57.1 mmHg (38-42); pH Blood Venous 7.39 (7.34-7.37)
--- NOTE | 2021-04-23 18:36 | NUR ---
PT TRANSFERED FROM MEDICAL DEPT APPROX 1500 TODAY, RECEIVED REPORT FROM KENY VALDES. PT RESTS WITH EYES CLOSED, DOES NOT RESPOND TO QUESTIONS, WILL OPEN EYES AND LOOK AROUND WHEN NOT BEING SPOKEN TO. PT TENSES BODY WHEN BEING TOUCHED, SUCH WHEN BLOOD PRESSURE CUFF BEING PLACED/TAKEN OFF. PT CURRENTLY RECEIVING O2 VIA NC AT 4 L/MIN, O2 SATS >92%. SR ON MONITOR. PEG TUBE TO LUQ, PT NPO AT THIS TIME. D5 LR INFUSING AT 75 ML/HR W/OUT DIFFICULTY. WILL CONTINUE TO MONITOR AND TREAT ACCORDINLGY UNTIL CHANGE OF SHIFT.
[2021-04-24 03:54] LABS: BASOPHILS ABSOLUTE AUTO 0.04 K/mm3 (0.00-0.23); BASOPHILS PERCENT AUTO 0 % (0-2); EOSINOPHILS ABSOLUTE AUTO 0.01 K/mm3 (0.00-0.68); EOSINOPHILS PERCENT AUTO 0 % (0-6); Hematocrit 30.9 % (33.0-51.0); IMMATURE GRAN ABSOLUTE AUTO 0.03 K/mm3 (0.00-0.10); IMMATURE GRAN PERCENT AUTO 0 % (0-1); LYMPHOCYTES ABSOLUTE AUTO 0.59 K/mm3 (0.84-5.20); LYMPHOCYTES PERCENT AUTO 5 % (21-46); MONOCYTES ABSOLUTE AUTO 0.89 K/mm3 (0.16-1.47); MONOCYTES PERCENT AUTO 8 % (4-13); Mean Corpuscular HGB Conc 32.4 g/dL (31.5-36.5); Mean Corpuscular Volume 108 fL (80-100); Mean Platelet Volume 10.8 fL (9.1-12.4); NEUTROPHILS ABSOLUTE AUTO 9.82 K/mm3 (1.96-9.15); NEUTROPHILS PERCENT AUTO 86 % (41-73); Platelet Count 133 K/mm3 (150-400); RDW Coefficient Variation 14.6 % (11.7-14.2); RDW Standard Deviation 57.8 fL (35.1-46.3); Red Blood Cell Count 2.86 M/mm3 (3.80-5.20); White Blood Cell Count 11.38 K/mm3 (4.00-11.30)
[2021-04-24 04:13] LABS: Alanine Aminotransfer (ALT/SGP 26 U/L (12-78); Albumin, Blood 2.4 g/dL (3.4-5.0); Albumin/Globulin Ratio 0.5 (0.8-1.8); Alk Phos 125 U/L (50-136); Anion Gap 3 mmol/L (6-16); Aspartate Aminotrans (AST/SGOT 18 U/L (12-37); Bilirubin, Total 0.7 mg/dL (0.1-1.0); Blood Urea Nitrogen 16 mg/dL (8-24); Bun/Creatinine Ratio 25.2 (12.0-20.0); CO2, Blood 37 mmol/L (21-32); Calcium, Blood 9.7 mg/dL (8.5-10.1); Chloride, Blood 103 mmol/L (98-108); Creatinine, Blood 0.64 mg/dL (0.40-1.00); Globulin, Blood 4.6 g/dL (2.2-4.0); Glomerular Filtration Rate >60 (60-); Glucose, Blood 100 mg/dL (70-99); Magnesium, Blood 1.7 mg/dL (1.6-2.4); Potassium, Blood 3.6 mmol/L (3.5-5.5); Sodium, Blood 143 mmol/L (136-145)
--- NOTE | 2021-04-24 06:04 | NUR ---
SHIFT SUMMARY ASSUMED CARE OF PTAT 1900. PT IS NONERBAL BUT WILL RESPND TO VERBAL STIMULIUS. PT WILL STRIKE OUT WITH HER HAND IF SHE IS TOUCHED. HEART SOUNDS REGULAR. LUNG SOUNDS ARE COARSE. PT IS UNABLE TO FOLLOW COMMANDS SO SHE USED CHEST THERAPY PER RT. PT WILL COUGH THICK WHITE FOAMY SPUTUM BUT WILL SWOLLOW IT QUICKLY. PT WILL BITE DOWN ON THE SUCTION, MAKING IT DIFFICULT TO PERFORM ORAL CARE. PT WAS TITRATED DOWN TO 3L NC BUT HAD TO GO BACK TO 4L AFTER A COUGHING FIT AND ONLY MAINTAINING 89% SATURATION. PT IS AT 90-91% ON 4L NC. PT PEG TUBE IS UNACCESSED. PT HAD VERY LOOSE TOOL T/O THE NIGHT. PT IS INCONTINENT OF URINE. CALL LIGHT IN REACH, BED IN LOWEST POSITION.
[2021-04-24 11:34] LABS: Source, Urine Catheter
[2021-04-24 11:46] LABS: Appearance, Urine Clear (Clear); Bilirubin, Urine Neg (Neg); Blood, Urine 1+ (Neg); Color, Urine Yellow (P-Yellow); Glucose Qualitative, Urine Neg (Neg); Ketones, Urine Neg (Neg); Leukocyte Esterase, Urine 3+ (Neg); Nitrite, Urine Pos (Neg); Protein, Urine 2+ (Neg); Urobilinogen, Urine NORM (Normal)
[2021-04-24 11:48] LABS: Bacteria Many /hpf; Squamous Epithelial Cells Few /hpf (Few); White Blood Cells, Urine 25-50 /hpf (0-5)
[2021-04-24 11:50] LABS: Amorphous Mod (0-Heavy); WBC Cast 0-2 /lpf (0)
[2021-04-24 11:51] LABS: Mucus Light (0-Heavy)
--- NOTE | 2021-04-24 18:16 | NUR ---
SHIFT SUMMARY: PATIENT STABLE T/O SHIFT. CAREGIVER SAT AT BEDSIDE THIS AFTERNOON AND AWARE PATIENT TO TRANSFER TO [facility] . CAREGIVER DID NOT ASSIST WITH ANY CARE. PATIENT LETHARGIC AND AGITATED AT TIMES. GAVE REPORT TO KENY THORPE RN AND PATIENT TRANSFERRED BY BED TO [facility] FLOOR AT 1815.
[2021-04-24] MEDS ORDERED: TRANSDERM-SCOP1 EAC8 TD (22:15)
[2021-04-24] MEDS ORDERED: Triamcinolone A15 G3 TOP (22:25)
[2021-04-24] MEDS ORDERED: SERT50 PT (22:34)
--- NOTE | 2021-04-25 04:08 | NUR ---
PATIENT WAS ALERT AND ORIENTED X1, CLOSED HER EYES WHEN SPOKEN TOO. STABLE VITAL SIGNS, NO ACUTE CHANGES. TUBE FEED INITIALLY RAN AT 25ML/HR BUT WAS INCREASED BY 10ML AFTER 8 HRS. MOUTH CARE WAS PERFORMED AND PATIENT WAS TURNED EVERY 2HRS. PATIENT IS TOLERATING TUBE FEEDING. CALL LIGHT WITH IN REACH AND BED DOWN TO THE LOWEST POSITION WITH HEAD OF BED AT 45 DEGREES. WILL CONTINUE TO MONITOR UNTIL HAND OFF.
[2021-04-25 05:15] LABS: BASOPHILS ABSOLUTE AUTO 0.03 K/mm3 (0.00-0.23); BASOPHILS PERCENT AUTO 1 % (0-2); EOSINOPHILS PERCENT AUTO 2 % (0-6); Hematocrit 29.7 % (33.0-51.0); Hemoglobin 9.5 g/dL (11.5-16.0); IMMATURE GRAN ABSOLUTE AUTO 0.03 K/mm3 (0.00-0.10); IMMATURE GRAN PERCENT AUTO 1 % (0-1); LYMPHOCYTES ABSOLUTE AUTO 0.78 K/mm3 (0.84-5.20); LYMPHOCYTES PERCENT AUTO 13 % (21-46); MONOCYTES ABSOLUTE AUTO 0.68 K/mm3 (0.16-1.47); MONOCYTES PERCENT AUTO 11 % (4-13); Mean Corpuscular HGB 35.2 pg (26.0-34.0); Mean Corpuscular Volume 110 fL (80-100); Mean Platelet Volume 10.5 fL (9.1-12.4); NEUTROPHILS ABSOLUTE AUTO 4.59 K/mm3 (1.96-9.15); NEUTROPHILS PERCENT AUTO 74 % (41-73); Platelet Count 126 K/mm3 (150-400); RDW Coefficient Variation 15.1 % (11.7-14.2); RDW Standard Deviation 60.1 fL (35.1-46.3); White Blood Cell Count 6.21 K/mm3 (4.00-11.30)
[2021-04-25 05:45] LABS: Anion Gap 6 mmol/L (6-16); Blood Urea Nitrogen 18 mg/dL (8-24); Bun/Creatinine Ratio 29.4 (12.0-20.0); CO2, Blood 34 mmol/L (21-32); Calcium, Blood 9.4 mg/dL (8.5-10.1); Chloride, Blood 105 mmol/L (98-108); Creatinine, Blood 0.61 mg/dL (0.40-1.00); Glomerular Filtration Rate >60 (60-); Glucose, Blood 92 mg/dL (70-99); Phosphorus, Blood 2.9 mg/dL (2.5-4.9); Potassium, Blood 3.3 mmol/L (3.5-5.5); Sodium, Blood 145 mmol/L (136-145)
[2021-04-25 09:42] LABS: Base Excess Venous 13.7 mmol/L; Bicarbonate Venous 35.8 mmol/L (24.0-30.0); PCO2 Venous 57.1 mmHg (38-42); PO2 Venous 143 mmHg (38-42); pH Blood Venous 7.43 (7.34-7.37)
--- NOTE | 2021-04-25 16:50 | NUR ---
SHIFT SUMMARY PATIENT MEDICATED FOR PAIN X1 WITH TYLENOL. PATIENT DENIES NAUSEA AND SHORTNESS OF BREATH. PATIENT CONTINUES TO BE NONVERBAL. PATIENT DID MAKE SOME GROANING NOISES TODAY. PATIENT MORE ALERT IN AFTERNOON WHEN CAREGIVER FROM [facility] ARRIVED. POWERGLIDE PLACED THIS MORNING. TUBE FEEDINGS RUNNING CONTINUOUS AT 40MLS/HR WITH A 75ML FLUSH EVERY HOUR. PATIENT IS ON 2L VIA N/C. MAINTAINING SATS ABOVE 95%. DR. SHELL ASSESSED PATIENT FOR CONCERNS OF APNEIC BREATHING, NEW ORDERS FOR VBG AND CHEST XRAY. RT CALLED TO ASSESS WELL. PATIENT IS BEDBOUND. PATIENT IS PLEASANT AND COOPERATIVE WITH CARE.
[2021-04-25 22:38] LABS: Vancomycin, Trough 18.1 ug/mL (5.0-10.0)
--- NOTE | 2021-04-26 04:08 | NUR ---
PATIENT WAS ALERT AND ORIENTED X1, OXYGEN LEVEL WENT DOWN TO THE 80'S SO RT SUCTIONED HER AND HER OXYGEN LEVEL SUSTAINED IN THE 90'S. PATIENT THROW UP A COUPLE OF TIMES BUT STOPPED AFTER SHE WAS GIVEN REGLAN 10MG. TUBE FEEDING WAS HELD AND ASSESSED FOR RESIDUAL. CALL LIGHT WITHIN REACH AND HEAD OF BED AND 45 DEGREES. WILL CONTINUE TO MONITOR UNTIL HAND OFF.
[2021-04-26 07:12] LABS: Anion Gap 4 mmol/L (6-16); Blood Urea Nitrogen 16 mg/dL (8-24); Bun/Creatinine Ratio 26.3 (12.0-20.0); CO2, Blood 35 mmol/L (21-32); Calcium, Blood 8.4 mg/dL (8.5-10.1); Chloride, Blood 108 mmol/L (98-108); Creatinine, Blood 0.61 mg/dL (0.40-1.00); Glomerular Filtration Rate >60 (60-); Glucose, Blood 79 mg/dL (70-99); Potassium, Blood 3.4 mmol/L (3.5-5.5); Sodium, Blood 147 mmol/L (136-145)
[2021-04-26] MEDS ORDERED: AMOCLA875 PT (09:16)
[2021-04-26] MEDS ORDERED: CIPR500 PT (10:18)
[2021-04-26] MEDS ORDERED: VISBIOME 112.51 EACH PT (10:18)
--- NOTE | 2021-04-26 16:58 | NUR ---
SHIFT SUMMARY PATIENT DENIES PAIN AND SHORTNESS OF BREATH. PATIENT MEDICATED X1 FOR NAUSEA. PATIENT HAD NO EMESIS THIS SHIFT. PATIENT ORAL TEMP WAS 98.4. PATIENT IS BEDBOUND. CALLED WHERE PATIENT LIVES TO CONFIRM PATIENTS NORMAL TUBE FEEDING SCHEDULE. PATIENT TYPICALLY GETS HER TUBE FEEDING AT NIGHT, AT 85MLS/HR, WITH 4 CANS. DIETARY NOTIFIED, NEW ORDERS. PATIENT VERY VERBAL THIS AFTERNOON, TALKING A LOT. PATIENT REPEATS THE SAME FEW SENTENCES. PATIENT IS NPO. PATIENT IS PLEASANT AND COOPERATIVE WITH CARE. PATIENT IS ON 3L VIA N/C, MAINTAINING SATS ABOVE 94%. PATIENT HAS A DECREASED COUGH TODAY.
--- NOTE | 2021-04-27 04:18 | NUR ---
PATIENT WAS ALERT AND ORIENTED X1, STABLE VITAL SIGNS, NO ACUTE CHANGES. TUBE FEEDING RUNNING AT 35ML/HR WITH 70ML FLUSH EVERY 4 HOURS. PATIENT IS TOLENRATING TUBE. POSSIBLE DISCHARGE. CALL LIGHT WITHIN REACH AND BED DOWN TO THE LOWEST POSITION. WILL CONTINUE TO MONITOR UNTIL HAND OFF.
[2021-04-27 05:43] LABS: Anion Gap 5 mmol/L (6-16); Blood Urea Nitrogen 18 mg/dL (8-24); CO2, Blood 31 mmol/L (21-32); Calcium, Blood 8.4 mg/dL (8.5-10.1); Chloride, Blood 108 mmol/L (98-108); Creatinine, Blood 0.55 mg/dL (0.40-1.00); Glomerular Filtration Rate >60 (60-); Glucose, Blood 89 mg/dL (70-99); Phosphorus, Blood 2.6 mg/dL (2.5-4.9); Potassium, Blood 4.4 mmol/L (3.5-5.5); Sodium, Blood 144 mmol/L (136-145)
--- NOTE | 2021-04-27 11:52 | NUR ---
DISCHARGE SUMMARY PT AxOx1- SELF. PT HAS HX OF DEV DELAY. PT DISCHARGING BACK HOME TODAY TO [facility]. PT HAD AM MEDS, INCLUDING ANTIBIOTICS. PT BREATHING WITHOUT DIFFICULTY ON 3L O2 VIA NC. PT DISCHARGE COMPLETED AND DC MEDS SENT TO PHARMACY. REPORT CALLED AND GIVEN TO LUCIO BEAR. TRANSPORTATION ARRIVED AND SAFELY TRANSPORTED PATIENT VIA WC AT APPROX 1100. DC PACKET GIVEN TO TRANSPORTER.
== END 2021-04-27 11:10 | disposition home or self-care (01) | DRG 871 ==
LOC: ER 07:58 → ERHOLD 12:09 → PCU 12:09 → MEDS 12:09 → PCU 13:07 → MEDS 13:30 → PCU 14:55 → MEDS 04-24 18:15 → ENPENDDIS 04-27 10:58 → MEDS 04-27 11:10
PROVIDERS: Emergency Medicine; Family Medicine; ADMIT Internal Medicine
DX: A41.9 Sepsis, unspecified organism (principal); J69.0 Pneumonitis due to inhalation of food and vomit; J96.21 Acute and chronic respiratory failure with hypoxia; G93.41 Metabolic encephalopathy; N39.0 Urinary tract infection, site not specified; Z68.41 Body mass index [BMI] 40.0-44.9, adult; E87.6 Hypokalemia; E03.9 Hypothyroidism, unspecified; Z88.8 Allergy status to other drugs, medicaments and biological substances; Z20.822 Contact with and (suspected) exposure to COVID-19; E66.9 Obesity, unspecified; Z79.899 Other long term (current) drug therapy; I35.0 Nonrheumatic aortic (valve) stenosis; Z79.82 Long term (current) use of aspirin; Z93.1 Gastrostomy status; D63.8 Anemia in other chronic diseases classified elsewhere; N18.9 Chronic kidney disease, unspecified; Z98.890 Other specified postprocedural states; Z99.3 Dependence on wheelchair; Z74.01 Bed confinement status
CPT/HCPCS: 0241U; 31720; 36415; 71045; 71250; 80048; 80053; 80202; 81001; 82803; 83605; 83735; 84100; 85025; 87040; 87077; 87086; 87186; 94640; 94667; 94668; 94762; 96365; 96366; 96367; 99285-25; A9270; C1751; J0696; J1650; J2405; J2543; J2765; J3370; J3475; J7050; J7060; J7121

== ENCOUNTER 2021-06-06 17:46 | Emergency (ER) | payer OTHER ==
[~2021-06-06] VITALS: Ht 157.5 cm; Wt 86.6 kg
[~2021-06-06 17:46] MED LIST changes: +CIPR500 PT; +SERT50 PT; +TRANSDERM-SCOP1 EAC8 TD; +Triamcinolone A15 G3 TOP; +VISBIOME 112.51 EACH PT
[2021-06-06] MEDS ORDERED: BANOPHEN50 M1 PO (18:31)
== END 2021-06-06 21:05 | disposition home or self-care (01) ==
LOC: ER 17:46
DX: S80.01XA Contusion of right knee, initial encounter (principal); E03.9 Hypothyroidism, unspecified; N18.9 Chronic kidney disease, unspecified; Z88.8 Allergy status to other drugs, medicaments and biological substances; Z79.899 Other long term (current) drug therapy; Z79.82 Long term (current) use of aspirin; W05.0XXA Fall from non-moving wheelchair, initial encounter
CPT/HCPCS: 73560-RT; 99283-25

== ENCOUNTER 2021-06-15 22:43 | Emergency (ER) | payer OTHER ==
[~2021-06-15] VITALS: Ht 157.5 cm; Wt 86.6 kg
[~2021-06-15 22:43] MED LIST changes: +BANOPHEN50 M1 PO
[2021-06-15 23:20] LABS: BASOPHILS ABSOLUTE AUTO 0.03 K/mm3 (0.00-0.23); BASOPHILS PERCENT AUTO 1 % (0-2); EOSINOPHILS ABSOLUTE AUTO 0.06 K/mm3 (0.00-0.68); EOSINOPHILS PERCENT AUTO 1 % (0-6); Hematocrit 33.1 % (33.0-51.0); Hemoglobin 10.7 g/dL (11.5-16.0); IMMATURE GRAN ABSOLUTE AUTO 0.03 K/mm3 (0.00-0.10); IMMATURE GRAN PERCENT AUTO 1 % (0-1); LYMPHOCYTES ABSOLUTE AUTO 1.28 K/mm3 (0.84-5.20); LYMPHOCYTES PERCENT AUTO 22 % (21-46); MONOCYTES ABSOLUTE AUTO 0.98 K/mm3 (0.16-1.47); MONOCYTES PERCENT AUTO 17 % (4-13); Mean Corpuscular HGB Conc 32.3 g/dL (31.5-36.5); Mean Corpuscular Volume 108 fL (80-100); Mean Platelet Volume 10.2 fL (9.1-12.4); NEUTROPHILS ABSOLUTE AUTO 3.47 K/mm3 (1.96-9.15); NEUTROPHILS PERCENT AUTO 59 % (41-73); Platelet Count 133 K/mm3 (150-400); RDW Coefficient Variation 14.2 % (11.7-14.2); RDW Standard Deviation 57.1 fL (35.1-46.3); Red Blood Cell Count 3.06 M/mm3 (3.80-5.20); White Blood Cell Count 5.85 K/mm3 (4.00-11.30)
[2021-06-15 23:29] LABS: Anion Gap 1 mmol/L (6-16); Blood Urea Nitrogen 13 mg/dL (8-24); Bun/Creatinine Ratio 19.8 (12.0-20.0); CO2, Blood 39 mmol/L (21-32); Calcium, Blood 8.8 mg/dL (8.5-10.1); Chloride, Blood 97 mmol/L (98-108); Creatinine, Blood 0.66 mg/dL (0.40-1.00); Glomerular Filtration Rate >60 (60-); Glucose, Blood 114 mg/dL (70-99); Potassium, Blood 3.7 mmol/L (3.5-5.5); Sodium, Blood 137 mmol/L (136-145)
[2021-06-15 23:49] LABS: Influenza B, PCR NEGATIVE (NEGATIVE); Resp Syncytial Virus, PCR NEGATIVE (NEGATIVE); SARS-Cov-2 (COVID-19) PCR, MMC NEGATIVE (NEGATIVE)
[2021-06-15 23:51] LABS: Influenza A, PCR POSITIVE (NEGATIVE)
== END 2021-06-16 00:30 | disposition home or self-care (01) ==
LOC: ER 22:43
PROVIDERS: Emergency Medicine
DX: J10.1 Influenza due to other identified influenza virus with other respiratory manifestations (principal); J96.10 Chronic respiratory failure, unspecified whether with hypoxia or hypercapnia; D64.9 Anemia, unspecified; E03.9 Hypothyroidism, unspecified; N18.9 Chronic kidney disease, unspecified; Z20.822 Contact with and (suspected) exposure to COVID-19; Z99.81 Dependence on supplemental oxygen; Z79.82 Long term (current) use of aspirin; Z79.899 Other long term (current) drug therapy; Z88.1 Allergy status to other antibiotic agents
CPT/HCPCS: 0241U; 71045; 80048; 85025; 99284-25

== ENCOUNTER 2021-06-23 12:40 | Inpatient (IN) | payer OTHER ==
[~2021-06-23] VITALS: Ht 152.4 cm; Wt 79.4 kg
[~2021-06-23 12:40] MED LIST changes: -Ativan1 MG PT; +LORA1
[2021-06-23 13:32] LABS: BASOPHILS ABSOLUTE AUTO 0.04 K/mm3 (0.00-0.23); BASOPHILS PERCENT AUTO 0 % (0-2); EOSINOPHILS ABSOLUTE AUTO 0.02 K/mm3 (0.00-0.68); EOSINOPHILS PERCENT AUTO 0 % (0-6); Hematocrit 31.4 % (33.0-51.0); Hemoglobin 10.1 g/dL (11.5-16.0); IMMATURE GRAN ABSOLUTE AUTO 0.09 K/mm3 (0.00-0.10); IMMATURE GRAN PERCENT AUTO 1 % (0-1); LYMPHOCYTES ABSOLUTE AUTO 1.12 K/mm3 (0.84-5.20); LYMPHOCYTES PERCENT AUTO 7 % (21-46); MONOCYTES PERCENT AUTO 9 % (4-13); Mean Corpuscular HGB 34.4 pg (26.0-34.0); Mean Corpuscular HGB Conc 32.2 g/dL (31.5-36.5); Mean Corpuscular Volume 107 fL (80-100); Mean Platelet Volume 9.5 fL (9.1-12.4); NEUTROPHILS ABSOLUTE AUTO 13.51 K/mm3 (1.96-9.15); NEUTROPHILS PERCENT AUTO 84 % (41-73); Platelet Count 200 K/mm3 (150-400); RDW Coefficient Variation 14.1 % (11.7-14.2); RDW Standard Deviation 55.9 fL (35.1-46.3); Red Blood Cell Count 2.94 M/mm3 (3.80-5.20); White Blood Cell Count 16.18 K/mm3 (4.00-11.30)
[2021-06-23 13:43] LABS: Alanine Aminotransfer (ALT/SGP 16 U/L (12-78); Albumin, Blood 2.6 g/dL (3.4-5.0); Albumin/Globulin Ratio 0.6 (0.8-1.8); Alk Phos 140 U/L (50-136); Anion Gap 1 mmol/L (6-16); Aspartate Aminotrans (AST/SGOT 12 U/L (12-37); Bilirubin, Total 0.5 mg/dL (0.1-1.0); Blood Urea Nitrogen 16 mg/dL (8-24); Bun/Creatinine Ratio 31.7 (12.0-20.0); CO2, Blood 37 mmol/L (21-32); Calcium, Blood 9.1 mg/dL (8.5-10.1); Chloride, Blood 98 mmol/L (98-108); Creatinine, Blood 0.51 mg/dL (0.40-1.00); Globulin, Blood 4.7 g/dL (2.2-4.0); Glomerular Filtration Rate >60 (60-); Glucose, Blood 100 mg/dL (70-99); Sodium, Blood 136 mmol/L (136-145); Total Protein, Blood 7.3 g/dL (6.4-8.2)
[2021-06-23 14:22] LABS: Influenza A, PCR NEGATIVE (NEGATIVE); Influenza B, PCR NEGATIVE (NEGATIVE); Resp Syncytial Virus, PCR NEGATIVE (NEGATIVE); SARS-Cov-2 (COVID-19) PCR, MMC NEGATIVE (NEGATIVE)
--- NOTE | 2021-06-23 19:09 | NUR ---
PT ARRIVED TO ROOM PCU20 VIA GURNEY FROM ER 1820. O2 6L NC. PT IS LETHARGIC, MEDICATED BY DRUM ATTENDANT PRIOR TO CT SCAN THIS EVENING. SEE DOCUMENTED VS. REPORT GIVEN TO NOC SHIFT RN.
[2021-06-23] MEDS ORDERED: BANOPHEN50 M1 PT (19:13)
[2021-06-24 03:37] LABS: BASOPHILS ABSOLUTE AUTO 0.03 K/mm3 (0.00-0.23); BASOPHILS PERCENT AUTO 0 % (0-2); EOSINOPHILS PERCENT AUTO 0 % (0-6); Hematocrit 32.4 % (33.0-51.0); Hemoglobin 10.3 g/dL (11.5-16.0); IMMATURE GRAN ABSOLUTE AUTO 0.07 K/mm3 (0.00-0.10); IMMATURE GRAN PERCENT AUTO 1 % (0-1); LYMPHOCYTES ABSOLUTE AUTO 0.48 K/mm3 (0.84-5.20); LYMPHOCYTES PERCENT AUTO 4 % (21-46); MONOCYTES ABSOLUTE AUTO 0.08 K/mm3 (0.16-1.47); MONOCYTES PERCENT AUTO 1 % (4-13); Mean Corpuscular HGB 34.3 pg (26.0-34.0); Mean Corpuscular HGB Conc 31.8 g/dL (31.5-36.5); Mean Corpuscular Volume 108 fL (80-100); Mean Platelet Volume 9.5 fL (9.1-12.4); NEUTROPHILS PERCENT AUTO 94 % (41-73); Platelet Count 204 K/mm3 (150-400); RDW Coefficient Variation 14.1 % (11.7-14.2); RDW Standard Deviation 55.8 fL (35.1-46.3); White Blood Cell Count 11.86 K/mm3 (4.00-11.30)
[2021-06-24 03:57] LABS: Alanine Aminotransfer (ALT/SGP 16 U/L (12-78); Albumin, Blood 2.3 g/dL (3.4-5.0); Albumin/Globulin Ratio 0.5 (0.8-1.8); Alk Phos 121 U/L (50-136); Anion Gap 2 mmol/L (6-16); Aspartate Aminotrans (AST/SGOT 16 U/L (12-37); Bilirubin, Total 0.3 mg/dL (0.1-1.0); Blood Urea Nitrogen 16 mg/dL (8-24); Bun/Creatinine Ratio 41.7 (12.0-20.0); CO2, Blood 34 mmol/L (21-32); Calcium, Blood 8.8 mg/dL (8.5-10.1); Chloride, Blood 107 mmol/L (98-108); Creatinine, Blood 0.38 mg/dL (0.40-1.00); Globulin, Blood 4.9 g/dL (2.2-4.0); Glomerular Filtration Rate >60 (60-); Glucose, Blood 118 mg/dL (70-99); Sodium, Blood 143 mmol/L (136-145); Total Protein, Blood 7.2 g/dL (6.4-8.2)
--- NOTE | 2021-06-24 05:55 | NUR ---
SHIFT SUMMARY: DEVELOPEMENTALLY DELAYED, CONFUSED PATIENT WAS LETHARGIC AT START OF SHIFT. PATIENT WAS GIVEN ATIVAN EARLIER WHEN TAKEN TO DIAGNOSTIC CT. SHE WAS MORE AWAKE AFTER MIDNIGHT. VITAL SIGNS WERE STABLE OVERNIGHT WITH O2 SAT 90-95% ON 5L NC. PT DESATS TO 80'S WITHIN 1-2 MINUTES IF O2 IS REMOVED AND RECOVERS QUICKLY WHEN REPLACED. SHE IS MINIMALLY COOPERATIVE/REDIRECTABLE. PT HAS A FREQUENT DRY COUGH AND STATES, "I'M SICK". THERE WAS NO TUBE FEEDING ORDERED OVERNIGHT. PATIENT'S PEG FLUSHES WELL. REDNESS IS NOTED TO PANUS/GROIN AREA WITH MILD EXCORIATION NOTED.
--- NOTE | 2021-06-24 13:18 | NUR ---
TUBE FEEDING STARTED @ 1309, RATE 25ML/HR, FLUSH 240ML Q 4 HRS, HOB>30 DEGREES PER MD ORDERS. WILL CONTINUE TO MONITOR, PT IS TOLERATING WELL AT THIS TIME.
--- NOTE | 2021-06-24 13:51 | NUR ---
THICK TENACIOUS SECRETIONS NOTED WHEN PT IS COUGHING. PT IS UNABLE TO COOPERATE TO SUCTION OUT. DR VICKERS NOTIFIED, NEW ORDERS FOR GUAIFENESIN PRN PLACED.
--- NOTE | 2021-06-24 16:06 | NUR ---
Pt resting in bed with blankets over her head. Primary RN Agustina at bedside. Pt speaks a few words but appears non sensical. Pt appears comfortable with no S/S of distress at this time. Attempted to contact Pt's brother who is listed as guardian. Numbers on face sheet are incorrect phone numbers for Tommy. Called [facility] and spoke with a stafff member regarding POLST of file. She instructs that she will call her boss and have him call back. Received call back from the parts sales manager Ryan at the Pt's current house. Discussed current code status and POLST on file completed in November of year. Discussed current code status does not align with Pt's wishes on POLST. Ryan recommends following POLST on file and if he learns something different then he will call back. Spoke with Dr Oleary and discussed current POLST. Dr Oleary will change Pt's code status to align with her POLST. Placed copy of POLST in Pt's paper chart. Palliative Care will remain available.
--- NOTE | 2021-06-24 18:01 | NUR ---
PT REMAINED ON NC O2 @5L T/O DAY, DID NOT NEED BIPAP SUPPORT. INCREASED MOIST, CONGESTED COUGH THIS AFTERNOON, PT UNABLE TO FOLLOW COMMANDS TO HAVE RN SUCTION OUT SPUTUM FOR SAMPLE. DR VICKERS NOTIFIED WITH REQUEST FOR PRN COUGH MEDICATION. SEE ORDERS. PT HAS BEEN RESTING QUIETLY MOST OF THE SHIFT, DOES PULL AT LINES AND TUBES OCCASIONALLY. DESATS TO LOW 80s WHEN SHE REMOVES HER NC, SHE IS ON CONTINOUS SPO2 MONITORING. COUGH HAS IMPROVED WITH PRN MEDICATION. TUBE FEEDING STARTED PER SHOWER MAID ORDERS, PT IS TOLERATING WELL. IV ABX ADMINISTERED PER ORDERS. CODE STATUS UPDATED TO LIMITED CODE, NO CHEST COMPRESSIONS, PER MD ORDER. SEE DOCUMENTED VS. WILL CONTINUE TO MONITOR AND GIVE REPORT TO ONCOMING NOC SHIFT RN.
[2021-06-25 04:43] LABS: BASOPHILS ABSOLUTE AUTO 0.02 K/mm3 (0.00-0.23); BASOPHILS PERCENT AUTO 0 % (0-2); EOSINOPHILS PERCENT AUTO 0 % (0-6); Hematocrit 31.4 % (33.0-51.0); Hemoglobin 9.9 g/dL (11.5-16.0); IMMATURE GRAN ABSOLUTE AUTO 0.08 K/mm3 (0.00-0.10); IMMATURE GRAN PERCENT AUTO 1 % (0-1); LYMPHOCYTES PERCENT AUTO 14 % (21-46); MONOCYTES PERCENT AUTO 11 % (4-13); Mean Corpuscular HGB 34.7 pg (26.0-34.0); Mean Corpuscular HGB Conc 31.5 g/dL (31.5-36.5); Mean Corpuscular Volume 110 fL (80-100); Mean Platelet Volume 9.6 fL (9.1-12.4); NEUTROPHILS ABSOLUTE AUTO 9.01 K/mm3 (1.96-9.15); NEUTROPHILS PERCENT AUTO 74 % (41-73); Platelet Count 258 K/mm3 (150-400); RDW Coefficient Variation 14.3 % (11.7-14.2); RDW Standard Deviation 57.9 fL (35.1-46.3); Red Blood Cell Count 2.85 M/mm3 (3.80-5.20); White Blood Cell Count 12.11 K/mm3 (4.00-11.30)
--- NOTE | 2021-06-25 04:50 | NUR ---
PATIENT REMAINS ALERT OFFEN TIME REDIRECTED DUE TO MENTAL CONDITION. VITAL SIGNS STABLE. PATIENT CONTINUES TO PULL OF O2 TUBINGS AND REMOVING LEADS. PATIENT INCONTINENT TO BLADDER AND BOWELS MULTIPLE BM LAST NIGHT. TUBE FEEDING AT ITS GOAL RATE AND TOLERATING WELL. HEAD OF BED ELEVATED AND ASPIRATION PRECAUTION MAINTAINED. FREQUENT ROUNDS MADE TO ENSURE PATIENT SAFETY. PATIENT REPOSITIONED FREQENTLY AND NEEDED. PATIENT I NO DISTRESS. WILL CONTINUE TO MONITOR PATIENT CONDITION UNTIL TRANSFER OF CARE TO ONCOMING RN.
[2021-06-25 05:01] LABS: Alanine Aminotransfer (ALT/SGP 16 U/L (12-78); Albumin, Blood 2.6 g/dL (3.4-5.0); Albumin/Globulin Ratio 0.5 (0.8-1.8); Alk Phos 123 U/L (50-136); Anion Gap 4 mmol/L (6-16); Aspartate Aminotrans (AST/SGOT 15 U/L (12-37); Bilirubin, Total 0.4 mg/dL (0.1-1.0); Blood Urea Nitrogen 27 mg/dL (8-24); Bun/Creatinine Ratio 50.4 (12.0-20.0); CO2, Blood 35 mmol/L (21-32); Calcium, Blood 9.1 mg/dL (8.5-10.1); Chloride, Blood 110 mmol/L (98-108); Creatinine, Blood 0.54 mg/dL (0.40-1.00); Globulin, Blood 4.8 g/dL (2.2-4.0); Glomerular Filtration Rate >60 (60-); Glucose, Blood 105 mg/dL (70-99); Potassium, Blood 3.2 mmol/L (3.5-5.5); Sodium, Blood 149 mmol/L (136-145); Total Protein, Blood 7.4 g/dL (6.4-8.2)
--- NOTE | 2021-06-25 17:12 | NUR ---
SHIFT SUMMARY PT REMAINS ALERT, BUT ONLY ORIENTED TO SELF. HX OF DEVELOPMENTAL DELAY AND PT AT BASELINE MENTATION. VS STABLE. PT PULLED HER O2 OFF THIS AM AND HAS BEEN SATURATING >90% ON RA. BP STABLE. HR NSR. PT SHOWS NO SIGNS OR SYMPTOMS OF PAIN. PT INCONTINENT OF BOWEL AND BLADDER. PT HAVING FREQUENT LOOSE BM AND BANATROL STARTED THIS AFTERNOON. TF INFUSING PER ORDERS. STATUS CHANGED TO MEDICAL. WILL CONTINUE TO MONITOR
--- NOTE | 2021-06-25 18:30 | NUR ---
PT ARRIVED TO ROOM 351 VIA BED, LATERAL TRANSFER USING SLIDER. PT WITH IV ABX AND TUBE FEED RUNNING. BED IN LOWEST POSITION, WILL MONITOR
[2021-06-26 05:40] LABS: BASOPHILS ABSOLUTE AUTO 0.02 K/mm3 (0.00-0.23); BASOPHILS PERCENT AUTO 0 % (0-2); EOSINOPHILS ABSOLUTE AUTO 0.03 K/mm3 (0.00-0.68); EOSINOPHILS PERCENT AUTO 0 % (0-6); Hemoglobin 9.1 g/dL (11.5-16.0); IMMATURE GRAN ABSOLUTE AUTO 0.02 K/mm3 (0.00-0.10); IMMATURE GRAN PERCENT AUTO 0 % (0-1); LYMPHOCYTES PERCENT AUTO 26 % (21-46); MONOCYTES ABSOLUTE AUTO 1.06 K/mm3 (0.16-1.47); MONOCYTES PERCENT AUTO 14 % (4-13); Mean Corpuscular HGB 33.6 pg (26.0-34.0); Mean Corpuscular HGB Conc 30.3 g/dL (31.5-36.5); Mean Corpuscular Volume 111 fL (80-100); Mean Platelet Volume 9.2 fL (9.1-12.4); NEUTROPHILS ABSOLUTE AUTO 4.44 K/mm3 (1.96-9.15); NEUTROPHILS PERCENT AUTO 59 % (41-73); Platelet Count 244 K/mm3 (150-400); RDW Coefficient Variation 14.6 % (11.7-14.2); RDW Standard Deviation 59.5 fL (35.1-46.3); Red Blood Cell Count 2.71 M/mm3 (3.80-5.20); White Blood Cell Count 7.57 K/mm3 (4.00-11.30)
[2021-06-26 06:14] LABS: Alanine Aminotransfer (ALT/SGP 21 U/L (12-78); Albumin, Blood 2.4 g/dL (3.4-5.0); Albumin/Globulin Ratio 0.5 (0.8-1.8); Alk Phos 116 U/L (50-136); Anion Gap 3 mmol/L (6-16); Aspartate Aminotrans (AST/SGOT 16 U/L (12-37); Bilirubin, Total 0.3 mg/dL (0.1-1.0); Blood Urea Nitrogen 23 mg/dL (8-24); Bun/Creatinine Ratio 48.1 (12.0-20.0); CO2, Blood 34 mmol/L (21-32); Calcium, Blood 8.7 mg/dL (8.5-10.1); Chloride, Blood 110 mmol/L (98-108); Creatinine, Blood 0.48 mg/dL (0.40-1.00); Globulin, Blood 4.4 g/dL (2.2-4.0); Glomerular Filtration Rate >60 (60-); Glucose, Blood 100 mg/dL (70-99); Potassium, Blood 3.5 mmol/L (3.5-5.5); Sodium, Blood 147 mmol/L (136-145); Total Protein, Blood 6.8 g/dL (6.4-8.2)
--- NOTE | 2021-06-26 06:44 | NUR ---
SHIFT SUMMARY Pt is developmentally delayed at baseline, unable to assess orientation. Pt has been alert, garbled speech noted, had some difficulty sleeping during the night. Pt repositioned for comfort, amie care done as needed for incontinence of urine and stool. Tube feeds infusing per PEG tube, pt bret well. Pt's temp at midnight was 101.6, Dr. Salazar notified and instructed RN to give tylenol per mar. Abx's per mar, otherwise vss. Anticipate d/c when medically stable.
[2021-06-26] MEDS ORDERED: AMOCLA875 PT (14:37)
[2021-06-26] MEDS ORDERED: BANATROL PLUS1 EAC1 PT (14:38)
--- NOTE | 2021-06-26 15:15 | NUR ---
T/C TO [facility] REGARDING DISCHARGING PT BACK HOME TODAY. SPOKE WITH WILLIAMS, SHE WILL CALL HER SUPERINTENDENT BUILDING TO START THE PROCESS, WAITING FOR CALL BACK.
--- NOTE | 2021-06-26 15:30 | NUR ---
T/C FROM WILLIAMS AT [facility] STATING THAT HER ONSITE CASE MANAGER IS NOT IN THE OFFICE TODAY, AND THEY ARE NOT WANTING PT TO RETURN HOME TODAY, BUT WANT TO PLAN FOR TOMORROW. DR VICKERS NOTIFIED.
--- NOTE | 2021-06-26 16:15 | NUR ---
PATIENT HAS COURSE LUNG SOUNDS. CONGESTION CAN BE HEARD WITOUT STETHASCOPE. SPUTUM HAS NOT BEEN COLLECTED DUE TO PATIENT UNABLE TO UNDERSTAND HOW TO HELP NURSE COLLECT. PATIENT IS RECEIVING UNISYN IV Q 6 HOURS. IV PATENT. JPEG IN PLACE AND NUTRITION RUNNING. PEG SITE CLEANSED. SKIN HAS A COUPLE AREAS WHERE BRUISING IS NOTED. UPPER POSTERIOR LEFT ARM, AND LEFT KNEE. STAFF AT [facility] CALLED TODAY AND THIS MANAGER [facility]ACE INQUIRED ABOUT THE SKIN. THEY WERE UNSURE OF HOW THE AREAS BECAME BRUISED. PATIENT HAS KENALOG OR TRIAMCINOLONE KELLE APPLIED TO FOLDS THROUGHOUT THE DAY. LOW ABDOMEN FOLDS PINK BUT APPEAR TO BE OKAY-CLOSED. PROVIDER ATTEMPTING TO DC PATIENT BACK TO [facility] TODAY, BUT STAFF AT [facility] ARE UNAVAILABLE TO RECEIVE PATIETN AT THIS TIME. THEY STATE AVAILABILITY FOR PATIENT TO RETURN TOMORROW.
--- NOTE | 2021-06-26 16:45 | NUR ---
MESSAGE FROM CASE MANAGEMENT, PT WILL BE RETURNING HOME TO [facility] THIS EVENING BEFORE 1830.
--- NOTE | 2021-06-26 18:43 | NUR ---
DISCHARGE PATIENT DISCHARGED BACK TO [facility] WITH STAFF FROM THE CARE FACILITY TRANSPORTING. HER IV WAS DC'D AND STAFF UPDATED ON THE TWO NEW MEDICATIONS THAT THE PATIENT WAS PRESCRIBED. THE ITEMS THAT WERE IN THE PATIENT ROOM WERE BAGGED UP AND SENT WITH THE PATIENT AND HER CARE TAKERS. SHE WAS WHEELED OUT OF THE FACILTY BY MATTEO, WITH HER [facility] STAFF.
== END 2021-06-26 18:35 | disposition home or self-care (01) | DRG 871 ==
LOC: ER 12:40 → PCU 17:17 → MEDS 06-25 18:18
PROVIDERS: Family Medicine; Physician Assistant; ADMIT Internal Medicine
DX: A41.9 Sepsis, unspecified organism (principal); J69.0 Pneumonitis due to inhalation of food and vomit; J96.21 Acute and chronic respiratory failure with hypoxia; E87.0 Hyperosmolality and hypernatremia; R65.20 Severe sepsis without septic shock; Z20.822 Contact with and (suspected) exposure to COVID-19; K21.9 Gastro-esophageal reflux disease without esophagitis; K59.00 Constipation, unspecified; E87.6 Hypokalemia; E66.9 Obesity, unspecified; E03.9 Hypothyroidism, unspecified; D64.9 Anemia, unspecified; I35.0 Nonrheumatic aortic (valve) stenosis; Z93.1 Gastrostomy status; N18.9 Chronic kidney disease, unspecified; Z68.34 Body mass index [BMI] 34.0-34.9, adult; Z98.890 Other specified postprocedural states; Z79.82 Long term (current) use of aspirin; Z79.899 Other long term (current) drug therapy
CPT/HCPCS: 0241U; 36415; 71046; 71260; 80053; 83605; 83880; 84145; 84484; 85025; 85379; 87040; 93005; 93010; 94640; 94660; 96365; 96375; 99285-25; A9270; J0295; J0456; J0696; J1650; J2060; J2930; J3480; J7030; J7050; Q9967

== ENCOUNTER 2021-08-10 07:21 | Emergency (ER) | payer OTHER ==
[~2021-08-10] VITALS: Ht 152.4 cm; Wt 86.6 kg
[~2021-08-10 07:21] MED LIST changes: +BANATROL PLUS1 EAC1 PT; +BANOPHEN50 M1 PT
== END 2021-08-10 10:00 | disposition home or self-care (01) ==
LOC: ER 07:21
DX: K94.23 Gastrostomy malfunction (principal); Z88.8 Allergy status to other drugs, medicaments and biological substances; Z79.899 Other long term (current) drug therapy; Z79.82 Long term (current) use of aspirin; E03.9 Hypothyroidism, unspecified; D64.9 Anemia, unspecified
CPT/HCPCS: 43762; 99282-25

== ENCOUNTER 2021-08-12 18:34 | Emergency (ER) | payer OTHER ==
[~2021-08-12] VITALS: Ht 167.6 cm; Wt 99.8 kg
== END 2021-08-12 21:14 | disposition home or self-care (01) ==
LOC: ER 18:34
DX: J40 Bronchitis, not specified as acute or chronic (principal); E03.9 Hypothyroidism, unspecified; Z79.899 Other long term (current) drug therapy
CPT/HCPCS: 71045; 94644; 94664; 99284-25

== ENCOUNTER 2021-08-13 12:19 | Inpatient (IN) | payer OTHER ==
[~2021-08-13] VITALS: Ht 167.6 cm; Wt 86.8 kg
[2021-08-13 12:47] LABS: Hematocrit 34.2 % (33.0-51.0); Mean Corpuscular HGB Conc 32.2 g/dL (31.5-36.5); Mean Corpuscular Volume 106 fL (80-100); Mean Platelet Volume 10.2 fL (9.1-12.4); Platelet Count 126 K/mm3 (150-400); RDW Coefficient Variation 15.7 % (11.7-14.2); Red Blood Cell Count 3.24 M/mm3 (3.80-5.20); White Blood Cell Count 17.28 K/mm3 (4.00-11.30)
[2021-08-13 13:07] LABS: BAND PERCENT MAN 13 % (0-8); BASOPHILS ABSOLUTE MAN 0.17 K/mm3 (0.00-0.23); BASOPHILS PERCENT MAN 1 % (0-2); EOSINOPHILS ABSOLUTE MAN 0.17 K/mm3 (0.00-0.68); EOSINOPHILS PERCENT MAN 1 % (0-6); LYMPHOCYTES ABSOLUTE MAN 1.03 K/mm3 (0.84-5.20); LYMPHOCYTES PERCENT MAN 6 % (21-46); MONOCYTES ABSOLUTE MAN 1.03 K/mm3 (0.16-1.47); MONOCYTES PERCENT MAN 6 % (4-13); NEUTROPHILS ABSOLUTE MAN 14.86 K/mm3 (1.96-9.15); SEG NEUTROPHILS PERCENT MAN 73 % (41-73); TOTAL CELLS COUNTED 100
[2021-08-13 13:10] LABS: Alanine Aminotransfer (ALT/SGP 39 U/L (12-78); Albumin, Blood 2.5 g/dL (3.4-5.0); Albumin/Globulin Ratio 0.6 (0.8-1.8); Alk Phos 180 U/L (50-136); Anion Gap 0 mmol/L (6-16); Aspartate Aminotrans (AST/SGOT 23 U/L (12-37); Bilirubin, Total 0.4 mg/dL (0.1-1.0); Blood Urea Nitrogen 23 mg/dL (8-24); Bun/Creatinine Ratio 38.9 (12.0-20.0); CO2, Blood 43 mmol/L (21-32); Calcium, Blood 9.4 mg/dL (8.5-10.1); Chloride, Blood 95 mmol/L (98-108); Creatinine, Blood 0.59 mg/dL (0.40-1.00); Globulin, Blood 4.3 g/dL (2.2-4.0); Glomerular Filtration Rate >60 (60-); Glucose, Blood 94 mg/dL (70-99); Potassium, Blood 4.7 mmol/L (3.5-5.5); Sodium, Blood 138 mmol/L (136-145); Total Protein, Blood 6.8 g/dL (6.4-8.2)
[2021-08-13 13:46] LABS: Influenza A, PCR NEGATIVE (NEGATIVE); Influenza B, PCR NEGATIVE (NEGATIVE); Resp Syncytial Virus, PCR NEGATIVE (NEGATIVE); SARS-Cov-2 (COVID-19) PCR, MMC NEGATIVE (NEGATIVE)
[2021-08-13 13:51] LABS: Base Excess Venous 18.5 mmol/L; Bicarbonate Venous 39.6 mmol/L (24.0-30.0); PCO2 Venous 76.9 mmHg (38-42); PO2 Venous 141 mmHg (38-42); pH Blood Venous 7.37 (7.34-7.37)
[2021-08-13 15:19] LABS: Source, Urine Foley catheter
[2021-08-13 15:35] LABS: Appearance, Urine Hazy (Clear); Bilirubin, Urine Neg (Neg); Blood, Urine 2+ (Neg); Color, Urine Yellow (P-Yellow); Glucose Qualitative, Urine Neg (Neg); Ketones, Urine Neg (Neg); Leukocyte Esterase, Urine 3+ (Neg); Nitrite, Urine Neg (Neg); Protein, Urine Neg (Neg); Urobilinogen, Urine NORM (Normal)
[2021-08-13 16:00] LABS: Bacteria Many /hpf; Hyaline Casts 0-2 /lpf (0-2); Squamous Epithelial Cells Mod /hpf (Few); White Blood Cells, Urine TNTC /hpf (0-5)
--- NOTE | 2021-08-13 18:25 | NUR ---
ICU ADMISSION / SHIFT SUMMARY: REPORT RECEIVED FROM AMAYA Vega RN. PT ARRIVED TO ICU-03 AT APPROX 1535. ON ARRIVAL, THE PT IS SOMNOLENT, AWAKENING ONLY BRIEFLY TO TACTILE STIMULUS & BECOMING AGITATED, PULLING AT GOWN & WITHDRAWING FROM CARE. SHE IS NONVERBAL AT BASELINE & IS NOT FULLY REDIRECTABLE W/ VERBAL REASSURANCE. LS SLIGHTLY COARSE IN UPPER LOBES W/ OCCASIONAL SNORING SOUND NOTED. PT ON 12L OXYMIZER W/ O2 SATS > 90% ON ARRIVAL. INCREASED TO 15 L/MIN AFTER LORAZEPAM ADMIN FOR DESATS TO 87%. O2 CURRENTLY AT 10 L/MIN VIA OXYMIZER W/ O2 SATS > 92%. MONITOR SHOWS SR W/ HR 60-80s, HYPOTENSIVE. LEVOPHED INITIALLY INFUSING AT 20 MCG/MIN VIA PIV TO RIGHT WRIST. PICC LINE PLACED TO [facility] BY SATURNINO Ashford RN. VASOPRESSIN STARTED PER DR CAAL & LEVOPHED NOW DECREASED TO 16 MCG/MIN. PEG TUBE IN PLACE TO LUQ, PT NPO. TEMP JEREZ PATENT/ DRAINING PALE YELLOW URINE. SKIN OVERALL FRAGILE W/ NUMEROUS AREAS OF REDNESS NOTED. PHOTO DOCUMENTATION COMPLETED & PLACED IN CHART. WILL CONTINUE TO MONITOR & REPORT OFF TO ONCOMING RN.
--- NOTE | 2021-08-13 19:30 | NUR ---
Assumed care after report received. assessment complete. responds to pain. pupils sluggish. levo and vasopressin infusing to left picc line. hypothermic, izzy hugger in place for warming.
--- NOTE | 2021-08-13 21:45 | NUR ---
sudden drop of O2 sats to 70's. audible rattles heard. oxygen increased to 12L, oral suctioned with [place]. large amount of thick jensen secreations from back of throat. Sats recovered back to 90's
[2021-08-14 03:50] LABS: Hematocrit 30.7 % (33.0-51.0); Hemoglobin 9.6 g/dL (11.5-16.0); Mean Corpuscular HGB Conc 31.3 g/dL (31.5-36.5); Mean Corpuscular Volume 109 fL (80-100); Mean Platelet Volume 10.2 fL (9.1-12.4); NRBC ABSOLUTE 0.02 K/mm3 (0.00-0.02); NRBC Auto 0.1 /100 WBC (0.0-0.2); Platelet Count 106 K/mm3 (150-400); RDW Coefficient Variation 15.9 % (11.7-14.2); RDW Standard Deviation 63.7 fL (35.1-46.3); Red Blood Cell Count 2.82 M/mm3 (3.80-5.20); White Blood Cell Count 15.62 K/mm3 (4.00-11.30)
[2021-08-14 04:19] LABS: Alanine Aminotransfer (ALT/SGP 31 U/L (12-78); Albumin, Blood 2.2 g/dL (3.4-5.0); Albumin/Globulin Ratio 0.6 (0.8-1.8); Alk Phos 136 U/L (50-136); Anion Gap 0 mmol/L (6-16); Aspartate Aminotrans (AST/SGOT 18 U/L (12-37); Bilirubin, Total 0.3 mg/dL (0.1-1.0); Blood Urea Nitrogen 19 mg/dL (8-24); Bun/Creatinine Ratio 36.5 (12.0-20.0); CO2, Blood 40 mmol/L (21-32); Calcium, Blood 8.8 mg/dL (8.5-10.1); Chloride, Blood 100 mmol/L (98-108); Creatinine, Blood 0.52 mg/dL (0.40-1.00); Glomerular Filtration Rate >60 (60-); Glucose, Blood 103 mg/dL (70-99); Potassium, Blood 4.7 mmol/L (3.5-5.5); Sodium, Blood 140 mmol/L (136-145); Total Protein, Blood 6.2 g/dL (6.4-8.2)
--- NOTE | 2021-08-14 06:31 | NUR ---
No changes in mentation through night. responds to tachtile stimuli. continues to be hypotensive controlled with levo and vasopressin. See flowsheet for titrations.
--- NOTE | 2021-08-14 07:30 | NUR ---
ASSUMED CARE: REPORT RECEIVED FROM RENO Silva RN. ASSUMED CARE OF THIS PT AT APPROX 0700. ON ASSESSMENT, THE PT IS RESTING QUIETLY. SHE DOES NOT AWAKEN FULLY TO VERBAL STIMULUS BUT WITHDRAWS EXTREMITIES FROM PAINFUL STIMULUS. NONVERBAL AT BASELINE. LS DIM T/O, PT ON 12L OXYMIZER W/ O2 SATS > 95%. MONITOR SHOWS SR W/ HR 70s, LEVOPHED & VASOPRESSIN INFUSING FOR PERSISTANT HYPOTENSION. PEG TUBE IN PLACE TO LUQ IS CLAMPED, BT HYPOACTIVE. TEMP JEREZ PATENT/ DRAINING YELLOW URINE. PT NOW NORMOTHERMIC. SKIN CONDITION OVERALL FRAGILE W/ NUMEROUS REDDENED AREAS NOTED TO FOLDS/ BUTTOCKS. PHOTOS IN CHART. Q2H REPOSITIONING TO MAINTAIN SKIN INTEGRITY. WILL CONTINUE TO MONITOR & UPDATE NEEDED.
--- NOTE | 2021-08-14 08:32 | NUR ---
DR CAAL: PROVIDER AT BEDSIDE THIS AM TO EVAL PT. DISCUSSED PT's DECREASED PLT COUNT THIS AM, POSSIBLY DILUTIONAL, OKAY TO GIVE AM DOSE OF LOVENOX. ALSO DISCUSSED NUTRITIONAL NEEDS FOR THIS PT. DELAY FEEDINGS FOR ANOTHER DAY AT THIS POINT R/T THICK ART SPUTUM NT SUCTIONED BY PROVIDER. OBTAIN SPUTUM SAMPLE NEXT TIME NT SUCTIONING COMPLETED. ORDERS PLACED. NO OTHER CHANGES AT THIS TIME.
--- NOTE | 2021-08-14 10:21 | NUR ---
NILTON - BATTERY HAND AT [facility]: NEEDLE CONTROL CHENILLER FROM [facility], NILTON, HAS CALLED REQUESTING AN UPDATE ON THE PT's STATUS. UPDATE PROVIDED. WHEN QUESTIONED ABOUT THE PT's BASELINE MENTATION, HE STS THAT SHE IS NOT COMPLETELY NONVERBAL & WILL OCCASIONALLY SPEAK SIMPLY W/ STAFF MEMBERS OR EVEN YELL OUT WHEN FRUSTRATED. THE PT's MENTATION CURRENTLY IS OVERALL SOMNOLENT W/ BRIEF PERIODS OF AWAKENING/ MOVEMENT WHEN ADLs ARE BEING COMPLETED.
--- NOTE | 2021-08-14 12:05 | NUR ---
TUBE FEEDING: PER DIETARY, TUBE FEEDS INTIATED AT APPROX 1200 AT ORDERED DOSE OF 20 ML/HR W/ 30 ML H2O FLUSH Q4H. MILY-CHARLTON EXTENSION TUBING NOW IN PLACE. <10 ML BILE NOTED WHEN CHECKING RESIDUAL & PEG TUBE FLUSHED W/ 30 ML H2O PRIOR TO BEGINNING TUBE FEEDS.
--- NOTE | 2021-08-14 17:34 | NUR ---
SHIFT SUMMARY: NO ACUTE CHANGES SINCE PRIOR UPDATES. PT REMAINS SOMNOLENT OVERALL BUT IS NOW OPENING EYES & LOOKING TOWARDS STAFF MEMBERS WHILE ADLs BEING COMPLETED. LS COARSE IN UPPER LOBES AT TIMES, DIM T/O. PT HAS PRODUCTIVE COUGH & NT SUCTIONING COMPLETED x2 TODAY W/ LARGE AMNTS THICK ART SPUTUM SUCTIONED. SPUTUM SENT FOR CX. PT CURRENTLY ON 4L NC W/ O2 SATS > 92%. MONITOR SHOWS SR W/ HR 60-70s, LEVOPHED & VASOPRESSIN INFUSING FOR HYPOTENSION. PEG TUBE TO LUQ W/ MILY-CHARLTON EXTENSION SET IN PLACE. TUBE FEEDS INFUSING AT GOAL RATE OF 20 ML/HR W/ 40 ML RESIDUAL NOTED THIS EVENING. TEMP JEREZ PATENT/ DRAINING YELLOW URINE W/ COPIOUS AMNTS SEDIMENT/ PURULENCE NOTED IN TUBING. SKIN OVERALL FRAGILE, REDDENED AREAS NOTED IN FOLDS & ON BUTTOCKS. Q2H REPOSITIONING TO MAINTAIN SKIN INTEGRITY. WILL CONTINUE TO MONITOR & REPORT OFF TO ONCOMING RN.
--- NOTE | 2021-08-14 19:00 | NUR ---
ASSUMED CARE ASSUMED CARE OF PATIENT. ROUSES TO VERBAL STIMULI. SPEECH IS GARBLED AND DIFFICULT TO UNDERSTAND. MOVES ALL EXTREMITIES WEAKLY. BILATERAL UPPER AND LOWER EXTREMITY CONTRACTURES NOTED. NOT FOLLOWING COMMANDS. PT DOES TRACK WITH EYES. MONITOR SHOWS NSR, RATE 60s. LEVOPHED AT 8MCG/MIN AND VASOPRESSIN AT 0.04UNITS/MIN TO MAINTAIN MAP >65. AFEBRILE. RESPIRATIONS 22-28. OCCASIONAL MOIST COUGH NOTED. O2 4LNC TO MAINTAIN SATS >90%. PEG TUBE WITH TWO CIPRIANO HN AT GOAL RATE OF 20CC/HR. 30CC H20 FLUSH Q4H. JEREZ PATENT AND DRAINING TO GRAVITY- SOME SEDIMENT NOTED IN TUBING. SEE SHIFT ASSESSMENT FOR FULL ASSESSMENT.
[2021-08-15 05:04] LABS: BASOPHILS ABSOLUTE AUTO 0.03 K/mm3 (0.00-0.23); BASOPHILS PERCENT AUTO 0 % (0-2); EOSINOPHILS ABSOLUTE AUTO 0.03 K/mm3 (0.00-0.68); EOSINOPHILS PERCENT AUTO 0 % (0-6); Hematocrit 26.9 % (33.0-51.0); Hemoglobin 8.3 g/dL (11.5-16.0); IMMATURE GRAN ABSOLUTE AUTO 0.17 K/mm3 (0.00-0.10); IMMATURE GRAN PERCENT AUTO 2 % (0-1); LYMPHOCYTES PERCENT AUTO 10 % (21-46); MONOCYTES ABSOLUTE AUTO 0.87 K/mm3 (0.16-1.47); MONOCYTES PERCENT AUTO 9 % (4-13); Mean Corpuscular HGB Conc 30.9 g/dL (31.5-36.5); Mean Corpuscular Volume 110 fL (80-100); Mean Platelet Volume 10.8 fL (9.1-12.4); NEUTROPHILS ABSOLUTE AUTO 7.21 K/mm3 (1.96-9.15); NEUTROPHILS PERCENT AUTO 78 % (41-73); Platelet Count 95 K/mm3 (150-400); RDW Coefficient Variation 15.9 % (11.7-14.2); Red Blood Cell Count 2.44 M/mm3 (3.80-5.20); White Blood Cell Count 9.21 K/mm3 (4.00-11.30)
[2021-08-15 05:30] LABS: Alanine Aminotransfer (ALT/SGP 25 U/L (12-78); Albumin, Blood 2.2 g/dL (3.4-5.0); Albumin/Globulin Ratio 0.6 (0.8-1.8); Alk Phos 122 U/L (50-136); Anion Gap 4 mmol/L (6-16); Aspartate Aminotrans (AST/SGOT 20 U/L (12-37); Bilirubin, Total 0.5 mg/dL (0.1-1.0); Blood Urea Nitrogen 17 mg/dL (8-24); Bun/Creatinine Ratio 36.2 (12.0-20.0); CO2, Blood 40 mmol/L (21-32); Calcium, Blood 9.4 mg/dL (8.5-10.1); Chloride, Blood 100 mmol/L (98-108); Creatinine, Blood 0.47 mg/dL (0.40-1.00); Glomerular Filtration Rate >60 (60-); Glucose, Blood 84 mg/dL (70-99); Potassium, Blood 4.1 mmol/L (3.5-5.5); Sodium, Blood 144 mmol/L (136-145); Total Protein, Blood 6.2 g/dL (6.4-8.2)
--- NOTE | 2021-08-15 06:25 | NUR ---
SHIFT SUMMARY NO ACUTE CHANGES. PT IS MORE AWAKE THIS AM AND IS YELLING OUT. SPEECH IS STILL GARBLED/DIFFICULT TO UNDERSTAND. FREQUENT MOIST COUGH. FREQUENT NT AND ORAL SUCTIONING REQUIRED- THICK ART SPUTUM WITH SOME PINK. TACHYPNEIC AT TIMES. 02 6L NC. MONITOR SHOWS NSR, RATE 60s-70s. LEVOPHED AT 6MCG/MIN AND VASOPRESSIN AT 0.04UNITS/MIN TO MAINTAIN MAP >65. PEG TUBE WITH TUBE FEEDING AT 20CC/HR (GOAL). JEREZ PATENT AND DRAINING TO GRAVITY. INCONTINENT OF LARGE LOOSE STOOL THIS AM. WILL REPORT TO ONCOMING RN WHEN AVAILABLE.
--- NOTE | 2021-08-15 06:45 | NUR ---
O2 REQUIREMENTS O2 SATS 86-88% ON 6L NC. CHANGED TO 8L OXYMIZER AT THIS TIME MAINTAIN SATS >90%. NT SX'D FOR MODERATE AMOUNT OF THICK ART SPUTUM.
--- NOTE | 2021-08-15 08:37 | NUR ---
TEMP 100.0 FROM JEREZ, 99.3 FROM TEMPORAL, ICE PACKS TO PATIENT, REFUSING ORAL CARE AND SUCTIONING. LS COARSE AND RHONCHI IN UPPER AIR WAY, PATIENT UNABE TO CLEAR OWN SECRETIONS. ICE PACKS TO PATIENT, REPOSITIONED, WCTM
--- NOTE | 2021-08-15 09:24 | NUR ---
DR CAAL ROUNDED, OK TO DO DEEP SUCTION, NO NEW CHANGES TO CARE, PATIENT IMPROVING COMPARED TO YESTERDAY
--- NOTE | 2021-08-15 12:48 | NUR ---
REPORTED TO DR CAAL, 350 ML OF WHAT LOOKS LIKE TUBE FEED DEEP SUCTIONED FROM PATIENT, OK TO LEAVE TF ON HOLD FOR NOW. DR RAY ROUNDED, PALIATIVE CARE CONSULT ORDERED
--- NOTE | 2021-08-15 17:13 | NUR ---
nonverbal, unable to make needs known, verbal noise uncomprehensable. open eyes to voice, tracks staff in room, talks some at baseline. repositioned every two hours, bm soft x2, tf on hold due to deep suction 350 ml of what looks like tf. ls coarse with rhonci, improved after deep suction but still unable to clear throat sputumn, patient unable to manage own secretions, 5l vi oxymizer. nsr sb heart rtae 62, was 47 at one time today, levophed infusing at 2 mcg 7.5 ml/hr, vasopres on sb, tko ns at 10 ml/hr. hypoactive bt, tf on hold, peg tube clamped. clear yellow urine temp hale draining to gravity. skin intact, redness to folds and buttocks, will relay to pm rn, troy
--- NOTE | 2021-08-15 18:39 | NUR ---
Pt increased anexiety and shortness of breath placed on bipapa. Physician discussed with family prognosis and decline in condition due to worseing cardiac pain. pt pps score is 20%. family made her comfort due to worsining troponin and no treatments that are viable for pt. Pt placed on comfort care.
--- NOTE | 2021-08-15 21:43 | NUR ---
ASSUMED CARE AT 1900 PT LAYING IN BED WATCHING TV AND DOZE OFF. PT HAS ONLY COMMUNICATED VIA MOANS AND SOUNDS, NOT FORMING WORDS; PT DID NOT FOLLOW DIRECTIONS; WAS VERY RESISTIVE IN MOVEMENTS AND ASSESSMENT; DOES SPONTANIOUSLY OPEN EYES AND CAN TRACK MOVEMENT IN ROOM. COARSE LUNG SOUNDS T/O; VERY LOOSE AND MOIST COUGH NOTED, PT VERY RESISITIVE TO ORAL SUCTION; SPO2 >95% ON 5L NC. AFEBRILE. HR 60-70'S. SBP 110-120'S; LEVOPHED INFUSING AT 3MCG/MIN. PEG TUBE IN PLACE; TF ON HOLD FOR NOW DUE TO ASPIRATION; SITE AROUND PEG TUBE HAS REDNESS. JEREZ IN PLACE AND DRAINING TO GRAVITY. SEE SHIFT ASSESSMENT FOR FULL ASSESSMENT.
[2021-08-16 04:54] LABS: BASOPHILS ABSOLUTE AUTO 0.04 K/mm3 (0.00-0.23); BASOPHILS PERCENT AUTO 1 % (0-2); EOSINOPHILS ABSOLUTE AUTO 0.02 K/mm3 (0.00-0.68); EOSINOPHILS PERCENT AUTO 0 % (0-6); Hemoglobin 8.4 g/dL (11.5-16.0); IMMATURE GRAN ABSOLUTE AUTO 0.18 K/mm3 (0.00-0.10); IMMATURE GRAN PERCENT AUTO 2 % (0-1); LYMPHOCYTES ABSOLUTE AUTO 0.87 K/mm3 (0.84-5.20); LYMPHOCYTES PERCENT AUTO 10 % (21-46); MONOCYTES ABSOLUTE AUTO 0.83 K/mm3 (0.16-1.47); MONOCYTES PERCENT AUTO 10 % (4-13); Mean Corpuscular HGB 34.4 pg (26.0-34.0); Mean Corpuscular HGB Conc 31.1 g/dL (31.5-36.5); Mean Corpuscular Volume 111 fL (80-100); Mean Platelet Volume 10.4 fL (9.1-12.4); NEUTROPHILS ABSOLUTE AUTO 6.63 K/mm3 (1.96-9.15); NEUTROPHILS PERCENT AUTO 77 % (41-73); Platelet Count 87 K/mm3 (150-400); RDW Coefficient Variation 15.5 % (11.7-14.2); RDW Standard Deviation 62.2 fL (35.1-46.3); Red Blood Cell Count 2.44 M/mm3 (3.80-5.20); White Blood Cell Count 8.57 K/mm3 (4.00-11.30)
[2021-08-16 05:11] LABS: Anion Gap 0 mmol/L (6-16); Blood Urea Nitrogen 15 mg/dL (8-24); Bun/Creatinine Ratio 39.4 (12.0-20.0); CO2, Blood 42 mmol/L (21-32); Calcium, Blood 9.4 mg/dL (8.5-10.1); Chloride, Blood 104 mmol/L (98-108); Creatinine, Blood 0.38 mg/dL (0.40-1.00); Glomerular Filtration Rate >60 (60-); Glucose, Blood 68 mg/dL (70-99); Potassium, Blood 3.6 mmol/L (3.5-5.5); Sodium, Blood 146 mmol/L (136-145)
--- NOTE | 2021-08-16 06:20 | NUR ---
END OF SHIFT SUMMARY NO ACUTE EVENTS OVERNIGHT. PT HAS BECOME MORE ALERT AND INTERACTING WITH TV MORE; CONT TO BE CHALLENGING TO UNDERSTAND SPEECH. AFEBRILE. SPO2 >94% ON 5L OXYMIZER; WHEN OXYMIZER IS PULLED OFF BY PT, SPO2 DECRESES TO LOW 80'S; CONT TO HAVE WET, LOOSE COUGH BUT COUGH IS STRONGER; INCREASE IN ORAL SECREATIONS; ATTEMPTED SUBGLOTTIC SUCTION ONCE WITH LITTLE SUCCESS. HR 60'S. SBP 120-130'S; LEVOPHED ON SB SINCE 214. PEG TUBE CLAMPED ALL NIGHT. JEREZ IN PLACE WITH 1800ML URINE OUTPUT. PICC LINE SHOWS 2CM EXPOSED WHILE DOCUMENTATION STATES 4CM; TKO STOPPED; DISCUSSED WITH PHYSICAL THERAPIST AIDE; WILL REPORT THIS TO AM RN TO DISCUSS WITH PICC RN. WILL REPORT TO AM RN WHEN AVAILABLE.
--- NOTE | 2021-08-16 09:29 | NUR ---
DR CAAL ROUNDED, SIGNED OFF ON PATIENT CARE, LEVOPHED OFF SINCE 2 AM, VASO OFF SINCE 08/15/21 1100, TF TO STAY ON HOLD, WILL RELAY TO DR RAY
--- NOTE | 2021-08-16 11:24 | NUR ---
RESTARTED TF GOAL OF 20 ML/HR, REGLAN Q8H, AND PATIENT STATUS CHANGED TO PCU
--- NOTE | 2021-08-16 18:14 | NUR ---
PATIENT UNABLE TO CELARLY MAKE NEEDS KNOWN, GIBERISH TALK, CAN MAKE OUT SOME WORDS. ARMS AND LEGS CONTRACTED, VERY STIFF TO MOVEMENT, HAS STRENGTH IN LEFT AND RIGHT FAS' AND HANDS. LS RHONCHI TO CLEAR TO DIMINSHED, PATIENT UNABLE TO MANAGE OWN ORAL SECRETIONS, DEEP SUCTION DONE ONCE TODAY, MINMAL AMOUNT UP, PATIENT HAS A STRONG COUGH NOW, CLEARING HER AIRWAY BETTER, REFUSES ANY ORAL CARE OR SUCTION, 4L O2 VIA OXYMIZER. HEART RATE 60 -80, OFF LEVOPHED 08/16/2021 AT 0200 AND VASOPRESSON OFF SINCE 08/15/21 1100. HYPOACTIVE BT, TF RESTARTED, 2CALHN AT 20 ML/HR, NO RESIDUALS, PERMANENT PEG TUBE, LOOSE STOLLS. CLEAR YELLOW URINE, TEMP JEREZ TO GRAVITY. REDNESS ON FOLDS AND BUTTOCKS, PHOTOS IN CHART. PALLIATIVE CARE AND HARNESSMAKER ON PATIENT CASE TO DISCUSS WITH POA AND PATIENTS GUARDIAN FOR CODE STATUS, LIMITED INTERVENTION OF NOW, PATEINT CONITUALLY ASPIRATING, WILL RELAY TO PM RN, KELLEN
--- NOTE | 2021-08-17 05:15 | NUR ---
SHIFT SUMMARY PT TRANSFERRED FROM ICU. PT IS NONVERBAL AT BASELINE; PERIODICALLY CALLS OUT BUT SPEECH IS GARBLED. PT IS UNABLE TO RESPOND TO QUESTIONS. VITAL SIGNS CONSISTENT THROUGHOUT SHIFT WITH SYSTOLIC BP IN 130 - 140'S AND O2 SATURATIONS >94% WITH 5 L VIA NC. PT PERIODICALLY REMOVES NC. PT HAS JEREZ CATHETER DRAINING TO GRAVITY. URINE IS DARK YELLOW, NO VISBLE SEDIMENT. PT'S URINE OUTPUT WAS 250 ML FOR SHIFT. PT DID NOT HAVE BM DURING SHIFT. PT HAS PEG TUBE THAT WAS PLACED IN 2017; TUBE FEEDINGS ARE CURRENTLY BEING HELD DUE TO ASPIRATION. PT HAS PICC LINE IN UPPER LEFT ARM; PICC IS PATENT AND FLUSHES WELL. DRESSING IS DRY AND INTACT. PT IS RECEIVING NS TO KEEP OPEN. PT WAS TURNED AND REPOSITIONED Q2. PT IS, AT TIMES, RESISTANT WHILE PROVIDING CARE. PT COUGHS UP THICK, CLEAR SECRETIONS. PT IS UNABLE TO COMMUNICATE NEEDS. WILL CONTINUE TO MONITOR STATUS. BED IS IN LOWEST POSITION, SIDERAILS ARE UP, AND BED ALARM SET. CALL LIGHT IS WITHIN REACH.
[2021-08-17 08:21] LABS: BASOPHILS ABSOLUTE AUTO 0.03 K/mm3 (0.00-0.23); BASOPHILS PERCENT AUTO 0 % (0-2); EOSINOPHILS ABSOLUTE AUTO 0.01 K/mm3 (0.00-0.68); EOSINOPHILS PERCENT AUTO 0 % (0-6); Hematocrit 29.9 % (33.0-51.0); Hemoglobin 9.2 g/dL (11.5-16.0); IMMATURE GRAN ABSOLUTE AUTO 0.14 K/mm3 (0.00-0.10); IMMATURE GRAN PERCENT AUTO 2 % (0-1); LYMPHOCYTES ABSOLUTE AUTO 1.01 K/mm3 (0.84-5.20); LYMPHOCYTES PERCENT AUTO 14 % (21-46); MONOCYTES ABSOLUTE AUTO 0.76 K/mm3 (0.16-1.47); MONOCYTES PERCENT AUTO 11 % (4-13); Mean Corpuscular HGB 33.9 pg (26.0-34.0); Mean Corpuscular HGB Conc 30.8 g/dL (31.5-36.5); Mean Corpuscular Volume 110 fL (80-100); Mean Platelet Volume 10.9 fL (9.1-12.4); NEUTROPHILS ABSOLUTE AUTO 5.16 K/mm3 (1.96-9.15); NEUTROPHILS PERCENT AUTO 73 % (41-73); Platelet Count 100 K/mm3 (150-400); RDW Coefficient Variation 15.7 % (11.7-14.2); RDW Standard Deviation 62.9 fL (35.1-46.3); Red Blood Cell Count 2.71 M/mm3 (3.80-5.20); White Blood Cell Count 7.11 K/mm3 (4.00-11.30)
[2021-08-17 08:38] LABS: Anion Gap 5 mmol/L (6-16); Blood Urea Nitrogen 23 mg/dL (8-24); Bun/Creatinine Ratio 43.6 (12.0-20.0); CO2, Blood 39 mmol/L (21-32); Calcium, Blood 9.4 mg/dL (8.5-10.1); Chloride, Blood 108 mmol/L (98-108); Creatinine, Blood 0.53 mg/dL (0.40-1.00); Glomerular Filtration Rate >60 (60-); Glucose, Blood 78 mg/dL (70-99); Potassium, Blood 3.4 mmol/L (3.5-5.5); Sodium, Blood 152 mmol/L (136-145)
--- NOTE | 2021-08-17 13:41 | NUR ---
CARE ASSUMPTION THIS RN ASSUMED CARE AT 0700. PATIENT IS ALERT TO SELF. DEVELOPMENTALLY DEALYED. PERRLA. PATIENT LUNG SOUNDS COARSE WITH A DIM WHEEZE IN THE UPPER LOBES. PATIENT ABD ACTIVE AND PEG TUBE SITE CLEANED. PATIENT HAD TUBE FEEDING RESTARTED AT 0800, PATIENT HAD NO RESIDUAL. PATIENT HAD SOME DROOLING THIS AM, CLEAR YELLOW THICK SECRETIONS, AND THIS RN SUCTIONED AND TRIED TO DO ORAL CARE BUT PATIENT REFUSED. PATIENT IS REPOSITIONED EVERY 2 HOURS TO PREVENT SKIN BREAKDOWN. VSS. TELE SR. SPO2 >90% ON 5L NC. PATIENT CAREGIVER FROM [facility] WAS BY THIS AM AND THIS RN GAVE AN UPDATE. PATEINT HAS JEREZ IN PLACE DRAINING WITH GRAVITY, YELLOW COLORATION. MD TO SEE PATIENT THIS AM AND DISCUSSED THE PLAN OF CARE WITH THIS RN MOVING FORWARD. THE PLAN IS TO EVENTUALLY REACH PATIEINT GOAL RATE OF 80ML/HR. CALL LIGHT IS WITHIN REACH AND BED IN LOWEST POSITION WITH BED ALARM ON.
--- NOTE | 2021-08-17 17:38 | NUR ---
SHIFT SUMMARY THE PATIENT NEURO REMAINS UNCHANGED AND INTACT. VSS. TELE SR. THE PATIENT HAD SECRETIONS/DROOL THAT WERE ART TINTED. THIS RN STOPPED THE TUBE FEEDING AND CHECKED THE RESIDUAL, THERE WAS 110, AND REINSTILLED 50ML OF IT. HELD FOR 10 MINS AND THEN CHECKED RESIDUAL AND THERE WAS NONE SO RESTARTED TUBE FEEDING. PATIENT SITTING AT 45 DEGREE WITH TUBE FEEDING GOING AT 30ML/HR GOAL RATE IS 80ML/HR AND IN THE AM AT 0800 THE PATIENT WILL BEGIN CYCLIC FEEDINGS. PATIENT HAS BEEN REPOSITIONED EVERY TWO HOURS. CALL LIGHT IS WITHIN REACH AND BED ALARM ON. WILL CONTINUE TO MONITOR AND PROVIDE CARE UNTIL HAND OFF WITH NEXT SHIFT.
--- NOTE | 2021-08-18 02:42 | NUR ---
PT HAS TEMPERATURE OF 101.7 AND IS HOT TO THE TOUCH. COLD PACKS AND FAN IN PLACE. WILL REASSESS TEMPERATURE AND CONTINUE TO MONITOR.
--- NOTE | 2021-08-18 03:37 | NUR ---
TEMPERATURE REASSESSED; WAS 99.1 AFTER APPLICATION OF ICE PACKS AND FAN. WILL CONTINUE TO MONITOR
[2021-08-18 04:29] LABS: BASOPHILS ABSOLUTE AUTO 0.02 K/mm3 (0.00-0.23); BASOPHILS PERCENT AUTO 0 % (0-2); EOSINOPHILS ABSOLUTE AUTO 0.01 K/mm3 (0.00-0.68); EOSINOPHILS PERCENT AUTO 0 % (0-6); Hemoglobin 9.3 g/dL (11.5-16.0); IMMATURE GRAN ABSOLUTE AUTO 0.09 K/mm3 (0.00-0.10); IMMATURE GRAN PERCENT AUTO 1 % (0-1); LYMPHOCYTES ABSOLUTE AUTO 1.13 K/mm3 (0.84-5.20); LYMPHOCYTES PERCENT AUTO 12 % (21-46); MONOCYTES ABSOLUTE AUTO 1.05 K/mm3 (0.16-1.47); MONOCYTES PERCENT AUTO 12 % (4-13); Mean Corpuscular HGB 33.9 pg (26.0-34.0); Mean Corpuscular Volume 110 fL (80-100); Mean Platelet Volume 10.8 fL (9.1-12.4); NEUTROPHILS ABSOLUTE AUTO 6.87 K/mm3 (1.96-9.15); NEUTROPHILS PERCENT AUTO 75 % (41-73); Platelet Count 104 K/mm3 (150-400); RDW Coefficient Variation 15.9 % (11.7-14.2); RDW Standard Deviation 64.5 fL (35.1-46.3); Red Blood Cell Count 2.74 M/mm3 (3.80-5.20); White Blood Cell Count 9.17 K/mm3 (4.00-11.30)
[2021-08-18 04:48] LABS: Anion Gap 4 mmol/L (6-16); Blood Urea Nitrogen 22 mg/dL (8-24); Bun/Creatinine Ratio 38.2 (12.0-20.0); CO2, Blood 41 mmol/L (21-32); Calcium, Blood 9.4 mg/dL (8.5-10.1); Chloride, Blood 110 mmol/L (98-108); Creatinine, Blood 0.58 mg/dL (0.40-1.00); Glomerular Filtration Rate >60 (60-); Glucose, Blood 135 mg/dL (70-99); Potassium, Blood 3.3 mmol/L (3.5-5.5); Sodium, Blood 155 mmol/L (136-145)
--- NOTE | 2021-08-18 04:53 | NUR ---
PT ALERT THROUGHOUT SHIFT, ALTHOUGH NONVERBAL. PT HAS TUBE FEEDINGS RUNNING AT 30MLS/HR. PT IS COUGHING SOME AND HAS CLEAR THICK SECRETIONS. PT TEMPERATURE WAS ELEVATED AT 101.7; ICE PACKS APPLIED UNDERARMS AND FAN PLACED ON BEDSIDE TABLE. AFTER REASSESSMENT, PT'S TEMPERATURE DECREASED TO 99.1. OTHER VITALS SIGNS REMAINED CONSISTENT THROUGHOUT SHIFT. PT REPOSITIONED THROUGHOUT SHIFT. WILL CONTINUE TO MONITOR. BED IN LOWEST POSITION, SIDE RAILS UP AND CALL LIGHT WITHIN REACH.
--- NOTE | 2021-08-18 10:05 | NUR ---
CARE ASSUMPTION THIS RN ASSUMED CARE FROM EMMANUEL RN., AND HER STUDENT AT 0700. PATIENT IS ALERT TO SELF. SHANE. THIS RN IS UNABLE TO ASSESS IF PATIENT IS EXPERINING CHEST PAIN, BUT DOESN'T APPEAR TO BE HAVING CHEST PAIN. PATIENT FROM THE FACES SCALE IS NO EXPERENCING PAIN. PATIENT DOES NOT APPEAR TO BE SHORT OF BREATH. PATIENT LOOKS PEACEFUL AND IS RELAXING. PATIENT LUNG SOUNDS ARE COARSE. PATIENT ABD IS SOFT AND ACTIVE. PEG TUBE CLEANED. CATH CARE DONE. JEREZ CATH DRIANING WITH GRAVITY YELLOW COLORATION. PATIENT HAS UPPER AND LOWER CONTRACTURES BILATERALLY. PATIENT TUBE FEEDING GOING CYCLIC AND GOING AT 50ML/HR. MD RAY BY TO SEE PATIENT THIS AM. PATIENT REPOSITIONED EVERY TWO HOURS TO PREVENT SKIN BREAKDOWN. KEEP POSITION HEAD ELEVATED FOR TUBE FEEDING. AM CARE PROVIDED, BUT DIFFICULT TO DO ORAL CARE DUE TO PATIENT NOT OPENING HER MOUTH. CALL LIGHT IS WITHIN REACH, BED IN LOWEST POSITION, AND BED ALARM ON. WILL CONTINUE TO MONITOR AND PROVIDE CARE.
--- NOTE | 2021-08-18 17:08 | NUR ---
SHIFT SUMMARY PATIENT NEURO REMAINS UNCHANGED. PATIENT HAS BEEN REPOSITIONED THROUGHOUT THE DAY. PATIENT RECEIVED 300ML OF FREE WATER AND TOLERATED WELL PER MD RAY ORDER. TUBE FEEDING AT 50ML/HR AND WILL BE STOPPED AT 1999. WILL LET NEXT SHIFT KNOW. PATIENT HAS JEREZ CATH DRAINING WITH GRAVITY, YELLOW COLORATION. NO ACUTE CHANGES THIS SHIFT. CALL LIGHT WITHIN REACH AND BED IN LOWEST POSITION WITH BED ALARM ON. WILL CONTINUE TO MONITOR AND PROVIDE CARE UNTIL NEXT SHIFT.
--- NOTE | 2021-08-18 22:05 | NUR ---
CLAMPED PEG TUBE AT 2000 - FEEDS ARE HELD AND PT IS RESTING AT THIS TIME. <50ML OF RESIDUAL, PEG FLUSHED AND CLAMPED. SITE C/D/I. NO SIGNS OF REDNESS OR SWELLING.
[2021-08-19 04:22] LABS: BASOPHILS ABSOLUTE AUTO 0.03 K/mm3 (0.00-0.23); BASOPHILS PERCENT AUTO 0 % (0-2); EOSINOPHILS ABSOLUTE AUTO 0.11 K/mm3 (0.00-0.68); EOSINOPHILS PERCENT AUTO 1 % (0-6); Hematocrit 30.9 % (33.0-51.0); Hemoglobin 9.5 g/dL (11.5-16.0); IMMATURE GRAN ABSOLUTE AUTO 0.05 K/mm3 (0.00-0.10); IMMATURE GRAN PERCENT AUTO 1 % (0-1); LYMPHOCYTES PERCENT AUTO 18 % (21-46); MONOCYTES ABSOLUTE AUTO 0.82 K/mm3 (0.16-1.47); MONOCYTES PERCENT AUTO 10 % (4-13); Mean Corpuscular HGB 33.8 pg (26.0-34.0); Mean Corpuscular HGB Conc 30.7 g/dL (31.5-36.5); Mean Corpuscular Volume 110 fL (80-100); NEUTROPHILS ABSOLUTE AUTO 5.54 K/mm3 (1.96-9.15); NEUTROPHILS PERCENT AUTO 70 % (41-73); Platelet Count 104 K/mm3 (150-400); RDW Coefficient Variation 15.9 % (11.7-14.2); RDW Standard Deviation 63.8 fL (35.1-46.3); Red Blood Cell Count 2.81 M/mm3 (3.80-5.20); White Blood Cell Count 7.95 K/mm3 (4.00-11.30)
[2021-08-19 04:41] LABS: Alanine Aminotransfer (ALT/SGP 70 U/L (12-78); Albumin, Blood 2.5 g/dL (3.4-5.0); Albumin/Globulin Ratio 0.6 (0.8-1.8); Alk Phos 125 U/L (50-136); Anion Gap 1 mmol/L (6-16); Aspartate Aminotrans (AST/SGOT 61 U/L (12-37); Bilirubin, Total 0.6 mg/dL (0.1-1.0); Blood Urea Nitrogen 17 mg/dL (8-24); Bun/Creatinine Ratio 42.7 (12.0-20.0); CO2, Blood 41 mmol/L (21-32); Calcium, Blood 9.4 mg/dL (8.5-10.1); Chloride, Blood 108 mmol/L (98-108); Glomerular Filtration Rate >60 (60-); Glucose, Blood 107 mg/dL (70-99); Potassium, Blood 3.6 mmol/L (3.5-5.5); Sodium, Blood 150 mmol/L (136-145); Total Protein, Blood 6.5 g/dL (6.4-8.2)
--- NOTE | 2021-08-19 05:25 | NUR ---
SHIFT SUMMARY PT RESTED WELL THROUGH THE NIGHT. MORE ALERT TONIGHT AND MORE VERBAL. SEEMED TO BE IN MORE PLEASANT MOOD. TELE READS NSR, AND SATS >95% ON 5L OXYMIZER. TUBE FEEDS OFF AT 1999. IVF RUNNING AT 75/HR, SHOWS IMPROVEMENT WITH SODIUM. [address], AND DRAINING TO GRAVITY. DANIELA CARE PERFORMED. VSS. CALL LIGHT IWTHIN REACH, BED IN LOWEST POSITION. WILL CONTINUE TO MONITOR.
--- NOTE | 2021-08-19 09:22 | NUR ---
CARE ASSUMPTION THIS RN ASSUMED CARE AT 0700 FROM EMMANUEL RN. VSS. TELE SR 64, REMOVED TELE DUE TO PATIENT STATUS CHANGE TO SURGICAL NO TELE. PATIENT IS ALERT TO SELF AND STATING "IM NOT A BABY". PATIENT IS MORE TALKATIVE THIS MORNING. PERRLA. PATIEINT LUNG SOUNDS COARSE, AND NO SHORTNESS OF BREATH NOTICED. SPO2 >90% ON 4L NC. PATIENT RADIAL PULSE STRONG AND PEDIS WELL. PATIENT SKIN HAS SOME BRUSING THROUGHOUT, REDDNESS IN SKIN FOLDS, AND A BLISTER ON HER RIGHT HEEL. ABD IS NONTENDER, MILD DISTENTION. PEG TUBE CLEANED AND NEW CLOTH PLACED. PATIENT TUBE FEEDING START AT 0800 AND RATE IS AT 65ML/HR WITH A FLUSH EVERY 2HRS OF 50ML. PATIENT JEREZ CATH IN PLACE, AND CATH CARE DONE THIS AM, DRAINING WITH GRAVITY CLEAR YELLOW. PATIENT HAS UPPER AND LOWER CONTRACTURES, AND STRONG BRACE END MAINSPRING FORMER. UNABLE TO DO RANGE OF MOTION. THIS RN GAVE REPORT TO COLOR MATCHER, AMAYA Szymanski RN,. PATIENT REMAINS STABLE. TRANSFERING TO NEW ROOM VIA BED. ALL PATIENT BELONGINGS WITH HER.
--- NOTE | 2021-08-19 09:57 | NUR ---
ARRIVED TO UNIT AT 0940 RESTING IN BED, ARMS & LEGS BOTH REMAIN CONTRACTED. PATIENT REFUSES TO LET ME PUT A BLOOD PRESSURE CUFF ON HER ARM, WILL CONTINUE TO TRY. 4L O2 IN PLACE VIA NC, RETRACTIONS PRESENT. ATTEMPTED TO ORIENT PATIENT TO CALL LIGHT, APPEARS TO BE UNINTERESTED. PER REPORT PATIENT IS NON VERBAL. WILL CONTINUE TO ORIENT NEEDED. CALL LIGHT IN REACH.
--- NOTE | 2021-08-19 10:44 | NUR ---
WAS ABLE TO OBTAIN VS ON PATIENT SINCE TRANSFER. VSS, ON 4 LO2, SATS MAINTAINING >92%. PATIENT IS RESISTENT WHEN ATTEMPTING TO MOVE ARMS/ROM. CONTINUES TO CALL OUT "I'M NOT A BABY", "IM NO KITTEN", :I DONT WANT NO PETS". PREVIOUS RN AMAYA Lee FROM PCU REPORTS THIS IS NORMAL FOR PATIENT.
--- NOTE | 2021-08-19 14:15 | NUR ---
Pt resting in bed with her eyes closed. Pt does not wake to gentle verbal stimuli. Currently on 4 LO2 via oxymizer. Pt left undisturbed at this time. Spoke with RN covering for Primary RN and slope runner. Discussed case and concerns. Palliative Care has had numerous discussion in the past with both [facility] and Pt's brother regarding goals of care and advanced care planning. Decision makers are aware of options and trajectory of disease process. Palliative Care will follow for supportive visits as needed.
--- NOTE | 2021-08-19 17:47 | NUR ---
SHIFT SUMMARY NO ACUTE CHANGES SINCE ARRIVAL TO UNIT. VSS, ON 4L OR VIA NC WHICH IS BASELINE FOR PATIENT. CBG'S IN LOW 100'S, NO COVERAGE. TUBE FEEDING RUNNING AT 65 ML/HR W/ 50ML FLUSH Q2 UNTIL 1999 TONIGHT. PATIENT HOB REMAINS AT 30 DEGREES OR HIGHER. JEREZ IN PLACE, INCONT OF BOWEL, ATTENDS IN PLACE, CLEAN & DRY @ THIS TIME. REPOSITIONED Q2 HR T/O SHIFT. PT IS NOONVERBALE W/ STAFF, DOES YELL OUT FREQUENTLY & MAKES RANDOM, REPETITIVE STATEMENTS SUCH "I AM NOT A KID", "I DONT WANT A DOG", "I WANT TO GO HOME", "I DONT LIKE CATS". UNABLE TO CARRY CONVERSATION W/ PATIENT. LEGS & ARMS CONTRACTED. ATTEMPTED TO HELP PATIENT STRAIGHTEN BUT SHE IS RESISTANT. PLACED FOAM HEAL COVERS ON BOTH FEET. ORAL CARE & EYE CARE NEEDED. CALL LIGHT IS IN REACH ALTHOUGH PATIENT HAS YET BEEN ABLE TO DEMONSTRATE USE. WILL CONTINUE TO MONITOR & REPORT TO ONCOMING RN.
--- NOTE | 2021-08-20 04:35 | NUR ---
SUMMARY NO NEW ISSUES NOTED. FEEDING STOPPED AT 2000 HRS PER ORDERS AND FLUSHED. NO RESIDUAL WAS FOUND. PT HAS BEEN SLEEPING AND BREATHING WITHOUT DIFFICULTY. PT CURRENTLY SLEEPING IN NO DISTRESS. CALL LIGHT IN REACH.
[2021-08-20 10:15] LABS: Anion Gap Unable to Calculate mmol/L (6-16); Blood Urea Nitrogen 13 mg/dL (8-24); Bun/Creatinine Ratio 32.8 (12.0-20.0); CO2, Blood 38 mmol/L (21-32); Calcium, Blood 8.7 mg/dL (8.5-10.1); Chloride, Blood 106 mmol/L (98-108); Glomerular Filtration Rate >60 (60-); Glucose, Blood 118 mg/dL (70-99); Potassium, Blood 4.2 mmol/L (3.5-5.5); Sodium, Blood 143 mmol/L (136-145)
--- NOTE | 2021-08-20 18:13 | NUR ---
SHIFT SUMMARY NO ACUTE CHANGES DURING MY SHIFT. VSS; 3L NC. WEAK PRODUCTIVE COUGH & ORAL SECRETIONS NOTED. TUBE FEEDING @ 80 ML/HR w/ 50 ML FLUSH Q2 UNTIL 1999 TONIGHT. APPEARS TO BE TOLERATING WELL. PATIENT HOB REMAINS AT 30 DEGREES OR HIGHER. INCONT OF LOOSE STOOL. ATTENDS IN PLACE. VERY RARELY MAKES NOISES THIS AM BUT THIS EVENING HAS STARTED SAYING RANDOM SHORT SENTENCES LIKE "HEY I DIDN'T DO THAT" OR OTHER RANDOM LINES. DOESN'T ANSWER ?'s WHEN ASKED OR MAKE/MAINTAIN EYE CONTACT.
--- NOTE | 2021-08-21 04:13 | NUR ---
SHIFT SUMMARY NO ACUTE CHANGES THIS SHIFT. PEG TUBE REMAINS INTACT. IV ABX PER ORDERS. PT HAS RESTED WELL T/O NIGHT. REMAINS NONVERBAL, BUT WILL OCCASSIONALLY YELL OUT WORDS. REPOSITIONING Q2 AND PRN. CALL LIGHT WITHIN REACH. BED ALARM IN PLACE FOR SAFETY.
--- NOTE | 2021-08-21 10:41 | NUR ---
DISCHARE REPORT CALLED REPORT TO DARLYN AT [facility]. GAVE UPDATE ON PATIENT STATUS: COMPLETED ABX, CURRENT PEG FEEDINGS, SKIN CONDITION, RESP STATUS. TRANSPORT SCHEDULED FOR 2-3 PM.
--- NOTE | 2021-08-21 16:02 | NUR ---
DISCHARGE SUMMARY FACILITY RN AND TOP FORMER ARRIVED TO PICKUP PATIENT. PATIENT WAS DRESSED, JEREZ DC'D, PICC LINE DC'D. PEG TUBE DISCONNECTED. SAVI LIFT WAS USED TO PLACE PATIENT IN THE WHEELCHAIR. FACILITY RN CLARIFIED DISCHARGE ORDERS WITH HOSPITAL DOCTOR. PATIENT LEFT UNIT AT 1600.
== END 2021-08-21 15:40 | disposition home or self-care (01) | DRG 871 ==
LOC: ER 12:19 → ICUW 14:09 → ICUE 14:09 → PCU 08-16 19:09 → SURS 08-19 10:20
PROVIDERS: Emergency Medicine; Internal Medicine; Internal Medicine Critical Care Medicine; ADMIT Internal Medicine
PROC: 3E033XZ Introduction of Vasopressor into Peripheral Vein, Percutaneous Approach (ICD-10-PCS; 2021-08-13)
PROC: 3E03329 Introduction of Other Anti-infective into Peripheral Vein, Percutaneous Approach (ICD-10-PCS; 2021-08-13)
PROC: 06HY33Z Insertion of Infusion Device into Lower Vein, Percutaneous Approach (ICD-10-PCS; 2021-08-13)
PROC: 5A0945A Assistance with Respiratory Ventilation, 24-96 Consecutive Hours, High Flow/Velocity Cannula (ICD-10-PCS; principal; 2021-08-14)
DX: A41.52 Sepsis due to Pseudomonas (principal); R65.21 Severe sepsis with septic shock; J69.0 Pneumonitis due to inhalation of food and vomit; J96.21 Acute and chronic respiratory failure with hypoxia; J15.1 Pneumonia due to Pseudomonas; Z16.24 Resistance to multiple antibiotics; E87.2 Acidosis; E87.0 Hyperosmolality and hypernatremia; E03.9 Hypothyroidism, unspecified; Z20.822 Contact with and (suspected) exposure to COVID-19; I35.0 Nonrheumatic aortic (valve) stenosis; N18.9 Chronic kidney disease, unspecified; Z79.2 Long term (current) use of antibiotics; F80.89 Other developmental disorders of speech and language; F32.A Depression, unspecified; Z79.899 Other long term (current) drug therapy; Z79.82 Long term (current) use of aspirin; Z74.01 Bed confinement status; Z93.1 Gastrostomy status
CPT/HCPCS: 0241U; 31720; 36415; 36569; 51702; 71045; 80048; 80053; 81001; 82803; 82947; 83605; 83880; 84295; 85025; 85027; 87040; 87070; 87077; 87086; 87186; 87205; 93005; 93010; 94760; 96365; 96367; 96375; 99285-25; A9270; C1751; J0696; J0713; J1650; J1956; J2060; J2405; J2543; J2704; J2765; J7030; J7040; J7060; J7070; J7120

== ENCOUNTER 2021-09-28 09:18 | Inpatient (IN) | payer OTHER ==
[~2021-09-28] VITALS: Ht 167.6 cm; Wt 98.2 kg
[2021-09-28 10:15] LABS: Base Excess Venous 9.8 mmol/L; Bicarbonate Venous 30.5 mmol/L (24.0-30.0); PCO2 Venous 78.2 mmHg (38-42); PO2 Venous 37.1 mmHg (38-42)
[2021-09-28 10:16] LABS: pH Blood Venous 7.28 (7.34-7.37)
[2021-09-28 10:27] LABS: Hemoglobin 10.7 g/dL (11.5-16.0); Mean Corpuscular HGB 34.2 pg (26.0-34.0); Mean Corpuscular HGB Conc 31.5 g/dL (31.5-36.5); Mean Corpuscular Volume 109 fL (80-100); Mean Platelet Volume 10.4 fL (9.1-12.4); NRBC ABSOLUTE 0.02 K/mm3 (0.00-0.02); NRBC Auto 1.9 /100 WBC (0.0-0.2); Platelet Count 77 K/mm3 (150-400); RDW Coefficient Variation 16.1 % (11.7-14.2); RDW Standard Deviation 64.8 fL (35.1-46.3); Red Blood Cell Count 3.13 M/mm3 (3.80-5.20); White Blood Cell Count 1.08 K/mm3 (4.00-11.30)
[2021-09-28 10:53] LABS: Albumin, Blood 2.7 g/dL (3.4-5.0); Albumin/Globulin Ratio 0.6 (0.8-1.8); Bilirubin, Total 0.4 mg/dL (0.1-1.0); Bun/Creatinine Ratio 37.2 (12.0-20.0); Calcium, Blood 9.8 mg/dL (8.5-10.1); Creatinine, Blood 0.65 mg/dL (0.40-1.00); Globulin, Blood 4.2 g/dL (2.2-4.0); Potassium, Blood 4.1 mmol/L (3.5-5.5); Total Protein, Blood 6.9 g/dL (6.4-8.2)
[2021-09-28 11:15] LABS: BAND PERCENT MAN 12 % (0-8); BASOPHILS PERCENT MAN 0 % (0-2); EOSINOPHILS PERCENT MAN 0 % (0-6); LYMPHOCYTES ABSOLUTE MAN 0.12 K/mm3 (0.84-5.20); LYMPHOCYTES PERCENT MAN 12 % (21-46); MONOCYTES PERCENT MAN 0 % (4-13); NEUTROPHILS ABSOLUTE MAN 0.95 K/mm3 (1.96-9.15); SEG NEUTROPHILS PERCENT MAN 76 % (41-73); TOTAL CELLS COUNTED 50
[2021-09-28 11:26] LABS: Source, Urine Clean Catch
[2021-09-28 11:35] LABS: Appearance, Urine Clear (Clear); Bilirubin, Urine Neg (Neg); Blood, Urine Neg (Neg); Color, Urine Yellow (P-Yellow); Glucose Qualitative, Urine Neg (Neg); Ketones, Urine Neg (Neg); Leukocyte Esterase, Urine 2+ (Neg); Nitrite, Urine Pos (Neg); Protein, Urine Neg (Neg); Urobilinogen, Urine NORM (Normal); pH, Urine 6.5 (5.0-8.0)
[2021-09-28 11:50] LABS: Red Blood Cells, Urine 0-2 /hpf (0-2)
[2021-09-28 11:51] LABS: Bacteria Many /hpf; Squamous Epithelial Cells Not Seen /hpf (Few)
[2021-09-28 13:04] LABS: PCO2 Arterial 54.5 mmHg (35-45); PO2 Arterial 85.8 mmHg (80-100); pH Blood Arterial 7.37 (7.35-7.45)
--- NOTE | 2021-09-28 15:38 | NUR ---
ADMIT PT ARRIVED TO ICU 15 VIA ER BED AT 1500. PT IS INTUBATED UPON ARRIVAL WITH RT AT BEDSIDE. VENT SETTINGS AC 16, TV 400, PEEP 5, FIO2 70%. PT SEDATED WITH FENTANYL GTT AT 25 MCG/HR AND NS BOLUS INFUSING. PT HYPOTENSIVE WITH SBP 60'S AT THIS TIME. DR DE GUZMAN AT BEDSIDE TO SEE PT. PLAN TO PLACE PICC AT THIS TIME. JEREZ IN PLACE WITH SCANT ABOUNT OF CLOUDY YELLOW OUTPUT. PT MINIMALLY RESPONSIVE TO NOXIOUS STIMULI. WILL CONTINUE TO MONITOR.
--- NOTE | 2021-09-28 18:24 | NUR ---
SHIFT SUMMARY PT REMAINS INTUBATED AND SEDATED. VENT SETTINGS UNCHANGED. PICC TO CHUNG IN PLACE WITH LEVOPHED INFUSING AT 20 MCG/MIN, VASOPRESSIN 0.04 UNITS/HR, LR 125 ML/HR, NS TKO, AND PROPOFOL 20 MCG/KG/MIN. NIBP'S REMAIN HYPOTENSIVE. MULTIPLE ATTEMPTS FOR ART LINE UNSUCCESSFUL THIS EVENING. PT REMAINS HYPOTHERMIC WITH JONY HUGGER IN PLACE. JEREZ REMAINS IN PLACE WITH MINIMAL OUTPUT NOTED. WILL CONTINUE TO MONITOR AND REPORT OFF TO ONCOMING RN.
--- NOTE | 2021-09-28 19:10 | NUR ---
ASSUMPTION OF CARE PT IS INTUBATED WITH VENT SETTINGS AC/VC 16/400/8/70%. SHE IS RECEIVING PROPOFOL 20MCG/KG/MIN, LEVOPHED 30MCG/MIN, VASOPRESSIN 0.04UNITS/MIN, LR 125ML/HR. INITIATED EPINEPHRINE, TITRATED TO MAX DOSE. ORDER RECEIVED FOR NEOSYNEPHRINE, CURRENTLY TITRATING.
--- NOTE | 2021-09-28 19:10 | NUR ---
ASSUMPTION OF CARE PT IS INTUBATED WITH VENT SETTINGS AC/VC 16/400/8/70%. SHE IS RECEIVING PROPOFOL 20MCG/KG/MIN, LEVOPHED 30MCG/MIN, VASOPRESSIN 0.4UNITS/MIN, LR 125ML/HR. EPINEPHRINE STARTED, TITRATED TO MAX DOSE. ORDER RECEIVED FOR NEOSYNEPHRINE, CURRENTLY TITRATING. ART LINE PLACED TO R FEMORAL. PRESSURES READING 60S/30S WITH GOOD WAVEFORM. GAG NOTED WITH SUCTIONING ETT. ETT SECRETIONS THICK, ART/YELLOW. JEREZ PATENT WITH VERY SMALL AMOUNT OF URINE IN TUBING. FAMILY AND CARE FACILITY NOTIFIED AND COMING IN TO HOSPITAL. SEE SHIFT ASSESSMENT.
--- NOTE | 2021-09-28 22:34 | NUR ---
UPDATE FAMILY AND CAREGIVERS AT BEDSIDE, UPDATED ON PT'S CONDITION. DR DE GUZMAN AT BEDSIDE. PT REMAINS HYPOTENSIVE, TITRATING MEDICATIONS PER FLOWSHEET. SHE IS ON LEVOPHED, VASOPRESSIN, EPINEPHRINE, NEOSYNEPHRINE FOR BP SUPPORT. SHE IS RECEIVING LR AND PROPOFOL. FAMILY WILL RETURN TOMORROW, PLAN TO CONTINUE MEDICATIONS AND MAINTAIN LIMITED CODE STATUS. CAREGIVERS REMAIN AT BEDSIDE.
[2021-09-28 23:09] LABS: SARS-Cov-2 (COVID-19) PCR, MMC NEGATIVE (NEGATIVE)
[2021-09-29 04:08] LABS: Hematocrit 26.6 % (33.0-51.0); Hemoglobin 8.6 g/dL (11.5-16.0); Mean Corpuscular HGB 34.4 pg (26.0-34.0); Mean Corpuscular HGB Conc 32.3 g/dL (31.5-36.5); Mean Corpuscular Volume 106 fL (80-100); Mean Platelet Volume 10.8 fL (9.1-12.4); NRBC ABSOLUTE 0.03 K/mm3 (0.00-0.02); NRBC Auto 0.3 /100 WBC (0.0-0.2); Platelet Count 84 K/mm3 (150-400); RDW Coefficient Variation 16.4 % (11.7-14.2); RDW Standard Deviation 64.6 fL (35.1-46.3); White Blood Cell Count 9.77 K/mm3 (4.00-11.30)
[2021-09-29 04:12] LABS: Base Excess Venous -3.8 mmol/L; Bicarbonate Venous 21.4 mmol/L (24.0-30.0); PCO2 Venous 46.7 mmHg (38-42); PO2 Venous 124 mmHg (38-42)
[2021-09-29 04:31] LABS: BAND PERCENT MAN 43 % (0-8); BASOPHILS PERCENT MAN 0 % (0-2); EOSINOPHILS PERCENT MAN 0 % (0-6); LYMPHOCYTES ABSOLUTE MAN 0.19 K/mm3 (0.84-5.20); LYMPHOCYTES PERCENT MAN 2 % (21-46); METAMYELOCYTE ABSOLUTE MAN 0.29 K/mm3 (0.00-0.00); METAMYELOCYTE PERCENT MAN 3 % (0-0); MONOCYTES ABSOLUTE MAN 0.39 K/mm3 (0.16-1.47); MONOCYTES PERCENT MAN 4 % (4-13); MYELOCYTE ABSOLUTE MAN 0.39 K/mm3 (0.00-0.00); MYELOCYTE PERCENT MAN 4 % (0-0); NEUTROPHILS ABSOLUTE MAN 8.49 K/mm3 (1.96-9.15); SEG NEUTROPHILS PERCENT MAN 44 % (41-73); TOTAL CELLS COUNTED 100
[2021-09-29 04:42] LABS: Albumin, Blood 1.8 g/dL (3.4-5.0); Albumin/Globulin Ratio 0.6 (0.8-1.8); Bilirubin, Total 0.6 mg/dL (0.1-1.0); Bun/Creatinine Ratio 33.1 (12.0-20.0); Calcium, Blood 7.9 mg/dL (8.5-10.1); Creatinine, Blood 0.88 mg/dL (0.40-1.00); Globulin, Blood 3.1 g/dL (2.2-4.0); Phosphorus, Blood 1.2 mg/dL (2.5-4.9); Potassium, Blood 3.5 mmol/L (3.5-5.5)
[2021-09-29 04:44] LABS: Total Protein, Blood 4.9 g/dL (6.4-8.2)
--- NOTE | 2021-09-29 06:26 | NUR ---
SHIFT SUMMARY PT RECEIVING PROPOFOL 20MCG/KG/MIN, LEVOPHED 30MCG/MIN, VASOPRESSIN 0.04UNITS/MIN, EPINEPHRINE 30MCG/MIN, AND NEOSYNEPHRINE 200MCG/MIN. NEURO: PT HAS GAG AND COUGH. SHE DOES NOT OPEN EYES, BUT EYELIDS SLIGHTLY MOVE. SHE DOES NOT FOLLOW COMMANDS SUCH SQUEEZING HANDS BUT MAKES OCCASIONAL MOVEMENTS WITH R LEG. PUPILS 3MM, EQUAL AND SLUGGISH. RESP: REMAINS INTUBATED, VENT SETTINGS AC/VC 16/400/8/80%. SHE HAS THICK ART/YELLOW ETT SECRETIONS. LUNGS ARE COARSE, WORSE ON R SIDE, DIMINISHED IN BASES. CARDIAC: NSR WITH HR IN 80S-90S. PT REMAINS HYPOTENSIVE THROUGHOUT SHIFT DESPITE TITRATING MEDICATIONS. CURRENT MAP 50S WITH SBP IN 70S-80S. RADIAL PULSES ARE STRONG, PEDAL PULSES FAINT. GI: ABDOMEN SOFT, BOWEL TONES HYPOACTIVE. PEG TUBE CLAMPED. : JEREZ PATENT. PT HAD 250ML CLOUDY YELLOW URINE. ART LINE REMAINS IN R FEMORAL WITH GOOD WAVEFORM. DRESSING CHANGED AT BEGINNING OF SHIFT DUE TO LEAKING. PICC REMAINS IN CHUNG. 22G TO L HAND. FAMILY WILL BE IN TO VISIT TODAY.
--- NOTE | 2021-09-29 17:41 | NUR ---
SHIFT SUMMARY NO ACUTE CHANGES THIS SHIFT. PT REMAINS INTUBATED AND SEDATED. VENT SETTINGS REMAIN AC 16, TV 400, PEEP 8, FIO2 80%. PT WITH MINIMAL RESPONSE TO NOXIOUS STIMULI. PT WITH INDEPENDENT MOVEMENT OF RLE AT TIMES. COUGH NOTED WITH ETT SUCTION AND LARGE AMOUNT OF THICK ART SECRETIONS NOTED. PICC TO CHUNG REMAINS C/D/I. PT WITH IMPROVEMENT IN BP THIS SHIFT AND PRESSORS STARTING TO BE TITRATED DOWN THIS EVENING. SEE FLOW SHEET FOR TITRATIONS. ART LINE TO RIGHT GROIN REMAINS C/D/I WITH GOOD WAVEFORM NOTED. JEREZ REMAINS IN PLACE WITH DARK YELLOW, CLOUDY OUTPUT NOTED. SBW RESTRAINTS IN PLACE. MULTIPLE CARE GIVERS AT BEDSIDE THROUGHOUT THE SHIFT. WILL CONTINUE TO MONITOR AND REPORT OFF TO ONCOMING RN.
--- NOTE | 2021-09-29 19:07 | NUR ---
ASSUMPTION OF CARE PT REMAINS INTUBATED WITH VENT SETTINGS AC/VC 16/400/8/80%. SHE IS RECEIVING LEVOPHED 24MCG/MIN, VASOPRESSIN 0.04UNITS/MIN, EPINEPHRINE 10MCG/MIN, PROPOFOL 20MCG/KG/MIN, AND LR 125ML/HR. NEOSYNEPHRINE REMAINS ON STANDBY. CURRENT MAP 73 PER ART LINE. THICK ART/YELLOW SECRETIONS WITH ETT SUCTIONING. JEREZ PATENT AND DRAINING YELLOW URINE WITH MODERATE AMOUNT OF SEDIMENT. SEE SHIFT ASSESSMENT.
[2021-09-30 01:37] LABS: Vancomycin, Trough 21.2 ug/mL (5.0-10.0)
[2021-09-30 04:24] LABS: Hematocrit 24.7 % (33.0-51.0); Hemoglobin 8.1 g/dL (11.5-16.0); Mean Corpuscular HGB 33.9 pg (26.0-34.0); Mean Corpuscular HGB Conc 32.8 g/dL (31.5-36.5); Mean Corpuscular Volume 103 fL (80-100); Mean Platelet Volume 10.9 fL (9.1-12.4); Platelet Count 87 K/mm3 (150-400); RDW Coefficient Variation 16.6 % (11.7-14.2); RDW Standard Deviation 63.4 fL (35.1-46.3); Red Blood Cell Count 2.39 M/mm3 (3.80-5.20); White Blood Cell Count 21.02 K/mm3 (4.00-11.30)
[2021-09-30 04:37] LABS: Albumin, Blood 1.7 g/dL (3.4-5.0); Albumin/Globulin Ratio 0.5 (0.8-1.8); Bilirubin, Total 0.7 mg/dL (0.1-1.0); Bun/Creatinine Ratio 39.4 (12.0-20.0); Calcium, Blood 8.4 mg/dL (8.5-10.1); Creatinine, Blood 0.58 mg/dL (0.40-1.00); Globulin, Blood 3.4 g/dL (2.2-4.0); Potassium, Blood 4.5 mmol/L (3.5-5.5); Total Protein, Blood 5.1 g/dL (6.4-8.2)
[2021-09-30 05:47] LABS: BAND PERCENT MAN 48 % (0-8); BASOPHILS PERCENT MAN 0 % (0-2); EOSINOPHILS PERCENT MAN 0 % (0-6); LYMPHOCYTES ABSOLUTE MAN 0.21 K/mm3 (0.84-5.20); LYMPHOCYTES PERCENT MAN 1 % (21-46); METAMYELOCYTE ABSOLUTE MAN 1.26 K/mm3 (0.00-0.00); METAMYELOCYTE PERCENT MAN 6 % (0-0); MONOCYTES ABSOLUTE MAN 1.26 K/mm3 (0.16-1.47); MONOCYTES PERCENT MAN 6 % (4-13); MYELOCYTE ABSOLUTE MAN 0.42 K/mm3 (0.00-0.00); MYELOCYTE PERCENT MAN 2 % (0-0); NEUTROPHILS ABSOLUTE MAN 17.86 K/mm3 (1.96-9.15); SEG NEUTROPHILS PERCENT MAN 37 % (41-73); TOTAL CELLS COUNTED 100
--- NOTE | 2021-09-30 06:33 | NUR ---
SHIFT SUMMARY PT REMAINS INTUBATED WITH VENT SETTINGS AC/VC 16/400/8/80%. SHE OCCASIONALLY COUGHS AND BREATHES OVER THE VENT. SHE IS RECEIVING LEVOPHED 15MCG/MIN, NS 125ML/HR, AND PROPOFOL 20MCG/KG/MIN. NEOSYNEPHRINE, EPINEPHRINE AND VASOPRESSIN ARE ON STANDBY. SBP 90S-100S WITH MAP >70. JEREZ PATENT AND DRAINING TO GRAVITY. URINE CONTINUES TO BE CLOUDY WITH MODERATE AMOUNT OF SEDIMENT AND SHIFT OUTPUT OF 900ML. CAREGIVER REMAINED AT BEDSIDE MOST OF SHIFT. WILL REPORT TO ONCOMING RN.
--- NOTE | 2021-09-30 17:56 | NUR ---
SHIFT SUMMARY NO ACUTE CHANGES THIS SHIFT. PT REMAINS INTUBATED AND SEDATED. VENT SETTINGS REMAIN AT AC 16, TV 400, PEEP 8, FIO2 70%. PT WITH LESS SECRETIONS THIS AFTERNOON. PT SEDATED WITH PROPOFOL AT 30 MCG/KG/MIN. PT GRIMMACES TO NOXIOUS STIMULI AND HAS OCCASIONAL MOVEMENTS TO RLE. PICC TO CHUNG REMAINS C/D/I. LEVOPHED TITRATED DOWN TO 6 MCG/MIN THIS SHIFT. NS INFUSING TKO. PEG REMAINS IN PLACE, CLAMPED. JEREZ TEMP PROBE REMAINS IN PLACE WITH LARGE VOLUME OF CLEAR YELLOW URINE OUTPUT THIS SHIFT. VITAL SIGNS REMAIN STABLE. SBW RESTRAINTS REMAIN IN PLACE. WILL CONTINUE TO MONITOR AND REPORT OFF TO ONCOMING RN.
--- NOTE | 2021-09-30 19:42 | NUR ---
ASSUMPTION OF CARE PT REMAINS INTUBATED WITH VENT SETTINGS AC/VC 16/400/5/60%. SHE IS RECEIVING PROPOFOL 30MCG/KG/MIN, LEVOPHED 6MCG/MIN, AND NS TKO. ART LINE SITE WNL. CORE TEMP 97.7. JEREZ PATENT AND DRAINING PALE YELLOW/CLEAR URINE. SEE SHIFT ASSESSMENT.
[2021-10-01 03:52] LABS: Hematocrit 24.4 % (33.0-51.0); Mean Corpuscular HGB 34.6 pg (26.0-34.0); Mean Corpuscular HGB Conc 32.8 g/dL (31.5-36.5); Mean Corpuscular Volume 106 fL (80-100); Mean Platelet Volume 11.1 fL (9.1-12.4); Platelet Count 77 K/mm3 (150-400); RDW Coefficient Variation 17.1 % (11.7-14.2); RDW Standard Deviation 66.4 fL (35.1-46.3); Red Blood Cell Count 2.31 M/mm3 (3.80-5.20); White Blood Cell Count 22.11 K/mm3 (4.00-11.30)
[2021-10-01 04:23] LABS: Magnesium, Blood 2.1 mg/dL (1.6-2.4)
[2021-10-01 04:25] LABS: Alanine Aminotransfer (ALT/SGP 56 U/L (12-78); Albumin, Blood 1.6 g/dL (3.4-5.0); Albumin/Globulin Ratio 0.5 (0.8-1.8); Alk Phos 96 U/L (50-136); Anion Gap 5 mmol/L (6-16); Aspartate Aminotrans (AST/SGOT 61 U/L (12-37); Bilirubin, Total 0.7 mg/dL (0.1-1.0); Blood Urea Nitrogen 23 mg/dL (8-24); Bun/Creatinine Ratio 39.8 (12.0-20.0); CO2, Blood 27 mmol/L (21-32); Calcium, Blood 9.2 mg/dL (8.5-10.1); Chloride, Blood 116 mmol/L (98-108); Creatinine, Blood 0.58 mg/dL (0.40-1.00); Globulin, Blood 3.5 g/dL (2.2-4.0); Glomerular Filtration Rate 100 (60-); Glucose, Blood 53 mg/dL (70-99); Phosphorus, Blood 1.7 mg/dL (2.5-4.9); Potassium, Blood 3.3 mmol/L (3.5-5.5); Sodium, Blood 148 mmol/L (136-145); Total Protein, Blood 5.1 g/dL (6.4-8.2); Vancomycin, Trough 16.7 ug/mL (5.0-10.0)
[2021-10-01 04:53] LABS: BAND PERCENT MAN 29 % (0-8); BASOPHILS PERCENT MAN 0 % (0-2); EOSINOPHILS ABSOLUTE MAN 0.22 K/mm3 (0.00-0.68); EOSINOPHILS PERCENT MAN 1 % (0-6); LYMPHOCYTES PERCENT MAN 5 % (21-46); METAMYELOCYTE PERCENT MAN 5 % (0-0); MONOCYTES ABSOLUTE MAN 0.44 K/mm3 (0.16-1.47); MONOCYTES PERCENT MAN 2 % (4-13); MYELOCYTE ABSOLUTE MAN 0.88 K/mm3 (0.00-0.00); MYELOCYTE PERCENT MAN 4 % (0-0); NEUTROPHILS ABSOLUTE MAN 18.35 K/mm3 (1.96-9.15); SEG NEUTROPHILS PERCENT MAN 54 % (41-73); TOTAL CELLS COUNTED 100
--- NOTE | 2021-10-01 06:32 | NUR ---
SHIFT SUMMARY PT REMAINS INTUBATED WITH VENT SETTINGS AC/VC 16/400/5/50%. SHE IS RECEIVING PROPOFOL 30MCG/KG/MIN AND LEVOPHED 4MCG/MIN. SHE CONTINUES TO HAVE MODERATE AMOUNT OF THICK ART/YELLOW ETT SECRETIONS. SHE REMAINS NPO, PLAN TO BEGIN TUBE FEEDING TODAY. BOWEL TONES HYPOACTIVE. JEREZ PATENT AND DRAINING YELLOW/CLEAR URINE TO GRAVITY. ART LINE TO R FEMORAL, SITE WNL. PICC TO CHUNG. AM LABS: K- 3.3, PHOS- 1.7, GLUCOSE 53, BNP 954. HOSPITALIST NOTIFIED. ORDER RECEIVED FOR K PHOS AND 1/2 AMP D50. BLOOD GLUCOSE 83 AFTER D50. WILL REPORT TO ONCOMING RN.
--- NOTE | 2021-10-01 08:30 | NUR ---
INITIAL ASSESSMENT PATIENT INTUBATED AND ON SEDATION. PATIENT RESPONDS TO NOXIOUS STIMULI WITH GRIMACING OF FACE. PATIENT DOES NOT MOVE ANY EXTREMITIES. HANDS CONTRACTED. FOOT DROP NOTED; TOES CONTRACTED. GAG AND COUGH NOTED WITH ETT SUCTIONING. PATIENT AFEBRILE. NO SIGNS OF PAIN NOTED. PATIENT ON VENT SETTINGS OF AC 14, TV 400, PEEP 8 AND 50% FIO2. LUNGS CLEAR IN UPPER LOBES, DIM IN LOWER LOBES. MODERATE AMOUNT OF THICK, ART/ YELLOW/ PINK SECRETIONS BEING SUCTIONED FROM ETT. PATIENT IN SR WITH PACS. HR 60S TO 70S. SBP IN THE 90S. MAP 65 OR GREATER. LEVOPHED AT 4 MCG/ MINUTE. 2+ EDEMA NOTED IN BLES. 1+ EDEMA NOTED IN BUES. PEG TO L ABD. JEREZ DRAINING DARK YELLOW COLORED URINE. SKIN PALE AND FRAGILE. REDDNESS AND SKIN TEAR NOTED UNDER PEG TUBE. REDNESS NOTED TO COCCYX, BILAT HEELS, UNDER BREASTS. PERIAREA RED AND PEELING. PROPOFOL INFUSING AT 30 MCG/ KG/ MINUTE. PATIENT RECEIVED 20 MM KPHOS THIS AM FOR REPLACEMENT. BED LOW, CALL LIGHT IN REACH. WILL CONTINUE TO MONITOR PATIENT FREQUENTLY THROUGHOUT SHIFT.
--- NOTE | 2021-10-01 12:15 | NUR ---
PATIENT AFEBRILE. NO SIGNS OF PAIN NOTED. HR IN THE 60S. SBP 90S TO LOW 100S. LEVOPHED AT 3 MCG/ MINUTE. VHP STARTED AT 30 MLS/ HOUR WITH 30 ML WATER FLUSH Q4H. NO OTHER ACUTE CHANGES TO NOTE ON AT THIS TIME.
--- NOTE | 2021-10-01 12:50 | NUR ---
BLOOD SUGAR OF 63. 118 MLS OF APPLEJUICE GIVEN DOWN PEG.
--- NOTE | 2021-10-01 16:00 | NUR ---
PATIENT AFEBRILE. NO SIGNS OF PAIN NOTED. PROPOFOL ON SB. PATIENT FLUTTERING EYELIDS AND OPENS EYES WHEN SPOKEN TO. PATIENT NOT FOLLOWING ANY COMMANDS AT THIS TIME. PATIENT AUTOMATICALLY SQUEEZES HANDS WHEN RN HANDS PLACED IN PATIENT'S HANDS, EVEN THOUGH THEY ARE CONTRACTED. PATIENT NOT MOVING LEGS OR FEET. HR IN THE 60S. SBP IN THE LOW 100S. LEVOPHED ON SB. SEDIMENT NOTED IN URINE. NO OTHER ACUTE CHANGES NOTED AT THIS TIME.
--- NOTE | 2021-10-01 18:57 | NUR ---
SHIFT SUMMARY PATIENT REMAINED INTUBATED. PATIENT ON SEDATION UNTIL THIS AFTERNOON. TOOK PATIENT SOME TIME TO WAKE UP BUT THEN SHE BEGAN TO FLUTTER EYELIDS AND THEN EVENTUALLY WOKE TO VERBAL STIMULI. PATIENT DID NOT FOLLOW ANY SIMPLE COMMANDS BUT DID SQUEEZE RN HANDS WHEN PLACED IN HERS. PATIENT DID NOT MOVE BLES AT ALL THIS SHIFT. GAG AND COUGH REMAINED +. PATIENT REMAINED AFEBRILE. NO SIGNS OF PAIN NOTED THIS SHIFT. PATIENT ON AC 16, TV 400, PEEP 8 AND FIO2 DECREASED FROM 50% TO 40% THIS SHIFT. PATIENT CONTINUED TO HAVE MODERATE AMOUNT OF THICK, YELLOW/ ART/ PINK SPUTUM FROM ETT. PATIENT PLACED ON SPONTANEOUS PS THIS AFTERNOON BUT PATIENT PULLING LOW TIDAL VOLUMES SO PLACED BACK ON AC SETTINGS A FEW MINUTES LATER. PATIENT REMAINED SR WITH PACS, HR 60S TO 70S. SBP 90S TO LOW 100S. MAP HAS REMAINED 65 AND GREATER. LEVOPHED AT MAX OF 4 MCG/ MINUTE AND HAS NOW BEEN ON SB FOR HOURS NOW. PATIENT'S BUES AND BLES REMAIN EDEMATOUS. VHP TF STARTED AT GOAL RATE OF 30 MLS/ HOUR WITH 30 ML WATER FLUSH Q4H. JEREZ DRAINED 500 MLS OF DARK YELLOW URINE WITH SEDIMENT NOTED. MICONAZORB ORDERED FOR REDDENED SKIN FOLDS. PATIENT REPOSITIONED Q2H THIS SHIFT. LEVAQUIN DC'D THIS SHIFT. BLOOD SUGARS 60S TO 70S. PATIENT GIVEN APPLEJUICE DOWN PEG TUBE UNTIL TF COULD HELP BRING SUGARS HELP. BED LOW, CALL LIGHT IN REACH. REPORT WILL BE GIVEN TO ASSUMING SOLID WASTE MANAGEMENT ENGINEER NURSE SHORTLY.
--- NOTE | 2021-10-01 19:15 | NUR ---
ASSUMPTION OF CARE PT REMAINS INTUBATED WITH VENT SETTINGS AC/VC 16/400/8/40%. NS TKO INFUSING. VHP STARTED TODAY, INFUSING AT GOAL RATE VIA PEG TUBE. SHE IS NO LONGER RECEIVING SEDATIVE MEDICATION. SHE OPENS EYES BUT DOES NOT FOLLOW COMMANDS. R FEMORAL ART LINE SITE WNL. JEREZ PATENT AND DRAINING TO GRAVITY. VSS. CAREGIVER AT BEDSIDE. SEE SHIFT ASSESSMENT.
--- NOTE | 2021-10-01 23:30 | NUR ---
UPDATE DURING BEDBATH, PT BEGAN CONTINUOUSLY COUGHING. ETT SUCTIONED SEVERAL TIMES WITH MODERATE AMOUNT OF THICK ART/WHITE SECRETIONS. EXCESSIVE ORAL SECRETIONS. DESPITE REPOSITIONING AND UNINTERRUPTED REST, PT CONTINUES TO COUGH. PT HAS EYES WIDE OPEN. SHE MAKES SMALL MOVEMENTS WITH BOTH UPPER EXTREMITIES AND R LOWER EXTREMITIY. LIMBS ARE VERY RIDID DURING BEDBATH AND RESISTANCE CAN BE FELT. OCCASIONALLY SHE RELAXES LIMBS TO COMMAND. PROPOFOL RESTARTED AT 10MCG/KG/MIN. PROPOFOL INFUSING FOR APPROX 1HR THEN PLACED ON SB. RT AT BEDSIDE AND PT PLACED ON PS 18/8 WITH 40% FIO2. RR 14-28, TV 320S-380S.
[2021-10-02 05:02] LABS: Hematocrit 23.9 % (33.0-51.0); Hemoglobin 7.9 g/dL (11.5-16.0); Mean Corpuscular HGB 34.5 pg (26.0-34.0); Mean Corpuscular HGB Conc 33.1 g/dL (31.5-36.5); Mean Corpuscular Volume 104 fL (80-100); Mean Platelet Volume 11.9 fL (9.1-12.4); Platelet Count 74 K/mm3 (150-400); RDW Coefficient Variation 17.2 % (11.7-14.2); RDW Standard Deviation 65.8 fL (35.1-46.3); Red Blood Cell Count 2.29 M/mm3 (3.80-5.20); White Blood Cell Count 18.74 K/mm3 (4.00-11.30)
[2021-10-02 05:20] LABS: Albumin, Blood 1.6 g/dL (3.4-5.0); Anion Gap 5 mmol/L (6-16); Blood Urea Nitrogen 28 mg/dL (8-24); Bun/Creatinine Ratio 56.7 (12.0-20.0); CO2, Blood 27 mmol/L (21-32); Calcium, Blood 9.3 mg/dL (8.5-10.1); Chloride, Blood 115 mmol/L (98-108); Creatinine, Blood 0.49 mg/dL (0.40-1.00); Glomerular Filtration Rate 105 (60-); Glucose, Blood 89 mg/dL (70-99); Phosphorus, Blood 2.6 mg/dL (2.5-4.9); Potassium, Blood 3.1 mmol/L (3.5-5.5); Sodium, Blood 147 mmol/L (136-145)
[2021-10-02 05:27] LABS: BAND PERCENT MAN 15 % (0-8); BASOPHILS PERCENT MAN 0 % (0-2); EOSINOPHILS PERCENT MAN 0 % (0-6); LYMPHOCYTES ABSOLUTE MAN 0.37 K/mm3 (0.84-5.20); LYMPHOCYTES PERCENT MAN 2 % (21-46); METAMYELOCYTE ABSOLUTE MAN 0.18 K/mm3 (0.00-0.00); METAMYELOCYTE PERCENT MAN 1 % (0-0); MONOCYTES ABSOLUTE MAN 0.93 K/mm3 (0.16-1.47); MONOCYTES PERCENT MAN 5 % (4-13); MYELOCYTE ABSOLUTE MAN 0.56 K/mm3 (0.00-0.00); MYELOCYTE PERCENT MAN 3 % (0-0); NEUTROPHILS ABSOLUTE MAN 16.67 K/mm3 (1.96-9.15); SEG NEUTROPHILS PERCENT MAN 74 % (41-73); TOTAL CELLS COUNTED 100
--- NOTE | 2021-10-02 06:13 | NUR ---
SHIFT SUMMARY PT REMAINS INTUBATED. REFER TO PREVIOUS NOTE REGARDING COUGHING AND NONCOMPLIANCE WITH VENT. PT PLACED ON PS 18/8/50% AT APPROX 0130. SHE APPEARS MORE COMFORTABLE. RR 20S, INCREASES WITH COUGHING AND DURING CARE. TV 320S-390S. SHE CONTINUES TO HAVE COPIOUS AMOUNTS OF ETT AND ORAL SECRETIONS. VHP TUBE FEEDING INFUSING AT GOAL RATE. JEREZ PATENT AND DRAINING TO GRAVITY WITH 400ML OUTPUT. POTASSIUM LOW WITH MORNING LABS, CALL PLACED TO HOSPITALIST AND RECEIVED ORDER FOR KCL THAT IS CURRENTLY INFUSING. R FEM ART LINE SITE WNL. PICC REMAINS IN CHUNG. VSS. WILL REPORT TO ONCOMING RN.
--- NOTE | 2021-10-02 08:00 | NUR ---
INITIAL ASSESSMENT PATIENT INTUBATED. NOT ON SEDATION. PATIENT OPENS EYES AND GRIMACES FACE WHEN NOXIOUS STIMULI OR ORAL CARE IS APPLIED/ PERFORMED. PATIENT APPEARS ANXIOUS AT TIMES WITH NURSING CARE. PATIENT SQUEEZES WITH HANDS BUT NOT TO VERBAL STIMULI. PATIENT IS NOT FOLLOWING ANY SIMPLE COMMANDS AT THIS TIME. BODY VERY RIGID AND STIFF. NO MOVEMENT NOTED TO BILAT LEGS OR FEET. FOOT DROP NOTED. FEET AND HANDS CONTRACTED. + GAG AND COUGH NOTED. PATIENT HAS DEVELOPMENTAL DELAY AT BASELINE. PATIENT AFEBRILE. NO SIGNS OF PAIN NOTED AT THIS TIME. PATIENT ON SPONTANEOUS PS 18/8, 40% FIO2. LUNGS CLEAR IN UPPER LOBES AND DIMINISHED IN LOWER LOBES. MODERATE AMOUNT OF THICK, YELLOW/ ART/ PINK SECRETIONS NOTED FROM ETT TUBE WITH SUCTIONING. COPIOUS ORAL SECRETIONS NOTED. PATIENT IN SR WITH FIRST DEGREE AV BLOCK. HR 60S TO 70S. SBP 90S TO LOW 100S. MAP 65 AND GREATER. LEVOPHED OFF. MURMUR NOTED. 1+ EDEMA NOTED TO BUES. 2+ EDEMA NOTED TO BLES. DEPENDENT EDEMA NOTED TO THIGHS. ABDOMEN MODERATELY DISTENDED, SOFT, NONTENDER. HYPOACTIVE BOWEL SOUNDS NOTED. SMALL, BROWN, INCONTINENT BM THIS AM. PEG TUBE TO L ABDOMEN. VHP TF INFUSING AT GOAL RATE OF 30 MLS/ HOUR WITH 30 ML WATER FLUSH Q4H. TEMP PROBE JEREZ DRAINING DARK YELLOW COLORED URINE WITH SEDIMENT NOTED. REDNESS NOTED AT HEELS, GLUTEUS LORI, L EAR, COCCYX, BREAST FOLDS, GROIN FOLDS, DANIELA AREA. FUNGAL POWDER BEING ADMINISTERED BID PER EMAR. UNDER PEG TUBE IT IS REDDENED AND SKIN TEAR NOTED. NS INFUSING TKO. PATIENT GIVEN 40 KCL REPLACEMENT FOR POTASSIUM OF 3.1 THIS AM. BED LOW. WILL CONTINUE TO MONITOR PATIENT FREQUENTLY THROUGHOUT SHIFT.
--- NOTE | 2021-10-02 12:10 | NUR ---
PATIENT AFEBRILE. NO SIGNS OF PAIN NOTED. HR 70S TO 90S. SBP LOW 100S TO 120S. PEG TUBE CLEANSED UNDERNEATH AND DRAIN SPONGES PLACED TO PROTECT SKIN. BLOOD SUGAR 94. NO OTHER ACUTE CHANGES TO NOTE ON AT THIS TIME. WILL CONTINUE TO MONITOR.
--- NOTE | 2021-10-02 12:41 | NUR ---
DR. CHAVIS INFORMED THAT ARTERIAL LINE DRESSING CHANGED THIS AM AND THAT SITE HAS APPEARED TO BE GETTING DIRTIED EVEN WITH DRESSING IN PLACE. INFORMED THAT SKIN UNDERNEATH DRESSING IS MACERATED. INFORMED THAT PLATELETS 74 TODAY AND THAT PATIENT ON LOVENOX. DR. CHAVIS STATED TO LEAVE ARTERIAL LINE IN PLACE FOR NOW AND WILL READDRESS IN A COUPLE DAYS TIME.
--- NOTE | 2021-10-02 16:00 | NUR ---
PATIENT AFEBRILE. HR IN THE 70S. SBP 90S TO LOW 100S. NO CHANGES TO VENT SETTINGS. NO OTHER ACUTE CHANGES NOTED.
--- NOTE | 2021-10-02 19:00 | NUR ---
ASSUMED CARE ASSUMED CARE OF PATIENT. REMAINS INTUBATED- PS 18, PEEP 8, FIO2 40%. RR MID- 30s. MONITOR SHOWS SR WITH FIRST DEGREE AV BLOCK, RATE 70s. BP STABLE. VITAL HIGH PROTEIN AT GOAL RATE OF 40ML/HR WITH 30ML H20 FLUSH Q4H VIA PEG TUBE. JEREZ PATENT AND DRAINING TO GRAVITY. SEE SHIFT ASSESSMENT FOR FULL ASSESSMENT.
--- NOTE | 2021-10-02 19:40 | NUR ---
SHIFT SUMMARY PATIENT SLEPT MOST OF THE SHIFT. PATIENT WOULD WAKE AND OPEN EYES, GRIMACE TO NOXIOUS STIMULI. PATIENT DID NOT FOLLOW ANY COMMANDS. PATIENT REMAINED INTUBATED AND WITHOUT SEDATION. PATIENT HAD TMAX OF 99.4 DEGREES FAHRENHEIT THIS SHIFT. PATIENT CONTINUED TO HAVE MODERATE AMOUNT OF ETT SECRETIONS AND COPIOUS ORAL SECRETIONS. PATIENT REMAINED ON SPONTANEOUS PS 18/8 AND 40% FIO2. PATIENT REMAINED SR WITH OCCASIONAL FIRST DEGREE AV BLOCK. HR 60S TO 90S. SBP 90S TO 120S. TF INCREASED TO NEW GOAL RATE OF 40 MLS/ HOUR. PATIENT HAS SMALL, BROWN NM THIS AM. 600 MLS OF DARK YELLOW URINE WITH SEDIMENT OUT THIS SHIFT. NO CHANGES TO SKIN NOTED. PATIENT REPOSITIONED Q2H. PEG TUBE SKIN CARE PERFORMED THIS SHIFT. ARTERIAL LINE DRESSING CHANGED THIS SHIFT. NS INFUSING TKO. PATIENT RECEIVED 40 MEQ KCL THIS AM FOR POTASSIUM OF 3.1. BLOOD SUGARS 80S TO 90S. BED LOW. REPORT GIVEN TO ONCOMING FREELANCE PHOTOGRAPHER NURSE.
[2021-10-03 04:03] LABS: Hematocrit 24.4 % (33.0-51.0); Hemoglobin 7.9 g/dL (11.5-16.0); Mean Corpuscular HGB 34.5 pg (26.0-34.0); Mean Corpuscular HGB Conc 32.4 g/dL (31.5-36.5); Mean Corpuscular Volume 107 fL (80-100); Mean Platelet Volume 12.1 fL (9.1-12.4); NRBC ABSOLUTE 0.07 K/mm3 (0.00-0.02); NRBC Auto 0.6 /100 WBC (0.0-0.2); Platelet Count 69 K/mm3 (150-400); RDW Coefficient Variation 17.5 % (11.7-14.2); RDW Standard Deviation 68.5 fL (35.1-46.3); Red Blood Cell Count 2.29 M/mm3 (3.80-5.20); White Blood Cell Count 11.66 K/mm3 (4.00-11.30)
[2021-10-03 04:18] LABS: Albumin, Blood 1.5 g/dL (3.4-5.0); Anion Gap 6 mmol/L (6-16); Blood Urea Nitrogen 30 mg/dL (8-24); Bun/Creatinine Ratio 60.5 (12.0-20.0); CO2, Blood 28 mmol/L (21-32); Calcium, Blood 8.9 mg/dL (8.5-10.1); Chloride, Blood 114 mmol/L (98-108); Glomerular Filtration Rate 104 (60-); Glucose, Blood 92 mg/dL (70-99); Phosphorus, Blood 3.5 mg/dL (2.5-4.9); Potassium, Blood 3.7 mmol/L (3.5-5.5); Sodium, Blood 148 mmol/L (136-145)
[2021-10-03 04:50] LABS: BAND PERCENT MAN 12 % (0-8); BASOPHILS PERCENT MAN 0 % (0-2); EOSINOPHILS ABSOLUTE MAN 0.11 K/mm3 (0.00-0.68); EOSINOPHILS PERCENT MAN 1 % (0-6); LYMPHOCYTES ABSOLUTE MAN 0.58 K/mm3 (0.84-5.20); LYMPHOCYTES PERCENT MAN 5 % (21-46); METAMYELOCYTE ABSOLUTE MAN 0.11 K/mm3 (0.00-0.00); METAMYELOCYTE PERCENT MAN 1 % (0-0); MONOCYTES ABSOLUTE MAN 1.04 K/mm3 (0.16-1.47); MONOCYTES PERCENT MAN 9 % (4-13); MYELOCYTE ABSOLUTE MAN 0.34 K/mm3 (0.00-0.00); MYELOCYTE PERCENT MAN 3 % (0-0); NEUTROPHILS ABSOLUTE MAN 9.44 K/mm3 (1.96-9.15); SEG NEUTROPHILS PERCENT MAN 69 % (41-73); TOTAL CELLS COUNTED 100
--- NOTE | 2021-10-03 06:38 | NUR ---
SHIFT SUMMARY NO ACUTE CHANGES DURING NOC. REMAINED ON AC/VC VENTILATION SINCE 1999- 16/400/8/40%. RR 18-30s. REQUIRES FREQUENT SUCTIONING- THICK ART SPUTUM. COPIOUS ORAL SECRETIONS. MONITOR SHOWS SR WITH FIRST DEGREE AV BLOCK, RATE 70s-90s. BP STABLE. TMAX 100.4F. NO NEURO CHANGES. MOVES HEAD AND UPPER EXTREMITIES SPONTANEOUSLY. DOES NOT FOLLOW ANY COMMANDS. OPENS EYES SPONTANEOUSLY. BILATERAL SOFT WRIST RESTRAINTS IN PLACE TO PROTECT TUBES/LINES. PEG WITH VITAL HIGH PROTEIN AT GOAL RATE OF 40CC/HR WITH 30CC H20 FLUSH Q4H. INCONTINENT OF SMALL AMOUNT OF LIQUID BROWN STOOL X 1. JEREZ PATENT AND DRAINING TO GRAVITY. CHUNG PICC NOTED. WILL REPORT TO ONCOMING RN WHEN AVAILABLE.
--- NOTE | 2021-10-03 16:56 | NUR ---
SHIFT SUMMARY NO ACUTE CHANGES THIS SHIFT. PT REMAINS INTUBATED AND NOT SEDATED. VENT SETTING AC 16, TV 400, PEEP 8, FIO2 40%. PT CONTINUES TO HAVE COPIOUS ORAL AND ETT SECRETIONS THIS SHIFT. PT OPENS EYES SPONTANEOUSLY AND GRIMMACES TO NOXIOUS STIMULI. PT DOES NOT FOLLOW ANY COMMANDS. PT EXTREMITIES ARE RIGID DURING REPOSITIONING AND ORAL CARE. PICC TO CHUNG REMAINS C/D/I WITH NS INFUSING TKO. PEG REMAINS IN PLACE WITH TF INFUSING AT GOAL RATE. JEREZ TEMP PROBE REMAINS IN PLACE WITH YELLOW URINE OUTPUT NOTED. VITAL SIGNS HAVE REMAINED STABLE. SBW RESTAINTS REMAIN IN PLACE. PT CAREGIVER AT BEDSIDE THIS AM FOR SHORT PERIOD OF TIME. STATES THERE IS TO BE A FAMILY DISCUSSION ABOUT GOALS OF CARE THIS AFTERNOON. HAVE NOT HEARD ANY UPDATED FROM FAMILY OR CARE GIVERS AT THIS TIME. WILL CONTINUE TO MONITOR AND REPORT OFF TO ONCOMING RN.
--- NOTE | 2021-10-03 19:00 | NUR ---
ASSUMED CARE ASSUMED CARE OF PATIENT. REMAINS INTUBATED- AC/VC 16/400/8/40%. RR 20s. MONITOR SHOWS SB-SR WITH FIRST DEGREE AV BLOCK, RATE 50s-60s. BP STABLE. OPENS EYES SPONTANEOUSLY, BUT DOES NOT APPEAR TO TRACK. MOVES HEAD BACK AND FORTH. MINIMAL GROSS MOTOR MOVEMENT NOTED IN EXTREMITIES. PEG WITH VITAL HIGH PROTEIN INFUSING AT GOAL RATE OF 40CC/HR. 200CC H20 FLUSH Q4H. JEREZ PATENT AND DRAINING TO GRAVITY. PICC NOTED TO CHUNG. SEE SHIFT ASSESSMENT FOR FULL ASSESSMENT.
[2021-10-04 05:08] LABS: Hemoglobin 7.6 g/dL (11.5-16.0); Mean Corpuscular HGB 34.1 pg (26.0-34.0); Mean Corpuscular HGB Conc 31.7 g/dL (31.5-36.5); Mean Corpuscular Volume 108 fL (80-100); Mean Platelet Volume 11.5 fL (9.1-12.4); NRBC ABSOLUTE 0.03 K/mm3 (0.00-0.02); NRBC Auto 0.2 /100 WBC (0.0-0.2); Platelet Count 85 K/mm3 (150-400); RDW Coefficient Variation 17.6 % (11.7-14.2); RDW Standard Deviation 68.6 fL (35.1-46.3); Red Blood Cell Count 2.23 M/mm3 (3.80-5.20); White Blood Cell Count 12.38 K/mm3 (4.00-11.30)
[2021-10-04 05:22] LABS: Albumin, Blood 1.6 g/dL (3.4-5.0); Anion Gap 5 mmol/L (6-16); Blood Urea Nitrogen 30 mg/dL (8-24); Bun/Creatinine Ratio 72.1 (12.0-20.0); CO2, Blood 30 mmol/L (21-32); Calcium, Blood 8.5 mg/dL (8.5-10.1); Chloride, Blood 113 mmol/L (98-108); Creatinine, Blood 0.42 mg/dL (0.40-1.00); Glomerular Filtration Rate 108 (60-); Glucose, Blood 86 mg/dL (70-99); Phosphorus, Blood 2.7 mg/dL (2.5-4.9); Potassium, Blood 3.4 mmol/L (3.5-5.5); Sodium, Blood 148 mmol/L (136-145); Vancomycin, Trough 10.3 ug/mL (5.0-10.0)
[2021-10-04 05:51] LABS: BAND PERCENT MAN 9 % (0-8); BASOPHILS PERCENT MAN 0 % (0-2); EOSINOPHILS PERCENT MAN 0 % (0-6); LYMPHOCYTES ABSOLUTE MAN 1.36 K/mm3 (0.84-5.20); LYMPHOCYTES PERCENT MAN 11 % (21-46); MONOCYTES ABSOLUTE MAN 1.48 K/mm3 (0.16-1.47); MONOCYTES PERCENT MAN 12 % (4-13); MYELOCYTE ABSOLUTE MAN 0.12 K/mm3 (0.00-0.00); MYELOCYTE PERCENT MAN 1 % (0-0); SEG NEUTROPHILS PERCENT MAN 67 % (41-73); TOTAL CELLS COUNTED 100
--- NOTE | 2021-10-04 06:19 | NUR ---
SHIFT SUMMARY NO ACUTE CHANGES DURING NOC. REMAINS INTUBATED- VENT SETTINGS UNCHANGED. CONTINUES WITH COPIOUS ORAL AND ETT SECRETIONS REQUIRING FREQUENT SUCTIONING. NO CHANGE IN NEURO STATUS. PT OPENS EYES SPONTANEOUSLY. MOVES HEAD AND STIFFENS EXTREMITIES WITH STIMULI. CONTRACTURES AND RIGIDITY NOTED. VSS. TMAX 99.5F. PEG WITH VITAL HIGH PROTEIN AT GOAL RATE OF 40CC/HR. 200CC WATER FLUSH Q4H. INCONTINENT OF EXTRA LARGE AMOUNT OF LOOSE BROWN STOOL. JEREZ PATENT AND DRAINING TO GRAVITY. CHUNG PICC PATENT, BUT WHITE PORT IS SLUGGISH. REMAINS IN DROPLET/CONTACT ISOLATION FOR MRSA IN SPUTUM. WILL REPORT TO ONCOMING RN WHEN AVAILABLE.
--- NOTE | 2021-10-04 10:41 | NUR ---
TRANSITION TO COMFORT CARE PHONE CALL RECIEVED FROM [facility] CORONA THIS MORNING. AFTER FAMILY MEETING YESTERDAY WITH PT BROTHER AND SISTER IN LAW, IT WAS DECIDED TO TRANSITION PT TO HOSPICE CARE. PT COBOL ENGINEER COMBINATION PRESSER NILTON AT BEDSIDE WITH [facility] RN. DR CHAVIS AT BEDSIDE WELL, PLAN OF CARE DISCUSSED. WAITING TO HEAR BACK FROM FAMILY IF THEY WANT TO VISIT PT PRIOR TO EXTUBATION TO COMFORT CARE. WILL CONTINUE TO MONITOR.
--- NOTE | 2021-10-04 16:53 | NUR ---
EXTUBATION PT SOYFREEZE OPERATOR'S CAME TO VISIT WITH PT THIS AFTERNOON. PT PREMEDICATED WITH MORPHINE IV. RT EXTUBATED PT AT 1645, PT PLACED ON 2L O2 NC. TF DISCONTINUED. NILTON, SOYFREEZE OPERATOR REMAINS AT BEDSIDE. WILL CONTINUE TO MONITOR.
--- NOTE | 2021-10-04 17:22 | NUR ---
SHIFT SUMMARY PT EXTUBATED TO COMFORT CARE THIS AFTERNOON. PT RESTING QUIETLY AT THIS TIME. PICC TO CHUNG REMAINS C/D/I, SALINE LOCKED. PEG REMAINS IN PLACE, CLAMPED AT THIS TIME. JEREZ REMAINS IN PLACE WITH DARK YELLOW URINE OUTPUT THIS SHIFT. RECTAL TUBE REMAINS IN PLACE. PT CAREGIVER REMAINS AT BEDSIDE AT THIS TIME. WILL CONTINUE TO MONITOR AND REPORT OFF TO ONCOMING RN.
--- NOTE | 2021-10-04 19:00 | NUR ---
ASSUMED CARE ASSUMED CARE OF PATIENT. PT IS COMFORT CARE STATUS. CAREGIVER AT BEDSIDE. PT REMAINS ON 2L NC FOR COMFORT. HR 60s, NSR. OPENS EYES TO VERBAL STIMULI. NOT FOLLOWING ANY COMMANDS. MINIMAL SPONTANEOUS MOVEMENT NOTED OF HEAD. CONTRACTURES/RIGIDITY UNCHANGED. CHUNG PICC PATENT. JEREZ PATENT AND DRAINING TO GRAVITY. NO S/S OF PAIN OR DISCOMFORT AT THIS TIME.
--- NOTE | 2021-10-05 06:25 | NUR ---
SHIFT SUMMARY NO ACUTE CHANGES. NO S/S OF PAIN OR DISCOMFORT DURING SHIFT. CAREGIVER REMAINED AT BEDSIDE T/O NOC. COMFORT CARE PROVIDED. REMAINS ON 2L NC FOR COMFORT. JEREZ PATENT AND DRAINING TO GRAVITY. RECTAL TUBE REMAINS IN PLACE. ATTEMPTS TO PROVIDE ORAL SUCTIONING WERE UNSUCCESSFUL D/T PT CLAMPING MOUTH SHUT. CHUNG PICC PATENT, SL. WILL REPORT TO ONCOMING RN WHEN AVAILABLE.
--- NOTE | 2021-10-05 07:00 | NUR ---
ASSUME CARE: I have assumed care of this patient.
--- NOTE | 2021-10-05 19:16 | NUR ---
SHIFT SUMMARY: Pt turned q 4 hours today. no medications needed. Caregivers at bedside supportive of pt.
--- NOTE | 2021-10-06 06:11 | NUR ---
SHIFT SUMMERY PT COMFORT CARE/DNR. FAMILY AT BEDSIDE THROUGHOUT THE NIGHT. NO PRN MEDICATIONS REQUIRED THIS SHIFT, NO ACUTE CHANGES AT THIS TIME.
--- NOTE | 2021-10-06 07:01 | NUR ---
ASSUME CARE: I have assumed care of this patient.
--- NOTE | 2021-10-06 17:34 | NUR ---
SHIFT SUMMARY PT COMFORT CARE STATUS. PT APPEARS COMFORTABLE AND NOT IN NEEDS OF COMFORT CARE MEDS AT THIS TIME. GLASSINE MACHINE TENDER REMAINS AT BEDSIDE, REQUESTED GLASSINE MACHINE TENDER ALERT NURSE IF PT APPEARS IN DISTRESS.
--- NOTE | 2021-10-06 18:31 | NUR ---
PT TRANSFERRED TO ROOM 350, STEEL TESTER AT BEDSIDE.
--- NOTE | 2021-10-06 18:33 | NUR ---
ICU TRANSFER TO MEDICAL Handoff report given by Spenser VALDES. Patient transferred to medical floor at 1820, comfort care status, caregivers at bedside, discharging friday on Hospice. Droplet/Contact precautions intitated. Patient on bedrest, 2L/O2, hale/rectal tube in place. Nonproductive, congested cough. Patient resting comfortably in bed, no PRNs for comfort needed at this time.
--- NOTE | 2021-10-06 21:58 | NUR ---
PT was transferred from ICU on comfort care at 1800. She has hale cath & rectal tube. She verbalized she was OK when this RN introduced myself. She has attendent from [facility]. Generally nonverbal PT is NPO baseline with gtube feeding. PT has bilat le contractures, needs turned repositioned Q 2 hours. Denies pain or acute anxiety. Reportedly whas Hospice planned for Friday to medical home. in Contact droplet precautions MRSA in sputum & has Strep viridans g in urine as well as second bacterial growth. 2 l nc oxygen for comfort.
--- NOTE | 2021-10-06 22:08 | NUR ---
turned & repositined Handicapped adult with bilat le contractures. Cath & rectal tube care completed & oral care. Updated plan of care discussed with Colin at [facility].
--- NOTE | 2021-10-07 01:11 | NUR ---
PT is npo baseline developmental delays from [facility]. Has Caregiver present from [facility]. She is mostly nonverbal no meaningful answers. Turned side to side has rectal tube present & patent draining dark brown liquid stools sm amt. She has hale cath drains north urine with sed. MRSA in Sputum UTI pneumonia. Oxygen 2 l for comfort. Skin care completed, peg tub care. 200 ml free water via tube Q 4 hours ordered.
--- NOTE | 2021-10-07 02:35 | NUR ---
CONTINUE ON 2 L NC NPO WITH ORAL CARE FOR COMFORT CARE. SHE HAS GTUBE & WATER PER TUBE WITH ASPIRATION PRECAUTIONS. hob UP AFTER FREE WATER.
--- NOTE | 2021-10-07 04:04 | NUR ---
MEDICATED PT FOR PERCIEVED PAIN AIR HUNGER WITH MORPHINE 4 MG IV VIA LT UPPER PICC LINE. RESP RAPID PT STIFF WITH BILAT LE BILAT LE CONTRACTURES. PT CLENCH MOUTH FOR ORAL SUCTION HAS SOME NOISY SECRETIONS . AWAIT EFFECT OF PAIN RELIEVER. ATTENDENT FROM [facility] IN ROOM GIVES INPUT INTO PTS BASELINE.
--- NOTE | 2021-10-07 05:29 | NUR ---
PT MEDICATED FOR CONTINUED RAPID RESP DYSPNEA DESPITE 4 MG IV MORPHINE . 1 MG IV ATIVAN & ORAL SUCTION FOR ANXIETY AIRHUNGER. RESISTS ORAL SUCTION MRSA IN SPUTUM CONTINUES IN DROP[LET CONTACT PRECAUTIONS 2 L NC. CONTRACTURES LIMIT BED POSITIONING.
--- NOTE | 2021-10-07 08:32 | NUR ---
PT IN BED, NON RESPONSIVE, RR LABORED, AUDIBLE SECRETIONS. PAINAID 0/10. CAREGIVER IN ROOM WITH PT. PT REPOISTIONED TO R SIDE WITH PILLOWS. DANIELA/CATH CARE COMPLETED. SCOPALAMINE PATCH APPLIED TO BEHIND LEFT EAR. PT CLAMPED MOUTH SHUT FOR ORAL CARE, UNABLE TO SUCTION AT THIS TIME.
--- NOTE | 2021-10-07 12:10 | NUR ---
RECTAL TUBE REMOVED SO TYLENOL SUPPOSITORY COULD BE GIVEN VIA TN. PT TOLERATED WELL. 45 CC FLUID REMOVED FROM BALLOON PRIOR TO REMOVAL. DARK BROWN SOFT STOOL IN TUBING PRESENT. PT GIVEN TYLENOL SUPPOSITOR, COMPLETE BEDBATH AND BED CHANGE. ORAL CARE COMPLETED AND PT GIVEN ROXANOL FOR DYSPNEA WITH RR AT 40. AUDIBLE SECRETIONS PERSIST. PT HOB ELEVATED AT 30 DEGREES. COVERED WITH SHEET, NO BLANKETS FOR COMFORT UNTIL TYLENOL EFFECTIVE. CAREGIVERS X 3 PRESENT FROM HER HOME. THEY WERE EDUCATED ON DYING PROCESS AND ADVISED TO CALL ANY FAMILY. THEY REPORTED THEY CALLED BROTHER BUT THEY ARE NOT SURE HE WILL COME TO VISIT PT.
--- NOTE | 2021-10-07 16:23 | NUR ---
NOTIFIED BY [facility] RN PRESENT PT RR HAD CEASED. TIME NOTED WAS 1603. UPON ENTERING ROOM PT LET OUT ONE MORE BREATH AND THEN RR CEASED. NO HEART SOUNDS HEARD X ONE MINUTE NO PULSES PALPABLE. PT CYANOTIC IN EXTREMITIES. TOD CALLED AT 1604. BROTHER WAS NOTIFIED BY [facility] STAFF PRESENT. DR. RAY NOTIFIED OF TOD. POST MORTEM CARE COMPLETED. HOISTING PILE DRIVING ENGINEER NOTIFIED AND WILL CALL HOME.
--- NOTE | 2021-10-07 18:44 | NUR ---
pt seen today to assit with medications as pt eminent.
== END 2021-10-07 16:04 | DRG 870 ==
LOC: ER 09:18 → ICUW 13:29 → MEDS 10-06 18:17
PROVIDERS: Family Medicine; Internal Medicine Critical Care Medicine; Student in an Organized Health Care Education/Training Program; ADMIT Internal Medicine
PROC: 5A1955Z Respiratory Ventilation, Greater than 96 Consecutive Hours (ICD-10-PCS; principal; 2021-09-28)
PROC: 0BH17EZ Insertion of Endotracheal Airway into Trachea, Via Natural or Artificial Opening (ICD-10-PCS; 2021-09-28)
PROC: 02HV33Z Insertion of Infusion Device into Superior Vena Cava, Percutaneous Approach (ICD-10-PCS; 2021-09-28)
PROC: 04HK33Z Insertion of Infusion Device into Right Femoral Artery, Percutaneous Approach (ICD-10-PCS; 2021-09-28)
PROC: 3E03329 Introduction of Other Anti-infective into Peripheral Vein, Percutaneous Approach (ICD-10-PCS; 2021-09-28)
PROC: 3E033XZ Introduction of Vasopressor into Peripheral Vein, Percutaneous Approach (ICD-10-PCS; 2021-09-28)
DX: A41.9 Sepsis, unspecified organism (principal); R65.21 Severe sepsis with septic shock; J96.21 Acute and chronic respiratory failure with hypoxia; J15.212 Pneumonia due to Methicillin resistant Staphylococcus aureus; J69.0 Pneumonitis due to inhalation of food and vomit; R53.2 Functional quadriplegia; Z66 Do not resuscitate; Z51.5 Encounter for palliative care; J96.22 Acute and chronic respiratory failure with hypercapnia; N39.0 Urinary tract infection, site not specified; E87.0 Hyperosmolality and hypernatremia; Z20.822 Contact with and (suspected) exposure to COVID-19; D72.819 Decreased white blood cell count, unspecified; B95.5 Unspecified streptococcus as the cause of diseases classified elsewhere; K21.9 Gastro-esophageal reflux disease without esophagitis; R68.0 Hypothermia, not associated with low environmental temperature; D69.6 Thrombocytopenia, unspecified; E16.2 Hypoglycemia, unspecified; R62.50 Unspecified lack of expected normal physiological development in childhood; E83.42 Hypomagnesemia; E87.6 Hypokalemia; N18.9 Chronic kidney disease, unspecified; F22 Delusional disorders; E03.9 Hypothyroidism, unspecified; I35.0 Nonrheumatic aortic (valve) stenosis; Z78.1 Physical restraint status; Z79.82 Long term (current) use of aspirin; Z79.51 Long term (current) use of inhaled steroids; Z79.899 Other long term (current) drug therapy; Z88.1 Allergy status to other antibiotic agents
CPT/HCPCS: 31500; 31720; 36415; 36569; 36600; 36620; 51702; 71045; 80053; 80069; 80202; 81001; 82330; 82803; 82947; 83605; 83735; 83880; 84100; 84484; 85025; 87040; 87070; 87077; 87086; 87186; 87205; 93005; 93010; 93306; 94002; 94003; 94640; 94660; 94664; 94760; 94762; 96361; 96365; 96366; 96367; 99285-25; A9270; C1751; C9113; J0171; J0692; J0713; J1650; J1956; J2060; J2270; J2370; J2543; J2704; J3010; J3370; J3475; J3480; J7030; J7040; J7050; J7060; J7120; U0004